=== PATIENT | female | born 1950 | race American Indian/Alaskan Native ===

== ENCOUNTER → 2020-03-15 15:44 | Outpatient (BNVA) | payer MEDICARE, SELFPAY | PROVIDERS: PCP Internal Medicine; Visit Provider Student in an Organized Health Care Education/Training Program | DX: Z76.89 Persons encountering health services in other specified circumstances (principal) | CPT/HCPCS: Q3014 ==

== ENCOUNTER → 2020-09-13 14:57 | Outpatient (BNVA) | payer MEDICARE, SELFPAY | PROVIDERS: PCP Internal Medicine; Visit Provider Student in an Organized Health Care Education/Training Program | DX: M47.816 Spondylosis without myelopathy or radiculopathy, lumbar region (principal) | CPT/HCPCS: 99212 ==

== ENCOUNTER 2021-04-24 16:00 | Outpatient (REF) | payer MEDICARE, SELFPAY ==
[2021-04-24 17:20] LABS: Alanine Aminotransferase 10 U/L (0-31); Albumin Level 3.9 g/dL (3.5-5.0); Alkaline Phosphatase 101 U/L (39-117); Anion Gap 10 (12-20); Aspartate Amino Transferase 15 U/L (5-31); Bilirubin Total 0.2 mg/dL (0.0-1.0); Blood Urea Nitrogen 17 mg/dL (9-16); Calcium 9.1 mg/dL (8.4-10.2); Carbon Dioxide 28 mmol/L (22-29); Chloride 108 mmol/L (96-108); Estimated Glomerular Filt Rate 38; Glucose Random 105 mg/dL (60-115); Potassium 4.5 mmol/L (3.3-5.1); Sodium 141 mmol/L (135-145); Total Protein 6.9 g/dL (6.5-8.0)
== END 2021-04-24 16:01 | disposition home or self-care (01) ==
LOC: HO.LAB 16:00
PROVIDERS: Visit Provider Nurse Practitioner Family
DX: M47.816 Spondylosis without myelopathy or radiculopathy, lumbar region (principal)
CPT/HCPCS: 36415; 80053

== ENCOUNTER → 2021-10-17 12:22 | Outpatient (BNVA) | payer MEDICARE, SELFPAY | PROVIDERS: PCP Internal Medicine; Visit Provider Nurse Practitioner Family | DX: M47.816 Spondylosis without myelopathy or radiculopathy, lumbar region (principal); M79.641 Pain in right hand; M79.642 Pain in left hand; M25.551 Pain in right hip | CPT/HCPCS: Q3014 ==

== ENCOUNTER 2022-01-15 14:14 | Outpatient (REF) | payer MEDICARE, SELFPAY | END 2022-01-15 14:15 | disposition home or self-care (01) | LOC: HO.LAB 14:14 | PROVIDERS: Visit Provider Nurse Practitioner Family | DX: M79.641 Pain in right hand (principal); M79.642 Pain in left hand; M25.551 Pain in right hip; M54.2 Cervicalgia | CPT/HCPCS: 99212 ==

== ENCOUNTER 2022-07-24 11:09 | Outpatient (REF) | payer MEDICARE, SELFPAY ==
--- NOTE | ~2022-07-24 | XR_ITS ---
EXAMINATION: BILATERAL HANDS, CERVICAL SPINE, AND LUMBAR SPINE. CLINICAL INFORMATION: Pain. COMPARISON: Lumbar and cervical spine studies of 11/18/2015. TECHNIQUE: 3 views of each hand, 3 view lumbar spine study, and 3 view cervical spine study. FINDINGS: LEFT HAND: There is no evidence of acute fracture or dislocation of the left hand. There is significant degenerative change of the distal interphalangeal joints most significant involving the 2nd and 3rd distal interphalangeal joints and the 1st interphalangeal joint. There is some marginal spurring present with articular irregularity. The metacarpophalangeal joints appear unremarkable. There is mild narrowing of the proximal interphalangeal joints. There is mild degenerative change of the 1st carpometacarpal joint. No evidence of erosive arthritides. RIGHT HAND: Views of the right hand do not demonstrate any evidence of acute fracture or dislocation. There is significant degenerative change seen involving the 1st interphalangeal joint and 2nd and 3rd distal interphalangeal joints with loss of joint space, marginal spurring and sclerosis, and articular irregularity. There is some joint space narrowing seen involving the 4th and 5th distal interphalangeal joints. There is degenerative change with mild spurring seen involving the 5th proximal interphalangeal joint. There is mild degenerative change of the 1st carpometacarpal joint with some joint space narrowing and sclerosis. CERVICAL SPINE: No abnormal prevertebral soft tissue swelling is seen. No acute cervical spine fracture is noted. There is narrowing of the C5-C6 and C6-C7 disc spaces with some marginal spurring present. No subluxation is seen. No destructive bony lesions. LUMBAR SPINE: There is mild scoliosis of the thoracolumbar junction convex left and with minimal distal lumbar spine scoliosis convex right. No acute fracture, spondylolisthesis, or spondylolysis is appreciated. There is significant narrowing of the L4-L5 disc space with some marginal spurring and sclerosis. There is mild narrowing of the L5-S1 disc space and of the L1-L2 disc space. There is facet arthropathy seen at the L5-S1 level. XR/XR lumbar spine 2-3V IMPRESSION: 1. Findings of osteoarthritis involving the left hand, predominantly the 1st interphalangeal joint and 2nd and 3rd distal interphalangeal joints. 2. Findings of osteoarthritis of the right hand as described. 3. Cervical spondylosis as described. 4. Lumbar spondylosis as described with disc space narrowing most significant at the L4-L5 level and facet arthropathy most significant at the L5-S1 level.
[2022-07-24 12:46] LABS: Alanine Aminotransferase 9 U/L (0-31); Aspartate Amino Transferase 13 U/L (5-31); Blood Urea Nitrogen 14 mg/dL (9-16); Estimated Glomerular Filt Rate 44
[2022-07-24 12:47] LABS: Amphetamine Screen Urine Not Detected (Not Detect); Barbiturates, Urine Not Detected (Not Detect); Benzodiazepines Screen Urine Not Detected (Not Detect); Cannabinoid Screen Urine POSITIVE (Not Detect); Cocaine Screen Urine Not Detected (Not Detect); Fentanyl, urine Not Detected (Not Detect); Opiate Screen Urine Not Detected (Not Detect); Phencyclidine Screen Urine Not Detected (Not Detect)
== END 2022-07-24 11:10 | disposition home or self-care (01) ==
LOC: HO.XRAY 11:09
PROVIDERS: PCP Internal Medicine; Visit Provider Nurse Practitioner Family
DX: M47.816 Spondylosis without myelopathy or radiculopathy, lumbar region (principal); M79.641 Pain in right hand; M79.642 Pain in left hand; M54.50 Low back pain, unspecified; M54.2 Cervicalgia; Z51.81 Encounter for therapeutic drug level monitoring; Z79.899 Other long term (current) drug therapy
CPT/HCPCS: 72040; 72100; 73130; 80307; 80373; 82565; 84450; 84460; 84520

== ENCOUNTER → 2022-08-07 16:09 | Outpatient (BNVA) | payer MEDICARE, SELFPAY | PROVIDERS: PCP Internal Medicine; Visit Provider Nurse Practitioner Family | DX: M47.816 Spondylosis without myelopathy or radiculopathy, lumbar region (principal); M47.812 Spondylosis without myelopathy or radiculopathy, cervical region; M19.041 Primary osteoarthritis, right hand; M19.042 Primary osteoarthritis, left hand | CPT/HCPCS: 99212 ==

== ENCOUNTER 2023-01-29 10:24 | Outpatient (AMB) | payer MEDICARE, SELFPAY ==
--- NOTE | 2023-01-29 10:31 | A.OFFVIS_ITS ---
Intake Vital Signs 01/29/23 10:32 Height 5 ft Weight 133 lb 13.129 oz BMI 26.1 BP 104/60 Blood Pressure Location Lt brachial Position Sitting Pulse 67 Pulse Source Pulse Oximeter Temp 96.8 F Temp Source Skin Pulse Oximetry (%) 97 Oxygen Delivery Method Room Air Intake Visit Reasons: OA Intake Note: Patient presents today to follow up on OA. 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 Name: Debi, daughter Accompanied by: Daughter Allergies ibuprofen Allergy (Unknown, Verified 01/29/23 10:34) GI upset Medication List - Last Reconciled 01/29/23 by Carlitos Meadows MD calcium carbonate-vitamin D3 600 mg-12.5 mcg (500 unit) (Calcium 600 with Vitamin D3) caps PO cyanocobalamin (vitamin B-12) 1,000 mcg PO DAILY doxepin 25 mg PO BEDTIME fluticasone furoate-vilanterol 100-25 mcg/dose (Breo Ellipta) 1 ea inhalation DAILY fluticasone propionate 50 mcg/actuation (Flonase Allergy Relief) 2 sprays intranasal DAILY loratadine (Claritin) 10 mg PO DAILY omeprazole 20 mg PO DAILY pregabalin (Lyrica) 1 tab po in the am and 3 tabs po at night; tizanidine 4 mg PO BEDTIME PRN tramadol 50 mg PO TID PRN HPI HPI Comments History of Present Illness Details The patient returns today for evaluation of her widespread pains of osteoarthritis and fibromyalgia. Her daughter translates for us. The patient complains of pain mostly at the base of the thumbs, neck region, shoulders, lower back, right buttock and down the right leg. She remains on tramadol 50 t.i.d., doxepin 25 mg at night, occasional tizanidine at night, and she has as listed Lyrica at 75 mg capsules taking 2 b.i.d.. On closer questioning she does not really recall taking the Lyrica all that regularly. The daughter thinks it causes sedation so she cut back on it but it is not clear how often the take it. Review of [place] [facility] has shown her last refill on the Lyrica was in September. The prescription was from her primary care doctor. She does seem to regularly get the tramadol on schedule. She has had a right hip replacement but says she still gets hip pain but points to the buttock region as the site of her pain. This is where she gets her lower back pain as well [facility] Medical History Spondylosis without myelopathy or radiculopathy, lumbar region Surgical History History of hip replacement, total History of knee surgery H/O lumpectomy Social History Alcohol intake: never Patient Tobacco Use Status: Former Tobacco user Tobacco use type: Cigarette Cigarettes Per Day: 10 Years Smoked: 48 e-Cigarette/Vaping Use: Never Used Review of Systems Const Details: Negative for appetite change, weight change, fever, chills, malaise and fatigue Card Details: Negative chest pain, edema and syncope Resp Details: Negative for SOB, cough and wheezing GI Details: Negative indigestion/heartburn, nausea, abdominal pain, bowel changes, diarrhea, constipation and bloody stool. Neuro Details: Negative for epilepsy, palsy, stroke, changes in speech, tingling and weakness Endo Details: Negative for polyuria and polydypsia Ralph/Lymph Details: Negative for excessive bruising or bleeding. Physical Exam Vital Signs: Last Vital Signs Temp 96.8 F 01/29/23 10:32 Pulse 67 01/29/23 10:32 BP 104/60 01/29/23 10:32 Pulse Ox 97 01/29/23 10:32 Oxygen Delivery Method Room Air 01/29/23 10:32 BMI result Body Mass Index 26.1 APPEARANCE: Patient in no acute distress EXTREMITIES: No edema, no calf tenderness, normal peripheral pulses. NEURO: Oriented and alert x3. No focal weakness. Reflexes symmetric. Gait normal. JOINT EXAM: Cervical Spine: Full range of motion. Slight pain with left and right rotation. No tenderness to palpation of the cervical spine. Tenderness to palpation of the cervical spinal muscles. Thoracic Spine:? No tenderness to palpation. Lumbar Spine:? Lumbar pain with flexion at 60 degrees with some mild right paraspinal muscle tenderness. Hands: LEFT: Pain-free range of motion. No soft tissue swelling, erythema or increased warmth. Slightly tender Heberden's nodes in the 2nd through 4th digit, bony enlargement of the IP joint. Able to make a full fist and has good scheduling administrator strength. RIGHT: Pain-free range of motion. No soft tissue swelling, erythema or increased warmth. Mildly tender Heberden's nodes in the 2nd 3rd digit, bony enlargement of the IP joint. Able to make a full fist and has good scheduling administrator streng th. Wrists:? Normal pain-free range of motion without tenderness, swelling, increased warmth or erythema. Elbows: Normal pain-free range of motion without tenderness, swelling, increased warmth or erythema. Shoulders:? Full range of motion with mild discomfort at the extremes of abduction. There is slight anterior tenderness without adenopathy, weakness, swelling, increased warmth or erythema. Hip bursa: Mild trochanteric tenderness. Knees:.?? Normal pain-free range of motion with mild patellofemoral crepitus. Slight medial compartment tenderness without effusion, swelling, increased w armth or erythema.? Ankles:.? Normal pain-free range of motion without tenderness, swelling, increased warmth or erythema. Feet:.? Normal pain-free range of motion with slight bony enlargement and tenderness at the 1st MTP joints bilaterally. No soft tissue swelling, increased warmth or erythema. Tender points:.mild tenderness to digital palpation at the occiput, trapezius, second rib, lateral epicondyle, knees, greater trochanter and gluteal area bilaterally. ? Results Reviewed Results Reviewed: [address] [address] XRay Report Signed Patient: Teressa Gonzalez MR#: [id number] : 1950 Acct:[id number] Age/Sex: 72 / F ADM Date: 07/24/[address]: Rosaura Welch NP Ordering Physician: Rosaura Welch NP Date of Service: 07/24/22 Procedure(s): XR hand RT min 3V Accession Number(s): [id number] cc: Rosaura Welch NP~ EXAMINATION: BILATERAL HANDS, CERVICAL SPINE, AND LUMBAR SPINE. CLINICAL INFORMATION: Pain. COMPARISON: Lumbar and cervical spine studies of 11/18/2015. TECHNIQUE: 3 views of each hand, 3 view lumbar spine study, and 3 view cervical spine study. FINDINGS: LEFT HAND: There is no evidence of acute fracture or dislocation of the left hand. There is significant degenerative change of the distal interphalangeal joints most significant involving the 2nd and 3rd distal interphalangeal joints and the 1st interphalangeal joint. There is some marginal spurring present with articular irregularity. The metacarpophalangeal joints appear unremarkable. There is mild narrowing of the proximal interphalangeal joints. There is mild degenerative change of the 1st carpometacarpal joint. No evidence of erosive arthritides. RIGHT HAND: Views of the right hand do not demonstrate any evidence of acute fracture or dislocation. There is significant degenerative change seen involving the 1st interphalangeal joint and 2nd and 3rd distal interphalangeal joints with loss of joint space, marginal spurring and sclerosis, and articular irregularity. There is some joint space narrowing seen involving the 4th and 5th distal interphalangeal joints. There is degenerative change with mild spurring seen involving the 5th proximal interphalangeal joint. There is mild degenerative change of the 1st carpometacarpal joint with some joint space narrowing and sclerosis. CERVICAL SPINE: No abnormal prevertebral soft tissue swelling is seen. No acute cervical spine fracture is noted. There is narrowing of the C5-C6 and C6-C7 disc spaces with some marginal spurring present. No subluxation is seen. No destructive bony lesions. LUMBAR SPINE: There is mild scoliosis of the thoracolumbar junction convex left and with minimal distal lumbar spine scoliosis convex right. No acute fracture, spondylolisthesis, or spondylolysis is appreciated. There is significant narrowing of the L4-L5 disc space with some marginal spurring and sclerosis. There is mild narrowing of the L5-S1 disc space and of the L1-L2 disc space. There is facet arthropathy seen at the L5-S1 level. XR/XR hand RT min 3V IMPRESSION: 1. Findings of osteoarthritis involving the left hand, predominantly the 1st interphalangeal joint and 2nd and 3rd distal interphalangeal joints. 2. Findings of osteoarthritis of the right hand as described. 3. Cervical spondylosis as described. 4. Lumbar spondylosis as described with disc space narrowing most significant at the L4-L5 level and facet arthropathy most significant at the L5-S1 level. Dictated By: Marty Wilson MD Signed By: <Electronically signed by Marty Wilson MD in OV> 08/02/22 1804 Assessment & Plan Assessment & Plan (1) Osteoarthritis of hands, bilateral: Code(s): M19.041 - Primary osteoarthritis, right hand; M19.042 - Primary osteoarthritis, left hand (2) Cervical spondylosis: Code(s): M47.812 - Spondylosis without myelopathy or radiculopathy, cervical region (3) Fibromyalgia: Code(s): M79.7 - Fibromyalgia (4) Encounter for medication monitoring: Comment: tramadol pain contract updated 01/15/2022 Code(s): Z51.81 - Encounter for therapeutic drug level monitoring (5) Spondylosis without myelopathy or radiculopathy, lumbar region: Code(s): M47.816 - Spondylosis without myelopathy or radiculopathy, lumbar region Plan She still has widespread pains but no signs of an active inflammatory arthritis. I think the pains are mostly from osteoarthritis involving the hands, cervical spine and lumbar spine. There are many tender points as well suggesting some underlying fibromyalgia. The tramadol seems to be helpful and is not causing her daytime sedation. On the other hand she did not like to take the Lyrica so she should discuss that with her primary doctor about continuing it. Possibly she could tolerate it more as a nighttime medicine or at a lower dose during the day. If the back pain and sciatica continue she could be evaluated by pain management or physiatry for an epidural corticosteroid injection. She declines a referral to consider that today. A follow-up in 6 months seems reasonable. Coding Level of Care Code Est Pt Level 3 (03479) Diagnoses Osteoarthritis of hands, bilateral M19.041; M19.042 Cervical spondylosis M47.812 Fibromyalgia M79.7 Encounter for medication monitoring Z51.81 Spondylosis without myelopathy or radiculopathy, lumbar region M47.816
[2023-01-29 10:32] VITALS: BP 104/60; PULSE 67; TEMP 36; O2SAT 97; BMI 26.1
== END 2023-01-29 10:57 | disposition home or self-care (01) ==
PROVIDERS: PCP Internal Medicine; Visit Provider Internal Medicine Rheumatology
DX: M19.041 Primary osteoarthritis, right hand (principal); M19.042 Primary osteoarthritis, left hand; M47.812 Spondylosis without myelopathy or radiculopathy, cervical region; M79.7 Fibromyalgia; Z51.81 Encounter for therapeutic drug level monitoring; M47.816 Spondylosis without myelopathy or radiculopathy, lumbar region
CPT/HCPCS: 99213

== ENCOUNTER → 2023-01-29 10:24 | Outpatient (BNVA) | payer MEDICARE, SELFPAY | PROVIDERS: PCP Internal Medicine; Visit Provider Internal Medicine Rheumatology | DX: M19.041 Primary osteoarthritis, right hand (principal); M19.042 Primary osteoarthritis, left hand; M47.816 Spondylosis without myelopathy or radiculopathy, lumbar region; M47.812 Spondylosis without myelopathy or radiculopathy, cervical region; M79.7 Fibromyalgia; Z96.641 Presence of right artificial hip joint; Z51.81 Encounter for therapeutic drug level monitoring; Z79.899 Other long term (current) drug therapy | CPT/HCPCS: 99212 ==

== ENCOUNTER 2023-10-09 14:06 | Outpatient (AMB) | payer MEDICARE, SELFPAY ==
--- NOTE | 2023-10-09 14:11 | MHC.OFFVIS ---
Vital Signs 10/09/23 14:15 Height 5 ft Weight 133 lb 13.129 oz BMI 26.1 BP 115/70 Blood Pressure Location Lt brachial Position Sitting Pulse 67 Pulse Source Pulse Oximeter Pulse Oximetry (%) 96 Oxygen Delivery Method Room Air Intake Visit Reasons: oa/fm/cm Intake Note: Patient presents for OA/FM. Structured Cabling Technician Required: Yes Structured Cabling Technician Services: Structured Cabling Technician Present Structured Cabling Technician Name: Debi Gonzalez (daughter) Allergies ibuprofen Allergy (Unknown, Verified 10/09/23 14:14) GI upset Medication List - Last Reconciled 10/09/23 by Aroldo Oviedo MD calcium carbonate-vitamin D3 600 mg-12.5 mcg (500 unit) (Calcium 600 with Vitamin D3) caps PO cyanocobalamin (vitamin B-12) 1,000 mcg PO DAILY doxepin 25 mg PO BEDTIME fluticasone furoate-vilanterol 100-25 mcg/dose (Breo Ellipta) 1 ea inhalation DAILY fluticasone propionate 50 mcg/actuation (Flonase Allergy Relief) 2 sprays intranasal DAILY loratadine (Claritin) 10 mg PO DAILY omeprazole 20 mg PO DAILY pregabalin (Lyrica) 75 mg PO BEDTIME tizanidine 4 mg PO BEDTIME PRN tramadol 50 mg PO BID PRN HPI Comments Details: This is a 73-year-old female with fibromyalgia and osteoarthritis who presents for follow-up. She states that she is doing about the same overall. Multiple joint and body aches. Pain in her hands, especially of her thumbs and her DIP joints, she also has pain on the outside of her right hip. She takes Lyrica 75 mg nightly and tramadol 50 mg Twice daily [facility] Medical History Spondylosis without myelopathy or radiculopathy, lumbar region Surgical History History of hip replacement, total History of knee surgery H/O lumpectomy Social History Alcohol intake: never Patient Tobacco Use Status: Former Tobacco user Tobacco use type: Cigarette Cigarettes Per Day: 10 Years Smoked: 48 e-Cigarette/Vaping Use: Never Used Review of Systems Const Reports weakness Musc Reports back pain, Reports arthralgias and Reports stiffness Neuro Reports weakness Physical Exam Vital Signs: Last Vital Signs Pulse 67 10/09/23 14:15 BP 115/70 10/09/23 14:15 Pulse Ox 96 10/09/23 14:15 Oxygen Delivery Method Room Air 10/09/23 14:15 BMI result Body Mass Index 26.1 Const General: cooperative, healthy appearing and comfortable Nutritional Appearance: overweight Orientation/consciousness: patient oriented x3 Limitations: no limitations HEENT Head: Yes normocephalic and Yes atraumatic Mouth: moist mucous membranes Resp Effort & Inspection: normal respiratory effort and able to speak in complete sentences Skin General skin exam: no rashes or lesions noted Neuro General: patient oriented x3 Extrem Other: OA changes of both hands with no active synovitis Right trochanteric bursa area tenderness with negative Brad's test Results Reviewed Results Reviewed: [address] [address] XRay Report Signed Patient: Teressa Gonzalez MR#: [id number] : 1950 Acct:[id number] Age/Sex: 72 / F ADM Date: 07/24/[address]: Rosaura Welch NP Ordering Physician: Rosaura Welch NP Date of Service: 07/24/22 Procedure(s): XR hand RT min 3V Accession Number(s): [id number] cc: Rosaura Welch NP~ EXAMINATION: BILATERAL HANDS, CERVICAL SPINE, AND LUMBAR SPINE. CLINICAL INFORMATION: Pain. COMPARISON: Lumbar and cervical spine studies of 11/18/2015. TECHNIQUE: 3 views of each hand, 3 view lumbar spine study, and 3 view cervical spine study. FINDINGS: LEFT HAND: There is no evidence of acute fracture or dislocation of the left hand. There is significant degenerative change of the distal interphalangeal joints most significant involving the 2nd and 3rd distal interphalangeal joints and the 1st interphalangeal joint. There is some marginal spurring present with articular irregularity. The metacarpophalangeal joints appear unremarkable. There is mild narrowing of the proximal interphalangeal joints. There is mild degenerative change of the 1st carpometacarpal joint. No evidence of erosive arthritides. RIGHT HAND: Views of the right hand do not demonstrate any evidence of acute fracture or dislocation. There is significant degenerative change seen involving the 1st interphalangeal joint and 2nd and 3rd distal interphalangeal joints with loss of joint space, marginal spurring and sclerosis, and articular irregularity. There is some joint space narrowing seen involving the 4th and 5th distal interphalangeal joints. There is degenerative change with mild spurring seen involving the 5th proximal interphalangeal joint. There is mild degenerative change of the 1st carpometacarpal joint with some joint space narrowing and sclerosis. CERVICAL SPINE: No abnormal prevertebral soft tissue swelling is seen. No acute cervical spine fracture is noted. There is narrowing of the C5-C6 and C6-C7 disc spaces with some marginal spurring present. No subluxation is seen. No destructive bony lesions. LUMBAR SPINE: There is mild scoliosis of the thoracolumbar junction convex left and with minimal distal lumbar spine scoliosis convex right. No acute fracture, spondylolisthesis, or spondylolysis is appreciated. There is significant narrowing of the L4-L5 disc space with some marginal spurring and sclerosis. There is mild narrowing of the L5-S1 disc space and of the L1-L2 disc space. There is facet arthropathy seen at the L5-S1 level. XR/XR hand RT min 3V IMPRESSION: 1. Findings of osteoarthritis involving the left hand, predominantly the 1st interphalangeal joint and 2nd and 3rd distal interphalangeal joints. 2. Findings of osteoarthritis of the right hand as described. 3. Cervical spondylosis as described. 4. Lumbar spondylosis as described with disc space narrowing most significant at the L4-L5 level and facet arthropathy most significant at the L5-S1 level. Dictated By: Marty Wilson MD Signed By: <Electronically signed by Marty Wilson MD in OV> 08/02/22 0593 Assessment & Plan Assessment & Plan (1) Osteoarthritis of hands, bilateral: Code(s): M19.041 - Primary osteoarthritis, right hand; M19.042 - Primary osteoarthritis, left hand Category: Medical (2) Fibromyalgia: Code(s): M79.7 - Fibromyalgia Category: Medical (3) Encounter for medication monitoring: Comment: tramadol pain contract updated 01/15/2022 Code(s): Z51.81 - Encounter for therapeutic drug level monitoring Category: Medical (4) Spondylosis without myelopathy or radiculopathy, lumbar region: Code(s): M47.816 - Spondylosis without myelopathy or radiculopathy, lumbar region Category: Medical (5) Greater trochanteric bursitis of right hip: Code(s): M70.61 - Trochanteric bursitis, right hip Category: Medical Plan She still has widespread pains but no signs of an active inflammatory arthritis. I think the pains are mostly from osteoarthritis involving the hands, cervical spine and lumbar spine. There are many tender points as well suggesting some underlying fibromyalgia. The tramadol seems to be helpful and is not causing her daytime sedation. She takes it twice a day. Advised patient to try taking 1.5 tabs a day she also takes Lyrica 75 mg nightly prescribed by her PCP. I provided patient with a printout of home exercises for greater trochanteric pain syndrome Follow-up in 6 months I spent 22 minutes reviewing patient's chart, evaluating patient, counseling patient and documenting in the chart Medications: Changed From tramadol 50 mg PO TID PRN 90 tabs 4RF pain M47.816 - Spondylosis without myelopathy or radiculopathy, lumbar region To tramadol 50 mg PO BID PRN pain M47.816 - Spondylosis without myelopathy or radiculopathy, lumbar region Coding Level of Care Code Est Pt Level 3 (52309) Diagnoses Osteoarthritis of hands, bilateral M19.041; M19.042 Fibromyalgia M79.7 Encounter for medication monitoring Z51.81 Spondylosis without myelopathy or radiculopathy, lumbar region M47.816 Greater trochanteric bursitis of right hip M70.61
[2023-10-09 14:15] VITALS: BP 115/70; PULSE 67; O2SAT 96; BMI 26.1
== END 2023-10-09 14:41 | disposition home or self-care (01) ==
PROVIDERS: PCP Internal Medicine; Visit Provider Student in an Organized Health Care Education/Training Program
DX: M19.041 Primary osteoarthritis, right hand (principal); M19.042 Primary osteoarthritis, left hand; M79.7 Fibromyalgia; Z51.81 Encounter for therapeutic drug level monitoring; M47.816 Spondylosis without myelopathy or radiculopathy, lumbar region; M70.61 Trochanteric bursitis, right hip
CPT/HCPCS: 99213

== ENCOUNTER → 2023-10-09 14:06 | Outpatient (BNVA) | payer MEDICARE, SELFPAY | PROVIDERS: PCP Internal Medicine; Visit Provider Student in an Organized Health Care Education/Training Program | DX: M19.041 Primary osteoarthritis, right hand (principal); M19.042 Primary osteoarthritis, left hand; M47.816 Spondylosis without myelopathy or radiculopathy, lumbar region; M70.61 Trochanteric bursitis, right hip; M79.7 Fibromyalgia; Z51.81 Encounter for therapeutic drug level monitoring | CPT/HCPCS: 99212 ==

== ENCOUNTER 2024-04-06 12:40 | Outpatient (AMB) | payer MEDICARE, SELFPAY ==
[2024-04-06 12:43] VITALS: BP 118/68; PULSE 58; O2SAT 96; BMI 27.1
--- NOTE | 2024-04-06 12:43 | A.OFFVIS_ITS ---
Vital Signs 04/06/24 12:43 Height 5 ft Weight 138 lb 10.732 oz BMI 27.1 BP 118/68 Blood Pressure Location Lt brachial Position Sitting Pulse 58 Pulse Source Pulse Oximeter Pulse Oximetry (%) 96 Oxygen Delivery Method Room Air Intake Visit Reasons: FMS/OA Intake Note: Patient last seen by Doctor Aroldo Oviedo on 10/09/23. Presents today for FMS/OA follow up. Patient would like to talk about Tramadol today. Accompanied by: Child Allergies ibuprofen Allergy (Unknown, Verified 04/06/24 12:46) GI upset Medication List - Last Reconciled 04/06/24 by Aroldo Oviedo MD calcium carbonate-vitamin D3 600 mg-12.5 mcg (500 unit) (Calcium with Vit D3) caps PO cyanocobalamin (vitamin B-12) 1,000 mcg PO DAILY doxepin 25 mg PO BEDTIME fluticasone furoate-vilanterol 100-25 mcg/dose (Breo Ellipta) 1 ea inhalation DAILY fluticasone propionate 50 mcg/actuation (Flonase Allergy Relief) 2 sprays intranasal DAILY loratadine (Claritin) 10 mg PO DAILY omeprazole 20 mg PO DAILY tizanidine 4 mg PO BEDTIME PRN tramadol 50 mg PO BID PRN HPI Comments Details: This is a 73-year-old female with fibromyalgia and osteoarthritis who presents for follow-up with her daughter. She states that she is doing about the same overall. Multiple joint and body aches. Pain in her hands, especially of her thumbs and her DIP joints. She stopped taking Lyrica. Per daughter it caused constipation. She continues to take tramadol Twice daily. Per daughter patient was admitted with a COPD/asthma exacerbation towards the end of February, patient's is currently admitted to the hospital with a heart attack s/p stent and should be discharged soon. [facility] Medical History Spondylosis without myelopathy or radiculopathy, lumbar region Surgical History History of hip replacement, total History of knee surgery H/O lumpectomy Social History Alcohol intake: never Patient Tobacco Use Status: Former Tobacco user Tobacco use type: Cigarette Cigarettes Per Day: 10 Years Smoked: 48 e-Cigarette/Vaping Use: Never Used Review of Systems Musc Reports arthralgias and Reports stiffness Physical Exam Vital Signs: Last Vital Signs Pulse 58 04/06/24 12:43 BP 118/68 04/06/24 12:43 Pulse Ox 96 04/06/24 12:43 Oxygen Delivery Method Room Air 04/06/24 12:43 BMI result Body Mass Index 27.1 Const General: cooperative, healthy appearing and comfortable Nutritional Appearance: overweight Orientation/consciousness: patient oriented x3 Limitations: no limitations HEENT Head: Yes normocephalic and Yes atraumatic Mouth: moist mucous membranes Resp Effort & Inspection: normal respiratory effort and able to speak in complete sentences Skin General skin exam: no rashes or lesions noted Neuro General: patient oriented x3 Extrem Other: OA changes of both hands with no active synovitis Assessment & Plan Assessment & Plan (1) Osteoarthritis of hands, bilateral: Code(s): M19.041 - Primary osteoarthritis, right hand; M19.042 - Primary osteoarthritis, left hand Category: Medical Qualifiers: Osteoarthritis type: primary Qualified Code(s): M19.041 - Primary osteoarthritis, right hand; M19.042 - Primary osteoarthritis, left hand (2) Fibromyalgia: Code(s): M79.7 - Fibromyalgia Category: Medical (3) Encounter for medication monitoring: Code(s): Z51.81 - Encounter for therapeutic drug level monitoring Category: Medical (4) Spondylosis without myelopathy or radiculopathy, lumbar region: Code(s): M47.816 - Spondylosis without myelopathy or radiculopathy, lumbar region Category: Medical Plan She still has widespread pains but no signs of an active inflammatory arthritis. I think the pains are mostly from osteoarthritis involving the hands, cervical spine and lumbar spine. There are many tender points as well suggesting some underlying fibromyalgia. The tramadol seems to be helpful and is not causing her daytime sedation. She takes it twice a day. She stopped her Lyrica due to constipation Discussed management of fibromyalgia. Per daughter patient did not have good experience with psychotherapist in the past, she feels worse afterwards. I suggested getting a sleep study to rule out EDVIN. I provided patient with a booklet on fibromyalgia management, I suggested some light exercises Tramadol refilled Follow-up in 6 months I spent 15 minutes reviewing patient's chart, evaluating patient, counseling patient and documenting in the chart Medications: Refilled tramadol 50 mg PO BID PRN 60 tabs 5RF pain M47.816 - Spondylosis without myelopathy or radiculopathy, lumbar region Coding Level of Care Code Est Pt Level 3 (57382) Diagnoses Primary osteoarthritis of both hands M19.041; M19.042 Osteoarthritis type: primary Fibromyalgia M79.7 Encounter for medication monitoring Z51.81 Spondylosis without myelopathy or radiculopathy, lumbar region M47.816
== END 2024-04-06 13:13 | disposition home or self-care (01) ==
PROVIDERS: PCP Internal Medicine; Visit Provider Student in an Organized Health Care Education/Training Program
DX: M19.041 Primary osteoarthritis, right hand (principal); M19.042 Primary osteoarthritis, left hand; M79.7 Fibromyalgia; Z51.81 Encounter for therapeutic drug level monitoring; M47.816 Spondylosis without myelopathy or radiculopathy, lumbar region
CPT/HCPCS: 99213

== ENCOUNTER → 2024-04-06 12:40 | Outpatient (BNVA) | payer MEDICARE, SELFPAY | PROVIDERS: PCP Internal Medicine; Visit Provider Student in an Organized Health Care Education/Training Program | DX: M19.041 Primary osteoarthritis, right hand (principal); M19.042 Primary osteoarthritis, left hand; M79.7 Fibromyalgia; M47.816 Spondylosis without myelopathy or radiculopathy, lumbar region; Z51.81 Encounter for therapeutic drug level monitoring | CPT/HCPCS: 99212 ==

== ENCOUNTER 2024-06-11 11:34 | Outpatient (AMB) | payer MEDICARE, SELFPAY ==
--- NOTE | 2024-06-11 11:49 | HO.NEPHOV_ITS ---
Vital Signs 06/11/24 11:51 Height 5 ft Weight 134 lb 8 oz BMI 26.3 BP 122/60 Blood Pressure Location Lt brachial Position Sitting Pulse 53 Pulse Source Pulse Oximeter Pulse Oximetry (%) 94 Oxygen Delivery Method Room Air Intake Visit Reasons: ENP: CKD stg 2- Conf Guest Relations Agent Required: Yes Guest Relations Agent Language: Stove Cleaner Services: Guest Relations Agent Offered & Declined ([facility] crib tender services refused) Accompanied by: Daughter Allergies ibuprofen Allergy (Unknown, Verified 06/11/24 11:51) GI upset HPI Comments Details: I had the privilege of seeing Teressa in consultation for CKD. She was accompanied by her daughter. She has H/O respiratory failure from COPD, needing intubation once. Recently during her hospitalization, she was found to have NSTEMI with mildly depressed EF. She also has been having anemia & pre diabetes. She says she has not seen a manufacturing maintenance technician before. She denies taking NSAID's on a regular basis, denied new bone or back pain, epistaxis, hemoptysis, photosensitivity, orthostatic symptoms, edema, hematuria or sensori neural deafness. During her recent hospitalization, her serum creatinine had gone up to 2.2 which had improved to 1.85 prior to D/C [facility] Medical History (Updated 06/11/24 @ 14:26 by Jaxon Larsen MD) Reactive depression (situational) Macrocytosis Insomnia GERD (gastroesophageal reflux disease) Anemia Weight loss Severe obesity (BMI 35.0-39.9) with comorbidity COPD exacerbation Hyperlipidemia Paroxysmal atrial fibrillation Subsequent non-ST elevation (NSTEMI) myocardial infarction SOB (shortness of breath) Hypertension Secondary hyperparathyroidism of renal origin Prediabetes NSTEMI (non-ST elevated myocardial infarction) Cardiomyopathy, nonischemic Spondylosis without myelopathy or radiculopathy, lumbar region Surgical History H/O cardiac catheterization History of hip replacement, total History of knee surgery H/O lumpectomy Family History (Updated 06/11/24 @ 11:50 by Jennifer Gonzalez MA) Brother Cancer Social History (Updated 06/11/24 @ 11:49 by Jennifer Gonzalez MA) Alcohol intake: never Patient Tobacco Use Status: Former Tobacco user Tobacco use type: Cigarette Cigarettes Per Day: 10 Years Smoked: 48 e-Cigarette/Vaping Use: Never Used Review of Systems Const All systems reviewed & are unremarkable except as noted in HPI and below Physical Exam Vital Signs: Last Vital Signs Pulse 53 06/11/24 11:51 BP 122/60 06/11/24 11:51 Pulse Ox 94 06/11/24 11:51 Oxygen Delivery Method Room Air 06/11/24 11:51 BMI result Body Mass Index 26.3 Const General: comfortable and no acute distress Orientation/consciousness: patient oriented x3 HEENT Head: Yes normocephalic Mouth: Normal oral and palatal mucosa present Eyes EOM: EOMs intact bilaterally Neck Neck: Yes supple Resp Auscultation: clear to auscultation bilaterally Cardio Jugular venous distension: no JVD Rate: regular rate GI Palpation (GI): Soft to palpation Auscultation: normal bowel sounds General: Yes no CVA tenderness Back/Spine/Pelvis Back: no CVA tenderness Skin General skin exam: no rashes or lesions noted Neuro General: patient oriented x3 and moves all extremities Extrem General: Yes no pedal edema Results Reviewed Nephrology Results: BUN 14 mg/dL (9-16) 07/24/22 Creatinine 1.20 mg/dL (0.5-1.4) 07/24/22 Assessment & Plan Assessment & Plan (1) CKD stage 3b, GFR 30-44 ml/min: Code(s): N18.32 - Chronic kidney disease, stage 3b Category: Medical (2) Hypertension: Code(s): I10 - Essential (primary) hypertension Category: Medical Qualifiers: Hypertension type: primary hypertension Qualified Code(s): I10 - Essential (primary) hypertension (3) Vitamin D deficiency: Code(s): E55.9 - Vitamin D deficiency, unspecified Category: Medical (4) Anemia in chronic kidney disease (CKD): Code(s): N18.9 - Chronic kidney disease, unspecified; D63.1 - Anemia in chronic kidney disease Category: Medical Qualifiers: Chronic kidney disease stage: stage 3 (moderate) Chronic kidney disease stage 3 subtype: stage 3b (GFR 30-44) Qualified Code(s): N18.32 - Chronic kidney disease, stage 3b; D63.1 - Anemia in chronic kidney disease Plan Teressa has CKD 3 b at baseline for some time. She recently had RUBIO on CKD due to tubular injury. She is currently euvolemic and her BP is at goal. She is not on any ACEI/ARB/Entresto. 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 She is anemic and is contributed by her CKD. I shall arrange Procrit through my office at the next visit. Further CKD W/U including imaging studies ordered. No NSAID's , low sodium and adequate hydration. She may be a candidate for SGLT2 i with time. Answered all questions. Further management is pending evolving data Orders: Orders Complete Blood Count Auto Diff Today N18.32 - Chronic kidney disease, stage 3b Ferritin Today N18.32 - Chronic kidney disease, stage 3b Blood Urea Nitrogen Today N18.32 - Chronic kidney disease, stage 3b Electrolytes Today N18.32 - Chronic kidney disease, stage 3b Calcium Today N18.32 - Chronic kidney disease, stage 3b Protein Creatinine Ratio, Ur Today N18.32 - Chronic kidney disease, stage 3b ANCA Vasculitides Today N18.32 - Chronic kidney disease, stage 3b UA and rflx microscopic Today N18.32 - Chronic kidney disease, stage 3b IRON PROFILE Today N18.32 - Chronic kidney disease, stage 3b Creatinine Today N18.32 - Chronic kidney disease, stage 3b Parathyroid Hormone Intact Today N18.32 - Chronic kidney disease, stage 3b Vitamin D 25-OH Total Today N18.32 - Chronic kidney disease, stage 3b Phosphorus Today N18.32 - Chronic kidney disease, stage 3b Immunofixation Pnl, Serum Today N18.32 - Chronic kidney disease, stage 3b US renal BI 2 Weeks N18.32 - Chronic kidney disease, stage 3b Coding Level of Care Code Est Pt Level 4 (24558) Diagnoses CKD stage 3b, GFR 30-44 ml/min N18.32 Primary hypertension I10 Hypertension type: primary hypertension Vitamin D deficiency E55.9 Anemia in stage 3b chronic kidney disease N18.32; D63.1 Chronic kidney disease stage: stage 3 (moderate) Chronic kidney disease stage 3 subtype: stage 3b (GFR 30-44)
[2024-06-11 11:51] VITALS: BP 122/60; PULSE 53; O2SAT 94; BMI 26.3
--- OUTSIDE RECORDS SUMMARY | 2024-06-11 13:56 | XMS_ITS | Clinical Summary ---
Author Organization [address] [facility] Address [address] [place] [address] Phone Care Team Providers Care Inspector Purchased Parts Name Role Phone Mahin Hall MD Primary Care Provider [phone] Allergies Active Allergy Reactions Criticality Noted Date Comments Ibuprofen Nausea And Vomiting 07/05/2015 Medications doxepin (SINEquan) 25 mg capsule Take 1 capsule (25 mg total) by mouth at bedtime. 07/01/19 24 Active folic acid (FOLVITE) 1 mg tablet Take 1 tablet (1 mg total) by mouth 1 (one) time each day. Active traMADoL (ULTRAM) 50 mg tablet Take 1 tablet (50 mg total) by mouth every 6 (six) hours if needed for moderate pain. 01/03/20 19 Active tiZANidine (ZANAFLEX) 4 mg tablet TAKE 1 TABLET BY MOUTH EVERY DAY 90 tablet 1 03/05/20 24 Active albuterol 2.5 mg /3 mL (0.083 %) nebulizer solution Take 3 mL (2.5 mg total) by nebulization every 4 (four) hours if needed for wheezing or shortness of breath. Active aspirin 81 mg EC tablet Take 1 tablet (81 mg total) by mouth 1 (one) time each day. 01/09/20 24 Active atorvastatin (LIPITOR) 80 mg tablet Take 1 tablet (80 mg total) by mouth 1 (one) time each day. 01/06/20 24 Active budesonide-fo rmoteroL (SYMBICORT) 160-4.5 mcg/actuation inhaler Inhale 2 puffs by mouth 2 (two) times a day. 03/06/20 24 Active pregabalin (LYRICA) 75 mg capsule Take 3 capsules (225 mg total) by mouth at bedtime. Active budesonide (PULMICORT) 1 mg/2 mL nebulizer solution Take 2 mL (1 mg total) by nebulization 1 (one) time each day. Rinse mouth with water after use to reduce aftertaste and incidence of candidiasis. Do not swallow. 60 mL 03/25/19 25 026 Active fluticasone propionate (FLONASE) 50 mcg/actuation nasal spray SPRAY 2 SPRAYS INTO EACH NOSTRIL EVERY DAY 48 mL 1 04/10/19 25 Active furosemide (LASIX) 20 mg tablet Take 1 tablet (20 mg total) by mouth 1 (one) time each day. Active loratadine (CLARITIN) 10 mg tablet Take 1 tablet (10 mg total) by mouth 1 (one) time each day. 30 tablet 11 05/19/19 25 026 Active pantoprazole (PROTONIX) 40 mg EC tablet Take 1 tablet (40 mg total) by mouth 2 (two) times a day before meals. Do not crush, chew, or split. 60 each 05/19/19 25 026 Active metoprolol succinate (TOPROL-XL) 50 mg 24 hr tablet Take 1 tablet (50 mg total) by mouth 1 (one) time each day. Do not crush or chew. 30 each 05/19/19 25 025 Active calcium carbonate-vit vicente D3 500 mg-3.125 mcg (125 unit) tablet per tabelt Take 500 mg by mouth 1 (one) time each day. 025 Discontinued(E ntered in Error) metoprolol tartrate (LOPRESSOR) 25 mg tablet Take 1 tablet (25 mg total) by mouth 2 (two) times a day. 09/10/19 24 025 Discontinued(S top Taking at Discharge) omeprazole (PriLOSEC) [address] capsule Take 1 capsule (20 mg total) by mouth 1 (one) time each day. 07/01/19 24 025 Discontinued cyanocobalami n (VITAMIN B-12) 1,000 mcg tablet Take 1 tablet (1,000 mcg total) by mouth 1 (one) time each day. 05/12/19 19 025 Discontinued(E ntered in Error) ipratropium-a lbuteroL (DUONEB) 0.5-2.5 mg/3 mL nebulizer solution Take 3 mL by nebulization every 4 (four) hours while awake. 360 mL 03/24/20 025 Discontinued(E ntered in Error) benzonatate (TESSALON) 100 mg capsule Take 1 capsule (100 mg total) by mouth 3 (three) times a day if needed for cough. Do not crush or chew. 42 capsule 04/20/19 25 025 Discontinued(E ntered in Error) fexofenadine (MANSI) 180 mg tablet Take 1 tablet (180 mg total) by mouth 1 (one) time each day if needed (cough). 30 tablet 04/20/19 025 Discontinued(E ntered in Error) guaiFENesin (Mucinex) 600 mg 12 hr tablet Take 2 tablets (1,200 mg total) by mouth 2 (two) times a day if needed for cough or congestion. Do not crush, chew, or split. 120 each 04/20/19 25 025 Discontinued(E ntered in Error) gabapentin (NEURONTIN) 300 mg capsule Take 1 capsule (300 mg total) by mouth 2 (two) times a day. 025 Discontinued(E ntered in Error) omeprazole (PriLOSEC) [address] capsule TAKE 1 CAPSULE BY MOUTH EVERY DAY 90 capsule 1 05/18/19 25 025 Discontinued(S top Taking at Discharge) predniSONE (DELTASONE) 20 mg tablet Take 2 tablets (40 mg total) by mouth 1 (one) time each day for 5 days. 10 each 05/20/19 25 025 benzonatate (TESSALON) 100 mg capsule Take 1 capsule (100 mg total) by mouth 3 (three) times a day if needed for cough for up to 5 days. Do not crush or chew. 15 each 05/19/19 25 025 Active Problems Problem Noted Date Diagnosed Date Cardiomyopathy, nonischemic 2024 Assessment & Plan (2024 2:33 PM EST): Unclear cause underlying. Echo not classic for Takotsubo-or at least the most common variant. Consider adding an antihistamine-Claritin or Zyrtec. Continue current metoprolol but would transition to succinate preparation 50 mg daily upon discharge. Cannot get TRICE inhibitor or ARB due to advanced renal disease. Would repeat echo in three months to assess for recovery. NSTEMI (non-ST elevated myocardial infarction) 1 Prediabetes 03/21/2024 Secondary hyperparathyroidism of renal origin Hypertension 04/17/2023 SOB (shortness of breath) 02/28/2023 Subsequent non-ST elevation (NSTEMI) myocardial infarction 02/28/2023 Paroxysmal atrial fibrillation 02/28/2023 Assessment & Plan (2024 2:37 PM EST): Continue Eliquis for CVA prophylaxis. Would transition to succinate preparation of metoprolol for rate control. Patient is back in sinus rhythm with a short burst of SVT-likely atrial tachycardia. Her A-fib was likely triggered by her acute illness. Hyperlipidemia, unspecified 02/28/2023 Assessment & Plan (2024 2:34 PM EST): Continue statin. 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 She has been on low-dose metoprolol and the heart rate was low and she went to ER and also today. I will discontinue metoprolol for now. Myocarditis 04/16/2023 2024 CHF (congestive heart failure) 04/16/2023 2024 Encounters Date Type Department Care Team Description 05/28/2024 10:30 AM EST Office Visit Internal Medicine [address] [phone] Mahin Hall MD Hospital discharge follow-up (Primary Dx); Acute hypoxemic respiratory failure (CMS/HCC); COPD exacerbation ([facility]); NSTEMI (non-ST elevated myocardial infarction) ([facility]/HCC); Macrocytic anemia; CKD (chronic kidney disease) stage 2, GFR 60-89 ml/min 05/20/2024 Telephone Internal Medicine [address] [phone] Mahin Hall MD Hospital Follow-up 05/13/2024 9:55 PM EST - 05/19/2024 3:57 PM EST Hospital Encounter [facility] Intermediate Care Unit [address] [place] [phone] Aris Mallyo MD Kokosadze, Estate, MD Japaridze, Anna, MD NSTEMI (non-ST elevated myocardial infarction) ([facility]) (Primary Dx) Discharge Disposition: Home or Self Care 04/27/2024 10:30 AM EST Office Visit [facility] Hematology Oncology [address] [place] [phone] Kym Soto PA Anemia of chronic renal failure, unspecified CKD stage (Primary Dx); Stage 3b chronic kidney disease (CMS/HCC); Chronic obstructive pulmonary disease, unspecified COPD type (CMS/HCC); Low serum vitamin B12 04/20/2024 10:45 AM EST Office Visit Internal Medicine [address] [phone] Kristopher Pate MD Hospital discharge follow-up (Primary Dx); Cough, unspecified type; COPD exacerbation (CMS/HCC) 03/21/2024 6:55 PM EST - 03/24/2024 6:48 PM EST Hospital Encounter [facility] Care [facility] [address] [place] [phone] Blaine Rodriguez DO Cheng, Ting Ho Danny, DO Ishtiaq, Rizwan, MD Kela, Kashyap Devendrabhai, MD Kokosadze, Estate, MD Nasser, Nada S, MD COPD exacerbation (CMS/HCC) (Primary Dx); NSTEMI (non-ST elevated myocardial infarction) (CMS/HCC) Discharge Disposition: Home or Self Care from Last 3 Months Immunizations Name Administration Dates Next Due Moderna SARS-CoV-2 COVID-19, mRNA, LNP-S, preservative free 06/23/2020 Surgical History Surgery Date Site/Laterality Comments BREAST LUMPECTOMY PROCEDURE: HISTORICAL BREAST LUMPECTOMY KNEE SURGERY PROCEDURE: HISTORICAL KNEE SURGERY CARDIAC CATHETERIZATION DONE ON 01/09/2024 AT [facility] INDICATIONS:SOB Medical History Medical History Date Comments Arthritis 11/06/2016 DX:Arthritis COPD, mild (CMS/HCC) 11/06/2016 DX:COPD, mi ld ([facility]) Depression 07/05/2016 DX:Depression Fibromyalgia 11/06/2016 DX:Fibromyalgia GERD (gastroesophageal reflux disease) 7 DX:GERD (gastroesophageal reflux disease); COMMENT: gastritis History of colon polyps 07/06/2015 DX:Histo ry of colon polyps Osteoarthrosis 04/23/2017 DX:Osteoarthrosi s Vitamin D deficiency 11/06/2016 DX:Vitamin D deficiency Family History Medical History Relation Name Comments No Known Problems Brother No Known Problems Daughter No Known Problems Father No Known Problems Mother No Known Problems Other No Known Problems Sister No Known Problems Son Autoimmune disease Neg Hx Breast cancer Neg Hx Colon cancer Neg Hx Coronary artery disease Neg Hx Diabetes Neg Hx Heart attack Neg Hx Heart failure Neg Hx Hyperlipidemia Neg Hx Hypertension Neg Hx Mental illness Neg Hx Prostate cancer Neg Hx Sleep apnea Neg Hx Thyroid disease Neg Hx Relation Name Status Comments Brother Daughter Father Mother Other Sister Son Social History Tobacco Use Types Packs/Day Years Used Date Smoking Tobacco: Former Cigarettes Smokeless Tobacco: Never Tobacco Cessation:Counseling Given: Not Answered Comments:Pt states quit 14-15 years ago Alcohol Use Standard Drinks/Week Comments No 0 (1 standard drink = 0.6 oz pur e alcohol) Interpersonal Safety Answer Date Record ed Physical Abuse 05/15/2024 Verbal Abuse 05/15/2024 Comments Unknown Sex and Gender Information Value Date Recorded Sex Assigned at Not on file Legal Sex Female 10:47 PM EST Gender Identity Not on file Sexual Orientation Not on file Obstetrics History Last Filed Vital Signs Vital Sign Reading Time Taken Comments Blood Pressure 138/62 05/28/2024 10:26 AM EST Pulse 72 05/28/2024 10:26 AM EST Temperature 35.7 ??C (96.3 ??F) 05/28/2024 10:[address] Respiratory Rate 16 05/19/2024 3:08 PM EST Oxygen Saturation 90% 05/28/2024 10:26 AM EST Inhaled Oxygen Concentration - - Weight 61.5 kg (135 lb 9.6 oz) 05/28/2024 10:26 AM EST Height 144.8 cm (4' 9 ) 05/28/2024 10:26 AM EST Body Mass Index 29.34 05/28/2024 10:26 AM EST Plan of Treatment Upcoming Encounters Date Type Department Care Team (Late st Contact Info) Description 06/22/2024 1:40 PM EDT Office Visit [facility] [address] [facility] [address] [place] [phone] Krsity Blackmon NP [address] [place] [phone] 07/27/2024 1:00 PM EDT Office Visit [facility] Hematology Oncology [address] [place] [phone] Kym Soto PA [address] [place] [address] Health Maintenance Due Date Last Done Comments Diabetes: Annual Foot Exam 1959 Diabetes: Annual Retina Eye Exam 1959 Zoster Vaccines (1 of 2) 1999 COVID-19 Vaccine (3 - Moderna risk series) 07/21/2020 06/23/2020, 05/26/2020 Colorectal Cancer Screening: Colonoscopy 03/02/2022 Depression Screening 03/02/2022 Hepatitis C Screening 03/02/2022 Medicare Annual Wellness Visit 03/02/2022 Osteoporosis Screening (Bone Density Screening) 03/02/2022 Social Influencers of Health Screening 03/02/2022 Diabetes: Blood Sugar Control Test (HGBA1C) 03/07/2022 01/17/2021 Influenza Vaccine (#1) 2023 01/02/2019 RSV Immunization Patients 60+ Years Old (1 - 1-dose 75+ series) 2024 Diabetes: Annual Urine Albumin-Creatinine Ratio (uACR) 10/03/2024 10/04/2023, 10/03/2023 Falls Risk Assessment 2025 2024 Diabetes: Annual GFR (Glomerular Filtration Rate) 05/19/2025 05/19/2024, 2024, 05/17/2024, Additional history exists Hypertension/CHF/CAD Annual BMP Blood Test 05/19/2025 05/19/2024, 2024, 05/17/2024, Additional history exists DTaP,Tdap,and Td Vaccines (2 - Td or Tdap) 07/04/2025 07/05/2015 Cholesterol Screening (Lipid Panel) 05/15/2029 05/15/2024 Pneumococcal Vaccine: 50+ Years Completed 03/28/2018, 07/05/2015 Breast Cancer Screening Discontinued 09/09/2018, 09/04 HIB Vaccines Aged Out No longer eligi ble based on patient's age to complete this topic HPV Vaccines Aged Out No longer eligi ble based on patient's age to complete this topic Hepatitis A Vaccines Aged Out No long er eligible based on patient's age to complete this topic Hepatitis B Vaccines Aged Out No long er eligible based on patient's age to complete this topic IPV Vaccines Aged Out No longer eligi ble based on patient's age to complete this topic MMR Vaccines Aged Out No longer eligi ble based on patient's age to complete this topic Meningococcal ACWY Vaccine Aged Out N o longer eligible based on patient's age to complete this topic Meningococcal B Vacine Aged Out No lo nger eligible based on patient's age to complete this topic RSV Immunization Patients Under 20 months Aged Out No longer eligible based on patient's age to complete this topic Varicella Vaccines Aged Out No longer eligible based on patient's age to complete this topic Procedures Procedure Name Priority Date/Time Associated Diagnosis Comments HOME O2 EVAL (DESATURATION SCREEN) Routine 05/19/2024 2:24 PM EST CBC WITH AUTO DIFFERENTIAL Routine 05/19/2024 5:40 AM EST CBC AND DIFFERENTIAL Routine 05/19/2024 5:40 AM EST BASIC METABOLIC PANEL Routine 05/19/2024 5:40 AM EST HEMOGLOBIN AND HEMATOCRIT Timed 2024 2:37 PM EST OXYGEN THERAPY, ADULT Routine 2024 8:02 AM EST BASIC METABOLIC PANEL Routine 2024 6:10 AM EST CBC WITH AUTO DIFFERENTIAL Routine 2024 6:09 AM EST CBC AND DIFFERENTIAL Routine 2024 6:09 AM EST OXYGEN THERAPY, ADULT Routine 05/17/2024 8:01 PM EST OXYGEN THERAPY, ADULT Routine 05/17/2024 11:42 AM EST OXYGEN THERAPY, ADULT Routine 05/17/2024 11:42 AM EST CBC WITH AUTO DIFFERENTIAL Routine 05/17/2024 5:36 AM EST CBC AND DIFFERENTIAL Routine 05/17/2024 5:36 AM EST BASIC METABOLIC PANEL Routine 05/17/2024 5:36 AM EST RESPIRATORY VIRUS PANEL MOLECULAR STUDY Routine 05/16/2024 4:32 PM EST ECG 12-LEAD Routine 05/16/2024 1:21 PM EST THYROID STIMULATING HORMONE WITH REFLEX TO FREE T4 AND FREE T3 Add-On 05/16/2024 5:33 AM EST CBC WITH AUTO DIFFERENTIAL Routine 05/16/2024 5:33 AM EST HEPARIN ANTI XA Routine 05/16/2024 5:33 AM EST CBC AND DIFFERENTIAL Routine 05/16/2024 5:33 AM EST BASIC METABOLIC PANEL Routine 05/16/2024 5:33 AM EST ECG 12-LEAD Routine 05/16/2024 5:16 AM EST HEPARIN ANTI XA STAT 05/15/2024 10:25 PM EST ECG 12-LEAD STAT 05/15/2024 5:49 PM EST HEPARIN ANTI XA STAT 05/15/2024 4:15 PM EST HEPARIN ANTI XA STAT 05/15/2024 10:23 AM EST LAVENDER - EDTA Routine 05/15/2024 10:17 AM EST SST - GOLD Routine 05/15/2024 10:17 AM EST EXTRA TUBES Routine 05/15/2024 10:17 AM EST TRANSTHORACIC ECHOCARDIOGRAM (TTE) LIMITED WITH CONTRAST Routine 05/15/2024 10:10 AM EST NSTEMI (non-ST elevated myocardial infarction) ([facility]/HCC) OXYGEN THERAPY, ADULT Routine 05/15/2024 8:02 AM EST D-DIMER Routine 05/15/2024 4:19 AM EST CBC WITH AUTO DIFFERENTIAL Routine 05/15/2024 4:19 AM EST LIPID PANEL WITH REFLEX TO DIRECT LDL Routine 05/15/2024 4:19 AM EST MAGNESIUM Routine 05/15/2024 4:19 AM EST BASIC METABOLIC PANEL Routine 05/15/2024 4:19 AM EST CBC AND DIFFERENTIAL Routine 05/15/2024 4:19 AM EST HEPARIN ANTI XA STAT 05/15/2024 4:19 AM EST ECG ANNOTATED 05/15/2024 ECG ANNOTATED 05/15/2024 ECG ANNOTATED 05/15/2024 TROPONIN I HIGH SENSITIVITY STAT 05/14/2024 10:23 PM EST HEPARIN ANTI XA STAT 05/14/2024 10:23 PM EST ECG 12-LEAD STAT 05/14/2024 9:34 PM EST OXYGEN THERAPY, ADULT Routine 05/14/2024 8:01 PM EST ECG 12-LEAD STAT 05/14/2024 5:38 PM EST HEPARIN ANTI XA STAT 05/14/2024 4:30 PM EST HEPARIN ANTI XA STAT 05/14/2024 1:32 PM EST LACTATE, WITH REFLEX STAT 05/14/2024 11:59 AM EST ACTIVATED PARTIAL THROMBOPLASTIN TIME STAT 05/14/2024 11:59 AM EST LACTATE, WITH REFLEX Routine 05/14/2024 8:26 AM EST TROPONIN I HIGH SENSITIVITY Routine 05/14/2024 8:26 AM EST OXYGEN THERAPY, ADULT Routine 05/14/2024 8:02 AM EST CBC WITH AUTO DIFFERENTIAL Routine 05/14/2024 6:12 AM EST BASIC METABOLIC PANEL Routine 05/14/2024 6:12 AM EST MAGNESIUM Routine 05/14/2024 6:12 AM EST CBC AND DIFFERENTIAL Routine 05/14/2024 6:12 AM EST TROPONIN I HIGH SENSITIVITY Routine 05/14/2024 6:12 AM EST ACTIVATED PARTIAL THROMBOPLASTIN TIME STAT 05/14/2024 5:30 AM EST PROTHROMBIN TIME WITH INR STAT 05/14/2024 5:30 AM EST ECG 12-LEAD STAT 05/14/2024 4:59 AM EST OXYGEN THERAPY, ADULT Routine 05/14/2024 3:43 AM EST OXYGEN THERAPY, ADULT Routine 05/14/2024 3:43 AM EST OXYGEN THERAPY, ADULT Routine 05/14/2024 3:43 AM EST LT BLUE - NA CITRATE Routine 05/14/2024 3:31 AM EST EXTRA TUBES Routine 05/14/2024 3:31 AM EST TROPONIN I HIGH SENSITIVITY Routine 05/14/2024 3:[address] CHEST WO CONTRAST STAT 05/14/2024 1:23 AM EST TROPONIN I HIGH SENSITIVITY STAT 05/14/2024 12:00 AM EST ECG 12-LEAD STAT 05/13/2024 11:02 PM EST XR CHEST 1 VIEW STAT 05/13/2024 10:53 PM EST MAGNESIUM Add-On 05/13/2024 10:39 PM EST COMPREHENSIVE METABOLIC PANEL STAT 05/13/2024 10:39 PM EST B-TYPE NATRIURETIC PEPTIDE STAT 05/13/2024 10:39 PM EST TROPONIN I HIGH SENSITIVITY STAT 05/13/2024 10:39 PM EST CBC WITH AUTO DIFFERENTIAL STAT 05/13/2024 10:39 PM EST CBC AND DIFFERENTIAL STAT 05/13/2024 10:39 PM EST RESPIRATORY VIRUS PANEL MOLECULAR STUDY STAT 05/13/2024 10:39 PM EST [facility] 30-74 MINUTES Routine 05/13/2024 9:48 PM EST MANUAL DIFFERENTIAL - SYSMEX WAM Routine 04/27/2024 11:37 AM EST Anemia of chronic disease CBC WITH AUTO DIFFERENTIAL Routine 04/27/2024 11:37 AM EST Anemia of chronic disease FERRITIN Routine 04/27/2024 11:37 AM EST Anemia of chronic disease IRON AND TIBC Routine 04/27/2024 11:37 AM EST Anemia of chronic disease VITAMIN B12 AND FOLATE Routine 11:37 AM EST Anemia of chronic disease RETICULOCYTE COUNT Routine 04/27/2024 11 :37 AM EST Anemia of chronic disease BASIC METABOLIC PANEL Routine 04/27/2024 11:37 AM EST Anemia of chronic disease CBC AND DIFFERENTIAL Routine 04/27/2024 11:37 AM EST Anemia of chronic disease CBC WITH AUTO DIFFERENTIAL Routine 03/24/2024 9:11 AM EST PHOSPHORUS Routine 03/24/2024 9:11 AM EST MAGNESIUM Routine 03/24/2024 9:11 AM EST COMPREHENSIVE METABOLIC PANEL Routine 03/24/2024 9:11 AM EST PROTHROMBIN TIME WITH INR Routine 03/24/2024 9:11 AM EST CBC AND DIFFERENTIAL Routine 03/24/2024 9:11 AM EST PEP THERAPY Routine 03/23/2024 8:03 PM EST PEP THERAPY Routine 03/23/2024 8:03 PM EST HEPARIN ANTI XA Timed 03/23/2024 4:21 PM EST HEPARIN ANTI XA Timed 03/23/2024 10:36 AM EST LAVENDER - EDTA Routine 03/23/2024 10:34 AM EST EXTRA TUBES Routine 03/23/2024 10:34 AM EST TRANSTHORACIC ECHOCARDIOGRAM (TTE) COMPLETE W/ CONTRAST Routine 03/23/2024 8:27 AM EST NSTEMI (non-ST elevated myocardial infarction) (CMS/HCC) OXYGEN THERAPY, ADULT STAT 03/23/2024 8:02 AM EST CBC WITH AUTO DIFFERENTIAL Routine 03/23/2024 3:21 AM EST CBC AND DIFFERENTIAL Routine 03/23/2024 3:21 AM EST BASIC METABOLIC PANEL Routine 03/23/2024 3:21 AM EST HEPARIN ANTI XA Timed 03/23/2024 3:21 AM EST HEPARIN ANTI XA Timed 03/22/2024 9:23 PM EST OXYGEN THERAPY, ADULT STAT 03/22/2024 8:01 PM EST HEPARIN ANTI XA STAT 03/22/2024 3:14 PM EST HEPARIN ANTI XA Timed 03/22/2024 12:21 PM EST OXYGEN THERAPY, ADULT STAT 03/22/2024 8:19 AM EST OXYGEN THERAPY, ADULT STAT 03/22/2024 8:19 AM EST POCT GLUCOSE BLOOD Routine 03/22/2024 7: 12 AM EST D-DIMER Routine 03/22/2024 6:39 AM EST HEPARIN ANTI XA STAT 03/22/2024 6:39 AM EST ACTIVATED PARTIAL THROMBOPLASTIN TIME STAT 03/22/2024 6:39 AM EST PROTHROMBIN TIME WITH INR STAT 03/22/2024 6:39 AM EST ECG 12-LEAD Routine 03/22/2024 6:10 AM EST ARTERIAL BLOOD GAS STAT 03/22/2024 5: 01 AM EST CREATINE KINASE AND CKMB Add-On 03/22/2024 4:45 AM EST CBC WITH AUTO DIFFERENTIAL Routine 03/22/2024 4:45 AM EST TROPONIN I HIGH SENSITIVITY Routine 03/22/2024 4:45 AM EST BASIC METABOLIC PANEL Routine 03/22/2024 4:45 AM EST CBC AND DIFFERENTIAL Routine 03/22/2024 4:45 AM EST CULTURE BLOOD STAT 03/21/2024 11:58 PM EST CULTURE BLOOD STAT 03/21/2024 11:48 PM EST RESPIRATORY VIRUS PANEL MOLECULAR STUDY Routine 03/21/2024 10:51 PM EST TROPONIN I HIGH SENSITIVITY STAT 03/21/2024 7:50 PM EST ECG 12-LEAD STAT 03/21/2024 7:17 PM EST XR CHEST 1 VIEW STAT 03/21/2024 7:06 PM EST PROCALCITONIN Add-On 03/21/2024 7:00 PM EST CBC WITH AUTO DIFFERENTIAL STAT 03/21/2024 7:00 PM EST TROPONIN I HIGH SENSITIVITY STAT 03/21/2024 7:00 PM EST B-TYPE NATRIURETIC PEPTIDE STAT 03/21/2024 7:00 PM EST BASIC METABOLIC PANEL STAT 03/21/2024 7:00 PM EST CBC AND DIFFERENTIAL STAT 03/21/2024 7:00 PM EST OXYGEN THERAPY, ADULT STAT 03/21/2024 6:57 PM EST OXYGEN THERAPY, ADULT STAT 03/21/2024 6:57 PM EST [facility] 30-74 MINUTES Routine 03/21/2024 6:46 PM EST ECG ANNOTATED 03/21/2024 HM URINE ALBUMIN CREATININE RATIO Routine 10/04/2023 PAULO SCREENING DIGITAL Routine 09/09/2018 4:37 PM EDT Encounter for screening mammogram for malignant neoplasm of breast from Last 3 Months or Most Recently Relevant to Health Maintenance Results * (ABNORMAL) CBC auto differential (05/19/2024 5:40 AM EST) Only the most recent of12 resultswithin the time period is included. WBC 9.4 4.8 - 10.8 K/mcL LAB HEMETOLOGY METHOD 05/19/2024 6:34 AM EST [facility] RBC 2.50(L) 3.80 - 4.80 M/mcL LAB HEMETOLOGY METHOD 05/19/2024 6:34 AM EST [facility] Hemoglobin 8.2(L) 11.5 - 16.0 g/dL LAB HEMETOLOGY METHOD 05/19/2024 6:34 AM [facility] Hematocrit 25.6(L) 35.0 - 47.0 % LAB HEMETOLOGY METHOD 05/19/2024 6:34 AM [facility] MCV 103.2(H) 79.0 - 98.0 FL LAB HEMETOLOGY METHOD 05/19/2024 6:34 AM [facility] MCH 33.1(H) 27.0 - 32.0 pcg LAB HEMETOLOGY METHOD 05/19/2024 6:34 AM [facility] MCHC 32.0 32.0 - 37.0 g/dL LAB HEMETOLOGY METHOD 05/19/2024 6:34 AM [facility] RDW 15.3(H) 11.0 - 15.0 % LAB HEMETOLOGY METHOD 05/19/2024 6:34 AM [facility] Platelets 203 130 - 400 K/mcL LAB HEMETOLOGY METHOD 05/19/2024 6:34 AM [facility] MPV 11.2(H) 7.0 - 11.0 FL LAB HEMETOLOGY METHOD 05/19/2024 6:34 AM [facility] NRBC 0.0 <1.0 % LAB HEMETOLOGY METHOD 05/19/2024 6:34 AM [facility] NRBC Absolute 0.00 <0.10 K/mcL LAB HEMETOLOGY METHOD 05/19/2024 6:34 AM [facility] Neutrophils Relative 76.4 % LAB HEMETOLOGY METHOD 05/19/2024 6:34 AM [facility] Lymphocytes Relative 13.9 % LAB HEMETOLOGY METHOD 05/19/2024 6:34 AM [facility] Monocytes Relative 8.9 % LAB HEMETOLOGY METHOD 05/19/2024 6:34 AM [facility] Eosinophils Relative 0.0 % LAB HEMETOLOGY METHOD 05/19/2024 6:34 AM [facility] Basophils Relative 0.1 % LAB HEMETOLOGY METHOD 05/19/2024 6:34 AM EST [facility] Immature Granulocytes Relative 0.7 % LAB HEMETOLOGY METHOD 05/19/2024 6:34 AM EST [facility] Neutrophils Absolute 7.16(H) 1.50 - 7.00 K/mcL LAB HEMETOLOGY METHOD 05/19/2024 6:34 AM EST [facility] Lymphocytes Absolute 1.30 1.00 - 5.00 K/mcL LAB HEMETOLOGY METHOD 05/19/2024 6:34 AM EST [facility] Monocytes Absolute 0.83 0.20 - 1.00 K/mcL LAB HEMETOLOGY METHOD 05/19/2024 6:34 AM EST [facility] Eosinophils Absolute 0.00 0.00 - 0.50 K/mcL LAB HEMETOLOGY METHOD 05/19/2024 6:34 AM [facility] Basophils Absolute 0.01 0.00 - 0.20 K/mcL LAB HEMETOLOGY METHOD 05/19/2024 6:34 AM EST [facility] Immature Granulocytes Absolute 0.07(H) 0.00 - 0.03 K/mcL LAB HEMETOLOGY METHOD 05/19/2024 6:34 AM EST [facility] Blood Venous blood specimen / Unknown Venipuncture / Unknown 05/19/2024 5:40 AM EST 05/19/2024 6:16 AM EST us Kym Angulo MD LAB BLOOD ORDERABLES Final Res ult [facility] [address] [place] [address], * (ABNORMAL) Basic metabolic panel (05/19/2024 5:40 AM EST) Only the most recent of10 resultswithin the time period is included. Sodium 140 133 - 145 mmol/L LAB CHEMISTRY METHOD 05/19/2024 7:22 AM [facility] Potassium 5.5 3.5 - 5.5 mmol/L LAB CHEMISTRY METHOD 05/19/2024 7:22 AM [facility] Chloride 112(H) 96 - 110 mmol/L LAB CHEMISTRY METHOD 05/19/2024 7:22 AM [facility] CO2 26 21 - 32 mmol/L LAB CHEMISTRY METHOD 05/19/2024 7:22 AM [facility] Anion Gap 2(L) 3 - 11 LAB CHEMISTRY METHOD 05/19/2024 7:22 AM [facility] Glucose 117(H) 70 - 100 mg/dL LAB CHEMISTRY METHOD 05/19/2024 7:22 AM [facility] BUN 52(H) 5 - 25 mg/dL LAB CHEMISTRY METHOD 05/19/2024 7:22 AM [facility] Creatinine 1.85(H) 0.50 - 1.10 mg/dL LAB CHEMISTRY METHOD 05/19/2024 7:22 AM [facility] eGFR 28(L) >=60 mL/min/1. 73m2 LAB CHEMISTRY METHOD 05/19/2024 7:22 AM [facility] Comment:Calculation based on the??Chronic Kidney Disease Epidemiology Collaboration (CKD-EPI) equation refit??without adjustment for race. BUN/Creatinine Ratio 28.1 LAB CHEMISTRY METHOD 05/19/2024 7:22 AM [facility] Calcium 9.1 8.5 - 10.5 mg/dL LAB CHEMISTRY METHOD 05/19/2024 7:22 AM [facility] Blood Venous blood specimen / Unknown Venipuncture / Unknown 05/19/2024 5:40 AM EST 05/19/2024 6:16 AM EST us Kym Angulo MD LAB BLOOD ORDERABLES Final Res ult [facility] [address] [place] [address], [place] [phone] * (ABNORMAL) Hemoglobin and hematocrit (2024 2:37 PM EST) [facility] Hemoglobin 8.3(L) 11.5 - 16.0 g/dL LAB HEMETOLOGY METHOD 2024 2:48 PM EST [facility] Hematocrit 26.0(L) 35.0 - 47.0 % LAB HEMETOLOGY METHOD 2024 2:48 PM EST [facility] Blood Venous blood specimen / Unknown Venipuncture / Unknown 2024 2:37 PM EST 2024 2:41 PM EST us Kym Angulo MD LAB BLOOD ORDERABLES Final Res ult [facility] [address] [place] [address], [place] [phone] * Respiratory virus panel molecular study (05/16/2024 4:32 PM EST) Only the most recent of3 resultswithin the time period is included. [facility] Adenovirus Detection by PCR Not Detected Not Detected LAB MICROBIOLOGY METHOD 05/16/2024 5:49 PM EST [facility] Influenza A PCR Not Detected Not Detected LAB MICROBIOLOGY METHOD 05/16/2024 5:49 PM EST [facility] Influenza B PCR Not Detected Not Detected LAB MICROBIOLOGY METHOD 05/16/2024 5:49 PM EST [facility] Coronavirus 229E Not Detected Not Detected LAB MICROBIOLOGY METHOD 05/16/2024 5:49 PM EST [facility] Coronavirus HKU1 Not Detected Not Detected LAB MICROBIOLOGY METHOD 05/16/2024 5:49 PM EST [facility] Coronavirus OC43 Not Detected Not Detected LAB MICROBIOLOGY METHOD 05/16/2024 5:49 PM EST [facility] Coronavirus NL63 Not Detected Not Detected LAB MICROBIOLOGY METHOD 05/16/2024 5:49 PM [facility] Parainfluenza Virus 1 Not Detected Not Detected LAB MICROBIOLOGY METHOD 05/16/2024 5:49 PM [facility] Parainfluenza Virus 2 Not Detected Not Detected LAB MICROBIOLOGY METHOD 05/16/2024 5:49 PM [facility] Parainfluenza Virus 3 Not Detected Not Detected LAB MICROBIOLOGY METHOD 05/16/2024 5:49 PM [facility] Parainfluenza Virus 4 Not Detected Not Detected LAB MICROBIOLOGY METHOD 05/16/2024 5:49 PM [facility] RSV PCR Not Detected Not Detected LAB MICROBIOLOGY METHOD 05/16/2024 5:49 PM [facility] Human Metapneumovirus A and B Not Detected Not Detected LAB MICROBIOLOGY METHOD 05/16/2024 5:49 PM [facility] Rhinovirus/Entero virus Not Detected Not Detected LAB MICROBIOLOGY METHOD 05/16/2024 5:49 PM [facility] Bordetella pertussis Not Detected Not Detected LAB MICROBIOLOGY METHOD 05/16/2024 5:49 PM [facility] Bordetella parapertussis Not Detected Not Detected LAB MICROBIOLOGY METHOD 05/16/2024 5:49 PM [facility] Mycoplasma pneumo by PCR Not Detected Not Detected LAB MICROBIOLOGY METHOD 05/16/2024 5:49 PM [facility] Chlamydia pneumoniae Not Detected Not Detected LAB MICROBIOLOGY METHOD 05/16/2024 5:49 PM [facility] SARS COV-2 Not Detected Not Detected LAB MICROBIOLOGY METHOD 05/16/2024 5:49 PM [facility] Swab Nasopharyngeal structure / Unknown Non-blood Collection / Unknown 05/16/2024 4:32 PM EST 05/16/2024 4:55 PM EST Narrative [facility] - 05/16/2024 5:49 PM EST Testing was performed using the [employer] AB Respiratory Pathogen PCR Assay. All results must be correlated with the clinical findings. Results should not be used as the sole basis for diagnosis. False Negative results may occur from the presence of sequence variants in the region targeted by the assay or the presence of inhibitors. Results may be affected by concurrent antiviral/antimicrobial therapy or levels of organisms that are below the limit of detection. Edward Maurice MD LAB MICROBIOLOGY - GENERAL O RDERABLES Final Result Performing Organization Address City/[facility] Hospital/ZIP Co de Phone Number [facility] [address] [place] [address], [place] [phone] * ECG 12 lead (05/16/2024 1:21 PM EST) Only the most recent of9 resultswithin the time period is included. Ventricular Rate ECG 85 BPM [facility] Atrial Rate 85 BPM [facility] P-R Interval 180 ms GEM[facility] QRS Duration 82 ms GEMUSE Q-T Interval 448 ms GEMUSE QTc 533 ms GEMUSE P Wave [place] 71 degrees GEMUSE R [place] 37 degrees GEMUSE T [place] -178 degrees GEMUSE ECG Interpretation Critical Test Result: Long QTc Normal sinus rhythm ST and Marked T wave abnormality, consider anterolateral ischemia Prolonged QT Abnormal ECG When compared with ECG of 16-MAY-2024 05:16, (unconfirmed) Sinus rhythm has replaced Atrial fibrillation Confirmed by MARQUITA PRADO ([id number]) on 05/16/2024 3:38:31 PM G[facility] 05/16/2024 1:21 PM EST 05/16/2024 3:38 PM EST Edward Maurice MD ECG ORDERABLES Final Result Performing Organization Address City/[facility]/ZIP Co de Phone Number [facility] * Thyroid stimulating hormone with reflex to free t4 and free t3 (05/16/2024 5:33 AM EST) TSH 0.59 0.40 - 4.00 mcIU/mL LAB CHEMISTRY METHOD 05/16/2024 7:46 AM EST [facility] Blood Venous blood specimen / Unknown Venipuncture / Unknown 05/16/2024 5:33 AM EST 05/16/2024 7:01 AM EST Orlando CRAWFORD LAB BLOOD ORDERABLES Final Res ult Performing Organization Address [facility] Co de Phone Number [facility] [address] [place] [address], * Anti-Xa - Every 6 Hours (05/16/2024 5:33 AM EST) Only the most recent of15 resultswithin the time period is included. Heparin Anti-Xa 0.35 0.30 - 0.70 I Unit/mL LAB COAGULATION METHOD 05/16/2024 7:25 AM EST [facility] Blood Venous blood specimen / Unknown Venipuncture / Unknown 05/16/2024 5:33 AM EST 05/16/2024 7:00 AM EST Narrative [facility] - 05/16/2024 7:25 AM EST Therapeutic range listed is for Unfractionated Heparin. LMW Heparin therapeutic range: 0.50-1.20 IU/mL Edward Maurice MD LAB BLOOD ORDERABLES Final R esult Performing Organization Address [facility]/ZIP Co de Phone Number [facility] [address] [place] [address], [place] [phone] * SST tube (05/15/2024 10:17 AM EST) Extra Tube Hold for add-ons. 05/15/2024 12:02 PM EST [facility] Comment:Auto resulted. Blood Venous blood specimen / Unknown Venipuncture / Unknown 05/15/2024 10:17 AM EST 05/15/2024 10:31 AM EST Edward Maurice MD LAB BLOOD ORDERABLES Final R esult Performing Organization Address City/[facility] Hospital/ZIP Co de Phone Number [facility] [address] [place] [address], [place] [phone] * Lavender tube (05/15/2024 10:17 AM EST) Only the most recent of2 resultswithin the time period is included. Pathologist [facility] Extra Tube Hold for add-ons. 05/15/2024 12:02 PM EST [facility] Comment:Auto resulted. Blood Venous blood specimen / Unknown Venipuncture / Unknown 05/15/2024 10:17 AM EST 05/15/2024 10:31 AM EST Edward Maurice MD LAB BLOOD ORDERABLES Final R esult Performing Organization Address [facility] Co de Phone Number [facility] [address] [place] [address], [place] [phone] * (ABNORMAL) TRANSTHORACIC ECHOCARDIOGRAM (TTE) LIMITED WITH CONTRAST (05/15/2024 10:10 AM EST) [facility] BSA 1.62 m2 CV PACS LVIDD 4.3 3.8 - 5.2 cm CV PACS LVIDD Index 2.69 cm/m2 CV PACS LVIDS 3.8(A) 2.2 - 3.5 cm CV PACS LVIDS Index 2.38 cm/m2 CV PACS LVPWD 0.6 0.6 - 0.9 cm CV PACS IVSD 0.8 0.6 - 0.9 cm CV PACS LV Mass 2D 89 66 - 150 g CV PACS LV Mass Index 2D 55 44 - 88 g/m2 CV PACS Relative Wall Thickness ratio 0.28 0.22 - 0.42 CV PACS FS 12 % CV PACS Anatomical Region Laterality Modality Ultrasound Narrative 05/15/2024 10:32 AM EST ?Left ventricle cavity size is normal. Wall thickness is normal. Systolic function is mildly decreased with an ejection fraction of 40-45%. Mild global LV hypokinesis is present witth relative sparing of the basal cummings. Consider stress myopathy. Diastolic function not assessed. ?Compared to the echo from 02/2024, the LVEF has decreased. Left Ventricle Left ventricle cavity size is normal. Wall thickness is normal. Systolic function is mildly decreased with an ejection fraction of 40-45%. Mild global LV hypokinesis is present witth relative sparing of the basal cummings. Consider stress myopathy. Diastolic function not assessed. Study Details Overall the study quality was adequate. Definity contrast was given to enhance imaging. Study was difficult due to: procedure performed with the patient in a supine position. us Estrenetta Maurice MD CV ECHO PROCEDURES Final Res ult * Lipid panel with reflex to direct LDL (05/15/2024 4:19 AM EST) Cholesterol 118 0 - 200 mg/dL LAB CHEMISTRY METHOD 05/15/2024 5:48 AM [facility] Triglycerides 68 0 - 150 mg/dL LAB CHEMISTRY METHOD 05/15/2024 5:48 AM [facility] HDL 57 >=40 mg/dL LAB CHEMISTRY METHOD 05/15/2024 5:48 AM [facility] LDL Calculated 47 0 - 100 mg/dL LAB CHEMISTRY METHOD 05/15/2024 5:48 AM [facility] VLDL Cholesterol Cody 13.6 mg/dL LAB CHEMISTRY METHOD 05/15/2024 5:48 AM [facility] Non HDL Chol. (LDL+VLDL) 61 <145 mg/dL LAB CHEMISTRY METHOD 05/15/2024 5:48 AM [facility] Chol/HDL Ratio 2.1 0.0 - 4.4 LAB CHEMISTRY METHOD 05/15/2024 5:48 AM [facility] Blood Venous blood specimen / Unknown Venipuncture / Unknown 05/15/2024 4:19 AM EST 05/15/2024 5:12 AM EST Edward Maurice MD LAB BLOOD ORDERABLES Final R esult Performing Organization Address [facility] Co de Phone Number [facility] [address] [place] [address], [place] [phone] * (ABNORMAL) D-Dimer (05/15/2024 4:19 AM EST) Only the most recent of2 resultswithin the time period is included. D-Dimer, Quant (D-DU) 270(H) <=230 ng/mL DDU LAB COAGULATION METHOD 05/15/2024 5:31 AM EST [facility] Blood Venous blood specimen / Unknown Venipuncture / Unknown 05/15/2024 4:19 AM EST 05/15/2024 5:12 AM EST Narrative [facility] - 05/15/2024 5:31 AM EST D-Dimer <230 ng/mL (D-Dimer units) is the threshold for exclusion of DVT/PE. D-Dimer may be elevated in: Critically ill, severely infected, trauma patients, DIC, acute CVA, acute MO, unstable angina, AF, old age, , and smoking. D-Dimer may be decreased with: Initiation of heparin therapy and oral anticoagulants. us Orlando CRAWFORD LAB BLOOD ORDERABLES Final Res ult Performing Organization Address City/[facility] Hospital/ZIP Co de Phone Number [facility] [address] [place] [address], [place] [phone] * Magnesium (05/15/2024 4:19 AM EST) Only the most recent of4 resultswithin the time period is included. Pathologist [facility] Magnesium 2.5 1.9 - 2.6 mg/dL LAB CHEMISTRY METHOD 05/15/2024 5:48 AM EST [facility] Blood Venous blood specimen / Unknown Venipuncture / Unknown 05/15/2024 4:19 AM EST 05/15/2024 5:12 AM EST Aris Malloy MD LAB BLOOD ORDERABLES Final Res ult Performing Organization Address [facility]/ZIP Co de Phone Number [facility] [address] [place] [address], [place] [phone] * ECG-Annotated (05/15/2024) Only the most recent of4 resultswithin the time period is included. Provider Onbase ECG ORDERABLES Final Result * (ABNORMAL) Troponin I high sensitivity (05/14/2024 10:23 PM EST) Only the most recent of9 resultswithin the time period is included. [facility] High Sensitivity Troponin I 3,394(HH) <=54 ng/L LAB CHEMISTRY METHOD 05/14/2024 11:19 PM EST [facility] Blood Venous blood specimen / Unknown Venipuncture / Unknown 05/14/2024 10:23 PM EST 05/14/2024 10:23 PM EST Narrative [facility] - 05/14/2024 11:19 PM EST High levels of biotin in samples may falsely decrease hsTroponin values. ??Use caution when interpreting hsTroponin results in patients taking biotin who exhibit renal impairment (eGFR <60) or in patients taking more than 20 mg/day of biotin. Rose Liriano NP LAB BLOOD ORDERABLES Fin al Result Performing Organization Address [facility]/ZIP Co de Phone Number [facility] [address] [place] [address], [place] [phone] * Lactate, with reflex (05/14/2024 11:59 AM EST) Only the most recent of2 resultswithin the time period is included. [facility] LACTIC ACID 1.6 0.4 - 2.0 mmol/L LAB CHEMISTRY METHOD 05/14/2024 12:53 PM EST [facility] Blood Venous blood specimen / Unknown Venipuncture / Unknown 05/14/2024 11:59 AM EST 05/14/2024 12:16 PM EST Edward Maurice MD LAB BLOOD ORDERABLES Final R esult Performing Organization Address City/[facility] Hospital/ZIP Co de Phone Number [facility] [address] [place] [address], [place] [phone] * (ABNORMAL) Activated Partial Thromboplastin Time - Every 6 Hours (05/14/2024 11:59 AM EST) Only the most recent of3 resultswithin the time period is included. aPTT 199.8(HH) 24.1 - 39.3 sec LAB COAGULATION METHOD 05/14/2024 12:58 PM EST [facility] Blood Venous blood specimen / Unknown Venipuncture / Unknown 05/14/2024 11:59 AM EST 05/14/2024 12:16 PM EST Aris Malloy MD LAB BLOOD ORDERABLES Final Res ult Performing Organization Address [facility]/ZIP Co de Phone Number [facility] [address] [place] [address], [place] [phone] * Prothrombin Time with INR - STAT (05/14/2024 5:30 AM EST) Only the most recent of3 resultswithin the time period is included. Protime 11.3 10.6 - 13.9 sec LAB COAGULATION METHOD 05/14/2024 7:39 AM EST [facility] INR 0.9 LAB COAGULATION METHOD 05/14/2024 7:39 AM EST [facility] Blood Venous blood specimen / Unknown Venipuncture / Unknown 05/14/2024 5:30 AM EST 05/14/2024 6:21 AM EST Aris Malloy MD LAB BLOOD ORDERABLES Final Res ult Performing Organization Address City/[facility] Hospital/ZIP Co de Phone Number [facility] [address] [place] [address], [place] [phone] * Light blue tube (05/14/2024 3:31 AM EST) Extra Tube Hold for add-ons. 05/14/2024 5:01 AM EST [facility] Comment:Auto resulted. Blood Venous blood specimen / Unknown Venipuncture / Unknown 05/14/2024 3:31 AM EST 05/14/2024 3:45 AM EST Aris Malloy MD LAB BLOOD ORDERABLES Final Res ult Performing Organization Address [facility] de Phone Number [facility] [address] [place] [address], [place] [phone] * CT Chest wo Contrast (05/14/2024 1:23 AM EST) Anatomical Region Laterality Modality Body Computed Tomogra phy 05/14/2024 2:09 AM EST Impressions 05/14/2024 2:09 AM EST 1. Trace bilateral pleural effusions are nonspecific. 2. Emphysema. 3. 3 mm right upper lobe pulmonary nodule. Consider 1 year follow-up chest CT if there are risk factors for lung cancer. This document has been electronically signed by: Will Nash MD on 05/14/2024 02:09:17 Narrative 05/14/2024 2:09 AM EST INDICATION: Dyspnea, chronic, unclear etiology CT chest without contrast Comparison: None Findings: Breathing artifact especially at the lung bases. Heart size is approaching the upper limits in size. No pericardial effusion. Enlarged pulmonary artery. This can be seen with pulmonary artery hypertension. The visualized thyroid and mediastinum are unremarkable. There is likely mild atelectasis at the lung bases. No definite consolidation. No pleural effusion. Biapical emphysema. 3 mm subpleural nodule right upper lobe image 27:3. Trace bilateral pleural effusions. Mild bronchial wall thickening. Small calcification at the gallbladder fundus. No inflammatory changes. No acute fractures. Procedure Note Will Nash MD - 05/14/2024 INDICATION: Dyspnea, chronic, unclear etiology CT chest without contrast Comparison: None Findings: Breathing artifact especially at the lung bases. Heart size is approaching the upper limits in size. No pericardial effusion. Enlarged pulmonary artery. This can be seen with pulmonary artery hypertension. The visualized thyroid and mediastinum are unremarkable. There is likely mild atelectasis at the lung bases. No definite consolidation. No pleural effusion. Biapical emphysema. 3 mm subpleural nodule right upper lobe image 27:3. Trace bilateral pleural effusions. Mild bronchial wall thickening. Small calcification at the gallbladder fundus. No inflammatory changes. No acute fractures. IMPRESSION: 1. Trace bilateral pleural effusions are nonspecific. 2. Emphysema. 3. 3 mm right upper lobe pulmonary nodule. Consider 1 year follow-upchest CT if there are risk factors for lung cancer. This document has been electronically signed by: Will Valverde MD on 05/14/2024 02:09:17 us Valerie CRAWFORD IMG CT PROCEDURES Final Resul t * XR Chest 1 View (05/13/2024 10:53 PM EST) Only the most recent of2 resultswithin the time period is included. Anatomical Region Laterality Modality Body Radiographic Althea ging 05/14/2024 9:07 AM EST Impressions 05/14/2024 9:10 AM EST Bilateral lower lung peribronchial thickening consistent with bronchitis versus atypical or viral pneumonia. Code 16172 -------- FINAL REPORT -------- Dictated By: Anibal Christie Dictated Date: 05/14/2024 09:07 ET Assigned Physician: Anibal Christie Reviewed and Electronically Signed By: Anibal Christie Signed Date: 05/14/2024 09:10 ET Workstation ID: [id number] Transcribed By: Self Edit Transcribed Date: 05/14/2024 09:07 ET Narrative 05/14/2024 9:10 AM EST HISTORY: The patient is a 73-year-old female with dyspnea. FINDINGS: Sitting AP portable radiograph of the chest demonstrates normal appearance of the bony structures. The cardiac and mediastinal contours are within normal limits. Peribronchial thickening is present in the lower lungs bilaterally consistent with bronchitis versus atypical or viral pneumonia. There is no consolidation, mass, pulmonary vascular congestion, or pleural effusion. Procedure Note Anibal Christie MD - 05/14/2024 HISTORY: The patient is a 73-year-old female with dyspnea. FINDINGS: Sitting AP portable radiograph of the chest demonstrates normalappearance of the bony structures. The cardiac and mediastinal contoursare within normal limits. Peribronchial thickening is present in the lowerlungs bilaterally consistent with bronchitis versus atypical or viralpneumonia. There is no consolidation, mass, pulmonary vascular congestion,or pleural effusion. IMPRESSION: Bilateral lower lung peribronchial thickening consistent with bronchitisversus atypical or viral pneumonia. Code 71119 -------- FINAL REPORT -------- Dictated By: Anibal Christie Dictated Date: 05/14/2024 09:07 ET Assigned Physician: Anibal Christie Reviewed and Electronically Signed By: Anibal Christie Signed Date: 05/14/2024 09:10 ET Workstation ID: [id number] Transcribed By: Self Edit Transcribed Date: 05/14/2024 09:07 ET us Valerie CRAWFORD IMG XR PROCEDURES Final Resul t * B-type natriuretic peptide (05/13/2024 10:39 PM EST) Only the most recent of2 resultswithin the time period is included. BNP 90 <=100 pcg/mL LAB CHEMISTRY METHOD 05/13/2024 11:53 PM EST [facility] ([email or web address] Blood Venous blood specimen / Unknown Venipuncture / Unknown 05/13/2024 10:39 PM EST 05/13/2024 11:21 PM EST us Valerie CRAWFORD LAB BLOOD ORDERABLES Final Re sult [facility] [address] [place] [address], * (ABNORMAL) Comprehensive metabolic panel (05/13/2024 10:39 PM EST) Only the most recent of2 resultswithin the time period is included. Sodium 140 133 - 145 mmol/L LAB CHEMISTRY METHOD 05/14/2024 12:02 AM [facility] Potassium 4.0 3.5 - 5.5 mmol/L LAB CHEMISTRY METHOD 05/14/2024 12:02 AM [facility] Chloride 111(H) 96 - 110 mmol/L LAB CHEMISTRY METHOD 05/14/2024 12:02 AM [facility] CO2 21 21 - 32 mmol/L LAB CHEMISTRY METHOD 05/14/2024 12:02 AM [facility] Anion Gap 8 3 - 11 LAB CHEMISTRY METHOD 05/14/2024 12:02 AM [facility] Glucose 201(H) 70 - 100 mg/dL LAB CHEMISTRY METHOD 05/14/2024 12:02 AM [facility] BUN 24 5 - 25 mg/dL LAB CHEMISTRY METHOD 05/14/2024 12:02 AM [facility] Creatinine 1.43(H) 0.50 - 1.10 mg/dL LAB CHEMISTRY METHOD 05/14/2024 12:02 AM [facility] eGFR 39(L) >=60 mL/min/1. 73m2 LAB CHEMISTRY METHOD 05/14/2024 12:02 AM [facility] Comment:Calculation based on the??Chronic Kidney Disease Epidemiology Collaboration (CKD-EPI) equation refit??without adjustment for race. BUN/Creatinine Ratio 16.8 LAB CHEMISTRY METHOD 05/14/2024 12:02 AM [facility] Calcium 9.2 8.5 - 10.5 mg/dL LAB CHEMISTRY METHOD 05/14/2024 12:02 AM [facility] AST (SGOT) 21 10 - 42 unit/L LAB CHEMISTRY METHOD 05/14/2024 12:02 AM [facility] ALT (SGPT) 16 10 - 60 unit/L LAB CHEMISTRY METHOD 05/14/2024 12:02 AM [facility] Alkaline Phosphatase 141(H) 42 - 121 unit/L LAB CHEMISTRY METHOD 05/14/2024 12:02 AM [facility] Total Protein 6.9 6.0 - 8.0 g/dL LAB CHEMISTRY METHOD 05/14/2024 12:02 AM [facility] Albumin 3.7 3.2 - 5.0 g/dL LAB CHEMISTRY METHOD 05/14/2024 12:02 AM [facility] Total Bilirubin 0.4 0.0 - 1.4 mg/dL LAB CHEMISTRY METHOD 05/14/2024 12:02 AM [facility] Blood Venous blood specimen / Unknown Venipuncture / Unknown 05/13/2024 10:39 PM EST 05/13/2024 11:21 PM EST us Valerie CRAWFORD LAB BLOOD ORDERABLES Final Re sult Performing Organization Address [facility]/State/ZIP Co de Phone Number [facility] [address] [place] [address], * [facility] 30-74 MINUTES (05/13/2024 9:48 PM EST) Narrative Jose Ennis DO - 05/13/2024 9:48 PM EST YVETTE Daly ? 05/14/2024 ??3:24 AM Critical Care Performed by: YVETTE Daly Authorized by: Allison Reveles DO ?? Critical care provider statement: ??Critical care time (minutes): ??45 ??Critical care was necessary to treat or prevent imminent or life-threatening deterioration of the following conditions: ??Acute mi and respiratory failure ??Critical care was time spent personally by me on the following activities: ??Discussions with consultants, examination of patient, obtaining history from patient or surrogate, evaluation of patient's response to treatment, ordering and performing treatments and interventions, ordering and review of laboratory studies, ordering and review of radiographic studies, pulse oximetry, re-evaluation of patient's condition and review of old charts ??I assumed direction of critical care for this patient from another provider in my specialty: no ?Care discussed with: admitting provider ?? Allison Hart Abdirizak DO IN CLINIC/BEDSIDE ORDERAB LES Final Result * (ABNORMAL) Vitamin B12 and folate (04/27/2024 11:37 AM EST) [facility] Vitamin B-12 1,822(H) 250 - 900 pcg/mL LAB CHEMISTRY METHOD 04/27/2024 2:18 PM EST [facility] Folate 8.3 2.8 - 17.0 ng/ml LAB CHEMISTRY METHOD 04/27/2024 2:18 PM EST [facility] Blood Venous blood specimen / Unknown Venipuncture / Unknown 04/27/2024 11:37 AM EST 04/27/2024 1:32 PM EST Kym CRAWFORD LAB BLOOD ORDERABLES Final Resul t [facility] [address] [place] [address], [place] [phone] * (ABNORMAL) Manual differential (04/27/2024 11:37 AM EST) [facility] Neutrophils % 41.0 % LAB HEMETOLOGY METHOD 04/27/2024 2:36 PM EST [facility] Lymphocytes % 23.0 % LAB HEMETOLOGY METHOD 04/27/2024 2:36 PM [facility] Monocytes % 6.0 % LAB HEMETOLOGY METHOD 04/27/2024 2:36 PM EST [facility] Eosinophils % 30.0 % LAB HEMETOLOGY METHOD 04/27/2024 2:36 PM EST [facility] Basophils % 0.0 % LAB HEMETOLOGY METHOD 04/27/2024 2:36 PM EST [facility] Neutrophils Absolute Manual 8.77(H) 1.50 - 7.00 K/mcL LAB HEMETOLOGY METHOD 04/27/2024 2:36 PM EST [facility] Lymphocytes Absolute 4.92 1.00 - 5.00 K/mcL LAB HEMETOLOGY METHOD 04/27/2024 2:36 PM EST [facility] Monocytes Absolute Manual 1.28(H) 0.20 - 1.00 K/mcL LAB HEMETOLOGY METHOD 04/27/2024 2:36 PM EST [facility] Eosinophils Absolute Manual 6.42(H) 0.00 - 0.50 K/mcL LAB HEMETOLOGY METHOD 04/27/2024 2:36 PM EST [facility] Basophils Absolute Manual 0.00 0.00 - 0.20 K/mcL LAB HEMETOLOGY METHOD 04/27/2024 2:36 PM EST [facility] Rbc Morphology Consistent with indices Consistent with indices, Normal for LAB HEMETOLOGY METHOD 04/27/2024 2:36 PM EST [facility] Platelet Morphology - WAM See Note(A) Normal LAB HEMETOLOGY METHOD 04/27/2024 2:36 PM EST [facility] Comment:PLT: Normal Blood Venous blood specimen / Unknown Venipuncture / Unknown 04/27/2024 11:37 AM EST 04/27/2024 1:32 PM EST us Kym CRAWFORD LAB BLOOD ORDERABLES Final Resul t [facility] [address] [place] [address], * (ABNORMAL) Iron and TIBC (04/27/2024 11:37 AM EST) Pathologist [facility] Iron 81 40 - 150 mcg/dL LAB CHEMISTRY METHOD 04/27/2024 1:56 PM EST [facility] TIBC 248(L) 250 - 450 mcg/dL LAB CHEMISTRY METHOD 04/27/2024 1:56 PM [facility] Iron Saturation 33 15 - 50 % LAB CHEMISTRY METHOD 04/27/2024 1:56 PM [facility] Blood Venous blood specimen / Unknown Venipuncture / Unknown 04/27/2024 11:37 AM EST 04/27/2024 1:32 PM EST us Kym CRAWFORD LAB BLOOD ORDERABLES Final Resul t Performing Organization Address [facility] Co de Phone Number [facility] [address] [place] [address], [place] [phone] * (ABNORMAL) Reticulocyte count (04/27/2024 11:37 AM EST) [facility] Retic Ct Abs 0.080 0.030 - 0.090 M/mcL LAB HEMETOLOGY METHOD 04/27/2024 2:04 PM [facility] Retic Ct Pct 2.4(H) 0.7 - 1.7 % LAB HEMETOLOGY METHOD 04/27/2024 2:04 PM [facility] Immature Retic Fract 14.5 2.3 - 15.9 % LAB HEMETOLOGY METHOD 04/27/2024 2:04 PM [facility] Reticulocyte Hemoglobin 35.8 >29.0 pcg LAB HEMETOLOGY METHOD 04/27/2024 2:04 PM [facility] Blood Venous blood specimen / Unknown Venipuncture / Unknown 04/27/2024 11:37 AM EST 04/27/2024 1:32 PM EST Kym CRAWFORD LAB BLOOD ORDERABLES Final Resul t [facility] [address] [place] [address], [place] [phone] * (ABNORMAL) Ferritin (04/27/2024 11:37 AM EST) [facility] Ferritin 274(H) 8 - 252 ng/mL LAB CHEMISTRY METHOD 04/27/2024 2:18 PM EST [facility] Blood Venous blood specimen / Unknown Venipuncture / Unknown 04/27/2024 11:37 AM EST 04/27/2024 1:32 PM EST us Kym CRAWFORD LAB BLOOD ORDERABLES Final Resul t Performing Organization Address [facility] Co de Phone Number [facility] [address] [place] [address], [place] [phone] * Phosphorus (03/24/2024 9:11 AM EST) [facility] Phosphorus 2.8 2.5 - 4.5 mg/dL LAB CHEMISTRY METHOD 03/24/2024 10:13 AM EST [facility] Blood Venous blood specimen / Unknown Venipuncture / Unknown 03/24/2024 9:11 AM EST 03/24/2024 9:34 AM EST us Rogelio Pepper MD LAB BLOOD ORDERABLES Final Resu lt Performing Organization Address [facility]/ZIP Co de Phone Number [facility] [address] [place] [address], [place] [phone] * (ABNORMAL) TRANSTHORACIC ECHOCARDIOGRAM (TTE) COMPLETE W/ CONTRAST (03/23/2024 8:27 AM EST) [facility] Left Atrium Minor [place] 4.4 cm CV PACS Left Atrium Major [place] 5.8 cm CV PACS LA Area Sys (A2C) 15 cm2 CV PACS LA Area Sys (A4C) 20 cm2 CV PACS RA Area 10.6 cm2 CV PACS RA 2D Volume 24 mL CV PACS AV Mean Gradient 5 mmHg CV PACS Ao VTI 30.4 cm CV PACS AV Peak Agus 1.5 m/s CV PACS AV Peak Gradient 9 mmHg CV PACS AV Area Continuity Equation 2.7 cm2 CV PACS AV Area Peak Velocity 2.7 cm2 CV PACS Aortic Sinus Valsalva 3.5 cm CV PACS Ascending Aorta 3.9 cm CV PACS IVC Proximal 2.0 cm CV PACS IVSD 1.1(A) 0.6 - 0.9 cm CV PACS LVIDD 4.3 3.8 - 5.2 cm CV PACS LVIDS 3.2 2.2 - 3.5 cm CV PACS LVOT Diameter 2.0 cm CV PACS LVOT Mean Agus 0.9 m/s CV PACS LVOT Mean Grad 4 mmHg CV PACS LVOT Peak VTI 26.3 cm CV PACS LVOT Peak Agus 1.3 m/s CV PACS LVOT Peak Gradient 7 mmHg CV PACS LVPWD 1.0(A) 0.6 - 0.9 cm CV PACS MV E' Tissue Velocity Lateral 9 cm/s CV PACS MV E' Tissue Velocity Septal 8 cm/s CV PACS LVOT Area 3.1 cm2 CV PACS LVOT Stroke Volume 83 mL CV PACS MV Deceleration Fergus 6.3 m/s2 CV PACS E Wave Deceleration Time 170 119 - 242 ms CV PACS MV PHT 50 ms CV PACS MV Peak A Agus 1.11 m/s CV PACS MV Peak E Agus 1.07 m/s CV PACS MV Area PHT 4.4 cm2 CV PACS PV Peak Velocity 1.2 m/s CV PACS PV Peak Gradient 6 mmHg CV PACS RV Diastolic Basal Dimension 3.6 2.5 - 4.1 cm CV PACS RV S' 17 cm/s CV PACS TAPSE 26 mm CV PACS TR Peak Velocity 3.11 m/s CV PACS TR Peak Gradient 39 mmHg CV PACS E/E' Ratio Septal 13 CV PACS E/E' Ratio Averaged 13 CV PACS LVOT Stroke Index 51 mL/m2 CV PACS Relative Wall Thickness ratio 0.47 CV PACS LVOT:AV VTI Index 0.87 CV PACS FS 26 % CV PACS LV Mass 2D 153 g CV PACS Ascending Aorta Index 2.39 cm/m2 CV PACS LVOT flow 283 mL/s CV PACS RA 2D Volume Index 15 mL/m2 CV PACS JOE Index (VTI) 1.67 cm2/m2 CV PACS JOE Index (Pk Agus) 1.66 cm2/m2 CV PACS LVIDD Index 2.64 cm/m2 CV PACS LVIDS Index 1.96 cm/m2 CV PACS AV Velocity Ratio 0.87 CV PACS E/A Ratio 1.0 CV PACS E/E' Ratio Lateral 12 CV PACS LV Mass Index 2D 94 g/m2 CV PACS BSA 1.68 m2 CV PACS Right Ventricular Peak Systolic Pressure 42 mmHg CV PACS Est. RA Pressure 3 mmHg CV PACS Anatomical Region Laterality Modality Ultrasound Narrative 03/23/2024 10:34 AM EST ?Left ventricle cavity size is normal. Left ventricular systolic function is in the normal range with an ejection fraction of 55-60%. ?No regional LV wall motion abnormalities noted. ?Right ventricle cavity is normal. Right ventricular systolic function is normal. ?Tricuspid valve demonstrates moderate regurgitation. ?Pulmonic valve with mild to moderate regurgitation. ?The ascending aorta is dilated (3.9 cm). Left Ventricle Left ventricle cavity size is normal. There is mild hypertrophy. Systolic function is normal with an ejection fraction of 55-60%. There are no regional LV wall motion abnormalities. Abnormal LV diastolic function. Left atrial pressure is inconclusive. Right Ventricle Right ventricle cavity appears normal. Systolic function is normal. Left Atrium Left atrium cavity size is normal. There is atrial septal bowing. Right Atrium Right atrium cavity is normal. IVC/SVC RA pressures is estimated to be 3 mmHg (IVC diameter <21 mm and decreases >50% during inspiration). Mitral Valve The leaflets are mildly thickened. There is trace regurgitation. There is no evidence of mitral valve stenosis. Tricuspid Valve The leaflets exhibit normal excursion. There is moderate regurgitation. The RVSP is estimated at 42 mmHg. Aortic Valve The aortic valve is trileaflet. The leaflets are mildly thickened. There is trace regurgitation. There is no evidence of aortic valve stenosis. Pulmonic Valve The leaflets exhibit normal excursion. There is mild to moderate pulmonic valve regurgitation. Ascending Aorta The ascending aorta is dilated (3.9 cm). Pericardium Pericardium appears normal. There is no pericardial effusion. Study Details Overall the study quality was adequate. Definity contrast was given to enhance imaging. Jyoti CRAWFORD CV ECHO PROCEDURES Final Resu lt * (ABNORMAL) POCT Glucose, blood (03/22/2024 7:12 AM EST) Glucose POCT 233(H) 70 - 100 mg/dL 03/22/2024 7:13 AM [facility] Blood Capillary blood specimen / Unknown 03/22/2024 7:12 AM EST 03/22/2024 7:14 AM EST Edward Maurice MD LAB POINT OF CARE TE ST DOCKED DEVICE UNSOLICITED RESULTS Final Result [facility] [address] [place] [address], * (ABNORMAL) Arterial blood gas (03/22/2024 5:01 AM EST) pH, Arterial 7.30(L) 7.35 - 7.45 pH 03/22/2024 5:14 AM [facility] pCO2, Arterial 44 35 - 45 mmHg 03/22/2024 5:14 AM [facility] pO2, Arterial 75(L) 80 - 100 mmHg 03/22/2024 5:14 AM [facility] HCO3, Arterial 21.2(L) 22.0 - 26.0 mmol/L 03/22/2024 5:14 AM [facility] O2 Sat, Arterial 96.4 95.0 - 98.0 % 03/22/2024 5:14 AM [facility] Base Excess, Arterial -4.7(L) -2.0 - 2.0 mmol/L 03/22/2024 5:14 AM EST [facility] Aaron Test Pass Pass, Unresponsi ve, Line 03/22/2024 5:14 AM EST [facility] FIO2 0.30 03/22/2024 5:14 AM EST [facility] Blood Arterial blood specimen / Unknown Arterial Puncture / Unknown 03/22/2024 5:01 AM EST 03/22/2024 5:09 AM EST Jyoti CRAWFORD LAB BLOOD ORDERABLES Final Re sult Performing Organization Address City/[facility]/ZIP Co de Phone Number [facility] [address] [place] [address], [place] [phone] * (ABNORMAL) Creatine kinase and CKMB (03/22/2024 4:45 AM EST) Total CK 85 22 - 269 unit/L LAB CHEMISTRY METHOD 03/22/2024 6:50 AM EST [facility] CK-MB 5.4(H) 1.0 - 3.6 ng/mL LAB CHEMISTRY METHOD 03/22/2024 6:50 AM EST [facility] CK-MB Index 0.1 0.0 - 5.0 LAB CHEMISTRY METHOD 03/22/2024 6:50 AM [facility] Blood Venous blood specimen / Unknown Venipuncture / Unknown 03/22/2024 4:45 AM EST 03/22/2024 5:15 AM EST Jyoti CRAWFORD LAB BLOOD ORDERABLES Final Re sult Performing Organization Address City/[facility]/ZIP Co de Phone Number [facility] [address] [place] [address], [place] [phone] * Culture blood (03/21/2024 11:58 PM EST) Only the most recent of2 resultswithin the time period is included. Culture, Blood No growth at 5 days LAB MICROBIOLOGY METHOD 03/27/2024 8:01 AM EST [facility] Blood Venous blood specimen / Unknown Venipuncture / Unknown 03/21/2024 11:58 PM EST 03/22/2024 12:15 AM EST us Jyoti CRAWFORD LAB MICROBIOLOGY - GENERAL OR DERABLES Final Result [facility] [address] [place] [address], [place] [phone] * Procalcitonin (03/21/2024 7:00 PM EST) Procalcitonin <0.02 <=0.16 ng/mL LAB CHEMISTRY METHOD 03/23/2024 7:11 AM EST [facility] Blood Venous blood specimen / Unknown Venipuncture / Unknown 03/21/2024 7:00 PM EST 03/21/2024 7:48 PM EST Narrative [facility] - 03/23/2024 7:11 AM EST Procalcitonin > 2.00 ng/ml: Procalcitonin Levels above 2.00 ng/ml, on the first day of ICU admission represent a high risk for progression to severe sepsis and/or septic shock. Procalcitonin < 0.50 ng/ml: Procalcitonin levels below 0.50 ng/ml on the first day of ICU admission represent a low risk for progression to severe sepsis and/or septic shock. Concentrations <0.5 ng/mL do not exclude an infection, on account of local ized infections (without systemic signs) which can be associated with such low concentrations, or a systemic infection in its initial stages (<6 hours). Furthermore, increased procalcitonin can occur without infection. PCT concentrations between 0.5 and 2.0 ng/mL should be interpreted taking into account the patient's history. It is recommended to retest PCT within 6-24 hours if any concentrations <2.0 ng/mL are obtained. us Jyoti CRAWFORD LAB BLOOD ORDERABLES Final Re sult [email or web address] [address] [place] [address], [place] [phone] * [facility] 30-74 MINUTES (03/21/2024 6:46 PM EST) Blaine Schultz DO - 03/21/2024 6:46 PM EST Blaine Rodriguez, DO ? 03/22/2024 ??8:22 AM Critical Care Performed by: Blaine Rodriguez, DO Authorized by: Blaine Rodriguez, DO ?? Critical care provider statement: ??Critical care time (minutes): ??45 ??Critical care time was exclusive of: ??Separately billable procedures and treating other patients and teaching time ??Critical care was necessary to treat or prevent imminent or life-threatening deterioration of the following conditions: ??Respiratory failure ??Critical care was time spent personally by me on the following activities: ??Blood draw for specimens, development of treatment plan with patient or surrogate, discussions with consultants, evaluation of patient's response to treatment, examination of patient, interpretation of cardiac output measurements, obtaining history from patient or surrogate, ordering and performing treatments and interventions, ordering and review of laboratory studies, ordering and review of radiographic studies, pulse oximetry, re-evaluation of patient's condition and review of old charts ??I assumed direction of critical care for this patient from another provider in my specialty: no ?Care discussed with: admitting provider ?? us Blaine Rodriguez DO IN CLINIC/BEDSIDE ORDERABLES F inal Result * HM Urine Albumin Creatinine Ratio (10/04/2023) Urine Albumin Creatinine Ratio abstracted us Historical Provider HEALTH MAINTENANCE Final Result * PAULO SCREENING DIGITAL (09/09/2018 4:37 PM EDT) Anatomical Region Laterality Modality Mammography 09/09/2018 1:07 PM EDT Narrative 09/09/2018 4:37 PM EDT [facility] Diagnostic Imaging Department [address] [place] [address] Patient: ??TERESSA ALLAN ?/Age/Sex: 1950 68 - F Unit#: ??[id number] ? Location/Status: ??SPDIMAM/REG CLI ? Mnemonic/Ordering Site: ??DIGSC/SPMAM Ordering Physician: ??BRYANNA MONTANO MD [facility] Screening Digital - 09/09/18 - 1333 EXAM: [facility] Screening Digital EXAM DATE AND TIME: 09/09/2018 1:34 PM HISTORY: ??Screening. Excisional biopsy of the right breast in 2000, pathology benign. COMPARISON: ??09/04/17, 09/01/16, 07/13/15, 06/10/14 TECHNIQUE: CC and MLO views of both breasts were obtained using full field digital mammography. Bilateral digital breast tomosynthesis was performed in the MLO projection. Computer aided detection with the Altobeam 7.2-H was employed. TISSUE DENSITY: c. The breasts are heterogeneously dense, which may obscure small masses. FINDINGS: No suspicious masses, grouped microcalcifications, or areas of architectural distortion are seen. Several benign rim calcifications are again seen. Vascular calcification is present. The skin is unremarkable. IMPRESSION: Stable mammographic appearance of the breasts. ??No evidence of malignancy is seen. A negative mammogram in the presence of a clinically suspicious palpable abnormality does not preclude the possibility of malignancy or alter the indications for biopsy. BI-RADS: ??Category 2: Benign RECOMMENDATION(S): 1: Routine screening mammogram BILATERAL in 1 year. [address]4969, [id number] 5892F, 7068F Dictating Physician: ??OXANA PRESLEY MD Electronically Signed by: ??OXANA PRESLEY MD Dic Date/Time: ??09/09/18 1636 Sign date/Time: ??09/09/18 1637 Procedure Note Oxana Presley - 03/13/2022 [facility] Diagnostic Imaging Department [address] [place] [id number] Patient: TERESSA ALLAN /Age/Sex: 1950 - 68 - F Unit#: [id number] Location/Status: [facility] CLI Mnemonic/Ordering Site: [facility] Ordering Physician: BRYANNA MONTANO MD [facility] Screening Digital - 09/09/18 - 1333 EXAM: [facility] Screening Digital EXAM DATE AND TIME: 09/09/2018 1:34 PM HISTORY: Screening. Excisional biopsy of the right breast in 2000,pathology benign. COMPARISON: 09/04/17, 09/01/16, 07/13/15, 06/10/14 TECHNIQUE: CC and MLO views of both breasts were obtained using fullfield digital mammography. Bilateral digital breast tomosynthesis was performedin the MLO projection. Computer aided detection with the Altobeam 7.2-Hwas employed. TISSUE DENSITY: c. The breasts are heterogeneously dense, which mayobscure small masses. FINDINGS: No suspicious masses, grouped microcalcifications, or areas ofarchitectural distortion are seen. Several benign rim calcifications are again seen. Vascular calcification is present. The skin is unremarkable. IMPRESSION: Stable mammographic appearance of the breasts. No evidence of malignancyis seen. A negative mammogram in the presence of a clinically suspicious palpable abnormality does not preclude the possibility of malignancy or alter the indications for biopsy. BI-RADS: Category 2: Benign RECOMMENDATION(S): 1: Routine screening mammogram BILATERAL in 1 year. 36163, 78748 3342F, 7025F Dictating Physician: OXANA PRESLEY MD Electronically Signed by: OXANA PRESLEY MD Dic Date/Time: 09/09/18 1636 Sign date/Time: 09/09/18 1637 Mahin Hall MD IMG BI PROCEDURES Final Result from Last 3 Months or Most Recently Relevant to Health Maintenance Insurance [facility] MEDIC[facility] Member Subscriber Plan / Payer (Ef fective 2018-Present) Name:Teressa Allan Relation to Subscriber:Self Name:Teressa Allan Payer ID:[id number] Group ID:[id number] Type:Not on file Address: [place] [address] [address] [phone] Advance Directives Documents on File Type Date Recorded 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 Do not modify or discontinue any currently active code status orders. Healthcare Agents on File Name Relationship Healthcare Agent Relationshi p Communication Debi Allan Daughter Health Care Agent Eliel Allan Spouse First Alternate Health Care Agent Care Teams Inspector Purchased Parts Relationship Specialty Start Date End Date Mahin Hall MD [address] [address] PCP - General Internal Medicine 11/15/13
--- OUTSIDE RECORDS SUMMARY | 2024-06-11 13:56 | XMS_ITS ---
Author Organization [facility] Care Team Providers Care Saw Feeder Name Role Phone Beatriz Navarrete Unavailable Unavailable Trey Cai Unavailable Unavailable Rose Raphael Unavailable Unavailable Allergies and adverse reactions No Known Allergies Care Team Name Role Address Phone Organization Dates Trey Cai PCP [address] [facility] [address], [place], [address], [facility] (Office): [facility] 02/28/2023 - 03/20/2023 Beatriz Navarrete Attending Physician [address], [address], [place] (Office): [facility] 02/28/2023 - 03/20/2023 Rose Raphael Attending Physician [address], [address], [facility] (Office): [facility] 02/28/2023 - 03/20/2023 Immunizations Immunization Status Vaccine Details Vaccine Code CodeSystem Jani e Notes TB 2 Step Mantoux Skin Test completed tuberculin skin test; unspecified formulation lotNumber: [id number] expiry: 12/23/2025 Mfg: [employer]i [employer] Given 0.1 ml Left Forearm intradermally Step 1 of Multi-step 98 CVX created date: 03/10/2023 consent date: 03/10/2023 administere d date: 03/10/2023 Mental Status Section Date Assessment Total Score Description 03/06/2023 BIMS 08 moderate cognit griffin impairment CAM 0 No delirium ind icated Problems Problem # Description Date of onset Resolved Date Code CodeSystem Concern Status 1 ACUTE KIDNEY FAILURE, UNSPECIFIED [address] active 2 ACUTE MYOCARDITIS, UNSPECIFIED [address] active 3 ACUTE RESPIRATORY FAILURE WITH HYPOXIA [address] active 4 ADULT FAILURE TO THRIVE [address] active 5 CARDIOGENIC SHOCK [address] active 6 CHRONIC OBSTRUCTIVE PULMONARY DISEASE WITH (ACUTE) EXACERBATION [address] active 7 CHRONIC OBSTRUCTIVE PULMONARY DISEASE, UNSPECIFIED [address] active 8 DIFFICULTY IN WALKING, NOT ELSEWHERE CLASSIFIED [address] active 9 DYSPHAGIA, OROPHARYNGEAL PHASE [address] active 10 FIBROMYALGIA [address] active 11 GASTRO-ESOPHAGEAL REFLUX DISEASE WITHOUT ESOPHAGITIS [address] active 12 HYPERLIPIDEMIA, UNSPECIFIED [address] active 13 INFLUENZA DUE TO IDENTIFIED NOVEL INFLUENZA A VIRUS WITH OTHER RESPIRATORY MANIFESTATIONS [address] active 14 MUSCLE WEAKNESS (GENERALIZED) [address] active 15 NON-ST ELEVATION (NSTEMI) MYOCARDIAL INFARCTION [address] active 16 PAROXYSMAL ATRIAL FIBRILLATION [address] active 17 SHORTNESS OF BREATH [address] active 18 SUBSEQUENT NON-ST ELEVATION (NSTEMI) MYOCARDIAL INFARCTION [address] active 19 UNSTEADINESS ON FEET [address] active Reason for Referral No Reasons for Referral Entered Social History Social History Observation Description Start Date End Date Code Code System Current Smoking Status Tobacco smoking consumption unknown 395378557 SNOMED CT Sex Assigned At Female 1950 55859-0 [facility] Vital Signs Code Code System Vitals Name Values and Units Timing Information 8310-5 [facility] Body Temperature Value=97.8 Units=?? F 03/20/2023 9279-1 [facility] Respiratory Rate Value=16.0 Units=/m in 03/20/2023 8462-4 [facility] Blood Pressure-Diastolic Value=69 Un its=mmHg 03/20/2023 8480-6 [facility] Blood Pressure-Systolic Ibnup=569 Un its=mmHg 03/20/2023 8867-4 [facility] Heart rate Value=95.0 Units=/min 94494-7 [facility] O2 % BldC Oximetry Value=94.0 Units= % 03/20/2023 31478-5 [facility] Pain Level Value=10.0 03/20/2023 10711-1 [facility] Weight Mohhk=381.2 Units=Lbs 8302-2 [facility] Height Value=61.0 Units=Inches 03/04/2023
--- OUTSIDE RECORDS SUMMARY | 2024-06-11 13:56 | XMS_ITS | Clinical Summary ---
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 1 Active acetaminophen (Tylenol) 500 MG tablet Take 1 tablet by mouth. 1 Active albuterol (2.5 MG/3ML) 0.083% nebulizer solution Active albuterol (ProAir HFA) 108 (90 Base) MCG/ACT inhaler See Instructions, 2 puffs Inhalation 4 times a day as needed, # 1 each, 4 Refills, Maintenance 8 Active aspirin 325 MG tablet Take 1 tablet by mouth 2 times daily. 1 Active betamethasone, augmented, (Diprolene) 0.05 % ointment APPLY TO AFFECTED AREA TWICE A DAY FOR 2 WEEKS 2 Active Calcium Carb-Cholecalci ferol (SM Calcium-Vitamin D) 500-5 MG-MCG tablet Active capsaicin (Capzasin-HP) 0.1 % cream APPLY 1 G TOPICALLY 3 TIMES DAILY NEEDED (PAIN). 2 Active Calcium Carbonate-Vitam in D 500-3.125 MG-MCG tablet Take 500 mg by mouth. Active cefuroxime (Ceftin) 500 MG tablet Take 500 mg by mouth every 12 (twelve) hours. 2 Active cholecalciferol (Vitamin D-3) 1.25 MG (14847 UT) capsule Take 1 capsule by mouth. Active cyanocobalamin (Vitamin B-12) 1000 MCG tablet Take 1,000 mcg by mouth. 9 Active Flowflex COVID-19 Ag Home Test kit USE DIRECTED 2 Active cyanocobalamin (Vitamin B-12) 1000 MCG tablet Take 1,000 mcg by mouth in the morning. 2 Active ferrous sulfate 325 (65 Fe) MG EC tablet Take 1 tablet by mouth 2 times daily. Active Breo Ellipta 100-25 MCG/ACT aerosol powder INHALE 1 PUFF BY INHALATION ROUTE EVERY DAY AT THE SAME TIME EACH DAY 2 Active fluticasone (Flonase) 50 MCG/ACT nasal spray Administer 2 sprays into each nostril in the morning. 2 Active folic acid (Folvite) 1 MG tablet Take 1 tablet by mouth. Active methylPREDNISol one (Medrol Dospak) 4 MG tablets TAKE 6 TABLETS ON DAY 1 DIRECTED ON PACKAGE AND DECREASE BY 1 TAB EACH DAY FOR A TOTAL OF 6 DAYS 2 Active omeprazole (PriLOSEC) [address] capsule Take 1 capsule by mouth. Active pantoprazole (ProtoNix) 40 MG EC tablet Take 40 mg by mouth. 1 Active pregabalin (Lyrica) 150 MG capsule Take 1 capsule by mouth 2 times daily. Active sennosides (Senokot) 8.6 MG tablet Take 8.6 mg by mouth. 1 Active sertraline (Zoloft) 100 MG tablet Take 100 mg by mouth. Active tiZANidine (Zanaflex) 4 MG tablet 3 Active Incruse Ellipta 62.5 MCG/ACT aerosol powder Inhale 1 puff in the morning. 2 Active zolpidem (Ambien) 10 MG tablet Take 1 tablet by mouth at bed time. Active Social History Tobacco Use Types Packs/Day Years Used Date Smoking Tobacco: Never Assessed Comments Unknown Sex and Gender Information Value Date Recorded Sex Assigned at Female 01/22/2022 10:25 AM EDT Legal Sex Female 10:25 AM EDT Gender Identity Female 01/22/2022 10:25 AM EDT Sexual Orientation Straight 01/22/2022 10 :25 AM EDT Plan of Treatment Health Maintenance Due Date Last Done Comments CT Colonography 1949 Colonoscopy 1949 Colorectal Cancer Screening 1949 Dental Oral Exam 1949 Dental Prophylaxis 1949 Dental X-Ray: Bitewings 1949 Dental X-Ray: Full Mouth 1949 Depression Screening 1949 FIT DNA/Cologuard 1949 FIT 1949 FOBT 1949 SDOH Screening 1949 Sigmoidoscopy 1949 Alcohol/Substance Use Screening 1961 Tobacco Screening 1961 Hepatitis C Screening 1967 DTaP/Tdap/Td Vaccines (1 - Tdap) 1968 Pneumococcal Vaccine: 50+ Years (1 of 2 - PCV) 1968 Zoster Vaccines (1 of 2) 1999 COVID-19 Vaccine (3 - 2023-2 5 season) 2023 06/23/2020, 05/26/2020 Influenza Vaccine (#1) 2023 RSV Patients and Patients Aged 60 years or older (1 - 1-dose 75+ series) 2024 HIB Vaccines Aged Out No longer eligi [...] patient's age to complete this topic Meningococcal Vaccine Aged Out No amy katt eligible based on patient's age to complete this topic RSV under 20 months Aged Out No longe r eligible based on patient's age to complete this topic Rotavirus Vaccines Aged Out No longer eligible based on patient's age to complete this topic Insurance DENTAL - [facility]
--- OUTSIDE RECORDS SUMMARY | 2024-06-11 13:56 | XMS_ITS | Encounter Summary ---
Author Organization [employer] Address [address] [place] [address] Care Team Providers Care Hair Blender Name Role Phone Mahin Hall MD Primary Care Provider [phone] Reason for Visit * Reason Onset Date Comments Hospital Follow-up 05/20/2024 Encounter Details Date Type Department Care Team ([facility] st Contact Info) Description 05/20/2024 Telephone Internal Medicine - [place] [address] [phone] Mahin Hall MD 175 [facility] [address] [place] [address] Hospital Follow-up Social History Tobacco Use Types Packs/Day Years Used Date Smoking Tobacco: Former Cigarettes Smokeless Tobacco: Never Comments:Pt states quit 14-1 5 years ago Alcohol Use Standard Drinks/Week Comments No 0 (1 standard drink = 0.6 oz pur e alcohol) Interpersonal Safety Answer Date Record ed Physical Abuse 05/15/2024 Verbal Abuse 05/15/2024 Comments Unknown Sex and Gender Information Value Date Recorded Sex Assigned at Not on file Legal Sex Female 10:47 PM EST Gender Identity Not on file Sexual Orientation Not on file documented as of this encounter Functional Status * Are you deaf or do you have serious difficulty hearing? Answer Date of Assessment Author No 03/21/2024 8:24 PM EST Bressette , Tamiko, RN * Are you blind or do you have serious difficulty seeing, even when wearing glasses? Answer Date of Assessment Author No 03/21/2024 8:24 PM EST Tamiko Gates RN * Do you have serious difficulty walking or climbing stairs? Answer Date of Assessment Author No 03/21/2024 8:24 PM Tamiko Castro RN * Do you have serious difficulty dressing or bathing? Answer Date of Assessment Author No 03/21/2024 8:24 PM Tamiko Castro RN * Because of a physical, mental, or emotional condition, do you have serious difficulty doing errandsalone such as visiting the doctor? Answer Date of Assessment Author No 03/21/2024 8:24 PM Tamiko Castro RN documented as of this encounter Mental Status * Because of a physical, mental, or emotional condition, do you have serious difficulty concentrating, remembering, or making decisions? (5 years old or older) Answer Entry Date Author No 03/21/2024 8:24 PM Tamiko Castro RN documented in this encounter Progress Notes * Mary Duke RN - 05/20/2024 2:07 PM EST Call to pt daughter debi on VR # [phone], spoke to Debi [facility] dc 05/19 for NSTEMI TCM scheduled * Sandy Marks - 05/20/2024 2:00 PM EST Patients daughter called and requested a hospital follow up because patient was in [facility] on 05/13/24 and discharged yesterday due to COPD and breathing problems. Please advise Cb# [phone] documented in this encounter Plan of Treatment Upcoming Encounters Date Type Department Care Team (Late st Contact Info) Description 06/22/2024 1:40 PM EDT Office Visit [facility] - [address] [place] [address] Kristy Blackmon NP [address] [place] [id number] 07/27/2024 1:00 PM EDT Office Visit [facility] Hematology Oncology [address] [place] [phone] Kym Soto PA [address] [place] [address] documented as of this encounter Visit Diagnoses Not on filedocumented in this encounter Care Teams Hair Blender Relationship Specialty Start Date End Date Mahin Hall MD [address] [address] PCP - General Internal Medicine 11/15/13 documented as of this encounter
--- OUTSIDE RECORDS SUMMARY | 2024-06-11 13:56 | XMS_ITS | Clinical Summary ---
Author Organization [employer] [facility] Address [address] [place] [address] Care Team Providers Care Pointer Helper Name Role Phone Mahin Hall MD Primary Care Provider Unavailab le Allergies Active Allergy Reactions Criticality Noted Date Comments Ibuprofen 11/14/2016 Medications Medication Sig Dispensed Refills Start Date End Date Status omeprazole (PRILOSEC) 20 MG capsule Take 1 capsule (20 mg total) by mouth daily. 0 Active traZODone (DESYREL) 50 MG tablet Take 1 tablet (50 mg total) by mouth every night at bedtime. 0 Active sertraline (ZOLOFT) 100 MG tablet Take 1 tablet (100 mg total) by mouth daily. 0 Active ferrous sulfate 325 (65 FE) MG tablet Take 1 tablet (325 mg total) by mouth every morning with breakfast. 0 Active pregabalin (LYRICA) capsule 100 mg Take 1 capsule (100 mg total) by mouth 2 (two) times a day. 0 Active traMADol (ULTRAM) 50 MG tablet Take 50 mg by mouth every 6 (six) hours as needed for pain. 0 Active Tiotropium [place] Monohydrate (SPIRIVA HANDIHALER IN) Inhale into the lungs. 0 Active Calcium Carbonate-Vitamin D (CALCIUM 500 + D) 500-125 MG-UNIT TABS Take 500 mg by mouth daily. 0 Active doxepin (SINEquan) 25 MG capsule Take 1 capsule (25 mg total) by mouth every night at bedtime. 0 Active metoprolol succinate (TOPROL-XL) 24 hr tablet 25 mg Take by mouth daily. 0 Active tiZANidine (ZANAFLEX) 4 MG tablet Take 1 tablet (4 mg total) by mouth every 6 (six) hours as needed. 0 Active vitamin B-12 (CYANOCOBALAMIN) tablet 1000 mcg Take 1 tablet (1,000 mcg total) by mouth daily. 90 tablet 1 10/29/2023 Active folic acid (FOLVITE) tablet 1 mg Take 1 tablet (1 mg total) by mouth daily. 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 Social History Tobacco Use Types Packs/Day Years Used Date Smoking Tobacco: Former Smokeless Tobacco: Never Alcohol Use Standard Drinks/Week Comments No 0 (1 standard drink = 0.6 oz pur e alcohol) Sex and Gender Information Value Date Recorded Sex Assigned at Not on file Gender Identity Not on file Sexual Orientation Not on file Job Start Date Occupation Industry Not on file Not on file Not on file Last Filed Vital Signs Vital Sign Reading Time Taken Comments Blood Pressure 126/56 10/29/2023 10:54 AM EDT Pulse 71 10/29/2023 10:54 AM EDT Temperature 36.3 ??C (97.4 ??F) 10/29/2023 10:54 AM E DT Respiratory Rate - - Oxygen Saturation 97% 10/29/2023 10:54 AM EDT Inhaled Oxygen Concentration - - Weight 60.8 kg (134 lb) 10/29/2023 10:54 AM EDT Height 147.3 cm (4' 10 ) 10/15/2023 10:41 AM EDT Body Mass Index 28.01 10/15/2023 10:41 AM EDT Plan of Treatment Health Maintenance Due Date Last Done Comments Hepatitis C Screening 1949 Depression Screening 1961 Preventative Health Evaluation 1967 Colon Cancer Screening (Colonoscopy) 1994 Shingrix-Zoster Vaccine (1 o f 2) 1999 Fall Risk Assessment 2014 Osteoporosis Screening (DEXA Scan) 2014 COVID-19 Vaccine (2 - 2023-2 5 season) 2023 06/23/2020 Influenza Vaccine (#1) 2023 01/02/2019 RSV Adult > 60+ Yrs or (1 - 1-dose 75+ series) 2024 DTap / Tdap / Td (2 - Td or Tdap) 07/04/2025 07/05/2015 Pneumococcal Vaccine Completed 03/28/2018, 07/05/2015 Hepatitis B Vaccines Aged Out No long er eligible based on patient's age to complete this topic RSV Ped < 20 months Aged Out No longe r eligible based on patient's age to complete this topic Care Teams Pointer Helper Relationship Specialty Start Date End Date Mahin Hall MD PCP - General Internal Medicine 12/21/19
--- OUTSIDE RECORDS SUMMARY | 2024-06-11 13:57 | XMS_ITS | Data Portability ---
Author Organization [employer] [facility], [place] in - [facility] Address [address] [place] [phone] Care Team Providers Care Insole Department Worker Name Role Phone HIM [facility] OTHER Assessment No assessment recorded. Plan of Treatment Reminders Order Date Submit Date Provider Last Modified By Organization Details Last Modified Time Details Appointments None recorded. Lab None recorded. Referral None recorded. Procedures None recorded. Surgeries None recorded. Imaging electrocard iogram [address], [phone], 13:41:25 Medication Orders None recorded. Patient TargetsNo targets recorded. Patient InstructionsNo instructions recorded. Reason for Referral None Reported. Results Created Date Observation Date Name Description Value Unit Range Abnormal Flag Note LastModifiedBy Organization Detail LastModifiedTime 10/22/19 24 elect rocar diogr am No observ ation record ed. [address], [phone], 10/22/2023 13:41:23 Result Notes None recorded. Procedures Surgical History None recorded. Imaging Results Imaging Date Name Status LastModified by Organization Details LastModified Time 10/22/2023 electrocardiogram completed [address], [phone], 10/22/2023 13:41:23 Procedure Notes None recorded. Medical Equipment None Reported. Medications Name Sig Start Date Stop Date Status Note LastModified by Organization Details LastModified Time primidone 50 mg tablet TAKE 1 TABLET BY MOUTH EVERY DAY FOR 90 DAYS active Not Available Not Available No t Available albuterol sulfate 2.5 mg/3 mL (0.083 %) solution for nebulization INHALE 1 VIAL VIA NEBULIZER 4 TIMES EVERY DAY active Not Available Not Available No t Available tizanidine 4 mg tablet TAKE 1 TABLET BY MOUTH DAILY NEEDED FOR MUSCLE SPASMS FOR UP TO 30 DAYS. active Not Available Not Available No t Available doxepin 25 mg capsule TAKE 1 CAPSULE BY MOUTH EVERYDAY AT BEDTIME active Not Available Not Available No t Available tramadol 50 mg tablet TAKE 1 TABLET BY MOUTH THREE TIMES A DAY NEEDED FOR PAIN active Not Available Not Available No t Available benzonatate 100 mg capsule TAKE 1 CAPSULE BY MOUTH 3 TIMES DAILY NEEDED FOR COUGH FOR UP TO 10 DAYS. active Not Available Not Available No t Available gabapentin 300 mg capsule TAKE 1 CAPSULE BY MOUTH TWICE A DAY ..CAN CAUSE SEDATION active Not Available Not Available No t Available omeprazole 20 mg capsule,marbin yed release TAKE 1 CAPSULE BY MOUTH EVERY DAY active Not Available Not Available No t Available furosemide 20 mg tablet TAKE 1 TABLET BY MOUTH DAILY FOR 20 DAYS. active Not Available Not Available No t Available fluticasone propionate 50 mcg/actuatio n nasal spray,suspen jayden SPRAY 2 SPRAYS INTO EACH NOSTRIL EVERY DAY active Not Available Not Available No t Available Ventolin HFA 90 mcg/actuatio n aerosol inhaler INHALE 2 PUFFS INTO THE LUNGS 4 TIMES DAILY NEEDED FOR COUGH OR WHEEZING FOR UP TO 30 DAYS. active Not Available Not Available No t Available metoprolol tartrate 25 mg tablet TAKE 1 TABLET BY MOUTH TWICE A DAY active Not Available Not Available No t Available pregabalin 75 mg capsule TAKE 1 CAPSULE BY MOUTH EVERY MORNING AND TAKE 3 CAPSULES AT BEDTIME active Not Available Not Available No t Available calcium 600 mg (as carbonate)-v itamin D3 10 mcg (400 unit) tablet TAKE 1 TABLET BY MOUTH EVERY DAY active Not Available Not Available No t Available cholecalcife rol (vitamin D3) 50 mcg (2,000 unit) capsule TAKE 1 CAPSULE BY MOUTH EVERY DAY active Not Available Not Available No t Available Gavilax 17 gram/dose oral powder DISSOLVE 17GM INTO LIQUID AND DRINK BY MOUTH EVERY DAY active Not Available Not Available No t Available Breo Ellipta 100 mcg-25 mcg/dose powder for inhalation INHALE 1 PUFF BY INHALATION ROUTE EVERY DAY AT THE SAME TIME EACH DAY active Not Available Not Available No t Available Vitals Date Recorded Heart rate Oxygen saturation Oxygen saturation in Arterial blood by Pulse oximetry Respiratory rate Body temperature Systolic blood pressure Diastolic blood pressure Provider Name and Address Organization Details Last Updated DateTime 4 45 /min 99 % 99 % 16 /min 98.4 [degF] 137 mm[Hg] 71 mm[Hg] Not Available [facility] - production 4 13:06:03 Social History None recorded. Functional Status None recorded. Mental Status None recorded. Family History Nothing Reported. Medical History No medical history recorded. Gynecological HistoryNo gynecological history recorded. Obstetrics History GPAL:G 0 P 0 0 0 0 Past Encounters Encounter ID Performer Location Encounter Start Date Encounter Closed Date Diagnosis/Indication Diagnosis SNOMED-CT Code Diagnosis ICD10 Code Diagnosis Note [id number] Marta George MD Main - [facility] [address] [place] [phone] 10/22/2023 13:05:49 10/22/2023 15:10:42 Intermittent palpitations 373314416 R00.2 Evaluation in the field was performed by my agricultural commodities grader colleague, as noted above, I provided real-time direction and supervisio n for this visit. 73yo F PMHx arthritis and heart attack (per daughter) p/w intermitte nt palpitatio ns a/w dyspnea. Denies chest pain. No clear palliating or provoking factors but not brought on by exertion, has not taken pulse during episodes, spontaneou sly resolve. Denies hx AFib and no records available for review. She is prescribed metoprolol tartrate 25 mg and has not been taking until 1-2 hr prior to agricultural commodities grader visit. On agricultural commodities grader eval VS notable for resting HR 45, increases to 75 with ambulation . BP wnl. EKG (asymptoma tic) sinus bradycardi a nonspecifi c T wave changes, no ST elevation. Overall suspect paroxysmal AFib vs anxiety, less likely angina. Reviewed stroke risk if AFib. Asked her to call PCP to arrange for urgent Holter, [facility] assistance recommende d. If palpitatio ns recur, recommend pt take pulse during episode and activate EMS for expedited confirmati on of diagnosis and tx. Pt and daughter in agreement. PCP: please arrange for urgent holter monitor, consider empiric anticoagul ation We discussed the diagnostic uncertaint y of home visits and the risk associated with this. In this case, the patient and I felt this to be an acceptable and reasonable amount of risk given the benefit of avoiding an ED visit. We discussed the need to seek care urgently/e mergently in the setting of any new or worsening serious symptoms, shortness of breath, cough, chest pain, fever. Health Concerns Section Related Observation LastModified by Organization Detai ls LastModified Time None Recorded Concern Status LastModified by Organization Details LastModified Time None Recorded Advance Directives Directive None Recorded Payers Encounter Date Sequence Insurance Name Policy Number Policy Muñoz Covered Member ID Muñoz Member ID Guarantor Name 10/22/2023 1 [facility] - DOS ON OR AFTER 2022 - DUAL ELIGIBLE - ALF OPTIONS AND ONE CARE (MEDICARE REPLACEMENT/ADV ANTAGE - HMO) Teressa Carlos [id number] Teressa Carlos Notes Date Note Type Note Provider Name and Address Organization Details Recorded Time 10/22/2023 text/html CRC Nurse Triage Notes (Anne Kincaid): Reason For Request: Pt's daughter Debi reporting palpitations with slight SOB>symptoms going on 7 days Chief Complaints: Tachycardia/Palpitati ons PMH: Heart Disease, Other Allergies: No Known Comments: PMH: ArthritisWriter verified the member's name//address and phone number. Reporting left sided intermittent palpitations with shortness of breath x7 days. Palpitations since waking up this morning. No respiratory difficulty now. Denies chest pain or dizziness. No medication changes. Denies N/V or fever. Education provided on the response time and the member was advised to monitor reported s/s and seek emergency treatment if needed. Fur Stretcher Organization Information for Dariana Hodge Business Legal Name: [email or web address]? Address: [address] [place] [address], Solar Project Manager: Raheel Bell MD CLIA No.: [id number] Fur Stretcher POC Test Results from [facility] Hodge EKG (13:28:59) EKG test performed. Reason for missing picture: Left with patient ..................... ..................... ..................... ..................... ..................... ..................... ............... Fur Stretcher Note From [facility]ariana Hodge: Dispatched to the call address for the female with chest palpitations. Pt states over the last week she has had chest palpitations where she becomes diaphoretic and short of breath. Pt states she is not having one currently but over the last week they have become more and more frequent. Pt states last January she was placed on Metoprolol but does not remember why. Pt admits to not taking it for the last several months but did take it approx 1 hour ago after speaking with [facility] for this appt. Pt states she does feel better since taking the 25mg of Metoprolol. Pt was found sitting on living room couch, CAOx4, airway open and patent, breathing non labored, able to speak in full sentences, -JVD, -HEENT, skin PWD with good turgor, abd soft non tender/distended, pupils PERRL, +CMSx4, lung sounds CTA, mucous membranes pink and moist, sinus kiko, 12 lead non diagnostic for STEMI. [facility] consulted. Pt was advised to contact her PCP for a holter monitor and that if the palpitations returned she should present to the ED. Red flags discussed. ALL times are approx. ..................... ..................... ..................... ..................... ..................... ..................... ............... Disposition: Fulfilled Marta George MD [address] [facility],[address], [place], [phone], SAMMY - Dress CodeGIORGIO YUSUF 10/22/2023 13:42:04 OBGyn Episode No OBEpisode recorded.
--- OUTSIDE RECORDS SUMMARY | 2024-06-11 13:57 | XMS_ITS | Clinical Summary ---
Author Organization [facility] Address [address] [address] Phone Care Team Providers Care Cork Insulator Helper Name Role Phone Mahin Hall MD Primary Care Provider [phone] Allergies Active Allergy Reactions Criticality Noted Date Comments Ibuprofen 11/14/2016 Medications acetaminophen (TYLENOL) 500 MG tablet Take 1 tablet by mouth 1 (one) time each day Active albuterol (2.5 MG/3ML) 0.083% nebulizer solution Active Calcium 500-125 MG-UNIT tablet Take 500 mg by mouth Active doxepin (SINEquan) 25 MG capsule Take 1 capsule by mouth 1 (one) time each day Active omeprazole (PriLOSEC) [address] capsule Take 1 capsule by mouth 1 (one) time each day Active pregabalin (LYRICA) 150 MG capsule Take 1 capsule by mouth 2 (two) times a day Active traMADol (ULTRAM) 50 MG tablet Take 50 mg by mouth every 6 (six) hours if needed Active aspirin EC 325 MG EC tablet TAKE 1 TABLET BY MOUTH TWO TIMES A DAY 10/14/2020 Active Calcium Carb-Cholecalci ferol (Calcium Carbonate-Vitam in D3) 600-400 MG-UNIT tablet 11/09/2020 Acti ve Breo Ellipta 100-25 MCG/INH aerosol powder 01/09/2021 Acti ve Incruse Ellipta 62.5 MCG/INH aerosol powder 01/15/2021 Acti ve Blood Pressure Monitoring (Blood Pressure Monitor 3) deviceIndicatio ns:Stage 3a chronic kidney disease (HCC),Hypertens ion USE EVERY DAY 1 each 10/03/2023 Active cholecalciferol (VITAMIN D-3) 50 MCG (1999) capsuleIndicati ons:Stage 3a chronic kidney disease (HCC),Vitamin D deficiency, not otherwise specified TAKE 1 CAPSULE BY MOUTH EVERY DAY 90 capsule 1 04/02/2024 Active Active Problems Problem Noted Date Diagnosed Date Vitamin D deficiency, not otherwise specified Secondary hyperparathyroidism of renal origin Hypertension 10/04/2023 Chronic obstructive pulmonary disease 04/04/2023 Fibromyalgia 04/04/2023 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 [address] [facility] [address] [place] [address] Lou Villegas ARNP Stage 3a chronic kidney disease (HCC) (Primary Dx); Hypertension; Other iron deficiency anemia; Secondary hyperparathyroidism of renal origin (HCC); Vitamin D deficiency, not otherwise specified 04/02/2024 Refill [facility] [address] [place] [phone] Lou Villegas ARNP Stage 3a chronic kidney disease (HCC); Vitamin D deficiency, not otherwise specified from Last 3 Months Immunizations Name Administration Dates Next Due Moderna SARS-COV-2 05/26/2020 Family History Medical History Relation Comments Cancer Sibling 1 brother Gout Sibling 2 brother Relation Status Comments Father Mother Sibling 1 Sibling 2 Social History Tobacco Use Types Packs/Day Years Used Date Smoking Tobacco: Former Cigarettes Q uit: 10/07/2005 Smokeless Tobacco: Never Tobacco Cessation:Counseling Given: No Comments:Smoking History Info:Every day Alcohol Use Standard Drinks/Week Comments No 0 (1 standard drink = 0.6 oz pur e alcohol) Comments Unknown Sex and Gender Information Value Date Recorded Sex Assigned at Not on file Legal Sex Female 5:20 PM EST Gender Identity Not on file Sexual Orientation Not on file Last Filed Vital Signs Vital Sign Reading Time Taken Comments Blood Pressure 126/62 04/06/2024 2:42 PM EST Pulse 62 04/06/2024 2:24 PM EST Temperature - - Respiratory Rate 20 07/10/2023 1:43 PM EDT Oxygen Saturation 94% 10/03/2023 10:18 AM EDT Inhaled Oxygen Concentration - - Weight 61.7 kg (136 lb) 04/06/2024 2:24 PM EST Height 147.3 cm (4' 10 ) 01/30/2022 3:35 PM EST Body Mass Index 28.42 01/30/2022 3:35 PM EST Plan of Treatment Upcoming Encounters Date Type Department Care Team (Late st Contact Info) Description 10/05/2024 1:00 PM EDT Office Visit [facility] [address] [phone] Lou Villegas ARNP [address] [phone] Health Maintenance Due Date Last Done Comments Breast Cancer Screening 1950 Colorectal Cancer Screening: Annual FOBT 1998 Colorectal Cancer Screening: Colonoscopy 1998 Colorectal Cancer Screening: Sigmoidoscopy 1998 Influenza Vaccine (#1) 2023 01/02/2019 Diabetes: Hemoglobin A1C 04/06/2024 021, 12/31/2019, 10/07/2018 Diabetes: Ophthalmology Exam 04/06/2024 Diabetes: Pedal Pulse Checked 04/06/2024 Diabetes: Sensory Foot Exam 04/06/2024 Diabetes: Visual Foot Exam 04/06/2024 Pneumococcal Vaccine: 65+ Years Completed 03/28/2018, 07/05/2015 Hepatitis B Vaccine Aged Out No longe r eligible based on patient's age to complete this topic Procedures Procedure Name Priority Date/Time Associated Diagnosis Comments HEMOGLOBIN A1C Routine 01/17/2021 3:19 PM EDT from Last 3 Months or Most Recently Relevant to Health Maintenance Results * Hemoglobin A1c (01/17/2021 3:19 PM EDT) Hemoglobin A1C 5.5 (4.0-5.6) % [facility] Comment: MONITORING: In known diabetic patients, hemoglobin A1c targets should be discussed with health care provider. DIAGNOSTIC USE: ??The [place] Diabetes Association (ADA) and the World Health Organization (WHO) recommend the use of HbA1c to diagnose diabetes using a threshold of 6.5%. Patients who have an HbA1c between 5.7% and 6.4% are considered at increased risk for developing diabetes in the future. CAUTION: Falsely low HbA1c results may be observed in patients with hemolytic anemia, homozygous forms of abnormal hemoglobin (e.g. SS, CC, SC), , recent blood loss or hemoglobin F greater than 7%. Fructosamine may be used as an alternate test in these cases. REFERENCE: ADA: Standards of Medical Care in Diabetes 2020, The Journal of Clinical and Applied Research and Education Volume 43, Supplement 1 Testing performed or reported by [facility], a Service of [facility], [address] [place] [id number] Ale Feldman MD, Health Equipment Servicer [facility]# [id number] 01/17/2021 3:19 PM EDT 01/17/2021 3:20 PM EDT us Gamaliel Chin MD LAB BLOOD ORDERABLES Final Re sult [facility] from Last 3 Months or Most Recently Relevant to Health Maintenance Insurance [facility] ([id number]) YVETTE ESTRADA [id number] [facility] ([id number]) Care Teams Cork Insulator Helper Relationship Specialty Start Date End Date Mahin Hall MD [address] [place] [id number] PCP - General 04/04/20
--- OUTSIDE RECORDS SUMMARY | 2024-06-11 13:57 | XMS_ITS | Encounter Summary ---
Author Organization [employer] Address [address] [place] [address] Care Team Providers Care Supervisory Clerk Name Role Phone Mahin Hall MD Primary Care Provider [phone] Reason for Referral * Consultation (Routine) - Pending Review Specialty Diagnoses / Procedures Referred By Contmathew t Referred To Contact Nephrology Diagnoses Hospital discharge follow-up Acute hypoxemic respiratory failure COPD exacerbation (CMS/HCC) NSTEMI (non-ST elevated myocardial infarction) (CMS/HCC) Macrocytic anemia CKD (chronic kidney disease) stage 2, GFR 60-89 ml/min Mahin Hall MD [address] [facility] 200 [place] [address] Phone: tel: fax: Jaxon Larsen MD [address] [place] [address] [address] [place] [address] Phone: tel: fax: Referral ID Status Reason Start Date Expiration Date Visits Requested Visits Authorized [id number] Pending Review Specialty Services Required 05/28/2024 05/28/2025 1 1 * Consultation (Routine) - Authorized Specialty Diagnoses / Procedures Referred By Contac t Referred To Contact Hematology and Oncology Diagnoses Hospital discharge follow-up Acute hypoxemic respiratory failure COPD exacerbation (CMS/HCC) NSTEMI (non-ST elevated myocardial infarction) (CMS/HCC) Macrocytic anemia CKD (chronic kidney disease) stage 2, GFR 60-89 ml/min Mahin Hall MD 175 [facility] [address] [place] [address] Phone: tel: fax: [facility] [address] [place] [address] Phone: tel: fax: Referral ID Status Reason Start Date Expiration Date Visits Requested Visits Authorized [id number] Authorized Specialty Services Required 05/28/2024 05/28/2025 1 1 Encounter Details Date Type Department Care Team (Late st Contact Info) Description 05/28/2024 10:30 AM EST Office Visit Internal Medicine - [address] [phone] Mahin Hall MD [address] [address] Hospital discharge follow-up (Primary Dx); Acute hypoxemic respiratory failure (CMS/HCC); COPD exacerbation (CMS/HCC); NSTEMI (non-ST elevated myocardial infarction) (CMS/HCC); Macrocytic anemia; CKD (chronic kidney disease) stage 2, GFR 60-89 ml/min Social History Tobacco Use Types Packs/Day Years [...] on file documented as of this encounter Last Filed Vital Signs Vital Sign Reading Time Taken Comments Blood Pressure 138/62 05/28/2024 10:26 AM EST Pulse 72 05/28/2024 10:26 AM EST Temperature 35.7 ??C (96.3 ??F) 05/28/2024 10:[address] Respiratory Rate - - Oxygen Saturation 90% 05/28/2024 10:26 AM EST Inhaled Oxygen Concentration - - Weight 61.5 kg (135 lb 9.6 oz) 05/28/2024 10:26 AM EST Height 144.8 cm (4' 9 ) 05/28/2024 10:26 AM EST Body Mass Index 29.34 05/28/2024 10:26 AM EST documented in this encounter Functional Status * Are you deaf or do you have serious difficulty hearing? Answer Date of Assessment Author No 03/21/2024 8:24 PM EST Tamiko Gates RN * Are you blind or do [...] 8:24 PM EST Tamiko Gates RN * Because of a physical, mental, or emotional condition, do you have serious difficulty doing errandsalone such as visiting the doctor? Answer Date of Assessment Author No 03/21/2024 8:24 PM EST Tamiko Gates RN documented as of this encounter Mental Status * Because of a physical, mental, or emotional condition, do you have serious difficulty concentrating, remembering, or making decisions? (5 years old or older) Answer Entry Date Author No 03/21/2024 8:24 PM EST Tamiko Gates RN documented in this encounter Progress Notes * Mahin Hall MD - 05/28/2024 10:30 AM EST COMPLAINT discharge follow-up IDENTIFIER: Teressa Gonzalez is a 74 y.o. old female. HPI: Discharged on May 19 at [facility] due to acute hypoxic respiratory failure, has COPD alsohas been on NSTEMI .cardiac cath in March 17 was okay. EF is mildly depressed. Also has elevatedcreatinine and anemia. ROS: GENERAL: No malaise, significant weight loss or fever RESPIRATORY: No cough, wheezing or shortness of breath CARDIOVASCULAR: No chest pain, leg swelling or palpitations GI: No abdominal discomfort, blood in stools or black stools PAST MEDICAL HISTORY: Patient Active Problem List Diagnosis Date Noted Cardiomyopathy, [place]ischemic [place] 2024 NSTEMI (non-ST elevated myocardial infarction) [place] 03/24/2024 Prediabetes 03/21/2024 Secondary hyperparathyroidism of renal origin ([facility] 10/04/2023 Hypertension 04/17/2023 SOB (shortness of breath) 02/28/2023 Subsequent non-ST elevation (NSTEMI) myocardial infarction [place] 02/28/2023 Paroxysmal atrial fibrillation ([facility] 02/28/2023 Hyperlipidemia, unspecified 02/28/2023 COPD exacerbation ([facility]) 02/28/2023 Severe obesity (BMI 35.0-39.9) with comorbidity ([facility] 01/02/2019 CKD (chronic kidney disease) stage 2, GFR 60-89 ml/min 01/02/2019 Weight loss 11/20/2017 Anemia 11/15/2016 Gastroesophageal reflux disease 11/15/2016 Insomnia 11/15/2016 Macrocytosis 11/15/2016 Reactive depression (situational) 07/05/2016 Past Surgical History: Procedure Laterality Date BREAST LUMPECTOMY PROCEDURE: HISTORICAL BREAST LUMPECTOMY CARDIAC CATHETERIZATION DONE ON 01/09/2024 AT [facility] INDICATIONS:SOB KNEE SURGERY PROCEDURE: HISTORICAL KNEE SURGERY SOCIAL HISTORY: Social History Tobacco Use Smoking status: Former Types: Cigarettes Smokeless tobacco: Never Tobacco comments: Pt states quit 14-15 years ago Substance Use Topics Alcohol use: No FAMILY HISTORY: Family History Problem Relation Name Age of Onset No Known Problems Father No Known Problems Mother No Known Problems Daughter No Known Problems Son No Known Problems Brother No Known Problems Sister No Known Problems Other Hyperlipidemia Neg Hx Diabetes Neg Hx Autoimmune disease Neg Hx Breast cancer Neg Hx Colon cancer Neg Hx Prostate cancer Neg Hx Coronary artery disease Neg Hx Mental illness Neg Hx Heart attack Neg Hx Heart failure Neg Hx Sleep apnea Neg Hx Hypertension Neg Hx Thyroid disease Neg Hx MEDICATIONS DISCONTINUED/REORDERED: There are no discontinued medications. ACTIVE MEDICATIONS: Outpatient Medications Marked as Taking for the 05/28/24 encounter (Office Visit) with Mahin Hall MD Medication Sig Dispense Refill albuterol 2.5 mg /3 mL (0.083 %) nebulizer solution Take 3 mL (2.5 mg total) by nebulization every 4 (four) hours if needed for wheezing or shortness of breath. aspirin 81 mg EC tablet Take 1 tablet (81 mg total) by mouth 1 (one) time each day. atorvastatin (LIPITOR) 80 mg tablet Take 1 tablet (80 mg total) by mouth 1 (one) time each day. budesonide (PULMICORT) 1 mg/2 mL nebulizer solution Take 2 mL (1 mg total) by nebulization 1 (one) time each day. Rinse mouth with water after use to reduce aftertaste and incidence of candidiasis. Do not swallow. 60 mL 0 budesonide-formoteroL (SYMBICORT) 160-4.5 mcg/actuation inhaler Inhale 2 puffs by mouth 2 (two) times a day. doxepin (SINEquan) 25 mg capsule Take 1 capsule (25 mg total) by mouth at bedtime. fluticasone propionate (FLONASE) 50 mcg/actuation nasal spray SPRAY 2 SPRAYS INTO EACH NOSTRIL EVERY DAY 48 mL 1 folic acid (FOLVITE) 1 mg tablet Take 1 tablet (1 mg total) by mouth 1 (one) time each day. furosemide (LASIX) 20 mg tablet Take 1 tablet (20 mg total) by mouth 1 (one) time each day. loratadine (CLARITIN) 10 mg tablet Take 1 tablet (10 mg total) by mouth 1 (one) time each day. 30 tablet 11 metoprolol succinate (TOPROL-XL) 50 mg 24 hr tablet Take 1 tablet (50 mg total) by mouth 1 (one) time each day. Do not crush or chew. 30 each 0 pantoprazole (PROTONIX) 40 mg EC tablet Take 1 tablet (40 mg total) by mouth 2 (two) times a day before meals. Do not crush, chew, or split. 60 each 0 pregabalin (LYRICA) 75 mg capsule Take 3 capsules (225 mg total) by mouth at bedtime. tiZANidine (ZANAFLEX) 4 mg tablet TAKE 1 TABLET BY MOUTH EVERY DAY 90 tablet 1 traMADoL (ULTRAM) 50 mg tablet Take 1 tablet (50 mg total) by mouth every 6 (six) hours if needed for moderate pain. ALLERGIES: Allergies Allergen Reactions Ibuprofen Nausea And Vomiting PHYSICAL EXAM: Vitals: 05/28/24 1026 BP: 138/62 Pulse: 72 Temp: 35.7 ??C (96.3 ??F) SpO2: 90% APPEARANCE: Alert and in no acute distress EARS: External ears normal. HEART: RRR with normal S1 and S2, no murmurs LUNG: clear to auscultation LABS: Lab Results Component Value Date WBC 9.4 05/19/2024 HGB 8.2 (L) 05/19/2024 HCT 25.6 (L) 05/19/2024 MCV 103.2 (H) 05/19/2024 Lab Results Component Value Date NA 140 05/19/2024 K 5.5 05/19/2024 CO2 26 05/19/2024 CL 112 (H) 05/19/2024 BUN 52 (H) 05/19/2024 ALKPHOS 141 (H) 05/13/2024 Lab Results Component Value Date TSH 0.59 05/16/2024 Lab Results Component Value Date CHOL 118 05/15/2024 HDL 57 05/15/2024 TRIG 68 05/15/2024 No components found for: URINELEUK , URINENITR , URINEPRO , URINEPH , URINEBLD , URINESG , URINEKET , URINEBILI , URINEGLUC IMAGING: IMPRESSION: 1. Hospital discharge follow-up 2. Acute hypoxemic respiratory failure ([facility]) 3. COPD exacerbation ([facility]) 4. NSTEMI (non-ST elevated myocardial infarction) ([facility]) 5. Macrocytic anemia 6. CKD (chronic kidney disease) stage 2, GFR 60-89 ml/min PLAN: Was discharged from [facility] on May 19, 2024 with a diagnosis of COPD exacerbation, acute hypoxic respiratory failure ,NSTEMI ,anemia. No obvious GI bleed. Shortness of breath is improved. Elevated creatinine .continue current treatment, breathing is improved. Does follow-up with specialists, also needs to see renal and hematology .Hospital records reviewed. documented in this encounter Plan of Treatment Upcoming Encounters Date Type Department Care Team (Late st Contact Info) Description 06/22/2024 1:40 PM EDT Office Visit [facility] [address] [facility] [address] [place] [phone] Kristy Blackmon NP [address] [place] [address] 07/27/2024 1:00 PM EDT Office Visit [facility]ology [facility]cology [address] [place] [phone] Kym Soto PA [address] [place] [address] Scheduled Referrals Name Type Priority Associated Diagnoses Orde r Schedule Ambulatory referral to Hematology / Oncology Outpatient Referral Routine Hospital discharge follow-up Acute hypoxemic respiratory failure (CMS/HCC) COPD exacerbation (CMS/HCC) NSTEMI (non-ST elevated myocardial infarction) (CMS/HCC) Macrocytic anemia CKD (chronic kidney disease) stage 2, GFR 60-89 ml/min 1 Occurrences starting 05/28/2024 until 05/28/2025 Ambulatory referral to Nephrology Outpatient Referral Routine Hospital discharge follow-up Acute hypoxemic respiratory failure (CMS/HCC) COPD exacerbation (CMS/HCC) NSTEMI (non-ST elevated myocardial infarction) (CMS/HCC) Macrocytic anemia CKD (chronic kidney disease) stage 2, GFR 60-89 ml/min 1 Occurrences starting 05/28/2024 until 05/28/2025 documented as of this encounter Visit Diagnoses Diagnosis Hospital discharge follow-up- Primary Other follow-up examination Acute hypoxemic respiratory failure COPD exacerbation (CMS/HCC) Obstructive chronic bronchitis with exacerbation NSTEMI (non-ST elevated myocardial infarction) (CMS/HCC) Acute myocardial infarction, subendocardial infarction, episode of care unspecified Macrocytic anemia CKD (chronic kidney disease) stage 2, GFR 60-89 ml/min Chronic kidney disease, Stage II (mild) documented in this encounter Care Teams Supervisory Clerk Relationship Specialty Start Date End Date Mahin Hall MD 175 [facility] [address] [place] [address] PCP - General Internal Medicine 11/15/13 documented as of this encounter
--- OUTSIDE RECORDS SUMMARY | 2024-06-11 13:57 | XMS_ITS | Encounter Summary ---
Author Organization [facility] Address [address] [place] [address] Care Team Providers Care Dice Manager Name Role Phone Mahin Hall MD Primary Care Provider [phone] Reason for Visit * Reason Comments Shortness of Breath Pt coming from home w/ cold like symptoms since this am w/ c/o increased SOB. Found by EMS to be Satting in high 80s duoneb started and O2 SAT increased to 98%. Hx of asthma, copd * Auth/Cert (Routine) Specialty Diagnoses / Procedures Referred By Nava t Referred To Contact Diagnoses NSTEMI (non-ST elevated myocardial infarction) ([facility]) Procedures [facility] IP/OBS CARE INITIAL MODERATE LEVEL PER DAY . Aris Malloy MD [address] [place] [address] Phone: tel: fax: [facility] Emergency [address] [place] [address] Phone: tel: Referral ID Status Reason Start Date Expiration Date Visits Re quested Visits Authorized [id number] 1 1 Encounter Details Date Type Department Care Team (Latest Contact Info) Description 05/13/2024 9:55 PM EST - 05/19/2024 3:57 PM EST Hospital Encounter [facility] [address] [place] [address] Aris Malloy MD [address] [place] [address] Edward Maurice MD [address] [place], [place] [id number] Kym Angulo MD [address] [place] [address] NSTEMI (non-ST elevated myocardial infarction) (CMS/HCC) (Primary Dx) Discharge Disposition: Home or Self Care Social History Tobacco Use Types Packs/Day Years [...] Sign Reading Time Taken Comments Blood Pressure 124/61 05/19/2024 3:08 PM EST Pulse 84 05/19/2024 3:08 PM EST Temperature 36.2 ??C (97.2 ??F) 05/19/2024 3:08 PM ES T Respiratory Rate 16 05/19/2024 3:08 PM EST Oxygen Saturation 94% 05/19/2024 3:08 PM EST Inhaled Oxygen Concentration - - Weight 59.6 kg (131 lb 8 oz) 05/15/2024 10:08 AM EST Height 157.5 cm (5' 2.01 ) 05/15/2024 10:[address] Body Mass Index 24.05 05/15/2024 10:08 AM EST documented in this encounter Functional Status * Are you deaf or do you have serious difficulty hearing? Answer Date of Assessment Author No 03/21/2024 8:24 PM EST Tamiko [place], [facility] * Are you blind or do you [...] Tamiko Castro RN documented in this encounter Discharge Summaries * Kym Angulo MD - 05/19/2024 11:28 AM EST Images from the original note were not included. FRISCO DISCHARGE SUMMARY Patient Information Teressa Meléndez : 1950 [74 y.o.] Admitting Provider Aris Malloy MD Discharge Provider Kym Angulo MD, Kym Angulo MD Primary Care Physician Mahin Hall MD Admission Date 05/13/2024 Discharge Date 05/19/2024 Primary/Secondary Diagnosis Acute hypoxic respiratory failure COPD exacerbation Non-ST elevation MS/stress-induced cardiomyopathy Paroxysmal Afib Anemia Consults: Cardiology Hospital Course Summary HPI : Patient is a 73 y.o. female with past medical history of COPD/asthma, depression, fibromyalgia, GERD, osteoarthritis, dyslipidemia coming into the hospital with chief complaint of shortness of breath. I did my encounter with the help of a assistance coordinator. Patient described her symptoms asworsening shortness of breath although not as severe as last time. She denied chest pain completely. She denied lightheadedness and dizziness. Her only symptom was respiratory distress for which she came to the hospital for evaluation. She denied any fever, chills, nausea, vomiting, diarrhea. Reported adequate oral intake. In the hospital, the patient was tachypneic and tachycardic on arrival. She was in severe respiratory distress and was placed on high flow oxygen. Patient was found to have upgoing troponins althoughshe denied having any chest pain. Will treat panel was negative. CT chest showed trace pleural effusion and emphysema. 3 mm right upper lobe pulmonary nodule was seen as well. EKG showed sinus tachycardia. Kidney numbers were at baseline. She has underlying CKD stage III with a baseline creatinine between 1.5-1.7. Hospital course: 73 yo lady with PMH of COPD, asthma, depression, fibromyalgia, GERD, dyslipidemia among others who presented with shortness of breath. Patient was tachycardic and tachypneic on presentation. CT chestdemonstrated trace bilateral pleural effusions, emphysema and 3 mm right upper lobe nodule for which follow- up in 1 year was suggested. She was hypoxic with oxygen saturation 90% on 3.5 L of flow oxygen and was started on high flow O2. Initial high sensitive troponin 141 and subsequent measurementsdemonstrated increased to 1, 454, 2, 172, 2, 616. EKG around 4:59 AM demonstrated T wave inversionsin inferior lateral leads. Patient was started on heparin drip. She denied any chest pain in ED or before coming to the hospital. Patient was started on Solu-Medrol, DuoNebs for COPD exacerbation.Viral respiratory panel was negative. # Acute hypoxic respiratory failure. Likely secondary to COPD exacerbation. Off O2 and is doing well. # COPD exacerbation - due to viral illness suspected but respiratory viral panel came back negative. Improved with IV steroids and nebulizers. Currently on prednisone, short course is planned. No wheezing. # Non-ST elevation MS/stress-induced cardiomyopathy -echo with 40 to 45% global hypokinesis with relative sparing of the basal wall, stress cardiomyopathy questioned, cardiology also questioning allergy mediated vasospasm and asked histamines addition was recommended. Normal coronary arteries in March 17. Status post heparin drip for 48 hours. On aspirin 81 statin 80 and metoprolol 25 twice daily. She will need repeat echocardiogram in 3 months time to follow-up on ejection fraction. # Paroxysmal Afib with secondary hypercoagulable state. Developed on Saturday. Converted to SR spontaneously. Cardiology team recommended anticoagulation and apixaban 2.5 twice daily started but this was held once hemoglobin dropped to 7.4 and will not be restarted at the time of discharge. See discussion below. She will need to follow-up with the cardiology, and have further discussions about anticoagulation. This was conveyed to Dr. Bain. # Anemia - hemoglobin trending down(from 1011 to 7.4, stabilized at 8.2), component of acute blood loss?GI) cannot be ruled out although no obvious major bleeding noted -stool for occult blood ordered but not collected. She denied h/o melena or bloody bowel movement.. Apoixaban held due to concern about occult bleeding and will not be restarted. She will need to follow up with PCP and cardiology and if Hg stable, no further events, could discuss restarting at that time. She understands this recommendation. Meanwhile she will be on twice daily PPI due to risk of steroid-induced peptic ulcer disease. CKD stage IIIb - component of RUBIO was felt due to hypotension episodes, treated with albumin/fluids. Cre stable at 1.8. Chronic pain/fibromyalgia. Resume home regimen. 3mm RUL nodule - 1 year follow up with repeat imaging was recommended. This was reviewed with the patient. >30 min spent on DC Follow-Up Instructions and Recommendations PCP in 1 week Discharge Medications Your medication list START taking these medications Instructions Last Dose Given Next Dose Due benzonatate 100 mg capsule Commonly known as: TESSALON Take 1 capsule (100 mg total) by mouth 3 (three) times a day if needed for cough for up to 5 days. Do not crush or chew. loratadine 10 mg tablet Commonly known as: CLARITIN Take 1 tablet (10 mg total) by mouth 1 (one) time each day. metoprolol succinate 50 mg 24 hr tablet Commonly known as: TOPROL-XL Take 1 tablet (50 mg total) by mouth 1 (one) time each day. Do not crush or chew. pantoprazole 40 mg EC tablet Commonly known as: PROTONIX Take 1 tablet (40 mg total) by mouth 2 (two) times a day before meals. Do not crush, chew, or split. predniSONE 20 mg tablet Commonly known as: DELTASONE Start taking on: May 20, 2024 Take 2 tablets (40 mg total) by mouth 1 (one) time each day for 5 days. CONTINUE taking these medications Instructions Last Dose Given Next Dose Due albuterol 2.5 mg /3 mL (0.083 %) nebulizer solution Take 3 mL (2.5 mg total) by nebulization every 4 (four) hours if needed for wheezing or shortness of breath. aspirin 81 mg EC tablet Take 1 tablet (81 mg total) by mouth 1 (one) time each day. atorvastatin 80 mg tablet Commonly known as: LIPITOR Take 1 tablet (80 mg total) by mouth 1 (one) time each day. budesonide 1 mg/2 mL nebulizer solution Commonly known as: PULMICORT Take 2 mL (1 mg total) by nebulization 1 (one) time each day. Rinse mouth with water after use to reduce aftertaste and incidence of candidiasis. Do not swallow. budesonide-formoteroL 160-4.5 mcg/actuation inhaler Commonly known as: SYMBICORT Inhale 2 puffs by mouth 2 (two) times a day. doxepin 25 mg capsule Commonly known as: SINEquan Take 1 capsule (25 mg total) by mouth at bedtime. fluticasone propionate 50 mcg/actuation nasal spray Commonly known as: FLONASE SPRAY 2 SPRAYS INTO EACH NOSTRIL EVERY DAY folic acid 1 mg tablet Commonly known as: FOLVITE Take 1 tablet (1 mg total) by mouth 1 (one) time each day. furosemide 20 mg tablet Commonly known as: LASIX Take 1 tablet (20 mg total) by mouth 1 (one) time each day. pregabalin 75 mg capsule Commonly known as: LYRICA Take 3 capsules (225 mg total) by mouth at bedtime. tiZANidine 4 mg tablet Commonly known as: ZANAFLEX TAKE 1 TABLET BY MOUTH EVERY DAY traMADoL 50 mg tablet Commonly known as: ULTRAM Take 1 tablet (50 mg total) by mouth every 6 (six) hours if needed for moderate pain. STOP taking these medications metoprolol tartrate 25 mg tablet Commonly known as: LOPRESSOR Where to Get Your Medications These medications were sent to [facility]/pharmacy #[id number] - [place], [place] - [address] [address] Hours: 24-hours benzonatate 100 mg capsule loratadine 10 mg tablet metoprolol succinate 50 mg 24 hr tablet pantoprazole 40 mg EC tablet predniSONE 20 mg tablet Physical Exam at time of Discharge General: Fatigued [facility]: Regular Chest: Without wheezing Abdomen is soft and nontender Extremities without peripheral edema She is awake and alert Vitals Vitals: 05/19/24 1053 BP: 133/76 Pulse: 86 Resp: 16 Temp: 36.7 ??C (98.1 ??F) SpO2: 93% HEMATOLOGY Lab Results Component Value Date WBC 9.4 05/19/2024 HGB 8.2 (L) 05/19/2024 HCT 25.6 (L) 05/19/2024 MCV 103.2 (H) 05/19/2024 PLT 203 05/19/2024 INR 0.9 05/14/2024 CHEMISTRY Lab Results Component Value Date GLUCOSE 117 (H) 05/19/2024 NA 140 05/19/2024 K 5.5 05/19/2024 CO2 26 05/19/2024 CL 112 (H) 05/19/2024 BUN 52 (H) 05/19/2024 CREATININE 1.85 (H) 05/19/2024 EGFR 28 (L) 05/19/2024 CALCIUM 9.1 05/19/2024 MG 2.5 05/15/2024 PHOS 2.8 03/24/2024 ANIONGAP 2 (L) 05/19/2024 CT Chest wo Contrast [[id number]]Collected: 05/14/24208Order Status: CompletedUpdated: 05/14/24208Narrative: INDICATION: Dyspnea, chronic, unclear etiology CT chest [...] fundus. No inflammatory changes. No acute fractures. Impression: 1. Trace bilateral pleural effusions are nonspecific. 2. Emphysema. 3. 3 mm right upper lobe pulmonary nodule. Consider 1 year follow-up chest CT if there are risk factors for lung cancer. This document has been electronically signed by: Will Nash MD on 05/14/2024 02:09:17XR Chest 1 View [[id number]]Collected: 05/14/2407Order Status: CompletedUpdated: 05/14/2415Narrative: HISTORY: The patient is a 73-year-old female with dyspnea. FINDINGS: Sitting AP portable radiograph of the chest demonstrates normal appearance of the bony structures. The cardiac and mediastinal contours are within normal limits. Peribronchial thickening ispresent in the lower lungs bilaterally consistent with bronchitis versus atypical or viral pneumonia. There is no consolidation, mass, pulmonary vascular congestion, or pleural effusion. Impression: Bilateral lower lung peribronchial thickening consistent with bronchitis versus atypical or viral pneumonia. Code 04096 -------- FINAL REPORT -------- Dictated By: Anibal Christie Dictated Date: 05/14/2024 09:07 ET Assigned Physician: Anibal Christie Reviewed and Electronically Signed By: Anibal Christie Signed Date: 05/14/2024 09:10 ET Workstation ID: [id number] Transcribed By: Self Edit Transcribed Date: 05/14/2024 09:07 ET * Kym Angulo MD - 05/19/2024 11:26 AM EST Please resume usual diet * Kym Angulo MD - 05/19/2024 11:26 AM EST As tolerated documented in this encounter Discharge Instructions * Discharge Instructions* Kym Angulo MD - 05/19/2024 11:27 AM EST Please take all your medications as recommended. Follow-up with PCP 1 to 2 weeks, call to make an appointment. You will need to have repeat CT chestto follow-up on your lung nodule -this will need to be arranged by your PCP. Follow-up with cardiology, repeat echo is recommended in 3 months. documented in this encounter Medications at Time of Discharge albuterol 2.5 mg /3 mL (0.083 %) nebulizer solution Take 3 mL (2.5 mg total) by nebulization every 4 (four) hours if needed for wheezing or shortness of breath. aspirin 81 mg EC tablet Take 1 tablet (81 mg total) by mouth 1 (one) time each day. 01/09/2024 atorvastatin (LIPITOR) 80 mg tablet Take 1 tablet (80 mg total) by mouth 1 (one) time each day. 01/06/2024 budesonide (PULMICORT) 1 mg/2 mL nebulizer solution Take 2 mL (1 mg total) by nebulization 1 (one) time each day. Rinse mouth with water after use to reduce aftertaste and incidence of candidiasis. Do not swallow. 60 mL 03/25/2024 6 budesonide-formo teroL (SYMBICORT) 160-4.5 mcg/actuation inhaler Inhale 2 puffs by mouth 2 (two) times a day. 03/06/2024 doxepin (SINEquan) 25 mg capsule Take 1 capsule (25 mg total) by mouth at bedtime. 07/01/2023 fluticasone propionate (FLONASE) 50 mcg/actuation nasal spray SPRAY 2 SPRAYS INTO EACH NOSTRIL EVERY DAY 48 mL 1 04/10/2024 folic acid (FOLVITE) 1 mg tablet Take 1 tablet (1 mg total) by mouth 1 (one) time each day. furosemide (LASIX) 20 mg tablet Take 1 tablet (20 mg total) by mouth 1 (one) time each day. loratadine (CLARITIN) 10 mg tablet Take 1 tablet (10 mg total) by mouth 1 (one) time each day. 30 tablet 11 05/19/2024 6 metoprolol succinate (TOPROL-XL) 50 mg 24 hr tablet Take 1 tablet (50 mg total) by mouth 1 (one) time each day. Do not crush or chew. 30 each 05/19/2024 5 pantoprazole (PROTONIX) 40 mg EC tablet Take 1 tablet (40 mg total) by mouth 2 (two) times a day before meals. Do not crush, chew, or split. 60 each 05/19/2024 6 pregabalin (LYRICA) 75 mg capsule Take 3 capsules (225 mg total) by mouth at bedtime. tiZANidine (ZANAFLEX) 4 mg tablet TAKE 1 TABLET BY MOUTH EVERY DAY 90 tablet 1 03/05/2024 traMADoL (ULTRAM) 50 mg tablet Take 1 tablet (50 mg total) by mouth every 6 (six) hours if needed for moderate pain. 01/02/2019 benzonatate (TESSALON) 100 mg capsule Take 1 capsule (100 mg total) by mouth 3 (three) times a day if needed for cough for up to 5 days. Do not crush or chew. 15 each 05/19/2024 5 predniSONE (DELTASONE) 20 mg tablet Take 2 tablets (40 mg total) by mouth 1 (one) time each day for 5 days. 10 each 05/20/2024 5 documented as of this encounter Ordered Prescriptions Prescription Sig Dispense Quantity Refills Last Filled Start Date End Date metoprolol succinate (TOPROL-XL) 50 mg 24 hr tablet Take 1 tablet (50 mg total) by mouth 1 (one) time each day. Do not crush or chew. 30 each 05/19/2024 5 pantoprazole (PROTONIX) 40 mg EC tablet Take 1 tablet (40 mg total) by mouth 2 (two) times a day before meals. Do not crush, chew, or split. 60 each 05/19/2024 6 loratadine (CLARITIN) 10 mg tablet Take 1 tablet (10 mg total) by mouth 1 (one) time each day. 30 tablet 11 05/19/2024 6 benzonatate (TESSALON) 100 mg capsule Take 1 capsule (100 mg total) by mouth 3 (three) times a day if needed for cough for up to 5 days. Do not crush or chew. 15 each 05/19/2024 5 predniSONE (DELTASONE) 20 mg tablet Take 2 tablets (40 mg total) by mouth 1 (one) time each day for 5 days. 10 each 05/20/2024 documented in this encounter Discharge Disposition Disposition Code Departure Means Destination Comment s Home or Self Residential documented in this encounter Progress Notes * Mel Butts - 05/19/2024 2:55 PM EST 05/19/24 1455 Qualify for Home O2 On at rest Room air SpO2 at rest 98 % On with exertion Room air SpO2 w/ exertion 91 % Amount of exertion time walked 6 Minutes Patient mobile at home? Yes Home O2 eval completed. Pt does not require O2 at home. SATs >91% on RA at rest and with ambulation. * Birdie Remy RN - 05/19/2024 1:30 PM EST 05/19/24 1329 Initial Transition Plan Initial Transition Plan Home ([employer] services at home) Transportation Transportation at discharge Family What day is the transport expected? 05/19/24 Final Discharge Disposition Home or Self Care Pt cleared for TRENT home and family to pick her up. * Kym Angulo MD - 2024 5:15 PM EST Images from the original note were not included. SHAYLA PROGRESS NOTE Date: 2024 Author: Kym Angulo MD Patient ID: Teressa Meléndez is a 74 y.o. female : 1950 MR#: [id number] SUBJECTIVE CC: Here with COPD exacerbation. Seen first time. She feels improved overall, denies dyspnea no chest pain, still with cough at times with dark sputum. Explained hemoglobin trending down, she denies any black stool, blood in the stool, or bloody emesis. No BM today. Last BM reported by nursing is from yesterday, no gross bleeding, not sure about thecolor. Explained the need for further monitoring of H&H and the fact that we will be holding apixaban. ROS: No fever or chills OBJECTIVE Vitals: 05/18/24 1530 BP: 114/81 Pulse: 75 Resp: Temp: 36.4 ??C (97.6 ??F) SpO2: 96% Physical exam: General: Fatigued CVS: Regular Chest: Without wheezing Abdomen is soft and nontender Extremities without peripheral edema She is awake and alert Current Medications: [Held by provider] apixaban, 2.5 mg, oral, BID aspirin, 81 mg, oral, Daily atorvastatin, 80 mg, oral, Daily benzonatate, 100 mg, oral, TID budesonide, 1 mg, nebulization, BID doxepin, 25 mg, oral, Nightly folic acid, 1 mg, oral, Daily formoterol, 20 mcg, nebulization, BID gabapentin, 300 mg, oral, BID guaiFENesin-codeine, 10 mL, oral, q6h ipratropium-albuteroL, 3 mL, nebulization, 4x daily isosorbide mononitrate, 30 mg, oral, Daily metoprolol tartrate, 25 mg, oral, BID [START ON 05/19/2024] pantoprazole, 40 mg, oral, BID AC [START ON 05/19/2024] predniSONE, 40 mg, oral, Daily pregabalin, 150 mg, oral, Daily PRN medications: acetaminophen, ipratropium-albuteroL, nitroglycerin HEMATOLOGY Lab Results Component Value Date WBC 12.3 (H) 2024 HGB 8.3 (L) 2024 HCT 26.0 (L) 2024 MCV 104.0 (H) 2024 PLT 188 2024 INR 0.9 05/14/2024 CHEMISTRY Lab Results Component Value Date GLUCOSE 108 (H) 2024 NA 142 2024 K 5.3 2024 CO2 25 2024 CL 112 (H) 2024 BUN 51 (H) 2024 CREATININE 2.00 (H) 2024 EGFR 26 (L) 2024 CALCIUM 9.4 2024 MG 2.5 05/15/2024 PHOS 2.8 03/24/2024 ANIONGAP 5 2024 Imaging: Transthoracic echocardiogram (TTE) limited with PRN contrast, bubble, strain, and 3D order panel Left ventricle cavity size is normal. Wall thickness is normal. Systolic function is mildly decreased with an ejection fraction of 40-45%. Mild global LV hypokinesis is present witth relative sparing of the basal cummings. Consider stress myopathy. Diastolic function not assessed. Compared to the echo from 02/2024, the LVEF has decreased. ASSESSMENT & PLAN 73 yo lady with PMH of COPD, asthma, depression, fibromyalgia, GERD, dyslipidemia among others who presented with shortness of breath. Patient was tachycardic and tachypneic on presentation. CT chestdemonstrated trace bilateral pleural effusions, emphysema and 3 mm right upper lobe nodule for which follow- up in 1 year was suggested. She was hypoxic with oxygen saturation 90% on 3.5 L of flow oxygen and was started on high flow O2. Initial high sensitive troponin 141 and subsequent measurementsdemonstrated increased to 1, 454, 2, 172, 2, 616. EKG around 4:59 AM demonstrated T wave inversionsin inferior lateral leads. Patient was started on heparin drip. She denied any chest pain in ED or before coming to the hospital. Patient was started on Solu-Medrol, DuoNebs for COPD exacerbation.Viral respiratory panel was negative. # Acute hypoxic respiratory failure. Likely secondary to COPD exacerbation. Off O2 and is doing well # COPD exacerbation -due to viral illness suspected but respiratory viral panel came back negative.Improved with IV steroids and nebulizers. Currently on prednisone and we will be de-escalating the dose. No wheezing. # Non-ST elevation MS/stress-induced cardiomyopathy -echo with 40 to 45% global hypokinesis with relative sparing of the basal wall, stress cardiomyopathy questioned, cardiology also questioning allergy mediated vasospasm and asked histamines addition was recommended. Normal coronary arteries in March 17. Status post heparin drip for 48 hours. On aspirin 81 statin 80 and metoprolol 25 twice daily. # Paroxysmal Afib with secondary hypercoagulable state. Developed on Saturday. Converted to SR spontaneously. Cardiology team recommending AC -apixaban was started but holding today due to worsening anemia. This was reviewed with cardiology. # Anemia -hemoglobin trending down, component of acute blood loss?GI) cannot be ruled out although no obvious major bleeding noted -stool for occult blood ordered, changing PPI to twice a day and holding apixaban. Monitor stools. Reviewed with nursing. Repeat H&H and if less than 7 will transfuse. This was explained to the patient. CKD stage IIIb RUBIO. With hypotensive episodes. Treated with IV albumin/ivfs. Cr peaked at 2.2. Plateaud and sl improved. No more hypotension. Chronic pain/fibromyalgia. On Lyrica and gabapentin but patient could not tell me exact dosages or frequency. Gabapentin 300mg BID and lyrica 150mg daily for now (adjusted for renal function) DVT prophylaxis: Heparin/eliquis. CODE STATUS: Full code Disposition. If H&H stable and no GI events could consider discharge next 24 hours.. * Brigid Bain MD - 2024 2:37 PM ESTAssociated Problem(s): Paroxysmal atrial fibrillation (CMS/HCC) Continue Eliquis for CVA prophylaxis. Would transition to succinate preparation of metoprolol for rate control. Patient is back in sinus rhythm with a short burst of SVT-likely atrial tachycardia. Her A-fib was likely triggered by her acute illness. * Brigid Bain MD - 2024 2:34 PM ESTAssociated Problem(s): Hyperlipidemia, unspecified Continue statin. * Brigid Bain MD - 2024 2:33 PM ESTAssociated Problem(s): Cardiomyopathy, nonischemic (CMS/HCC) Unclear cause underlying. Echo not classic for Takotsubo-or at least the most common variant. Consider adding an antihistamine-Claritin or Zyrtec. Continue current metoprolol but would transition to succinate preparation 50 mg daily upon discharge. Cannot get TRICE inhibitor or ARB due to advanced renal disease. Would repeat echo in three months to assess for recovery. * Brigid Bain MD - 2024 2:26 PM EST Images from the original note were not included. [facility]- Cardiology Follow-up Note PATIENT NAME: Teressa Meléndez ([id number]) DOS: 05/18/24 ASSESSMENT & PLAN 74 y.o. female who presents for a COPD exacerbation with associated cardiomyopathy-possibly stress myopathy though the phenotype is not consistent. My suspicion is this may be an allergy mediated vasospasm creating diffuse ischemia and reduced EF. The patient has had now multiple episodes such as this and had a recent ischemic workup showing no obstructive coronary disease. I wonder if there is an allergy mediated component-the so-called Kounis syndrome. This is mainly managed with antihistamines/avoidance of triggers to the extent that it is possible. Discussed with Dr. Angulo. Will sign off. Please feel free to reconsult with questions or issues. Cardiomyopathy, nonischemic (CMS/HCC) Unclear cause underlying. Echo not classic for Takotsubo-or at least the most common variant. Consider adding an antihistamine-Claritin or Zyrtec. Continue current metoprolol but would transition to succinate preparation 50 mg daily upon discharge. Cannot get TRICE inhibitor or ARB due to advanced renal disease. Would repeat echo in three months to assess for recovery. Hyperlipidemia, unspecified Continue statin. Paroxysmal atrial fibrillation (CMS/HCC) Continue Eliquis for CVA prophylaxis. Would transition to succinate preparation of metoprolol for rate control. Patient is back in sinus rhythm with a short burst of SVT-likely atrial tachycardia. Her A-fib was likely triggered by her acute illness. SUBJECTIVE This history and physical exam was conducted with the assistance of a video assistance coordinator as the patient is predominantly Nepalese-speaking. Patient is feeling much better. She denies any shortness of breath or chest pain. PAST MEDICAL HISTORY She has a past medical history of Arthritis (11/06/2016), COPD, mild (CMS/HCC) (11/06/2016), Depression (07/05/2016), Fibromyalgia (11/06/2016), GERD (gastroesophageal reflux disease) (02/07/2017), History of colon polyps (07/06/2015), Osteoarthrosis (04/23/2017), and Vitamin D deficiency (11/06/2016). PAST SURGICAL HISTORY She has a past surgical history that includes Breast lumpectomy; Knee surgery; and Cardiac catheterization. SOCIAL HISTORY Tob: reports that she has quit smoking. Her smoking use included cigarettes. She has never used smokeless tobacco. ETOH: reports no history of alcohol use. Drug: reports no history of drug use. FAMILY HISTORY She family history includes No Known Problems in her brother, daughter, father, mother, sister, son, and another family member. MEDICATIONS: SCHEDULED MEDICATIONS: [Held by provider] apixaban, 2.5 mg, oral, BID aspirin, 81 mg, oral, Daily atorvastatin, 80 mg, oral, Daily benzonatate, 100 mg, oral, TID budesonide, 1 mg, nebulization, BID doxepin, 25 mg, oral, Nightly folic acid, 1 mg, oral, Daily formoterol, 20 mcg, nebulization, BID gabapentin, 300 mg, oral, BID guaiFENesin-codeine, 10 mL, oral, q6h ipratropium-albuteroL, 3 mL, nebulization, 4x daily isosorbide mononitrate, 30 mg, oral, Daily metoprolol tartrate, 25 mg, oral, BID pantoprazole, 40 mg, oral, q AM AC [START ON 05/19/2024] predniSONE, 40 mg, oral, Daily pregabalin, 150 mg, oral, Daily PRN MEDICATIONS: PRN medications: acetaminophen, ipratropium-albuteroL, nitroglycerin DRIPS: ALLERGIES: She is allergic to ibuprofen. OBJECTIVE Body mass index is 24.05 kg/m??. PHYSICAL EXAMINATION: APPEARANCE: Alert and in no acute distress EYES: PERRL, conjunctiva and sclera normal HENT: AT/NC, MMM NECK: JVP less then 8cm H2O, No bruits., Neck supple HEART: RRR with normal S1 and S2, no murmurs, no gallops, no JVD appreciated LUNG: clear to auscultation EXTREMITIES: Extremities warm and well perfused without edema, 2+ peripheral pulses in all extremities NEURO: Awake, alert and oriented x 3, no gross focal abnormalities PSYCH: Appropriate, calm SKIN: Skin color, texture, turgor normal. No rashes or lesions. LABS: Lab Results Component Value Date GLUCOSE 108 (H) 2024 CALCIUM 9.4 2024 NA 142 2024 K 5.3 2024 CO2 25 2024 CL 112 (H) 2024 BUN 51 (H) 2024 CREATININE 2.00 (H) 2024 Lab Results Component Value Date WBC 12.3 (H) 2024 HGB 7.4 (L) 2024 HCT 23.6 (L) 2024 MCV 104.0 (H) 2024 PLT 188 2024 Lab Results Component Value Date INR 0.9 05/14/2024 INR 0.9 03/24/2024 INR 0.9 03/22/2024 Lab Results Component Value Date CKTOTAL 85 03/22/2024 CKMB 5.4 (H) 03/22/2024 CKMBINDEX 0.1 03/22/2024 HSTROPI 3,394 (HH) 05/14/2024 CARDIOVASCULAR TESTING 05/13/24 TRANSTHORACIC ECHOCARDIOGRAM (TTE) LIMITED (CONTRAST/BUBBLE/3D PRN) 05/15/2024 05/15/2024 Interpretation Summary Left ventricle cavity size is normal. Wall thickness is normal. Systolic function is mildly decreased with an ejection fraction of 40-45%. Mild global LV hypokinesis is present witth relative sparingof the basal cummings. Consider stress myopathy. Diastolic function not assessed. Compared to the echo from 02/2024, the LVEF has decreased. Signed by: Preston Collins on 05/15/2024 10:32 AM No results found for this or any previous visit. No results found for this or any previous visit. Thank you for allowing us to participate in this consultation. Please feel free to contact us with questions or concerns. We will continue to follow as an outpatient and are signing off. . 25 minutes was spent reviewing the medical record, imaging, labs, and seeing the patient which included explaining relevant diagnosis, providing patient education, discussing treatment options, in addition to documenting in the record. 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 Turning over in bed (including adjustment of bedclothes, sheets, and blankets) [] [] [] [x] Sitting down on and standing up from a chair with arms (wheelchair, bedside commode etc [] [] [] [x] Moving from lying on back to sitting on the side of the bed [] [] [] [x] How much help from another person does the patient currently need? Moving to and from a bed to a chair ( including a wheelchair) [] [] [] [x] To walk in hospital room [] [] [x] [] Climbing 3-5 steps with a railing [] [] [x] [] Score: score indicates the pt is appropriate for discharge home with therapy recommendation above Precautions Medical Precautions: Fall Risk Safety Interventions: Call olson within reach, ID band on, Bed alarm, Side rails up x1 RUE Weight Bearing Status: Full LUE Weight Bearing Status: Full RLE Weight Bearing Status: Full LLE Weight Bearing Status: Full Fall prevention education provided including use of call light in hospital, use of appropriate assistive device, safe mobility techniques, and safety measures at home. PT Received On: 05/18/24 PT Start Time: 0900 PT Stop Time: 0930 PT Time Calculation (min): 30 min Precautions Medical Precautions: Fall Risk Safety Interventions: Call olson within reach, ID band on, Bed alarm, Side rails up x1 RUE Weight Bearing Status: Full LUE Weight Bearing Status: Full RLE Weight Bearing Status: Full LLE Weight Bearing Status: Full Cognition Overall Cognitive Status: Within Functional Limits Arousal/Alertness: Appropriate responses to stimuli Orientation Level: Oriented X4 Following Commands: Follows all commands and directions without difficulty Safety Judgment: Good awareness of safety precautions Hearing: Intact Vision: Intact Speech: Intact Integumentary: intact History of Present Illness: Patient is a 74 y.o. female admitted to [facility] on 05/13/2024. Patient Active Problem List Diagnosis Anemia Gastroesophageal reflux disease Insomnia Macrocytosis Reactive depression (situational) Weight loss SOB (shortness of breath) Subsequent non-ST elevation (NSTEMI) myocardial infarction ([facility]/HCC) Stress-induced cardiomyopathy Severe obesity (BMI 35.0-39.9) with comorbidity ([facility]) Secondary hyperparathyroidism of renal origin ([facility]/HCC) Prediabetes Paroxysmal atrial fibrillation ([facility]/HCC) Myocarditis ([facility]/HCC) Hyperlipidemia, unspecified Hypertension COPD exacerbation ([facility]) CKD (chronic kidney disease) stage 2, GFR 60-89 ml/min CHF (congestive heart failure) ([facility]) NSTEMI (non-ST elevated myocardial infarction) ([facility]) Past Medical History: Diagnosis Date Arthritis 11/06/2016 DX:Arthritis COPD, mild ([facility]/HCC) 11/06/2016 DX:COPD, mild ([facility]) Depression 07/05/2016 DX:Depression Fibromyalgia 11/06/2016 DX:Fibromyalgia GERD (gastroesophageal reflux disease) 02/07/2017 DX:GERD (gastroesophageal reflux disease); COMMENT: gastritis History of colon polyps 07/06/2015 DX:History of colon polyps Osteoarthrosis 04/23/2017 DX:Osteoarthrosis Vitamin D deficiency 11/06/2016 DX:Vitamin D deficiency Past Surgical History: Procedure Laterality Date BREAST LUMPECTOMY PROCEDURE: HISTORICAL BREAST LUMPECTOMY CARDIAC CATHETERIZATION DONE ON 01/09/2024 AT [facility] INDICATIONS:SOB KNEE SURGERY PROCEDURE: HISTORICAL KNEE SURGERY Social History Home Living Environment: Home Living Type of Home: House Lives With: Spouse Home Adaptive Equipment: Walker - rolling Home Layout: One level Home Access: Stairs to enter with rails Entrance Stairs-Rails: Rail on the left going up Entrance Stairs-Number of Steps: 3 Prior Function Level of Banks: Independent with mobility and functional transfers Ambulation Status: Household ambulator Receives Help From: Family, candy attendant (daughter is ELECTRICAL LOGGER 35hrs/week (cleaning cooking housekeeping neeeds)) Indoor Mobility Assistance: Independent Stairs Assistance : Independent Prior Device Use: No prior device use Which is your dominant hand?: Right General Assessment 05/18/24 0900 PT Last Visit PT Received On 05/18/24 PT Time Calculation PT Start Time 09 PT Stop Time 929 PT Time Calculation (min) 30 min Precautions Medical Precautions Fall Risk Safety Interventions Call olsno within reach;ID band on;Bed alarm;Side rails up x1 RUE Weight Bearing Status Full LUE Weight Bearing Status Full RLE Weight Bearing Status Full LLE Weight Bearing Status Full Vital Signs Patient Identification Yes SpO2 90 % (98% on 3L resting, 97% on no supp o2 resting, dropped to 88% with ambulating on no supp o2, 95% with ambulating on 1L, 97% with ambulating on no supp o2, 90% resting no o2 (but fluctuates between 88%-97%). RN made aware) Oxygen Therapy Pulse Oximetry Type Continuous Pulse Oximetry Location Right;Finger Oximetry Probe Site Changed No Patient Activity Walking Oxygen Therapy None (Room air) Pain Assessment Pain Assessment No/denies pain Cognition Overall Cognitive Status WFL Arousal/Alertness Appropriate responses to stimuli Orientation Level Oriented X4 Following Commands Follows all commands and directions without difficulty Safety Judgment Good awareness of safety precautions Home Living Type of Home House Lives With Spouse Home Adaptive Equipment Walker - rolling Home Layout One level Home Access Stairs to enter with rails Entrance Stairs-Rails Rail on the left going up Entrance Stairs-Number of Steps 3 Prior Function Level of Banks Independent with mobility and functional transfers Ambulation Status Household ambulator Receives Help From Family;candy attendant (daughter is ELECTRICAL LOGGER 35hrs/week (cleaning cooking housekeeping neeeds)) Indoor Mobility Assistance Independent Stairs Assistance Independent Prior Device Use No prior device use Activity Tolerance Endurance Tolerates 10 - 20 min exercise with multiple rests Static Sitting Balance Static Sitting-Level of Assistance Supervision Static Sitting-Balance Support Feet supported;No upper extremity supported Static Standing Balance Static Standing-Level of Assistance Supervision Static Standing-Balance Support No upper extremity supported Bed Mobility Rolling Left and Right Assistance Independent Lying to Sitting Assistance Distant supervision Transfers Sit to Stand Assistance Supervision Ambulation Walking Assistance Close supervision Walking Deficit Limited endurance;Supervision/safety awareness Device No device Distance Ambulated (ft) 150 Comments assistance for lines/leads management, o2 monitoring, see spo2 above Stairs 4 steps: Assistance Standby assistance 4 steps: Deficit Supervision/safety awareness Number of Stairs 3 RUE Assessment RUE Assessment Within Functional Limits LUE Assessment LUE Assessment Within Functional Limits RLE Assessment RLE Assessment Within Functional Limits LLE Assessment LLE Assessment Within Functional Limits PT Assessment PT Assessment Results Decreased endurance Prognosis Good Evaluation/Treatment Tolerance Patient tolerated treatment well Medical Staff Made Aware Yes Plan PT Plan No skilled PT No Skilled PT Safe to return home PT Discharge Recommendations Home independent PT - Evaluation Status Complete PT - OK to Discharge Yes PT Evaluation Time Entry PT Evaluation (Moderate) Time Entry 30 Treatment performed during evaluation: None performed ADDITIONAL COMMENTS: Chart reviewed. RN clears pt for session. Pt agrees to participate and presented in bed upon PT arrival. All lines in place. Gait belt utilized throughout treatment to maximize safety. Medical precautions observed appropriately. Initiated education on the importance of PT, bed mobility safety, Transfer Safety, Ambulation Safety , Therapy Plan of Care, Home Safety, Energy Conservations strategies, and importance of OOB activity . Pt verbalized understanding. EXIT STATUS: Session ended with patient in chair , tray table and call light within reach, and RN made aware. Physical Therapy Assessment/Plan Teressa Meléndez is a 74 y.o. female admitted to [facility] on 05/13/2024 for NSTEMI (non-ST elevated myocardial infarction) ([facility]) [I21.4] . Pt performed bed mobility Independent, HOB elevated, Transfers with Supervision, None and ambulates Supervision with None 150 ft . PT recommends Home independent when medically stable for safe discharge and to optimize functional mobility and independence. Goals Encounter Problems Encounter Problems (Active) There are no active problems. Encounter Problems (Resolved) There are no resolved problems. Education Documentation Mobility Training, taught by Alexsandra Laurent at 2024 10:23 AM. Learner: Patient Readiness: Acceptance Method: Explanation, Demonstration Response: Verbalizes Understanding, Demonstrated Understanding Education Comments No comments found. Alexsandra Laurent Cosigned by Marcia Abarca PT at 2024 10:48 AM EST Associated attestation - Marcia Abarca PT - 2024 10:48 AM EST PT was integrally and physically involved in the decision making, delivery of interventions and ongoing assessment during the patient's care session . * Birdie Remy RN - 2024 9:40 AM EST ADRIANA: Barriers: Weaning O2, NSTEMI, PT eval pending Dispo: home with Daughter and current services * Edward Maurice MD - 05/17/2024 12:25 PM EST Images from the original note were not included. [facility] PROGRESS NOTE Date: 05/17/2024 Author: Edward Maurice MD Patient ID: Teressa Meléndez is a 73 y.o. 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 Frequent and bothersome. No sputum production. Does not endorse chest pain or shortness of breath anymore while at rest. Remains off high flow oxygen ROS: No sputum Denies palpitation No fevers Vitals: Vitals: 05/17/24 0801 BP: 116/68 Pulse: 89 Resp: 21 Temp: 36.4 ??C (97.5 ??F) SpO2: 95% Physical Exam: General: Awake and alert. Not in acute distress. Frequent cough noted psych: Mood stable. EYEs: no icterus. CVS: S1 S2 Ext: no leg edema PUL: no wheezes. Scattered mild rhonchi at bases GI: BS present. No tenderness Skin: no cyanosis LAB RESULTS HEMATOLOGY Lab Results Component Value Date WBC 13.0 (H) 05/17/2024 HGB 8.6 (L) 05/17/2024 HCT 26.5 (L) 05/17/2024 MCV 102.7 (H) 05/17/2024 PLT 201 05/17/2024 CHEMISTRY Lab Results Component Value Date GLUCOSE 151 (H) 05/17/2024 NA 140 05/17/2024 K 4.4 05/17/2024 CO2 23 05/17/2024 CL 110 05/17/2024 BUN 63 (H) 05/17/2024 CREATININE 2.13 (H) 05/17/2024 EGFR 24 (L) 05/17/2024 CALCIUM 9.1 05/17/2024 MG 2.5 05/15/2024 PHOS 2.8 03/24/2024 ANIONGAP 7 05/17/2024 Imaging: Transthoracic echocardiogram (TTE) limited with PRN contrast, bubble, strain, and 3D order panel Left ventricle cavity size is normal. Wall thickness is normal. Systolic function is mildly decreased with an ejection fraction of 40-45%. Mild global LV hypokinesis is present witth relative sparing of the basal cummings. Consider stress myopathy. Diastolic function not assessed. Compared to the echo from 02/2024, the LVEF has decreased. Current Medications: apixaban, 2.5 mg, oral, BID aspirin, 81 mg, oral, Daily atorvastatin, 80 mg, oral, Daily benzonatate, 100 mg, oral, TID budesonide, 1 mg, nebulization, BID doxepin, 25 mg, oral, Nightly folic acid, 1 mg, oral, Daily formoterol, 20 mcg, nebulization, BID gabapentin, 300 mg, oral, BID guaiFENesin-codeine, 10 mL, oral, q6h ipratropium-albuteroL, 3 mL, nebulization, 4x daily isosorbide mononitrate, 30 mg, oral, Daily metoprolol tartrate, 25 mg, oral, BID pantoprazole, 40 mg, oral, q AM AC [START ON 2024] predniSONE, 50 mg, oral, Daily pregabalin, 150 mg, oral, Daily PRN medications: acetaminophen, ipratropium-albuteroL, nitroglycerin Fluids: ASSESSMENT & PLAN 73-year-old female with PMH of COPD, asthma, depression, fibromyalgia, GERD, dyslipidemia among others who presented with shortness of breath. Patient was tachycardic and tachypneic on presentation. CT chest demonstrated trace bilateral pleural effusions, emphysema and 3 mm right upper lobe nodule for which follow-up in 1 year was suggested. She was hypoxic with oxygen saturation 90% on 3.5 L of flow oxygen and was started on high flow O2. Initial high sensitive troponin 141 and subsequent measurements demonstrated increased to 1, 454, 2, 172, 2, 616. EKG around 4:59 AM demonstrated T wave inversions in inferior lateral leads. Patient was started on heparin drip. She denied any chest pain in ED or before coming to the hospital. Patient was started on Solu- Medrol, DuoNebs for COPD exacerbation.Viral respiratory panel was negative. -Acute hypoxic respiratory failure Likely secondary to COPD exacerbation. Off high flow oxygen Currently at 2L NC O2. Wean off NC O2 as tolerated. -COPD exacerbation. Intermittent wheezes. Improved. Treated with Solu-Medrol and DuoNebs Cough persistent and bothersome. Repeat viral respiratory panel came negative. Leukocytosis improving. Probably from steroids. DC Mucinex. Start robittusin with codein. -NSTEMI. -Stress induced cardiomyopathy. Elevated troponin and abnormal EKG with T wave inversions. Echo with EF 40-45%, global hypokinesis with relative sparing of basal wall. ? Stress-induced cardiomyopathy. Previously had normal coronary arteries in February 2024. Completed 48 hours of heparin drip Aspirin 81 and statin 80 mg, metoprolol 25 mg twice daily - Paroxysmal Afib with secondary hypercoagulable state. Developed on Saturday. Converted to SR spontaneously. Cardiology team recommending AC. Started on Eliquis 2.5mg BID. Will need prescription. -CKD stage IIIb -RUBIO. With hypotensive episodes. Treated with IV albumin/ivfs. Cr peaked at 2.2. Plateaud and sl improved. No more hypotension. -Chronic pain/fibromyalgia. On Lyrica and gabapentin but patient could not tell me exact dosages orfrequency. Gabapentin 300mg BID and lyrica 150mg daily for now (adjusted for renal function) DVT prophylaxis: Heparin/eliquis. CODE STATUS: Full code Disposition. Assess for DC in 1-2 days. PT evaluation ordered. * Humera Pan MD - 05/17/2024 12:02 PM EST Images from the original note were not included. [facility]- Cardiology Follow-up Note PATIENT NAME: Teressa Meléndez ([id number]) ASSESSMENT & PLAN Principal Problem: NSTEMI (non-ST elevated myocardial infarction) (CMS/HCC) Likely stress cardiomyopathy. Cath a few months ago showed no CAD in the similar setting No cath planned New onset afib Went to Afib and HR slightly high. Converted back to sinus spontaneously yesterday Will continue metoprolol and eliquis at 2.5mg bid SUBJECTIVE Converted back to sinus yesterday afternoon Not feeling well and still congested and cough REVIEW OF SYSTEMS (ROS): Negative except as mentioned in the HPI. PAST MEDICAL HISTORY She has a past medical history of Arthritis (11/06/2016), COPD, mild (CMS/HCC) (11/06/2016), Depression (07/05/2016), Fibromyalgia (11/06/2016), GERD (gastroesophageal reflux disease) (02/07/2017), History of colon polyps (07/06/2015), Osteoarthrosis (04/23/2017), and Vitamin D deficiency (11/06/2016). MEDICATIONS: SCHEDULED MEDICATIONS: apixaban, 2.5 mg, oral, BID aspirin, 81 mg, oral, Daily atorvastatin, 80 mg, oral, Daily benzonatate, 100 mg, oral, TID budesonide, 1 mg, nebulization, BID doxepin, 25 mg, oral, Nightly folic acid, 1 mg, oral, Daily formoterol, 20 mcg, nebulization, BID gabapentin, 300 mg, oral, BID guaiFENesin, 600 mg, oral, q12h RL ipratropium-albuteroL, 3 mL, nebulization, 4x daily isosorbide mononitrate, 30 mg, oral, Daily methylPREDNISolone sod suc, 40 mg, intravenous, q6h RL metoprolol tartrate, 25 mg, oral, BID pantoprazole, 40 mg, oral, q AM AC pregabalin, 150 mg, oral, Daily PRN MEDICATIONS: PRN medications: acetaminophen, ipratropium-albuteroL, nitroglycerin DRIPS: ALLERGIES: She is allergic to ibuprofen. OBJECTIVE Vitals: 05/17/24 0801 BP: 116/68 Pulse: 89 Resp: 21 Temp: 36.4 ??C (97.5 ??F) SpO2: 95% Body mass index is 24.05 kg/m??. PHYSICAL EXAMINATION: APPEARANCE: Alert and in no acute distress EYES: PERRL, conjunctiva and sclera normal EARS: External ears normal. NOSE/SINUS: Nares normal. Septum midline. Mucosa normal. No drainage or sinus tenderness. MOUTH/THROAT: no erythema or exudates NECK: JVP less then 8cm H2O, No bruits., Neck supple, no adenopathy, thyroid symmetric and of normal size HEART: Irregularly irregular with normal S1 and S2, no murmurs, no gallops, no JVD appreciated CHEST: non-tender LUNG: Rhonchi's throughout ABDOMEN: Bowel sounds normoactive, no bruits, soft, non-tender, without organomegaly or palpable masses EXTREMITIES: Extremities warm and well perfused without clubbing, cyanosis, or edema NEURO: Awake, alert and oriented x 3, no gross focal abnormalities PSYCH: Appropriate, calm SKIN: Skin color, texture, turgor normal. No rashes or lesions. LABS: Results from last 7 days Lab Units 05/17/24 0536 05/16/24 0533 05/15/24 0419 SODIUM mmol/L 140 140 142 POTASSIUM mmol/L 4.4 4.7 5.3 CHLORIDE mmol/L 110 111* 109 CO2 mmol/L 23 21 22 BUN mg/dL 63* 64* 46* CREATININE mg/dL 2.13* 2.20* 1.85* EGFR mL/min/1.73m2 24* 23* 28* Results from last 7 days Lab Units 05/14/24 2223 05/14/24 0826 05/14/24 0612 05/14/24 0331 05/14/24 0000 HIGH SENSITIVITY TROPONIN I ng/L 3,394* 2,616* 2,172* 1,454* 463* Results from last 7 days Lab Units 05/17/24 0536 05/16/24 0533 05/15/24 0419 WBC AUTO K/mcL 13.0* 15.5* 21.9* HEMOGLOBIN g/dL 8.6* 9.3* 10.1* PLATELETS K/mcL 201 216 246 Results from last 7 days Lab Units 05/14/24 0530 05/13/24 2239 BNP pcg/mL -- 90 PROTIME sec 11.3 -- INR 0.9 -- CARDIOVASCULAR TESTING @[email or web address]@ Thank you for allowing us to participate in this consultation. Please feel free to contact us with questions or concerns. We will follow PRN 30 minutes was spent reviewing the medical record, imaging, labs, and seeing the patient which included explaining relevant diagnosis, providing patient education, discussing treatment options, in addition to documenting in the record. [facility] [address] [place] [address], [address] [place] [address] * Edward Maurice MD - 05/16/2024 3:54 PM EST Images from the original note were not included. [facility] PROGRESS NOTE Date: 05/16/2024 Author: Edward Maurice MD Patient ID: Teressa Meléndez is a 73 y.o. female : 1950 MR#: [id number] SUBJECTIVE CC: SOB Off HF Oxygen On NC O2. Frequent cough. No chest pain except when she coughs. Dyspnea improved. No sputum. Went to afib last night. Converted to SR this afternoon. ROS: No sputum No palpitations No fever Vitals: Vitals: 05/16/24 1553 BP: Pulse: Resp: Temp: SpO2: 95% Physical Exam: General: Awake and alert. NAD while at rest. psych: Mood stable. EYEs: no icterus. CVS: S1 S2 MSK: reproducible chest wall pain in peristernal area. Ext: no leg edema PUL: no wheezes this morning. Frequent cough with ronchi. GI: BS present. No tenderness Skin: no cyanosis LAB RESULTS HEMATOLOGY Lab Results Component Value Date WBC 15.5 (H) 05/16/2024 HGB 9.3 (L) 05/16/2024 HCT 29.3 (L) 05/16/2024 MCV 106.2 (H) 05/16/2024 PLT 216 05/16/2024 CHEMISTRY Lab Results Component Value Date GLUCOSE 138 (H) 05/16/2024 NA 140 05/16/2024 K 4.7 05/16/2024 CO2 21 05/16/2024 CL 111 (H) 05/16/2024 BUN 64 (H) 05/16/2024 CREATININE 2.20 (H) 05/16/2024 EGFR 23 (L) 05/16/2024 CALCIUM 9.1 05/16/2024 MG 2.5 05/15/2024 PHOS 2.8 03/24/2024 ANIONGAP 8 05/16/2024 LFTs No components found for: LFT Miscellaneous Lab Results Component Value Date TSH 0.59 05/16/2024 IRON 81 04/27/2024 TIBC 248 (L) 04/27/2024 FERRITIN 274 (H) 04/27/2024 FOLATE 8.3 04/27/2024 Imaging: Transthoracic echocardiogram (TTE) limited with PRN contrast, bubble, strain, and 3D order panel Left ventricle cavity size is normal. Wall thickness is normal. Systolic function is mildly decreased with an ejection fraction of 40-45%. Mild global LV hypokinesis is present witth relative sparing of the basal cummings. Consider stress myopathy. Diastolic function not assessed. Compared to the echo from 02/2024, the LVEF has decreased. Current Medications: aspirin, 81 mg, oral, Daily atorvastatin, 80 mg, oral, Daily benzonatate, 100 mg, oral, TID budesonide, 1 mg, nebulization, BID doxepin, 25 mg, oral, Nightly folic acid, 1 mg, oral, Daily formoterol, 20 mcg, nebulization, BID gabapentin, 300 mg, oral, BID guaiFENesin, 600 mg, oral, q12h RL ipratropium-albuteroL, 3 mL, nebulization, 4x daily isosorbide mononitrate, 30 mg, oral, Daily methylPREDNISolone sod suc, 40 mg, intravenous, q6h RL metoprolol tartrate, 25 mg, oral, BID pantoprazole, 40 mg, oral, q AM AC pregabalin, 150 mg, oral, Daily heparin, 9 Units/kg/hr, Last Rate: 9 Units/kg/hr (05/15/241124) PRN medications: acetaminophen, heparin OR heparin, ipratropium-albuteroL, nitroglycerin Fluids: heparin, 9 Units/kg/hr, Last Rate: 9 Units/kg/hr (05/15/241124) ASSESSMENT & PLAN 73-year-old female with PMH of COPD, asthma, depression, fibromyalgia, GERD, dyslipidemia among others who presented with shortness of breath. Patient was tachycardic and tachypneic on presentation. CT chest demonstrated trace bilateral pleural effusions, emphysema and 3 mm right upper lobe nodule for which follow-up in 1 year was suggested. She was hypoxic with oxygen saturation 90% on 3.5 L of flow oxygen and was started on high flow O2. Initial high sensitive troponin 141 and subsequent measurements demonstrated increased to 1, 454, 2, 172, 2, 616. EKG around 4:59 AM demonstrated T wave inversions in inferior lateral leads. Patient was started on heparin drip. She denied any chest pain in ED or before coming to the hospital. Patient was started on Solu- Medrol, DuoNebs for COPD exacerbation.Viral respiratory panel was negative. -Acute hypoxic respiratory failure Likely secondary to COPD exacerbation. Off high flow oxygen Wean off NC O2 as tolerated. -COPD exacerbation. Intermittent wheezes. Improved. On Solu-Medrol and DuoNebs Cough persistent and bothersome. Continue cough medications. Recheck viral respiratory panel. Leukocytosis improving. Probably from steroids. -NSTEMI. -Stress induced cardiomyopathy. Elevated troponin and abnormal EKG with T wave inversions. Echo with EF 40-45%, global hypokinesis with relative sparing of basal wall. ? Stress-induced cardiomyopathy. Previously had normal coronary arteries in February 2024. Completed 48 hours of heparin drip Aspirin 81 and statin 80 mg, metoprolol 25 mg twice daily -CKD stage IIIb -RUBIO. With hypotensive episodes. Treated with IV albumin/ivfs. Cr up to 2.2. Continue to monitor -Chronic pain/fibromyalgia. On Lyrica and gabapentin but patient could not tell me exact dosages orfrequency. Gabapentin 300mg BID and lyrica 150mg daily for now (adjusted for renal function) DVT prophylaxis: Heparin/eliquis. CODE STATUS: Full code Disposition. Not ready for discharge. * Humera Pan MD - 05/16/2024 10:42 AM EST Images from the original note were not included. [facility]- Cardiology Follow-up Note PATIENT NAME: Teressa Meléndez ([id number]) ASSESSMENT & PLAN Principal Problem: NSTEMI (non-ST elevated myocardial infarction) (CMS/HCC) Likely stress cardiomyopathy. Cath a few months ago showed no CAD in the similar setting No cath planned New onset afib Went to Afib and HR slightly high. Will continue heparin drip and eventually change to oral AC Will increase metoprolol to 25mg q8 Will add amiodarone 200mg bid SUBJECTIVE Went into Afib overnight. Not feeling well and still congested REVIEW OF SYSTEMS (ROS): Negative except as mentioned in the HPI. PAST MEDICAL HISTORY She has a past medical history of Arthritis (11/06/2016), COPD, mild (CMS/HCC) (11/06/2016), Depression (07/05/2016), Fibromyalgia (11/06/2016), GERD (gastroesophageal reflux disease) (02/07/2017), History of colon polyps (07/06/2015), Osteoarthrosis (04/23/2017), and Vitamin D deficiency (11/06/2016). MEDICATIONS: SCHEDULED MEDICATIONS: aspirin, 81 mg, oral, Daily atorvastatin, 80 mg, oral, Daily benzonatate, 100 mg, oral, TID budesonide, 1 mg, nebulization, BID doxepin, 25 mg, oral, Nightly folic acid, 1 mg, oral, Daily formoterol, 20 mcg, nebulization, BID gabapentin, 300 mg, oral, BID guaiFENesin, 600 mg, oral, q12h RL ipratropium-albuteroL, 3 mL, nebulization, 4x daily isosorbide mononitrate, 30 mg, oral, Daily methylPREDNISolone sod suc, 40 mg, intravenous, q6h RL metoprolol tartrate, 25 mg, oral, BID pantoprazole, 40 mg, oral, q AM AC pregabalin, 150 mg, oral, Daily PRN MEDICATIONS: PRN medications: acetaminophen, heparin OR heparin, ipratropium-albuteroL, nitroglycerin DRIPS: heparin, 9 Units/kg/hr, Last Rate: 9 Units/kg/hr (05/15/24 1125) ALLERGIES: She is allergic to ibuprofen. OBJECTIVE Vitals: 05/16/24 0829 BP: 108/87 Pulse: 109 Resp: 16 Temp: 36.3 ??C (97.3 ??F) SpO2: 98% Body mass index is 24.05 kg/m??. PHYSICAL EXAMINATION: APPEARANCE: Alert and in no acute distress EYES: PERRL, conjunctiva and sclera normal EARS: External ears normal. NOSE/SINUS: Nares normal. Septum midline. Mucosa normal. No drainage or sinus tenderness. MOUTH/THROAT: no erythema or exudates NECK: JVP less then 8cm H2O, No bruits., Neck supple, no adenopathy, thyroid symmetric and of normal size HEART: Irregularly irregular with normal S1 and S2, no murmurs, no gallops, no JVD appreciated CHEST: non-tender LUNG: Rhonchi's throughout ABDOMEN: Bowel sounds normoactive, no bruits, soft, non-tender, without organomegaly or palpable masses EXTREMITIES: Extremities warm and well perfused without clubbing, cyanosis, or edema NEURO: Awake, alert and oriented x 3, no gross focal abnormalities PSYCH: Appropriate, calm SKIN: Skin color, texture, turgor normal. No rashes or lesions. LABS: Results from last 7 days Lab Units 05/16/24 0533 05/15/24 0419 05/14/24 0612 SODIUM mmol/L 140 142 139 POTASSIUM mmol/L 4.7 5.3 3.9 CHLORIDE mmol/L 111* 109 108 CO2 mmol/L 21 22 24 BUN mg/dL 64* 46* 30* CREATININE mg/dL 2.20* 1.85* 1.79* EGFR mL/min/1.73m2 23* 28* 29* Results from last 7 days Lab Units 05/14/24 2223 05/14/24 0826 05/14/24 0612 05/14/24 0331 05/14/24 0000 HIGH SENSITIVITY TROPONIN I ng/L 3,394* 2,616* 2,172* 1,454* 463* Results from last 7 days Lab Units 05/16/24 0533 05/15/24 0419 05/14/24 0612 WBC AUTO K/mcL 15.5* 21.9* 12.0* HEMOGLOBIN g/dL 9.3* 10.1* 10.9* PLATELETS K/mcL 216 246 281 Results from last 7 days Lab Units 05/14/24 0530 05/13/24 2239 BNP pcg/mL -- 90 PROTIME sec 11.3 -- INR 0.9 -- CARDIOVASCULAR TESTING @[email or web address]@ Thank you for allowing us to participate in this consultation. Please feel free to contact us with questions or concerns. We will continue to follow while inpatient.. 30 minutes was spent reviewing the medical record, imaging, labs, and seeing the patient which included explaining relevant diagnosis, providing patient education, discussing treatment options, in addition to documenting in the record. [facility] [address] [place] [address] * YVETTE Castlelon - 05/16/2024 7:06 AM EST RN sent EKG which shows rate controlled A-fib. Heart rate 90 - 100 on telemetry. The patient admitted for NSTEMI currently on heparin drip followed by cardiology. She is also on metoprolol titrate 25mg twice daily. OBEY?DS?-VA Score is at least 2. Will defer chronic AC to rounding/cardiology. Checking thyroid studies. * Edward Maurice MD - 05/15/2024 1:02 PM EST Images from the original note were not included. [facility] PROGRESS NOTE Date: 05/15/2024 Author: Edward Mauirce MD Patient ID: Teressa Meléndez is a 73 y.o. female : 1950 MR#: [id number] SUBJECTIVE CC: SOB 90 events noted. Patient continued to have episodes of chest pain and shortness of breath. IV morphine apparently did not provide much relief but chest pain got better after nitroglycerin. Had episode of hypotension couple of times in 70s. Although asymptomatic with no dizziness. When seen in the morning patient reports that breathing is better but still has some chest pain. Pain is worse with palpation. Not severe presently as she received Tylenol. She remains on high flow oxygen with FiO2 30%. Interviewed via Nepalese-speaking chain testing machine operator ID number [id number] Kurt ROS: No nausea or vomiting No fevers + Cough Vitals: Vitals: 05/15/24 1230 BP: (!) 80/49 Pulse: Resp: Temp: SpO2: Physical Exam: General: Awake and alert. Not in acute distress and was glad to see my she said. +frequent cough psych: Mood stable. No overt anxiety. EYEs: no icterus. ENT: mmm CVS: S1 S2 MSK: reproducible chest wall pain in peristernal area. Ext: There is no leg edema PUL: Some wheezes noted during exam this morning. GI: BS present. No tenderness Skin: no cyanosis LAB RESULTS HEMATOLOGY Lab Results Component Value Date WBC 21.9 (H) 05/15/2024 HGB 10.1 (L) 05/15/2024 HCT 30.8 (L) 05/15/2024 MCV 103.0 (H) 05/15/2024 PLT 246 05/15/2024 CHEMISTRY Lab Results Component Value Date GLUCOSE 111 (H) 05/15/2024 NA 142 05/15/2024 K 5.3 05/15/2024 CO2 22 05/15/2024 CL 109 05/15/2024 BUN 46 (H) 05/15/2024 CREATININE 1.85 (H) 05/15/2024 EGFR 28 (L) 05/15/2024 CALCIUM 9.3 05/15/2024 MG 2.5 05/15/2024 PHOS 2.8 03/24/2024 ANIONGAP 11 05/15/2024 LFTs No components found for: LFT Miscellaneous Lab Results Component Value Date IRON 81 04/27/2024 TIBC 248 (L) 04/27/2024 FERRITIN 274 (H) 04/27/2024 FOLATE 8.3 04/27/2024 RADIOLOGY Transthoracic echocardiogram (TTE) limited with PRN contrast, bubble, strain, and 3D order panel Final Result CT Chest wo Contrast Final Result 1. Trace bilateral pleural effusions are nonspecific. 2. Emphysema. 3. 3 mm right upper lobe pulmonary nodule. Consider 1 year follow-up chest CT if there are risk factors for lung cancer. This document has been electronically signed by: Will Nash MD on 05/14/2024 02:09:17 XR Chest 1 View Final Result Bilateral lower lung peribronchial thickening consistent with bronchitis versus atypical or viral pneumonia. Code 42322 -------- FINAL REPORT -------- Dictated By: Anibal Christie Dictated Date: 05/14/2024 09:07 ET Assigned Physician: Anibal Christie Reviewed and Electronically Signed By: Anibal Christie Signed Date: 05/14/2024 09:10 ET Workstation ID: [id number] Transcribed By: Self Edit Transcribed Date: 05/14/2024 09:07 ET Imaging: Transthoracic echocardiogram (TTE) limited with PRN contrast, bubble, strain, and 3D order panel Left ventricle cavity size is normal. Wall thickness is normal. Systolic function is mildly decreased with an ejection fraction of 40-45%. Mild global LV hypokinesis is present witth relative sparing of the basal cummings. Consider stress myopathy. Diastolic function not assessed. Compared to the echo from 02/2024, the LVEF has decreased. Current Medications: aspirin, 81 mg, oral, Daily atorvastatin, 80 mg, oral, Daily benzonatate, 100 mg, oral, TID budesonide, 1 mg, nebulization, BID doxepin, 25 mg, oral, Nightly folic acid, 1 mg, oral, Daily formoterol, 20 mcg, nebulization, BID gabapentin, 300 mg, oral, BID guaiFENesin, 600 mg, oral, q12h RL ipratropium-albuteroL, 3 mL, nebulization, 4x daily methylPREDNISolone sod suc, 40 mg, intravenous, q6h RL metoprolol tartrate, 25 mg, oral, BID pantoprazole, 40 mg, oral, q AM AC pregabalin, 150 mg, oral, Daily heparin, 9 Units/kg/hr, Last Rate: 9 Units/kg/hr (05/15/241124) PRN medications: acetaminophen, heparin OR heparin, ipratropium-albuteroL, nitroglycerin Fluids: heparin, 9 Units/kg/hr, Last Rate: 9 Units/kg/hr (05/15/241124) ASSESSMENT & PLAN 73-year-old female with PMH of COPD, asthma, depression, fibromyalgia, GERD, dyslipidemia among others who presented with shortness of breath. Patient was tachycardic and tachypneic on presentation. CT chest demonstrated trace bilateral pleural effusions, emphysema and 3 mm right upper lobe nodule for which follow-up in 1 year was suggested. She was hypoxic with oxygen saturation 90% on 3.5 L of flow oxygen and was started on high flow O2. Initial high sensitive troponin 141 and subsequent measurements demonstrated increased to 1, 454, 2, 172, 2, 616. EKG around 4:59 AM demonstrated T wave inversions in inferior lateral leads. Patient was started on heparin drip. She denied any chest pain in ED or before coming to the hospital. Patient was started on Solu- Medrol, DuoNebs for COPD exacerbation.Viral respiratory panel was negative. -Acute hypoxic respiratory failure Likely secondary to COPD exacerbation. On high flow oxygen with FiO2 down to 30% from 50 Wean off high flow as tolerated. -COPD exacerbation. Lung imaging with no acute pulmonary process. Intermittent wheezes. Continue Solu-Medrol and DuoNebs Add cough medications -NSTEMI. Elevated troponin and abnormal EKG with T wave inversions. Echo with EF 40-45%, global hypokinesis with relative sparing of basal wall. ? Stress-induced cardiomyopathy. Previously had normal coronary arteries in February 2024. currently on heparin drip to continue for 48 hours. Aspirin 81 and statin 80 mg, metoprolol 25 mg twice daily Couple episodes of hypotension noted in 70s. She received albumin last night and also 250 normal saline this morning. Continue to monitor. If BP improves we will add Imdur 30 mg as suggested by cardiology team. -CKD stage IIIb Creatinine 1.8 Continue to monitor -Chronic pain/fibromyalgia. On Lyrica and gabapentin but patient could not tell me exact dosages orfrequency. Gabapentin 300mg BID and lyrica 150mg daily for now (adjusted for renal function) DVT prophylaxis: Heparin CODE STATUS: Full code Disposition. Not ready for discharge. Heparin drip. Further symptoms. * Carole Skinner RN - 05/15/2024 12:16 PM EST 05/15/24 1216 Initial Transition Plan Initial Transition Plan Home Discharge Planning Living Arrangements Spouse/significant other Type of Residence Private residence Assistive Devices Dentures upper;Dentures lower;Cane;Walker Support Systems Spouse/significant other Medication Coverage Has Med Coverage Under Insurance Plan Yes Medication Affordability No concerns related to payment for meds Anticipated Discharge Needs Discipline following for SNF placement [employer] Informed Choice Informed Choice Given? Yes ICC met with patient and daughter at bedside. Patient lives at home with her , Her daughter is her ELECTRICAL LOGGER through [employer] 35 hours per week, but patient states her daughter is always there. Daughter does all transport to and from appointments and assists with shopping. DC plan is home with current services. * Destin Chance MD - 05/15/2024 10:53 AM EST Images from the original note were not included. [facility]- Cardiology Follow-up Note PATIENT NAME: Teressa Meléndez ([id number]) ASSESSMENT & PLAN Principal Problem: NSTEMI (non-ST elevated myocardial infarction) (CMS/HCC) Recurrent episodes of chest pressure associated with markedly elevated troponin and variable echocardiographic evidence of diffuse hypokinesis with normalization in the past. Differential diagnosis includes recurrent stress cardiomyopathy versus MINOCA (myocardial infarction with normal coronary art eries). Normal coronary angiography in December 2023 after two prior episodes, subsequently episodes noted in February and in April 2024 Present symptoms are clearly due to chest wall pain following coughing in the setting of COPD exacerbation [facility] RECOMMENDATIONS: Continue low-dose aspirin Complete 48 hours of heparin Continue low-dose metoprolol and add isosorbide 30 mg a day if blood pressures tolerate SUBJECTIVE Breathing is improved. Ongoing chest wall pain with tenderness on examination, aggravated by cough. REVIEW OF SYSTEMS (ROS): Negative except as mentioned in the HPI. PAST MEDICAL HISTORY She has a past medical history of Arthritis (11/06/2016), COPD, mild (CMS/HCC) (11/06/2016), Depression (07/05/2016), Fibromyalgia (11/06/2016), GERD (gastroesophageal reflux disease) (02/07/2017), History of colon polyps (07/06/2015), Osteoarthrosis (04/23/2017), and Vitamin D deficiency (11/06/2016). PAST SURGICAL HISTORY She has a past surgical history that includes Breast lumpectomy; Knee surgery; and Cardiac catheterization. SOCIAL HISTORY Tob: reports that she has quit smoking. Her smoking use included cigarettes. She has never used smokeless tobacco. ETOH: reports no history of alcohol use. Drug: reports no history of drug use. FAMILY HISTORY She family history includes No Known Problems in her brother, daughter, father, mother, sister, son, and another family member. MEDICATIONS: SCHEDULED MEDICATIONS: aspirin, 81 mg, oral, Daily atorvastatin, 80 mg, oral, Daily budesonide, 1 mg, nebulization, BID doxepin, 25 mg, oral, Nightly folic acid, 1 mg, oral, Daily formoterol, 20 mcg, nebulization, BID gabapentin, 300 mg, oral, BID ipratropium-albuteroL, 3 mL, nebulization, 4x daily methylPREDNISolone sod suc, 40 mg, intravenous, q6h RL metoprolol tartrate, 25 mg, oral, BID pantoprazole, 40 mg, oral, q AM AC pregabalin, 150 mg, oral, Daily PRN MEDICATIONS: PRN medications: acetaminophen, heparin OR heparin, ipratropium-albuteroL, nitroglycerin DRIPS: heparin, 9 Units/kg/hr, Last Rate: 7.047 Units/kg/hr (05/15/24 3454) ALLERGIES: She is allergic to ibuprofen. OBJECTIVE Vitals: 05/15/24 1008 BP: 104/64 Pulse: Resp: Temp: SpO2: Body mass index is 24.05 kg/m??. PHYSICAL EXAMINATION: APPEARANCE: Alert and in no acute distress EYES: PERRL, conjunctiva and sclera normal EARS: External ears normal. NOSE/SINUS: Nares normal. Septum midline. Mucosa normal. No drainage or sinus tenderness. MOUTH/THROAT: no erythema or exudates NECK: JVP less then 8cm H2O, No bruits., Neck supple, no adenopathy, thyroid symmetric and of normal size HEART: RRR with normal S1 and S2, no murmurs, no gallops, no JVD appreciated CHEST: anterior bilateral parasternal tenderness LUNG: Diffusely diminished breath sounds ABDOMEN: Bowel sounds normoactive, no bruits, soft, non-tender, without organomegaly or palpable masses EXTREMITIES: Extremities warm and well perfused without clubbing, cyanosis, or edema NEURO: Awake, alert and oriented x 3, no gross focal abnormalities PSYCH: Appropriate, calm SKIN: Skin color, texture, turgor normal. No rashes or lesions. LABS: Increasing troponin to 3394! CARDIOVASCULAR TESTING Left ventricle cavity size is normal. Wall thickness is normal. Systolic function is mildly decreased with an ejection fraction of 40-45%. Mild global LV hypokinesis is present witth relative sparingof the basal cummings. Consider stress myopathy. Diastolic function not assessed. Compared to the echo from 02/2024, the LVEF has decreased. Thank you for allowing us to participate in this consultation. Please feel free to contact us with questions or concerns. We will continue to follow while inpatient.. 48 minutes was spent reviewing the medical record, imaging, labs, and seeing the patient which included explaining relevant diagnosis, providing patient education, discussing treatment options, in addition to documenting in the record. [facility] [address] [facility] [address] [place] [address] * Radha Bermudez RN - 05/15/2024 5:02 AM EST ED RN HANDOFF (All Nunez Below Must Be Completed) Reason/Diagnosis for Admission: elevated trops Type of Admission: [] Medsurg, [x] Telemetry Already in a Hospital Bed: [] Yes / [x] No Room Considerations/Precautions (ex: fever, diarrhea, or any infectious concerns): [] Yes / [x] No Dental Biller: [x] Yes / [] No If YES, Cardiac Rhythm: [x] NSR, [] SB, [] ST, [] A-FIB, [] A-Flutter, [] Pacemaker, [] 1st Degree HB, [] 2nd Degree HB, [] 3rd Degree HB Reason for Dental Biller: VS: Visit Vitals BP 119/66 Pulse 74 Temp 37.2 ??C (99 ??F) (Oral) Resp 18 Ht 1.575 m (62 ) Wt 59.6 kg (131 lb 8 oz) SpO2 97% BMI 24.05 kg/m?? Smoking Status Former BSA 1.6 m?? Current Mental Status: A/O x [x]4, []3, []2, []1 Current Ambulation Status: IV Access: [x] Yes / [] No Field IV present: [] Yes / [] No Hx of Violence: [] Yes / [] No / [] Unknown Fall Risk:[] Yes / [] No Yellow Bracelet Applied [] Yes / [] No Yellow Socks Applied [] Yes / [] No Patient Belongings inventoried and BL completed: [x] Yes / [] No Patient belongings stored in the security closet: [] Yes (If Yes please supply Security bag #): [x] No Patient Medications stored in Pharmacy: [] Yes (If Yes please supply Medication Security bag #): [x] No ED Summary of Care: report she has been coughing for few days and short of breath today. Using inhalers without relief. Patient has pain in her chest with coughing and inspirations. EMS reportedly found patient to be satting in the high 80s on room air. Started on a DuoNeb which increased her to 98%. She was also treated with Solu-Medrol and magnesium sulfate IV. She is on 3.5 L at this time satting 88% and in respiratory distress. Patient on high flow at this time. Has PRN duoneb. Heparin drip running at 4.2 mL/hr ACS protocol, anti xa every 6 hours. 2 doses of nitro given for chest pain with relief during my shift. Submitted by and Phone Extension: [phone] * Rose Liriano NP - 05/14/2024 9:33 PM EST Cross coverage call from RN to report that patient continues to complain of chest pain. Earlier this evening around 5:50 PM patient also had an episode of chest pain. - EKG at that time showed sinus rhythm with flipped T waves which provider noted no significant ST elevation or depression concerning for ischemia. - Patient's pain was felt to be reproducible, morphine was given however patient reports that morphine did not resolve her pain and she is continuing to have pain and pressure feeling like I cannot breathe ORDERS: obtain trop, ecg & sublingual nitro to be given - Repeat ECG similar to prior, further T wave inversions noted in V4 and V5 deeper T wave inversions present in leads V4-V6. - Patient received 2 sublingual nitroglycerin with complete relief of her chest pain - I was going to order Nitropaste for patient however her blood pressure systolically dropped to the 90s - Repeat troponin continues to elevate, currently 3394 - Patient is still on a heparin already on a heparin drip per ACS protocol and cardiology is following along * Emily Jimenez NP - 05/14/2024 5:50 PM EST I was called to the patient's room by the ER communications technician with complaints that the patient had chest pain. EKG showed sinus rhythm with flipped T waves significant ST elevation or depression concerningfor ischemia.. On my evaluation the patient's pain was reproducible with deep inspiration and with palpation. Continues on high flow. I have ordered a dose of morphine. I did reach out to Dr Maurice and he is in agreement with the morphine. * Edward Maurice MD - 05/14/2024 1:11 PM EST Images from the original note were not included. [facility] PROGRESS NOTE Date: 05/14/2024 Author: Edward Maurice MD Patient ID: Teressa Meléndez is a 73 y.o. female : 1950 MR#: [id number] SUBJECTIVE CC: SOB Seen in ED hold. Interviewed via Nepalese-speaking chain testing machine operator ID number [id number], Rashmi Patient is on high flow oxygen. She tells me that she is feeling much better with improvement in shortness of breath. She denies having any chest pain presently or before coming to the hospital. Abnormal EKG and elevated troponins noted. She is on heparin drip. ROS: Denies fever No abdominal pain No chest pain No nausea OBJECTIVE Vitals: Vitals: 05/14/24 1240 BP: Pulse: Resp: Temp: SpO2: 98% Physical Exam: General: Awake and alert. NAD while at rest and talking and using high flow oxygen Psych: Mood stable EYEs: no icterus. ENT: mmm CVS: S1 S2 no mrg Ext: There is no leg edema PUL: I do not hear any wheezing or major crackles. She is not tachypneic while using high flow and resting in bed GI: BS present. No tenderness Skin: no cyanosis LAB RESULTS HEMATOLOGY Lab Results Component Value Date WBC 12.0 (H) 05/14/2024 HGB 10.9 (L) 05/14/2024 HCT 33.8 (L) 05/14/2024 MCV 101.2 (H) 05/14/2024 PLT 281 05/14/2024 CHEMISTRY Lab Results Component Value Date GLUCOSE 221 (H) 05/14/2024 NA 139 05/14/2024 K 3.9 05/14/2024 CO2 24 05/14/2024 CL 108 05/14/2024 BUN 30 (H) 05/14/2024 CREATININE 1.79 (H) 05/14/2024 EGFR 29 (L) 05/14/2024 CALCIUM 9.3 05/14/2024 MG 2.5 05/14/2024 PHOS 2.8 03/24/2024 ANIONGAP 7 05/14/2024 LFTs No components found for: LFT Miscellaneous Lab Results Component Value Date IRON 81 04/27/2024 TIBC 248 (L) 04/27/2024 FERRITIN 274 (H) 04/27/2024 FOLATE 8.3 04/27/[address] Chest wo Contrast Final Result 1. Trace bilateral pleural effusions are nonspecific. 2. Emphysema. 3. 3 mm right upper lobe pulmonary nodule. Consider 1 year follow-up chest CT if there are risk factors for lung cancer. This document has been electronically signed by: Will Nash MD on 05/14/2024 02:09:17 XR Chest 1 View Final Result Bilateral lower lung peribronchial thickening consistent with bronchitis versus atypical or viral pneumonia. Code 62607 -------- FINAL REPORT -------- Dictated By: Anibal Christie Dictated Date: 05/14/2024 09:07 ET Assigned Physician: Anibal Christie Reviewed and Electronically Signed By: Anibal Christie Signed Date: 05/14/2024 09:10 ET Workstation ID: [id number] Transcribed By: Self Edit Transcribed Date: 05/14/2024 09:07 ET Imaging: XR Chest 1 View Narrative: HISTORY: The patient is a 73-year-old female with dyspnea. FINDINGS: Sitting AP portable radiograph of the chest demonstrates normal appearance of the bony structures. The cardiac and mediastinal contours are within normal limits. Peribronchial thickening ispresent in the lower lungs bilaterally consistent with bronchitis versus atypical or viral pneumonia. There is no consolidation, mass, pulmonary vascular congestion, or pleural effusion. Impression: Bilateral lower lung peribronchial thickening consistent with bronchitis versus atypical or viral pneumonia. Code 43019 -------- FINAL REPORT -------- Dictated By: Anibal Christie Dictated Date: 05/14/2024 09:07 ET Assigned Physician: Anibal Christie Reviewed and Electronically Signed By: Anibal Christie Signed Date: 05/14/2024 09:10 ET Workstation ID: [id number] Transcribed By: Self Edit Transcribed Date: 05/14/2024 09:[address] Chest wo Contrast Narrative: INDICATION: Dyspnea, chronic, unclear etiology CT chest [...] fundus. No inflammatory changes. No acute fractures. Impression: 1. Trace bilateral pleural effusions are nonspecific. 2. Emphysema. 3. 3 mm right upper lobe pulmonary nodule. Consider 1 year follow-up chest CT if there are risk factors for lung cancer. This document has been electronically signed by: Will Nash MD on 05/14/2024 02:09:17 Current Medications: [START ON 05/15/2024] aspirin, 81 mg, oral, Daily atorvastatin, 80 mg, oral, Daily budesonide, 1 mg, nebulization, BID doxepin, 25 mg, oral, Nightly folic acid, 1 mg, oral, Daily formoterol, 20 mcg, nebulization, BID ipratropium-albuteroL, 3 mL, nebulization, 4x daily methylPREDNISolone sod suc, 40 mg, intravenous, q6h RL metoprolol tartrate, 25 mg, oral, BID pantoprazole, 40 mg, oral, q AM AC pregabalin, 225 mg, oral, Nightly heparin, 12 Units/kg/hr, Last Rate: 15 Units/kg/hr (05/14/24 0855) PRN medications: heparin OR heparin, ipratropium-albuteroL Fluids: heparin, 12 Units/kg/hr, Last Rate: 15 Units/kg/hr (05/14/24 1408) ASSESSMENT & PLAN 73-year-old female with PMH of COPD, asthma, depression, fibromyalgia, GERD, dyslipidemia among others who presented with shortness of breath. Patient was tachycardic and tachypneic on presentation. CT chest demonstrated trace bilateral pleural effusions, emphysema and 3 mm right upper lobe nodule for which follow-up in 1 year was suggested. She was hypoxic with oxygen saturation 90% on 3.5 L of flow oxygen and was started on high flow O2. Initial high sensitive troponin 141 and subsequent measurements demonstrated increased to 1, 454, 2, 172, 2, 616. EKG around 4:59 AM demonstrated T wave inversions in inferior lateral leads. Patient was started on heparin drip. She denied any chest pain in ED or before coming to the hospital. Patient was started on Solu- Medrol, DuoNebs for COPD exacerbation.Viral respiratory panel was negative. -Acute hypoxic respiratory failure Likely secondary to COPD exacerbation. On high flow oxygen with FiO2 50% and flow rate 30. Wean off high flow as tolerated. -COPD exacerbation. Lung imaging with no acute pulmonary process. She was treated with DuoNebs and Solu-Medrol. During my evaluation in the evening she no longer haswheezes. Continue COPD treatment with steroids and bronchodilators. -Elevated troponin and abnormal EKG with T wave inversions. Suspicious for NSTEMI. Type II MS/demand ischemia on the differential. She denies any chest pain. Cardiology team consulted. Echo pending to evaluate EF and wall motions. Currently on heparin drip. Switch monitoring to Xa as per protocol. Pharmacist will assist. Aspirin 81 and statin 80 mg, metoprolol 25 mg twice daily -CKD stage IIIb Creatinine 1.7 this morning. Continue to monitor -Chronic pain/fibromyalgia. On Lyrica and gabapentin but patient could not tell me exact dosages orfrequency. Gabapentin 300mg BID and lyrica 150mg daily for now (adjusted for renal function) DVT prophylaxis: Heparin CODE STATUS: Full code * Ramu Sánchez RN - 05/14/2024 6:40 AM EST It was noted that pts heparin is being monitored via the appt instead of the anti xa, upon looking at pts home medications no blood thinners were seen. This RN reached out to the provider Aris Malloy MD in regards to this. Haiku messages between this RN and Aris Malloy the pt in rm 5 teressa meléndez I noticed that we are monitoring the heparin based on the aptt instead of the anti xa, I looked through her home medications and did not see any blood thinners listed. is there a reason why we are monitoring the aptt instead? Aris Malloy MD I dont mind actually Aris Malloy MD both are fine with me * YVETTE Daly - 05/13/2024 9:48 PM ESTAssociated Order(s): Critical Care Emergency Medicine Note Patient Name: Teressa Meléndez Initial Evaluation: 05/13/2024 : 1950 Patient's PCP: Mahin Hall MD Emergency Physician: YVETTE Daly History of Present Illness Chief Complaint: Chief Complaint Patient presents with Shortness of Breath Pt coming from home w/ cold like symptoms since this am w/ c/o increased SOB. Found by EMS to be Satting in high 80s duoneb started and O2 SAT increased to 98%. Hx of asthma, copd HPI: This is a 73-year-old Nepalese-speaking female with a history of COPD, GERD, hypertension, hyperlipidemia, NSTEMI, presents to the ED via EMS complaining of shortness of breath. Family is interpreting for patient and providing most of her history as patient with difficulty speaking and in respiratory distress. They report she has been coughing for few days and short of breath today. Using inhalers without relief. Patient has pain in her chest with coughing and inspiration. She denies any fever, nausea, vomiting, abdominal pain, edema. EMS reportedly found patient to be satting in the [id number] on room air. Started on a DuoNeb which increased her to 98%. She was also treated with Solu-Medrol and magnesium sulfate IV. She is on 3.5 L at this time satting 88% and in respiratory distress. ROS: I have performed a ROS with the pertinent positives and negatives documented in the history ofpresent illness. Previous History Past Medical History: Diagnosis Date Arthritis 11/06/2016 DX:Arthritis COPD, mild (CMS/HCC) 11/06/2016 DX:COPD, mild (HCC) Depression 07/05/2016 DX:Depression Fibromyalgia 11/06/2016 DX:Fibromyalgia GERD (gastroesophageal reflux disease) 02/07/2017 DX:GERD (gastroesophageal reflux disease); COMMENT: gastritis History of colon polyps 07/06/2015 DX:History of colon polyps Osteoarthrosis 04/23/2017 DX:Osteoarthrosis Vitamin D deficiency 11/06/2016 DX:Vitamin D deficiency Past Surgical History: Procedure Laterality Date BREAST LUMPECTOMY PROCEDURE: HISTORICAL BREAST LUMPECTOMY CARDIAC CATHETERIZATION DONE ON 01/09/2024 AT [facility] INDICATIONS:SOB KNEE SURGERY PROCEDURE: HISTORICAL KNEE SURGERY Social History Tobacco Use Smoking status: Former Types: Cigarettes Smokeless tobacco: Never Tobacco comments: Pt states quit 14-15 years ago Substance Use Topics Alcohol use: No Drug use: No Family History Problem Relation Name Age of [...] Hypertension Neg Hx Thyroid disease Neg Hx is allergic to ibuprofen. No current facility-administered medications on file prior to encounter. Current Outpatient Medications on File Prior to Encounter Medication Sig Dispense Refill albuterol 2.5 mg [...] by mouth 1 (one) time each day. benzonatate (TESSALON) 100 mg capsule Take 1 capsule (100 mg total) by mouth 3 (three) times a day if needed for cough. Do not crush or chew. 42 capsule 0 budesonide (PULMICORT) 1 mg/2 mL nebulizer solution Take 2 mL (1 mg total) by nebulization 1 (one) time each day. Rinse mouth with water after use to reduce aftertaste and incidence of candidiasis. Do not swallow. 60 mL 0 budesonide-formoteroL (SYMBICORT) 160-4.5 mcg/actuation inhaler Inhale 2 puffs by mouth 2 (two) times a day. calcium carbonate-vitamin D3 500 mg-3.125 mcg (125 unit) tablet per tabelt Take 500 mg by mouth 1 (one) time each day. cyanocobalamin (VITAMIN B-12) 1,000 mcg tablet Take 1 tablet (1,000 mcg total) by mouth 1 (one) time each day. doxepin (SINEquan) 25 mg capsule Take 1 capsule (25 mg total) by mouth at bedtime. fexofenadine (MANSI) 180 mg tablet Take 1 tablet (180 mg total) by mouth 1 (one) time each day ifneeded (cough). 30 tablet 0 fluticasone propionate (FLONASE) 50 mcg/actuation nasal spray SPRAY 2 SPRAYS INTO EACH NOSTRIL EVERY DAY 48 mL 1 folic acid (FOLVITE) 1 mg tablet Take 1 tablet (1 mg total) by mouth 1 (one) time each day. guaiFENesin (Mucinex) 600 mg 12 hr tablet Take 2 tablets (1,200 mg total) by mouth 2 (two) times a day if needed for cough or congestion. Do not crush, chew, or split. 120 each 0 ipratropium-albuteroL (DUONEB) 0.5-2.5 mg/3 mL nebulizer solution Take 3 mL by nebulization every 4(four) hours while awake. 360 mL 0 metoprolol tartrate (LOPRESSOR) 25 mg tablet Take 1 tablet (25 mg total) by mouth 2 (two) times a day. omeprazole (PriLOSEC) [address] capsule Take 1 capsule (20 mg total) by mouth 1 (one) time each day. pregabalin (LYRICA) 75 mg capsule Take 3 capsules (225 mg total) by mouth at bedtime. tiZANidine (ZANAFLEX) 4 mg tablet TAKE 1 TABLET BY MOUTH EVERY DAY 90 tablet 1 traMADoL (ULTRAM) 50 mg tablet Take 1 tablet (50 mg total) by mouth every 6 (six) hours if needed for moderate pain. Physical Exam ED Triage Vitals [05/13/242208] Temp Heart Rate Resp BP 36.4 ??C (97.5 ??F) (!) 145 15 (!) 196/103 SpO2 Temp Source Heart Rate Source Patient Position 90 % Oral Monitor Sitting BP Location FiO2 (%) Right arm -- General: Ill-appearing, well nourished, in positive acute respiratory distress HEENT: EOMI, external ears and nose appear unremarkable, airway is patent Neck: Supple, no JVD, no stridor Chest: Tachypneic and unable to speak in full sentences, positive accessory muscle use and tripoding on stretcher. Rhonchi auscultated throughout. No definite wheezing or rales. circulatory: Tachycardic rate, regular rhythm, extremities well perfused Abdomen: Non-distended, Non-Tender Extremities: Normal ROM, No edema Skin: Warm and dry Neuro: Alert and oriented, no focal deficits Results Labs Reviewed TROPONIN I HIGH SENSITIVITY - Abnormal Result Value High Sensitivity Troponin I 141 (*) Narrative: High levels of biotin in samples may falsely decrease hsTroponin values. Use caution when interpreting hsTroponin results in patients taking biotin who exhibit renal impairment (eGFR <60) or in patients taking more than 20 mg/day of biotin. TROPONIN I HIGH SENSITIVITY - Abnormal High Sensitivity Troponin I 463 (*) Narrative: High levels of biotin in samples may falsely decrease hsTroponin values. Use caution when interpreting hsTroponin results in patients taking biotin who exhibit renal impairment (eGFR <60) or in patients taking more than 20 mg/day of biotin. COMPREHENSIVE METABOLIC PANEL - Abnormal Sodium 140 Potassium 4.0 Chloride 111 (*) CO2 21 Anion Gap 8 Glucose 201 (*) BUN 24 Creatinine 1.43 (*) eGFR 39 (*) BUN/Creatinine Ratio 16.8 Calcium 9.2 AST (SGOT) 21 ALT (SGPT) 16 Alkaline Phosphatase 141 (*) Total Protein 6.9 Albumin 3.7 Total Bilirubin 0.4 MAGNESIUM - Abnormal Magnesium 3.0 (*) RESPIRATORY VIRUS PANEL MOLECULAR STUDY - Normal Adenovirus Detection by PCR Not Detected Influenza A PCR Not Detected Influenza B PCR Not Detected Coronavirus 229E Not Detected Coronavirus HKU1 Not Detected Coronavirus OC43 Not Detected Coronavirus NL63 Not Detected Parainfluenza Virus 1 Not Detected Parainfluenza Virus 2 Not Detected Parainfluenza Virus 3 Not Detected Parainfluenza Virus 4 Not Detected RSV PCR Not Detected Human Metapneumovirus A and B Not Detected Rhinovirus/Enterovirus Not Detected Bordetella pertussis Not Detected Bordetella parapertussis Not Detected Mycoplasma pneumo by PCR Not Detected Chlamydia pneumoniae Not Detected SARS COV-2 Not Detected Narrative: Testing was performed using the flaveit Respiratory Pathogen PCR Assay. All results must [...] that are below the limit of detection. B-TYPE NATRIURETIC PEPTIDE - Normal BNP 90 CBC AND DIFFERENTIAL Narrative: The following orders were created for panel order CBC and differential. Procedure Abnormality Status --------- ------ CBC auto differential[[id number]] Final result Please view results for these tests on the individual orders. CBC WITH AUTO DIFFERENTIAL WBC 21.6 RBC 3.48 Hemoglobin 11.8 Hematocrit 36.5 MCV 104.9 MCH 33.9 MCHC 32.3 RDW 14.5 Platelets 310 MPV 10.6 NRBC 0.0 NRBC Absolute 0.00 TROPONIN I HIGH SENSITIVITY Abnormal Labs Reviewed TROPONIN I HIGH SENSITIVITY - Abnormal; Notable for the following components: Result Value High Sensitivity Troponin I 141 (*) All other components within normal limits Narrative: High levels of biotin in samples may falsely decrease hsTroponin values. Use caution when interpreting hsTroponin results in patients taking biotin who exhibit renal impairment (eGFR <60) or in patients taking more than 20 mg/day of biotin. TROPONIN I HIGH SENSITIVITY - Abnormal; Notable for the following components: High Sensitivity Troponin I 463 (*) All other components within normal limits Narrative: High levels of biotin in samples may falsely decrease hsTroponin values. Use caution when interpreting hsTroponin results in patients taking biotin who exhibit renal impairment (eGFR <60) or in patients taking more than 20 mg/day of biotin. COMPREHENSIVE METABOLIC PANEL - Abnormal; Notable for the following components: Chloride 111 (*) Glucose 201 (*) Creatinine 1.43 (*) eGFR 39 (*) Alkaline Phosphatase 141 (*) All other components within normal limits MAGNESIUM - Abnormal; Notable for the following components: Magnesium 3.0 (*) All other components within normal limits CT Chest wo Contrast Final Result 1. Trace bilateral pleural effusions are nonspecific. 2. Emphysema. 3. 3 mm right upper lobe pulmonary nodule. Consider 1 year follow-up chest CT if there are risk factors for lung cancer. This document has been electronically signed by: Will Nash MD on 05/14/2024 02:09:17 XR Chest 1 View (Results Pending) I have discussed the incidental/abnormal imaging and/or lab abnormalities with the patient and haveinstructed them the need for further evaluation and workup with their primary care doctor. I have provided the patient with a paper copy of the abnormality. The laboratory results, imaging results and other diagnostic exam results were reviewed in the EMR. EKG Interpretation Critical Care Time None ? Medical Decision Making Pneumonia, COPD exacerbation, CHF, acute bronchitis, pleural effusion, ACS Respiratory paged upon patient arrival to initiate BiPAP, inline DuoNeb Patient given fentanyl 25 mcg IV for increased work of breathing Portable chest x-ray EKG Check labs Respiratory viral panel Medications albuterol 2.5 mg /3 mL (0.083 %) nebulizer solution 2.5 mg (has no administration in time range) LORazepam (ATIVAN) injection 0.5 mg (has no administration in time range) albuterol 2.5 mg /3 mL (0.083 %) nebulizer solution 5 mg (5 mg nebulization Given 05/13/242217) ipratropium (ATROVENT) 0.02 % nebulizer solution 0.5 mg (0.5 mg nebulization Given 05/13/242217) fentaNYL (PF) (SUBLIMAZE) injection 25 mcg (25 mcg intravenous Given 05/13/242218) aspirin chewable tablet 324 mg (324 mg oral Given 05/14/24 0252) ED Course as of 05/14/24 0324 Tiffany May 14, 2024 020 Workup reviewed. Patient very comfortable on BiPAP now. She denies any pain. Of note, her first troponin is 141 and delta troponin is 463. She has no EKG changes on initial or repeat EKG. She had previous stress-induced cardiomyopathy/NSTEMI with elevated troponins At previous visit/admission.I discussed with Dr. Kiran from cardiology. Recommends continue serial troponins and does not recommend heparinization at this time. CT chest pending. [LM] ED Course User Index [LM] YVETTE Daly Procedures Critical Care Performed by: YVETTE Daly Authorized by: Allison Reveles DO Critical care provider statement: Critical care time (minutes): 45 Critical care was necessary to treat or prevent imminent or life-threatening deterioration of the following conditions: Acute mi and respiratory failure Critical care was time spent personally by me on the following activities: Discussions with consultants, examination of patient, obtaining history from patient or surrogate, evaluation of patient's response to treatment, ordering and performing treatments and interventions, ordering and review of laboratory studies, ordering and review of radiographic studies, pulse oximetry, re- evaluation of patient's condition and review of old charts I assumed direction of critical care for this patient from another provider in my specialty: no Care discussed with: admitting provider Diagnosis No diagnosis found. Disposition Admit to Inpatient ED Prescriptions None Physician Attestation YVETTE Daly 05/13/24 2253 YVETTE Daly 05/14/24 0203 YVETTE Daly 05/14/24 0324 Cosigned by Jose Ennis DO at 05/14/2024 3:19 PM EST documented in this encounter H&P Notes * Aris Malloy MD - 05/14/2024 7:22 AM EST Admitting MD: Aris Malloy MD PCP: Mahin Hall MD Code Status: Prior HPI : Patient is a 73 y.o. female with past medical history of COPD/asthma, depression, fibromyalgia, GERD, osteoarthritis, dyslipidemia coming into the hospital with chief complaint of shortness of breath. I did my encounter with the help of a assistance coordinator. Patient described her symptoms asworsening shortness of breath although not as severe as last time. She denied chest pain completely. She denied lightheadedness and dizziness. Her only symptom was respiratory distress for which she came to the hospital for evaluation. She denied any fever, chills, nausea, vomiting, diarrhea. Reported adequate oral intake. In the hospital, the patient was tachypneic and tachycardic on arrival. She was in severe respiratory distress and was placed on high flow oxygen. Patient was found to have upgoing troponins althoughshe denied having any chest pain. Will treat panel was negative. CT chest showed trace pleural effusion and emphysema. 3 mm right upper lobe pulmonary nodule was seen as well. EKG showed sinus tachycardia. Kidney numbers were at baseline. She has underlying CKD stage III with a baseline creatinine between 1.5-1.7. Past Medical History: Past Surgical History: Past Medical History: Diagnosis Date Arthritis 11/06/2016 DX:Arthritis COPD, mild (CMS/HCC) 11/06/2016 DX:COPD, mild (HCC) Depression 07/05/2016 DX:Depression Fibromyalgia 11/06/2016 DX:Fibromyalgia GERD (gastroesophageal reflux disease) 02/07/2017 DX:GERD (gastroesophageal reflux disease); COMMENT: gastritis History of colon polyps 07/06/2015 DX:History of colon polyps Osteoarthrosis 04/23/2017 DX:Osteoarthrosis Vitamin D deficiency 11/06/2016 DX:Vitamin D deficiency Past Surgical History: Procedure Laterality Date BREAST LUMPECTOMY PROCEDURE: HISTORICAL BREAST LUMPECTOMY CARDIAC CATHETERIZATION DONE ON 01/09/2024 AT [facility] [place] [facility] INDICATIONS:SOB KNEE SURGERY PROCEDURE: HISTORICAL KNEE SURGERY Family History Social History: Family History Problem Relation Name Age of [...] Hypertension Neg Hx Thyroid disease Neg Hx Social History Socioeconomic History Marital status: Spouse name: Not on file Number of children: Not on file Years of education: Not on file Highest education level: Not on file Occupational History Not on file Tobacco Use Smoking status: Former Types: Cigarettes Smokeless tobacco: Never Tobacco comments: Pt states quit 14-15 years ago Substance and Sexual Activity Alcohol use: No Drug use: No Sexual activity: Not on file Other Topics Concern Not on file Social History Narrative Not on file Allergies: Allergies Allergen Reactions Ibuprofen Nausea And Vomiting Medications: Current Outpatient Medications Medication Instructions albuterol 2.5 mg, Every 4 hours PRN aspirin 81 mg, Daily atorvastatin (LIPITOR) 80 mg tablet 1 tablet, Daily budesonide (PULMICORT) 1 mg, nebulization, Daily, Rinse mouth with water after use to reduce aftertaste and incidence of candidiasis. Do not swallow. budesonide-formoteroL (SYMBICORT) 160-4.5 mcg/actuation inhaler 2 puffs, 2 times daily doxepin (SINEquan) 25 mg capsule 1 capsule, Nightly fluticasone propionate (FLONASE) 50 mcg/actuation nasal spray 2 sprays, Each Nostril, Daily folic acid (FOLVITE) 1 mg, Daily furosemide (LASIX) 20 mg, Daily metoprolol tartrate (LOPRESSOR) 25 mg tablet 1 tablet, 2 times daily omeprazole (PRILOSEC) 20 mg, Daily pregabalin (LYRICA) 225 mg, Nightly tiZANidine (ZANAFLEX) 4 mg, oral, Daily traMADoL (ULTRAM) 50 mg, Every 6 hours PRN Review of Systems: Review of Systems A complete 14 point review of symptoms was done and is negative except as mentioned in the note above. Vitals: Vitals: 05/14/24 0554 BP: 101/57 Pulse: 106 Resp: 18 Temp: 36.4 ??C (97.5 ??F) SpO2: 96% Physical Exam: Constitutional: General: Not in acute distress. HENT: Head: Normocephalic and atraumatic. Right Ear: External ear normal. Left Ear: External ear normal. Nose: Nose normal. Eyes: Extraocular Movements: Extraocular movements intact. Cardiovascular: Rate and Rhythm: Normal rate and regular rhythm. Pulses: Normal pulses. Heart sounds: Normal heart sounds. No murmur heard. No friction rub. No gallop. Pulmonary: Effort: Viral respiratory distress noted. Breath sounds: Decreased breath sounds with wheezing heard on auscultation. Rales heard on bases aswell. Abdominal: General: Abdomen is flat. There is no distension. Palpations: Abdomen is soft. There is no mass. Tenderness: There is no abdominal tenderness. Musculoskeletal: General: No swelling or deformity. Normal range of motion. Cervical back: Normal range of motion. Right lower leg: No edema. Left lower leg: No edema. Skin: General: Skin is warm and dry. Neurological: General: No focal deficit present. Mental Status: Alert and oriented to person, place, and time. Mental status is at baseline. Psychiatric: Mood and Affect: Mood normal. Behavior: Behavior normal. Labs: Labs Reviewed TROPONIN I HIGH SENSITIVITY - Abnormal Result Value High Sensitivity Troponin I 141 (*) Narrative: High levels of biotin in samples may falsely decrease hsTroponin values. Use caution when interpreting hsTroponin results in patients taking biotin who exhibit renal impairment (eGFR <60) or in patients taking more than 20 mg/day of biotin. TROPONIN I HIGH SENSITIVITY - Abnormal High Sensitivity Troponin I 463 (*) Narrative: High levels of biotin in samples may falsely decrease hsTroponin values. Use caution when interpreting hsTroponin results in patients taking biotin who exhibit renal impairment (eGFR <60) or in patients taking more than 20 mg/day of biotin. COMPREHENSIVE METABOLIC PANEL - Abnormal Sodium 140 Potassium 4.0 Chloride 111 (*) CO2 21 Anion Gap 8 Glucose 201 (*) BUN 24 Creatinine 1.43 (*) eGFR 39 (*) BUN/Creatinine Ratio 16.8 Calcium 9.2 AST (SGOT) 21 ALT (SGPT) 16 Alkaline Phosphatase 141 (*) Total Protein 6.9 Albumin 3.7 Total Bilirubin 0.4 MAGNESIUM - Abnormal Magnesium 3.0 (*) TROPONIN I HIGH SENSITIVITY - Abnormal High Sensitivity Troponin I 1,454 (*) Narrative: High levels of biotin in samples may falsely decrease hsTroponin values. Use caution when interpreting hsTroponin results in patients taking biotin who exhibit renal impairment (eGFR <60) or in patients taking more than 20 mg/day of biotin. TROPONIN I HIGH SENSITIVITY - Abnormal High Sensitivity Troponin I 2,172 (*) Narrative: High levels of biotin in samples may falsely decrease hsTroponin values. Use caution when interpreting hsTroponin results in patients taking biotin who exhibit renal impairment (eGFR <60) or in patients taking more than 20 mg/day of biotin. BASIC METABOLIC PANEL - Abnormal Sodium 139 Potassium 3.9 Chloride 108 CO2 24 Anion Gap 7 Glucose 221 (*) BUN 30 (*) Creatinine 1.79 (*) eGFR 29 (*) BUN/Creatinine Ratio 16.8 Calcium 9.3 CBC WITH AUTO DIFFERENTIAL - Abnormal WBC 12.0 (*) RBC 3.30 (*) Hemoglobin 10.9 (*) Hematocrit 33.8 (*) MCV 101.2 (*) MCH 32.6 (*) MCHC 32.2 RDW 14.4 Platelets 281 MPV 10.6 NRBC 0.0 NRBC Absolute 0.00 Neutrophils Relative 92.3 Lymphocytes Relative 5.3 Monocytes Relative 1.5 Eosinophils Relative 0.2 Basophils Relative 0.2 Immature Granulocytes Relative 0.5 Neutrophils Absolute 11.08 (*) Lymphocytes Absolute 0.63 (*) Monocytes Absolute 0.18 (*) Eosinophils Absolute 0.02 Basophils Absolute 0.02 Immature Granulocytes Absolute 0.06 (*) RESPIRATORY VIRUS PANEL MOLECULAR STUDY - Normal Adenovirus Detection by PCR Not Detected Influenza A PCR Not Detected Influenza B PCR Not Detected Coronavirus 229E Not Detected Coronavirus HKU1 Not Detected Coronavirus OC43 Not Detected Coronavirus NL63 Not Detected Parainfluenza Virus 1 Not Detected Parainfluenza Virus 2 Not Detected Parainfluenza Virus 3 Not Detected Parainfluenza Virus 4 Not Detected RSV PCR Not Detected Human Metapneumovirus A and B Not Detected Rhinovirus/Enterovirus Not Detected Bordetella pertussis Not Detected Bordetella parapertussis Not Detected Mycoplasma pneumo by PCR Not Detected Chlamydia pneumoniae Not Detected SARS COV-2 Not Detected Narrative: Testing was performed using the [employer]ave[employer] Respiratory Pathogen PCR Assay. All results must [...] that are below the limit of detection. B-TYPE NATRIURETIC PEPTIDE - Normal BNP 90 MAGNESIUM - Normal Magnesium 2.5 CBC AND DIFFERENTIAL Narrative: The following orders were created for panel order CBC and differential. Procedure Abnormality Status --------- ------ CBC auto differential[[id number]] Final result Please view results for these tests on the individual orders. CBC WITH AUTO DIFFERENTIAL WBC 21.6 RBC 3.48 Hemoglobin 11.8 Hematocrit 36.5 MCV 104.9 MCH 33.9 MCHC 32.3 RDW 14.5 Platelets 310 MPV 10.6 NRBC 0.0 NRBC Absolute 0.00 CBC AND DIFFERENTIAL Narrative: The following orders were created for panel order CBC and differential. Procedure Abnormality Status --------- ------ CBC auto differential[[id number]] Abnormal Final result Please view results for these tests on the individual orders. PROTHROMBIN TIME WITH INR ACTIVATED PARTIAL THROMBOPLASTIN TIME TROPONIN I HIGH SENSITIVITY LACTATE, WITH REFLEX Imaging: CT Chest wo Contrast Final Result 1. Trace bilateral pleural effusions are nonspecific. 2. Emphysema. 3. 3 mm right upper lobe pulmonary nodule. Consider 1 year follow-up chest CT if there are risk factors for lung cancer. This document has been electronically signed by: Will Nash MD on 05/14/2024 02:09:17 XR Chest 1 View (Results Pending) Problem List: Patient Active Problem List Diagnosis Date Noted Date Diagnosed NSTEMI (non-ST elevated myocardial infarction) ([facility]) 03/24/2024 Prediabetes 03/21/2024 Secondary hyperparathyroidism of renal origin ([facility]) 10/04/2023 Hypertension 04/17/2023 Stress-induced cardiomyopathy 04/16/2023 Myocarditis ([facility]) 04/16/2023 CHF (congestive heart failure) ([facility]) 04/16/2023 SOB (shortness of breath) 02/28/2023 Subsequent non-ST elevation (NSTEMI) myocardial infarction ([facility]) 02/28/2023 Paroxysmal atrial fibrillation ([facility]) 02/28/2023 Hyperlipidemia, unspecified 02/28/2023 COPD exacerbation ([facility]) 02/28/2023 Severe obesity (BMI 35.0-39.9) with comorbidity ([facility]) 01/02/2019 CKD (chronic kidney disease) stage 2, GFR 60-89 ml/min 01/02/2019 Weight loss 11/20/2017 Anemia 11/15/2016 Gastroesophageal reflux disease 11/15/2016 Insomnia 11/15/2016 Macrocytosis 11/15/2016 Reactive depression (situational) 07/05/2016 Assessment / Plan: 73-year-old female coming into the hospital with worsening shortness of breath. Acute COPD exacerbation. Acute hypoxic respiratory failure secondary to COPD exacerbation on a highflow. SIRS without focus. SIRS due to tachycardia and tachypnea secondary to COPD exacerbation. Elevated troponins likely in the setting of demand ischemia from type II MS from acute hypoxic respiratory failure and COPD exacerbation. Patient denies chest pain. CKD stage III with a baseline creatinine of 1.4-1.5. Depression. Fibromyalgia. GERD. Dyslipidemia. Osteoarthritis. 3 mm right upper lobe pulmonary nodule. Will start the patient on DuoNeb, budesonide and formoterol. Solu-Medrol 40 mg IV every 6 hours. Wean down oxygen needs as tolerated. Encourage ambulation. Incentive spirometry. Cardiac telemetry. Tessalon Perles for cough. Continue to trend troponin to peak. Continue with heparin drip for now. Cardiology consult in the morning. Continue with home doses of aspirin, Lipitor, Lopressor, Lyrica, Protonix, doxepin, folic acid. Will keep the patient n.p.o. for now. Check labs in the morning. Also check lactic acid 1 time. Med Rec/Ambulation/BPCI: Medication reconciliation Completed: Yes Source of Medication Reconciliation: Patient Ulcer Prophylaxis: Protonix. DVT Prophylaxis: Heparin gtt. Bowel Regimen: None. Garcia Catheter: None. Diet/Feeding: NPO. Analgesia: None. Telemetry: Ordered. Fluids: Ordered. Medical Decision Making: Complex. Additional records from previous providers were reviewed in detail. Case was discussed with sales promotion representative as well. I spent greater than 80 minutes caring for this patient today with greater than 50% of the time spent in direct [id number] care/counseling/coordination with rn staff, consultants, and reviewing patient chart. Aris Malloy MD [facility]ist, 7am-7pm Available thru tiger text After 7pm, please tiger text cross coverage 05/14/2024 7:29 AM EST documented in this encounter Consult Notes * Destin Chance MD - 05/14/2024 2:01 PM ESTAssociated Order(s): IP CONSULT TO CARDIOLOGY Images from the original note were not included. [facility]- Cardiology Consultation Note PATIENT NAME: Teressa Meléndez ([id number]) DATE OF CONSULT: May 14, 2024 REFERRING PROVIDER: Dr. Maurice PRIMARY HAT PRESSER: Dr. Pan ASSESSMENT & PLAN Principal Problem: NSTEMI (non-ST elevated myocardial infarction) (CMS/HCC) History of recurrent cardiac events with marked elevation of troponin levels, stress-induced cardiomyopathy versus [place] in patient with normal coronary angiography in December 2023. History of COPD, fibromyalgia, hyperlipidemia and recurrent dyspnea Chronic kidney disease [facility] RECOMMENDATIONS: Treat COPD with supportive care SUBJECTIVE REASON FOR CONSULTATION: Marked elevation of troponin HISTORY OF PRESENT ILLNESS: Patient interviewed with a televised assistance coordinator named Eunice. Teressa Meléndez is a 73 y.o. female. The patient presented in 2022 with progressive breathlessness associated with profound hypoxia and delirium requiring intubation. She was positive for influenza A. Troponin levels were markedly elevated. Echocardiography revealed an ejection fraction of 30%. She wastreated conservatively with diuresis and repeat echocardiography a few days later revealed normalization of her ejection fraction. She was subsequently extubated. She developed paroxysmal atrial fibrillation treated with beta-blockers and diltiazem and spontaneously converted to normal sinus rhythm. The patient subsequently had a mildly abnormal stress echocardiogram. Which led to cardiac catheterization performed in December 2023. This study demonstrated normal coronary angiography with only minimal luminal irregularities and normal flow in all myocardial segments. There was no evidence of coronary artery dissection. She was subsequently hospitalized with respiratory distress and had significant troponin elevation in late February. Echocardiography was essentially normal at that time. She now returns for an episode of marked breathlessness without chest discomfort or clear cut ischemic EKG changes. There are clinical characteristics suggesting COPD exacerbation. However troponin levelshave increased from a baseline of 141 to a maximum of 2616. There is no clinical evidence of congestive heart failure. The patient has not had recent evidence of infection, bleeding or trauma. REVIEW OF SYSTEMS (ROS): Negative except as mentioned in the HPI. PAST MEDICAL HISTORY She has a past medical history of Arthritis (11/06/2016), COPD, mild (CMS/HCC) (11/06/2016), Depression (07/05/2016), Fibromyalgia (11/06/2016), GERD (gastroesophageal reflux disease) (02/07/2017), History of colon polyps (07/06/2015), Osteoarthrosis (04/23/2017), and Vitamin D deficiency (11/06/2016). PAST SURGICAL HISTORY She has a past surgical history that includes Breast lumpectomy; Knee surgery; and Cardiac catheterization. SOCIAL HISTORY Tob: reports that she has quit smoking. Her smoking use included cigarettes. She has never used smokeless tobacco. ETOH: reports no history of alcohol use. Drug: reports no history of drug use. FAMILY HISTORY She family history includes No Known Problems in her brother, daughter, father, mother, sister, son, and another family member. MEDICATIONS: Current Facility-Administered Medications: [START ON 05/15/2024] aspirin EC tablet 81 mg, 81 mg, oral, Daily, Aris Malloy MD atorvastatin (LIPITOR) tablet 80 mg, 80 mg, oral, Daily, Aris Malloy MD, 80 mg at 05/14/24 0847 budesonide (PULMICORT) 1 mg/2 mL nebulizer solution 1 mg, 1 mg, nebulization, BID, Aris Malloy MD, 1 mg at 05/14/24 0644 doxepin (SINEquan) capsule 25 mg, 25 mg, oral, Nightly, Aris Malloy MD folic acid (FOLVITE) tablet 1 mg, 1 mg, oral, Daily, Aris Malloy MD, 1 mg at 05/14/24 0847 formoterol (PERFOROMIST) 20 mcg/2 mL nebulizer solution 20 mcg, 20 mcg, nebulization, BID, Aris Malloy MD, 20 mcg at 05/14/24 0644 gabapentin (NEURONTIN) capsule 300 mg, 300 mg, oral, BID, Edward Maurice MD heparin (UFH) bolus from infusion 3,576 Units, 60 Units/kg, intravenous, q6h PRN OR heparin (UFH) bolus from infusion 1,788 Units, 30 Units/kg, intravenous, q6h PRN, Edward Maurice MD heparin infusion 100 units/mL in D5W, 12 Units/kg/hr, intravenous, Continuous, Aris Malloy MD, Stopped at 05/14/24 1257 ipratropium-albuteroL (DUONEB) 0.5-2.5 mg/3 mL nebulizer solution 3 mL, 3 mL, nebulization, q6h PRN, Aris Malloy MD, 3 mL at 05/14/24 0805 ipratropium-albuteroL (DUONEB) 0.5-2.5 mg/3 mL nebulizer solution 3 mL, 3 mL, nebulization, 4x daily, Aris Malloy MD, 3 mL at 05/14/24 1237 methylPREDNISolone sodium succ (SOLU-Medrol) injection 40 mg, 40 mg, intravenous, q6h RL, Aris Malloy MD, 40 mg at 05/14/24 1205 metoprolol tartrate (LOPRESSOR) tablet 25 mg, 25 mg, oral, BID, Aris Malloy MD, 25 mg at 05/14/24 0847 pantoprazole (PROTONIX) EC tablet 40 mg, 40 mg, oral, q AM AC, Aris Malloy MD, 40 mg at 05/14/24 0847 pregabalin (LYRICA) capsule 150 mg, 150 mg, oral, Daily, Edward Maurice MD Current Outpatient Medications: albuterol 2.5 mg /3 mL (0.083 %) nebulizer solution, Take 3 mL (2.5 mg total) by nebulization every4 (four) hours if needed for wheezing or shortness of breath., Disp: , Rfl: aspirin 81 mg EC tablet, Take 1 tablet (81 mg total) by mouth 1 (one) time each day., Disp: , Rfl: atorvastatin (LIPITOR) 80 mg tablet, Take 1 tablet (80 mg total) by mouth 1 (one) time each day., Disp: , Rfl: budesonide (PULMICORT) 1 mg/2 mL nebulizer solution, Take 2 mL (1 mg total) by nebulization 1 (one)time each day. Rinse mouth with water after use to reduce aftertaste and incidence of candidiasis. Do not swallow., Disp: 60 mL, Rfl: 0 budesonide-formoteroL (SYMBICORT) 160-4.5 mcg/actuation inhaler, Inhale 2 puffs by mouth 2 (two) times a day., Disp: , Rfl: doxepin (SINEquan) 25 mg capsule, Take 1 capsule (25 mg total) by mouth at bedtime., Disp: , Rfl: fluticasone propionate (FLONASE) 50 mcg/actuation nasal spray, SPRAY 2 SPRAYS INTO EACH NOSTRIL EVERY DAY, Disp: 48 mL, Rfl: 1 folic acid (FOLVITE) 1 mg tablet, Take 1 tablet (1 mg total) by mouth 1 (one) time each day., Disp:, Rfl: furosemide (LASIX) 20 mg tablet, Take 1 tablet (20 mg total) by mouth 1 (one) time each day., Disp:, Rfl: metoprolol tartrate (LOPRESSOR) 25 mg tablet, Take 1 tablet (25 mg total) by mouth 2 (two) times a day., Disp: , Rfl: omeprazole (PriLOSEC) [address] capsule, Take 1 capsule (20 mg total) by mouth 1 (one) time each day., Disp: , Rfl: pregabalin (LYRICA) 75 mg capsule, Take 3 capsules (225 mg total) by mouth at bedtime., Disp: , Rfl: tiZANidine (ZANAFLEX) 4 mg tablet, TAKE 1 TABLET BY MOUTH EVERY DAY, Disp: 90 tablet, Rfl: 1 traMADoL (ULTRAM) 50 mg tablet, Take 1 tablet (50 mg total) by mouth every 6 (six) hours if needed for moderate pain., Disp: , Rfl: ALLERGIES: She is allergic to ibuprofen. OBJECTIVE Vitals: 05/14/24 1240 BP: Pulse: Resp: Temp: SpO2: 98% Body mass index is 24.05 kg/m??. PHYSICAL EXAMINATION: APPEARANCE: Alert and in no acute distress, on high flow O2 EYES: PERRL, conjunctiva and sclera normal NECK: JVP less then 8cm H2O, No bruits., Neck supple, no adenopathy, thyroid symmetric and of normal size HEART: RRR with normal S1 and S2, no murmurs, no gallops, no JVD appreciated CHEST: non-tender LUNG: Scattered expiratory rhonchi with generally diminished breath sounds throughout ABDOMEN: Bowel sounds normoactive, no bruits, soft, non-tender, without organomegaly or palpable masses EXTREMITIES: Extremities warm and well perfused without clubbing, cyanosis, or edema NEURO: Awake, alert and oriented x 3, no gross focal abnormalities PSYCH: Appropriate, calm SKIN: Skin color, texture, turgor normal. No rashes or lesions. LABS: Creatinine 1.43 Troponin trough 141, peak 2616 CARDIOVASCULAR TESTING @ACCVTESTING@ Thank you for allowing us to participate in this consultation. Please feel free to contact us with questions or concerns. We will continue to follow while inpatient.. 53 minutes was spent reviewing the medical record, imaging, labs, and seeing the patient which included explaining relevant diagnosis, providing patient education, discussing treatment options, in addition to documenting in the record. [facility] CARDIOLOG[facility] [address] [facility] [address] [place] [phone] documented in this encounter Plan of Treatment Upcoming Encounters Date Type Department Care Team (Late st Contact Info) Description 06/22/2024 1:40 PM EDT Office Visit [facility] [address] [phone] Kristy Blackmon NP [address] [place] [id number] 07/27/2024 1:00 PM EDT Office Visit [facility] Hematology Oncology [address] [place] [address] Kym Soto PA [address] [place] [address] documented as of this encounter Procedures Procedure Name Priority Date/Time Associated Diagnosis [...] ANTI XA STAT 05/15/2024 10:23 AM EST SST - GOLD Routine 05/15/2024 10:17 AM EST EXTRA TUBES Routine 05/15/2024 10:17 AM EST LAVENDER - EDTA Routine 05/15/2024 10:17 AM EST TRANSTHORACIC ECHOCARDIOGRAM (TTE) LIMITED WITH CONTRAST Routine 05/15/2024 10:10 AM EST NSTEMI (non-ST elevated myocardial infarction) (CMS/HCC) OXYGEN THERAPY, ADULT Routine 05/15/2024 8:02 AM EST LIPID PANEL WITH REFLEX TO DIRECT LDL Routine 05/15/2024 4:19 AM EST CBC WITH AUTO DIFFERENTIAL Routine 05/15/2024 4:19 AM EST HEPARIN ANTI XA STAT 05/15/2024 4:19 AM EST D-DIMER Routine 05/15/2024 4:19 AM EST CBC AND DIFFERENTIAL Routine 05/15/2024 4:19 AM EST MAGNESIUM Routine 05/15/2024 4:19 AM EST BASIC METABOLIC PANEL Routine 05/15/2024 4:19 AM EST ECG ANNOTATED 05/15/2024 [...] THERAPY, ADULT Routine 05/14/2024 8:02 AM EST TROPONIN I HIGH SENSITIVITY Routine 05/14/2024 6:12 AM EST CBC WITH AUTO DIFFERENTIAL Routine 05/14/2024 6:12 AM EST CBC AND DIFFERENTIAL Routine 05/14/2024 6:12 AM EST MAGNESIUM Routine 05/14/2024 6:12 AM EST BASIC METABOLIC PANEL Routine 05/14/2024 6:12 AM EST ACTIVATED PARTIAL THROMBOPLASTIN TIME STAT 05/14/2024 5:30 AM EST PROTHROMBIN TIME WITH INR STAT 05/14/2024 5:30 AM EST ECG 12-LEAD STAT 05/14/2024 4:59 AM EST OXYGEN THERAPY, ADULT Routine 05/14/2024 3:43 AM EST OXYGEN THERAPY, ADULT Routine 05/14/2024 3:43 AM EST OXYGEN THERAPY, ADULT Routine 05/14/2024 3:43 AM EST TROPONIN I HIGH SENSITIVITY Routine 05/14/2024 3:31 AM EST EXTRA TUBES Routine 05/14/2024 3:31 AM EST LT BLUE - NA CITRATE Routine 05/14/2024 3:[address] CHEST WO CONTRAST STAT 05/14/2024 1:23 AM EST TROPONIN I HIGH SENSITIVITY STAT 05/14/2024 12:00 AM EST ECG 12-LEAD STAT 05/13/2024 11:02 PM EST XR CHEST 1 VIEW STAT 05/13/2024 10:53 PM EST RESPIRATORY VIRUS PANEL MOLECULAR STUDY STAT 05/13/2024 10:39 PM EST TROPONIN I HIGH SENSITIVITY STAT 05/13/2024 10:39 PM EST CBC WITH AUTO DIFFERENTIAL STAT 05/13/2024 10:39 PM EST CBC AND DIFFERENTIAL STAT 05/13/2024 10:39 PM EST B-TYPE NATRIURETIC PEPTIDE STAT 05/13/2024 10:39 PM EST MAGNESIUM Add-On 05/13/2024 10:39 PM EST COMPREHENSIVE METABOLIC PANEL STAT 05/13/2024 10:39 PM EST SC CRITICAL CARE 30-74 MINUTES Routine 05/13/2024 9:48 PM EST documented in this encounter Results * (ABNORMAL) CBC auto differential (05/19/2024 5:40 AM EST) WBC 9.4 4.8 - 10.8 K/[facility] LAB HEMETOLOGY METHOD 05/19/2024 6:34 AM [facility] RBC 2.50(L) 3.80 - 4.80 M/mcL LAB HEMETOLOGY METHOD 05/19/2024 6:34 AM [facility] Hemoglobin 8.2(L) 11.5 - 16.0 g/dL LAB HEMETOLOGY METHOD 05/19/2024 6:34 AM [facility] Hematocrit 25.6(L) 35.0 - 47.0 % LAB HEMETOLOGY METHOD 05/19/2024 6:34 AM [facility] MCV 103.2(H) 79.0 - 98.0 FL LAB HEMETOLOGY METHOD 05/19/2024 6:34 AM [facility] MCH 33.1(H) 27.0 - 32.0 pcg LAB HEMETOLOGY METHOD 05/19/2024 6:34 AM [facility] MCHC 32.0 32.0 - 37.0 g/dL LAB HEMETOLOGY METHOD 05/19/2024 6:34 AM [facility] RDW 15.3(H) 11.0 - 15.0 % LAB HEMETOLOGY METHOD 05/19/2024 6:34 AM [facility] Platelets 203 130 - 400 K/mcL LAB HEMETOLOGY METHOD 05/19/2024 6:34 AM [facility] MPV 11.2(H) 7.0 - 11.0 FL LAB HEMETOLOGY METHOD 05/19/2024 6:34 AM [facility] NRBC 0.0 <1.0 % LAB HEMETOLOGY METHOD 05/19/2024 6:34 AM [facility] NRBC Absolute 0.00 <0.10 K/mcL LAB HEMETOLOGY METHOD 05/19/2024 6:34 AM [facility] Neutrophils Relative 76.4 % LAB HEMETOLOGY METHOD 05/19/2024 6:34 AM [facility] Lymphocytes Relative 13.9 % LAB HEMETOLOGY METHOD 05/19/2024 6:34 AM [facility] Monocytes Relative 8.9 % LAB HEMETOLOGY METHOD 05/19/2024 6:34 AM [facility] Eosinophils Relative 0.0 % LAB HEMETOLOGY METHOD 05/19/2024 6:34 AM [facility] Basophils Relative 0.1 % LAB HEMETOLOGY METHOD 05/19/2024 6:34 AM [facility] Immature Granulocytes Relative 0.7 % LAB HEMETOLOGY METHOD 05/19/2024 6:34 AM [facility] Neutrophils Absolute 7.16(H) 1.50 - 7.00 K/mcL LAB HEMETOLOGY METHOD 05/19/2024 6:34 AM [facility] Lymphocytes Absolute 1.30 1.00 - 5.00 K/mcL LAB HEMETOLOGY METHOD 05/19/2024 6:34 AM [facility] Monocytes Absolute 0.83 0.20 - 1.00 K/mcL LAB HEMETOLOGY METHOD 05/19/2024 6:34 AM [facility] Eosinophils Absolute 0.00 0.00 - 0.50 K/mcL LAB HEMETOLOGY METHOD 05/19/2024 6:34 AM [facility] Basophils Absolute 0.01 0.00 - 0.20 K/mcL LAB HEMETOLOGY METHOD 05/19/2024 6:34 AM [facility] Immature Granulocytes Absolute 0.07(H) 0.00 - 0.03 K/mcL LAB HEMETOLOGY METHOD 05/19/2024 6:34 AM [facility] Blood Venous blood specimen / Unknown Venipuncture / Unknown 05/19/2024 5:40 AM EST 05/19/2024 6:16 AM EST Kym Angulo MD LAB BLOOD ORDERABLES Final Res ult [facility] [address] [place] [address], * (ABNORMAL) Basic metabolic panel (05/19/2024 5:40 AM EST) Sodium 140 133 - 145 mmol/L LAB CHEMISTRY METHOD 05/19/2024 7:22 AM EST [facility] Potassium 5.5 3.5 - 5.5 mmol/L LAB CHEMISTRY METHOD 05/19/2024 7:22 AM [facility] Chloride 112(H) 96 - 110 mmol/L LAB CHEMISTRY METHOD 05/19/2024 7:22 AM [facility] CO2 26 21 - 32 mmol/L LAB CHEMISTRY METHOD 05/19/2024 7:22 AM [facility] Anion Gap 2(L) 3 - 11 LAB CHEMISTRY METHOD 05/19/2024 7:22 AM [facility] Glucose 117(H) 70 - 100 mg/dL LAB CHEMISTRY METHOD 05/19/2024 7:22 AM [facility] BUN 52(H) 5 - 25 mg/dL LAB CHEMISTRY METHOD 05/19/2024 7:22 AM [facility] Creatinine 1.85(H) 0.50 - 1.10 mg/dL LAB CHEMISTRY METHOD 05/19/2024 7:22 AM [facility] eGFR 28(L) >=60 mL/min/1. 73m2 LAB CHEMISTRY METHOD 05/19/2024 7:22 AM [facility] Comment:Calculation based on the??Chronic Kidney Disease Epidemiology Collaboration (CKD-EPI) equation refit??without adjustment for race. BUN/Creatinine Ratio 28.1 LAB CHEMISTRY METHOD 05/19/2024 7:22 AM [facility] Calcium 9.1 8.5 - 10.5 mg/dL LAB CHEMISTRY METHOD 05/19/2024 7:22 AM EST [facility] Blood Venous blood specimen / Unknown Venipuncture / Unknown 05/19/2024 5:40 AM EST 05/19/2024 6:16 AM EST us Kym Angulo MD LAB BLOOD ORDERABLES Final Res ult Performing Organization Address [facility] de Phone Number [facility] [address] [place] [address], * (ABNORMAL) Hemoglobin and hematocrit (2024 2:37 PM EST) Hemoglobin 8.3(L) 11.5 - 16.0 g/dL LAB HEMETOLOGY METHOD 2024 2:48 PM EST [facility] Hematocrit 26.0(L) 35.0 - 47.0 % LAB HEMETOLOGY METHOD 2024 2:48 PM EST [facility] Blood Venous blood specimen / Unknown Venipuncture / Unknown 2024 2:37 PM EST 2024 2:41 PM EST us Kym Angulo MD LAB BLOOD ORDERABLES Final Res ult Performing Organization Address [facility] de Phone Number [facility] [address] [place] [address], * (ABNORMAL) Basic metabolic panel (2024 6:10 AM EST) Sodium 142 133 - 145 mmol/L LAB CHEMISTRY METHOD 2024 7:57 AM EST [facility] Potassium 5.3 3.5 - 5.5 mmol/L LAB CHEMISTRY METHOD 2024 7:57 AM [facility] Chloride 112(H) 96 - 110 mmol/L LAB CHEMISTRY METHOD 2024 7:57 AM [facility] CO2 25 21 - 32 mmol/L LAB CHEMISTRY METHOD 2024 7:57 AM [facility] Anion Gap 5 3 - 11 LAB CHEMISTRY METHOD 2024 7:57 AM [facility] Glucose 108(H) 70 - 100 mg/dL LAB CHEMISTRY METHOD 2024 7:57 AM [facility] BUN 51(H) 5 - 25 mg/dL LAB CHEMISTRY METHOD 2024 7:57 AM [facility] LAB Creatinine 2.00(H) 0.50 - 1.10 mg/dL LAB CHEMISTRY METHOD 2024 7:57 AM [facility] eGFR 26(L) >=60 mL/min/1. 73m2 LAB CHEMISTRY METHOD 2024 7:57 AM [facility] Comment:Calculation based on the??Chronic Kidney Disease Epidemiology Collaboration (CKD-EPI) equation refit??without adjustment for race. BUN/Creatinine Ratio 25.5 LAB CHEMISTRY METHOD 2024 7:57 AM [facility] Calcium 9.4 8.5 - 10.5 mg/dL LAB CHEMISTRY METHOD 2024 7:57 AM [facility] Blood Venous blood specimen / Unknown Venipuncture / Unknown 2024 6:10 AM EST 2024 7:18 AM EST us Estate Josafat ARMAS LAB BLOOD ORDERABLES Final R esult [facility] [address] [place] [address], * (ABNORMAL) CBC auto differential (2024 6:09 AM EST) WBC 12.3(H) 4.8 - 10.8 K/mcL LAB HEMETOLOGY METHOD 2024 7:34 AM [facility] RBC 2.30(L) 3.80 - 4.80 M/mcL LAB HEMETOLOGY METHOD 2024 7:34 AM [facility] Hemoglobin 7.4(L) 11.5 - 16.0 g/dL LAB HEMETOLOGY METHOD 2024 7:34 AM [facility] Hematocrit 23.6(L) 35.0 - 47.0 % LAB HEMETOLOGY METHOD 2024 7:34 AM [facility] MCV 104.0(H) 79.0 - 98.0 FL LAB HEMETOLOGY METHOD 2024 7:34 AM [facility] MCH 32.6(H) 27.0 - 32.0 pcg LAB HEMETOLOGY METHOD 2024 7:34 AM [facility] MCHC 31.4(L) 32.0 - 37.0 g/dL LAB HEMETOLOGY METHOD 2024 7:34 AM [facility] RDW 15.5(H) 11.0 - 15.0 % LAB HEMETOLOGY METHOD 2024 7:34 AM [facility] Platelets 188 130 - 400 K/mcL LAB HEMETOLOGY METHOD 2024 7:34 AM [facility] LAB MPV 11.3(H) 7.0 - 11.0 FL LAB HEMETOLOGY METHOD 2024 7:34 AM [facility] NRBC 0.0 <1.0 % LAB HEMETOLOGY METHOD 2024 7:34 AM [facility] NRBC Absolute 0.00 <0.10 K/mcL LAB HEMETOLOGY METHOD 2024 7:34 AM [facility] Neutrophils Relative 80.6 % LAB HEMETOLOGY METHOD 2024 7:34 AM [facility] Lymphocytes Relative 10.5 % LAB HEMETOLOGY METHOD 2024 7:34 AM [facility] Monocytes Relative 7.9 % LAB HEMETOLOGY METHOD 2024 7:34 AM [facility] Eosinophils Relative 0.0 % LAB HEMETOLOGY METHOD 2024 7:34 AM [facility] Basophils Relative 0.1 % LAB HEMETOLOGY METHOD 2024 7:34 AM [facility] Immature Granulocytes Relative 0.9 % LAB HEMETOLOGY METHOD 2024 7:34 AM [facility] Neutrophils Absolute 9.87(H) 1.50 - 7.00 K/mcL LAB HEMETOLOGY METHOD 2024 7:34 AM [facility] Lymphocytes Absolute 1.29 1.00 - 5.00 K/mcL LAB HEMETOLOGY METHOD 2024 7:34 AM [facility] Monocytes Absolute 0.97 0.20 - 1.00 K/mcL LAB HEMETOLOGY METHOD 2024 7:34 AM [facility] Eosinophils Absolute 0.00 0.00 - 0.50 K/mcL LAB HEMETOLOGY METHOD 2024 7:34 AM [facility] Basophils Absolute 0.01 0.00 - 0.20 K/mcL LAB HEMETOLOGY METHOD 2024 7:34 AM [facility] Immature Granulocytes Absolute 0.11(H) 0.00 - 0.03 K/mcL LAB HEMETOLOGY METHOD 2024 7:34 AM [facility] Blood Venous blood specimen / Unknown Venipuncture / Unknown 2024 6:09 AM EST 2024 7:18 AM EST us Edward Maurice MD LAB BLOOD ORDERABLES Final R esult [facility] [address] [place] [address], * (ABNORMAL) CBC auto differential (05/17/2024 5:36 AM EST) WBC 13.0(H) 4.8 - 10.8 K/mcL LAB HEMETOLOGY METHOD 05/17/2024 6:51 AM EST [facility] RBC 2.60(L) 3.80 - 4.80 M/mcL LAB HEMETOLOGY METHOD 05/17/2024 6:51 AM [facility] Hemoglobin 8.6(L) 11.5 - 16.0 g/dL LAB HEMETOLOGY METHOD 05/17/2024 6:51 AM [facility] Hematocrit 26.5(L) 35.0 - 47.0 % LAB HEMETOLOGY METHOD 05/17/2024 6:51 AM [facility] MCV 102.7(H) 79.0 - 98.0 FL LAB HEMETOLOGY METHOD 05/17/2024 6:51 AM [facility] MCH 33.3(H) 27.0 - 32.0 pcg LAB HEMETOLOGY METHOD 05/17/2024 6:51 AM [facility] MCHC 32.5 32.0 - 37.0 g/dL LAB HEMETOLOGY METHOD 05/17/2024 6:51 AM [facility] RDW 15.0 11.0 - 15.0 % LAB HEMETOLOGY METHOD 05/17/2024 6:51 AM [facility] Platelets 201 130 - 400 K/mcL LAB HEMETOLOGY METHOD 05/17/2024 6:51 AM [facility] MPV 11.3(H) 7.0 - 11.0 FL LAB HEMETOLOGY METHOD 05/17/2024 6:51 AM [facility] NRBC 0.0 <1.0 % LAB HEMETOLOGY METHOD 05/17/2024 6:51 AM [facility] NRBC Absolute 0.00 <0.10 K/mcL LAB HEMETOLOGY METHOD 05/17/2024 6:51 AM [facility] Neutrophils Relative 91.1 % LAB HEMETOLOGY METHOD 05/17/2024 6:51 AM [facility] Lymphocytes Relative 4.8 % LAB HEMETOLOGY METHOD 05/17/2024 6:51 AM [facility] Monocytes Relative 3.3 % LAB HEMETOLOGY METHOD 05/17/2024 6:51 AM [facility] Eosinophils Relative 0.0 % LAB HEMETOLOGY METHOD 05/17/2024 6:51 AM [facility] Basophils Relative 0.0 % LAB HEMETOLOGY METHOD 05/17/2024 6:51 AM [facility] Immature Granulocytes Relative 0.8 % LAB HEMETOLOGY METHOD 05/17/2024 6:51 AM [facility] Neutrophils Absolute 11.87(H) 1.50 - 7.00 K/mcL LAB HEMETOLOGY METHOD 05/17/2024 6:51 AM [facility] Lymphocytes Absolute 0.62(L) 1.00 - 5.00 K/mcL LAB HEMETOLOGY METHOD 05/17/2024 6:51 AM [facility] Monocytes Absolute 0.43 0.20 - 1.00 K/mcL LAB HEMETOLOGY METHOD 05/17/2024 6:51 AM [facility] Eosinophils Absolute 0.00 0.00 - 0.50 K/mcL LAB HEMETOLOGY METHOD 05/17/2024 6:51 AM [facility] Basophils Absolute 0.00 0.00 - 0.20 K/[facility] LAB HEMETOLOGY METHOD 05/17/2024 6:51 AM EST [facility] Immature Granulocytes Absolute 0.10(H) 0.00 - 0.03 K/[facility] LAB HEMETOLOGY METHOD 05/17/2024 6:51 AM EST [facility] Blood Venous blood specimen / Unknown Venipuncture / Unknown 05/17/2024 5:36 AM EST 05/17/2024 6:13 AM EST Estate Josafat ARMAS LAB BLOOD ORDERABLES Final R esult [facility] [address] [place] [address], [place] [phone] * (ABNORMAL) Basic metabolic panel (05/17/2024 5:36 AM EST) Sodium 140 133 - 145 mmol/L LAB CHEMISTRY METHOD 05/17/2024 7:16 AM [facility] Potassium 4.4 3.5 - 5.5 mmol/L LAB CHEMISTRY METHOD 05/17/2024 7:16 AM [facility] Chloride 110 96 - 110 mmol/L LAB CHEMISTRY METHOD 05/17/2024 7:16 AM [facility] CO2 23 21 - 32 mmol/L LAB CHEMISTRY METHOD 05/17/2024 7:16 AM [facility] Anion Gap 7 3 - 11 LAB CHEMISTRY METHOD 05/17/2024 7:16 AM [facility] Glucose 151(H) 70 - 100 mg/dL LAB CHEMISTRY METHOD 05/17/2024 7:16 AM [facility] BUN 63(H) 5 - 25 mg/dL LAB CHEMISTRY METHOD 05/17/2024 7:16 AM [facility] Creatinine 2.13(H) 0.50 - 1.10 mg/dL LAB CHEMISTRY METHOD 05/17/2024 7:16 AM [facility] eGFR 24(L) >=60 mL/min/1. 73m2 LAB CHEMISTRY METHOD 05/17/2024 7:16 AM [facility] Comment:Calculation based on the??Chronic Kidney Disease Epidemiology Collaboration (CKD-EPI) equation refit??without adjustment for race. BUN/Creatinine Ratio 29.6 LAB CHEMISTRY METHOD 05/17/2024 7:16 AM [facility] Calcium 9.1 8.5 - 10.5 mg/dL LAB CHEMISTRY METHOD 05/17/2024 7:16 AM [facility] Blood Venous blood specimen / Unknown Venipuncture / Unknown 05/17/2024 5:36 AM EST 05/17/2024 6:12 AM EST Estate Josafat ARMAS LAB BLOOD ORDERABLES Final R esult [facility] [address] [place] [address], * Respiratory virus panel molecular study (05/16/2024 4:32 PM EST) Adenovirus Detection by PCR Not Detected Not Detected LAB MICROBIOLOGY METHOD 05/16/2024 5:49 PM [facility] Influenza A PCR Not Detected Not Detected LAB MICROBIOLOGY METHOD 05/16/2024 5:49 PM [facility] Influenza B PCR Not Detected Not Detected LAB MICROBIOLOGY METHOD 05/16/2024 5:49 PM [facility] Coronavirus 229E Not Detected Not Detected LAB MICROBIOLOGY METHOD 05/16/2024 5:49 PM [facility] Coronavirus HKU1 Not Detected Not Detected LAB MICROBIOLOGY METHOD 05/16/2024 5:49 PM [facility] Coronavirus OC43 Not Detected Not Detected LAB MICROBIOLOGY METHOD 05/16/2024 5:49 PM [facility] Coronavirus NL63 Not Detected Not Detected LAB MICROBIOLOGY METHOD 05/16/2024 5:49 PM EST [facility] Parainfluenza Virus 1 Not Detected Not Detected LAB MICROBIOLOGY METHOD 05/16/2024 5:49 PM [facility] Parainfluenza Virus 2 Not Detected Not Detected LAB MICROBIOLOGY METHOD 05/16/2024 5:49 PM [facility] Parainfluenza Virus 3 Not Detected Not Detected LAB MICROBIOLOGY METHOD 05/16/2024 5:49 PM [facility] Parainfluenza Virus 4 Not Detected Not Detected LAB MICROBIOLOGY METHOD 05/16/2024 5:49 PM [facility] RSV PCR Not Detected Not Detected LAB MICROBIOLOGY METHOD 05/16/2024 5:49 PM [facility] Human Metapneumovirus A and B Not Detected Not Detected LAB MICROBIOLOGY METHOD 05/16/2024 5:49 PM [facility] Rhinovirus/Entero virus Not Detected Not Detected LAB MICROBIOLOGY METHOD 05/16/2024 5:49 PM [facility] Bordetella pertussis Not Detected Not Detected LAB MICROBIOLOGY METHOD 05/16/2024 5:49 PM [facility] Bordetella parapertussis Not Detected Not Detected LAB MICROBIOLOGY METHOD 05/16/2024 5:49 PM [facility] Mycoplasma pneumo by PCR Not Detected Not Detected LAB MICROBIOLOGY METHOD 05/16/2024 5:49 PM [facility] Chlamydia pneumoniae Not Detected Not Detected LAB MICROBIOLOGY METHOD 05/16/2024 5:49 PM [facility] SARS COV-2 Not Detected Not Detected LAB MICROBIOLOGY METHOD 05/16/2024 5:49 PM [facility] Swab Nasopharyngeal structure / Unknown Non-blood Collection / Unknown 05/16/2024 4:32 PM EST 05/16/2024 4:55 PM EST Narrative [facility] ([facility]) [facility] - 05/16/2024 5:49 PM EST Testing was performed using the flaveit Respiratory Pathogen PCR Assay. All results must [...] that are below the limit of detection. us Edward Maurice MD LAB MICROBIOLOGY - GENERAL O RDERABLES Final Result Performing Organization Address City/[facility]/ZIP Co de Phone Number [facility] [address] [place] [address], [place] [phone] * ECG 12 lead (05/16/2024 1:21 PM EST) Ventricular Rate ECG 85 BPM GEMUSE Atrial Rate 85 BPM GEMUSE P-R Interval 180 ms GEMUSE QRS Duration 82 ms GEMUSE Q-T Interval 448 ms GEMUSE QTc 533 ms GEMUSE P Wave Minong 71 degrees GEMUSE R Minong 37 degrees GEMUSE T Minong -178 degrees GEMUSE ECG Interpretation Critical Test Result: Long QTc Normal sinus rhythm ST and Marked T wave abnormality, consider anterolateral ischemia Prolonged QT Abnormal ECG When compared with ECG of 16-MAY-2024 05:16, (unconfirmed) Sinus rhythm has replaced Atrial fibrillation Confirmed by MARQUITA PRADO ([id number]) on 05/16/2024 3:38:31 PM GEMUSE 05/16/2024 1:21 PM EST 05/16/2024 3:38 PM EST us Edward Maurice MD ECG ORDERABLES Final Result Performing Organization Address City/[facility]/ZIP Co de Phone Number GEMUSE * Thyroid stimulating hormone with reflex to free t4 and free t3 (05/16/2024 5:33 AM EST) TSH 0.59 0.40 - 4.00 mcIU/mL LAB CHEMISTRY METHOD 05/16/2024 7:46 AM [facility] Blood Venous blood specimen / Unknown Venipuncture / Unknown 05/16/2024 5:33 AM EST 05/16/2024 7:01 AM EST us Orlando CRAWFORD LAB BLOOD ORDERABLES Final Res ult [facility] [address] [place] [address], * (ABNORMAL) CBC auto differential (05/16/2024 5:33 AM EST) WBC 15.5(H) 4.8 - 10.8 K/mcL LAB HEMETOLOGY METHOD 05/16/2024 7:28 AM [facility] RBC 2.80(L) 3.80 - 4.80 M/mcL LAB HEMETOLOGY METHOD 05/16/2024 7:28 AM [facility] Hemoglobin 9.3(L) 11.5 - 16.0 g/dL LAB HEMETOLOGY METHOD 05/16/2024 7:28 AM [facility] Hematocrit 29.3(L) 35.0 - 47.0 % LAB HEMETOLOGY METHOD 05/16/2024 7:28 AM [facility] MCV 106.2(H) 79.0 - 98.0 FL LAB HEMETOLOGY METHOD 05/16/2024 7:28 AM [facility] MCH 33.7(H) 27.0 - 32.0 pcg LAB HEMETOLOGY METHOD 05/16/2024 7:28 AM [facility] MCHC 31.7(L) 32.0 - 37.0 g/dL LAB HEMETOLOGY METHOD 05/16/2024 7:28 AM [facility] RDW 15.0 11.0 - 15.0 % LAB HEMETOLOGY METHOD 05/16/2024 7:28 AM [facility] Platelets 216 130 - 400 K/mcL LAB HEMETOLOGY METHOD 05/16/2024 7:28 AM [facility] MPV 12.0(H) 7.0 - 11.0 FL LAB HEMETOLOGY METHOD 05/16/2024 7:28 AM [facility] NRBC 0.0 <1.0 % LAB HEMETOLOGY METHOD 05/16/2024 7:28 AM [facility] NRBC Absolute 0.00 <0.10 K/mcL LAB HEMETOLOGY METHOD 05/16/2024 7:28 AM [facility] Neutrophils Relative 90.9 % LAB HEMETOLOGY METHOD 05/16/2024 7:28 AM [facility] Lymphocytes Relative 4.5 % LAB HEMETOLOGY METHOD 05/16/2024 7:28 AM [facility] Monocytes Relative 3.9 % LAB HEMETOLOGY METHOD 05/16/2024 7:28 AM [facility] Eosinophils Relative 0.0 % LAB HEMETOLOGY METHOD 05/16/2024 7:28 AM [facility] Basophils Relative 0.1 % LAB HEMETOLOGY METHOD 05/16/2024 7:28 AM [facility] Immature Granulocytes Relative 0.6 % LAB HEMETOLOGY METHOD 05/16/2024 7:28 AM [facility] Neutrophils Absolute 14.09(H) 1.50 - 7.00 K/mcL LAB HEMETOLOGY METHOD 05/16/2024 7:28 AM [facility] Lymphocytes Absolute 0.70(L) 1.00 - 5.00 K/mcL LAB HEMETOLOGY METHOD 05/16/2024 7:28 AM [facility] Monocytes Absolute 0.60 0.20 - 1.00 K/mcL LAB HEMETOLOGY METHOD 05/16/2024 7:28 AM EST [facility] Eosinophils Absolute 0.00 0.00 - 0.50 K/mcL LAB HEMETOLOGY METHOD 05/16/2024 7:28 AM EST [facility] Basophils Absolute 0.01 0.00 - 0.20 K/mcL LAB HEMETOLOGY METHOD 05/16/2024 7:28 AM EST [facility] Immature Granulocytes Absolute 0.09(H) 0.00 - 0.03 K/mcL LAB HEMETOLOGY METHOD 05/16/2024 7:28 AM EST [facility] Blood Venous blood specimen / Unknown Venipuncture / Unknown 05/16/2024 5:33 AM EST 05/16/2024 7:00 AM EST Edward Maurice MD LAB BLOOD ORDERABLES Final R esult Performing Organization Address City/[facility]/ZIP Co de Phone Number [facility] [address] [place] [address], [place] [phone] * Anti-Xa - Every 6 Hours (05/16/2024 5:33 AM EST) Heparin Anti-Xa 0.35 0.30 - 0.70 I Unit/mL LAB COAGULATION METHOD 05/16/2024 7:25 AM EST [facility] Blood Venous blood specimen / Unknown Venipuncture / Unknown 05/16/2024 5:33 AM EST 05/16/2024 7:00 AM EST Narrative [facility] - 05/16/2024 7:25 AM EST Therapeutic range listed is for Unfractionated Heparin. LMW Heparin therapeutic range: 0.50-1.20 IU/mL Edward Maurice MD LAB BLOOD ORDERABLES Final R esult [facility] [address] [place] [address], [place] [phone] * (ABNORMAL) Basic metabolic panel (05/16/2024 5:33 AM EST) Sodium 140 133 - 145 mmol/L LAB CHEMISTRY METHOD 05/16/2024 7:43 AM [facility] Potassium 4.7 3.5 - 5.5 mmol/L LAB CHEMISTRY METHOD 05/16/2024 7:43 AM [facility] Chloride 111(H) 96 - 110 mmol/L LAB CHEMISTRY METHOD 05/16/2024 7:43 AM [facility] CO2 21 21 - 32 mmol/L LAB CHEMISTRY METHOD 05/16/2024 7:43 AM [facility] Anion Gap 8 3 - 11 LAB CHEMISTRY METHOD 05/16/2024 7:43 AM [facility] Glucose 138(H) 70 - 100 mg/dL LAB CHEMISTRY METHOD 05/16/2024 7:43 AM [facility] BUN 64(H) 5 - 25 mg/dL LAB CHEMISTRY METHOD 05/16/2024 7:43 AM [facility] Creatinine 2.20(H) 0.50 - 1.10 mg/dL LAB CHEMISTRY METHOD 05/16/2024 7:43 AM [facility] eGFR 23(L) >=60 mL/min/1. 73m2 LAB CHEMISTRY METHOD 05/16/2024 7:43 AM [facility] Comment:Calculation based on the??Chronic Kidney Disease Epidemiology Collaboration (CKD-EPI) equation refit??without adjustment for race. BUN/Creatinine Ratio 29.1 LAB CHEMISTRY METHOD 05/16/2024 7:43 AM [facility] Calcium 9.1 8.5 - 10.5 mg/dL LAB CHEMISTRY METHOD 05/16/2024 7:43 AM [facility] Blood Venous blood specimen / Unknown Venipuncture / Unknown 05/16/2024 5:33 AM EST 05/16/2024 7:01 AM EST Edward Maurice MD LAB BLOOD ORDERABLES Final R esult [facility] [address] [place] [address], [place] [phone] * ECG 12 lead (05/16/2024 5:16 AM EST) Ventricular Rate ECG 93 BPM GEMUSE Atrial Rate 58 BPM GEM[facility] QRS Duration 84 ms GEMUSE Q-T Interval 414 ms GEMUSE QTc 514 ms GEMUSE R Minong 54 degrees GEMUSE T Minong -168 degrees GEMUSE ECG Interpretation Atrial fibrillation ST and Marked T wave abnormality, consider anterolateral ischemia Prolonged QT Abnormal ECG When compared with ECG of 15-MAY-2024 17:49, (unconfirmed) Atrial fibrillation has replaced Sinus rhythm Confirmed by MARQUITA PRADO ([id number]) on 05/16/2024 3:33:24 PM G[facility] 05/16/2024 5:16 AM EST 05/16/2024 3:33 PM EST Edward Maurice MD ECG ORDERABLES Final Result Performing Organization Address City/[facility]/ZIP Co de Phone Number GEMUSE * Anti-Xa - Every 6 Hours (05/15/2024 10:25 PM EST) Heparin Anti-Xa 0.32 0.30 - 0.70 I Unit/mL LAB COAGULATION METHOD 05/15/2024 11:18 PM EST [facility] Blood Venous blood specimen / Unknown Venipuncture / Unknown 05/15/2024 10:25 PM EST 05/15/2024 11:05 PM EST Narrative [facility] - 05/15/2024 11:18 PM EST Therapeutic range listed is for Unfractionated Heparin. LMW Heparin therapeutic range: 0.50-1.20 IU/mL Edward Maurice MD LAB BLOOD ORDERABLES Final R esult Performing Organization Address City/[facility]/ZIP Co de Phone Number [facility] [address] [place] [address], * ECG 12 lead (05/15/2024 5:49 PM EST) Ventricular Rate ECG 100 BPM GEMUSE Atrial Rate 100 BPM GEMUSE P-R Interval 172 ms GEMUSE QRS Duration 84 ms GEMUSE Q-T Interval 414 ms GEMUSE QTc 534 ms GEMUSE P Wave Minong 61 degrees GEMUSE R Minong 35 degrees GEMUSE T Minong -179 degrees GEMUSE ECG Interpretation Critical Test Result: Long QTc Normal sinus rhythm Marked T wave abnormality, consider anterolateral ischemia Prolonged QT Abnormal ECG When compared with ECG of 14-MAY-2024 21:34, (unconfirmed) T wave inversion more evident in Anterior leads QT has lengthened Confirmed by MARQUITA PRADO ([id number]) on 05/16/2024 3:21:40 PM GEMUSE 05/15/2024 5:49 PM EST 05/16/2024 3:21 PM EST Edward Maurice MD ECG ORDERABLES Final Result Performing Organization Address [facility] Co de Phone Number LARA * Anti-Xa - Every 6 Hours (05/15/2024 4:15 PM EST) Heparin Anti-Xa 0.52 0.30 - 0.70 I Unit/mL LAB COAGULATION METHOD 05/15/2024 4:32 PM EST [facility] Blood Venous blood specimen / Unknown Venipuncture / Unknown 05/15/2024 4:15 PM EST 05/15/2024 4:23 PM EST Narrative [facility] - 05/15/2024 4:32 PM EST Therapeutic range listed is for Unfractionated Heparin. LMW Heparin therapeutic range: 0.50-1.20 IU/mL Edward Maurice MD LAB BLOOD ORDERABLES Final R esult Performing Organization Address City/[facility]/ZIP Co de Phone Number [facility] [address] [place] [address], [place] [phone] * (ABNORMAL) Anti-Xa - Every 6 Hours (05/15/2024 10:23 AM EST) Heparin Anti-Xa 0.26(L) 0.30 - 0.70 I Unit/mL LAB COAGULATION METHOD 05/15/2024 10:45 AM EST [facility] Blood Venous blood specimen / Unknown Venipuncture / Unknown 05/15/2024 10:23 AM EST 05/15/2024 10:30 AM EST Narrative [facility] - 05/15/2024 10:45 AM EST Therapeutic range listed is for Unfractionated Heparin. LMW Heparin therapeutic range: 0.50-1.20 IU/mL us Edward Maurice MD LAB BLOOD ORDERABLES Final R esult Performing Organization Address City/[facility]/ZIP Co de Phone Number [facility] [address] [place] [address], [place] [phone] * Lavender tube (05/15/2024 10:17 AM EST) Extra Tube Hold for add-ons. 05/15/2024 12:02 PM EST [facility] Comment:Auto resulted. Blood Venous blood specimen / Unknown Venipuncture / Unknown 05/15/2024 10:17 AM EST 05/15/2024 10:31 AM EST us Edward Maurice MD LAB BLOOD ORDERABLES Final R esult [facility] [address] [place] [address], [place] [phone] * SST tube (05/15/2024 10:17 AM EST) Pathologist [facility] Extra Tube Hold for add-ons. 05/15/2024 12:02 PM EST [facility] Comment:Auto resulted. Blood Venous blood specimen / Unknown Venipuncture / Unknown 05/15/2024 10:17 AM EST 05/15/2024 10:31 AM EST us Estate Josafat ARMAS LAB BLOOD ORDERABLES Final R esult [facility] ([facility]) [facility] [address] [place] [address], [place] [phone] * (ABNORMAL) TRANSTHORACIC ECHOCARDIOGRAM (TTE) LIMITED WITH CONTRAST (05/15/2024 10:10 AM EST) [facility] BSA 1.62 m2 CV PACS LVIDD [...] with the patient in a supine position. Edward Maurice MD CV ECHO PROCEDURES Final Res ult * (ABNORMAL) D-Dimer (05/15/2024 4:19 AM EST) D-Dimer, Quant (D-DU) 270(H) <=230 ng/mL DDU LAB COAGULATION METHOD 05/15/2024 5:31 AM EST [facility] Blood Venous blood specimen / Unknown Venipuncture / Unknown 05/15/2024 4:19 AM EST 05/15/2024 5:12 AM EST Narrative [facility] - 05/15/2024 5:31 AM EST D-Dimer <230 ng/mL (D-Dimer units) is the threshold for exclusion of DVT/PE. D-Dimer may be elevated in: Critically ill, severely infected, trauma patients, DIC, acute CVA, acute MS, unstable angina, AF, old age, , and smoking. D-Dimer may be decreased with: Initiation of heparin therapy and oral anticoagulants. Orlando CRAWFORD LAB BLOOD ORDERABLES Final Res ult [facility] [address] [place] [address], * (ABNORMAL) CBC auto differential (05/15/2024 4:19 AM EST) WBC 21.9(H) 4.8 - 10.8 K/mcL LAB HEMETOLOGY METHOD 05/15/2024 5:22 AM EST [facility] RBC 3.00(L) 3.80 - 4.80 M/mcL LAB HEMETOLOGY METHOD 05/15/2024 5:22 AM EST [facility] Hemoglobin 10.1(L) 11.5 - 16.0 g/dL LAB HEMETOLOGY METHOD 05/15/2024 5:22 AM [facility] Hematocrit 30.8(L) 35.0 - 47.0 % LAB HEMETOLOGY METHOD 05/15/2024 5:22 AM [facility] MCV 103.0(H) 79.0 - 98.0 FL LAB HEMETOLOGY METHOD 05/15/2024 5:22 AM [facility] MCH 33.8(H) 27.0 - 32.0 pcg LAB HEMETOLOGY METHOD 05/15/2024 5:22 AM [facility] MCHC 32.8 32.0 - 37.0 g/dL LAB HEMETOLOGY METHOD 05/15/2024 5:22 AM [facility] RDW 14.7 11.0 - 15.0 % LAB HEMETOLOGY METHOD 05/15/2024 5:22 AM [facility] Platelets 246 130 - 400 K/mcL LAB HEMETOLOGY METHOD 05/15/2024 5:22 AM [facility] MPV 11.5(H) 7.0 - 11.0 FL LAB HEMETOLOGY METHOD 05/15/2024 5:22 AM [facility] NRBC 0.0 <1.0 % LAB HEMETOLOGY METHOD 05/15/2024 5:22 AM [facility] NRBC Absolute 0.00 <0.10 K/mcL LAB HEMETOLOGY METHOD 05/15/2024 5:22 AM [facility] Neutrophils Relative 87.8 % LAB HEMETOLOGY METHOD 05/15/2024 5:22 AM [facility] Lymphocytes Relative 4.7 % LAB HEMETOLOGY METHOD 05/15/2024 5:22 AM [facility] Monocytes Relative 6.7 % LAB HEMETOLOGY METHOD 05/15/2024 5:22 AM [facility] Eosinophils Relative 0.0 % LAB HEMETOLOGY METHOD 05/15/2024 5:22 AM [facility] Basophils Relative 0.1 % LAB HEMETOLOGY METHOD 05/15/2024 5:22 AM [facility] Immature Granulocytes Relative 0.7 % LAB HEMETOLOGY METHOD 05/15/2024 5:22 AM [facility] Neutrophils Absolute 19.23(H) 1.50 - 7.00 K/mcL LAB HEMETOLOGY METHOD 05/15/2024 5:22 AM [facility] Lymphocytes Absolute 1.02 1.00 - 5.00 K/mcL LAB HEMETOLOGY METHOD 05/15/2024 5:22 AM [facility] Monocytes Absolute 1.46(H) 0.20 - 1.00 K/mcL LAB HEMETOLOGY METHOD 05/15/2024 5:22 AM EST [facility] Eosinophils Absolute 0.00 0.00 - 0.50 K/mcL LAB HEMETOLOGY METHOD 05/15/2024 5:22 AM [facility] Basophils Absolute 0.02 0.00 - 0.20 K/mcL LAB HEMETOLOGY METHOD 05/15/2024 5:22 AM [facility] Immature Granulocytes Absolute 0.16(H) 0.00 - 0.03 K/mcL LAB HEMETOLOGY METHOD 05/15/2024 5:22 AM [facility] Blood Venous blood specimen / Unknown Venipuncture / Unknown 05/15/2024 4:19 AM EST 05/15/2024 5:14 AM EST us Aris Malloy MD LAB BLOOD ORDERABLES Final Res ult [facility] [address] [place] [address], * Anti-Xa - Every 6 Hours (05/15/2024 4:19 AM EST) Heparin Anti-Xa 0.34 0.30 - 0.70 I Unit/mL LAB COAGULATION METHOD 05/15/2024 5:31 AM EST [facility] Blood Venous blood specimen / Unknown Venipuncture / Unknown 05/15/2024 4:19 AM EST 05/15/2024 5:12 AM EST Narrative [facility] - 05/15/2024 5:31 AM EST Therapeutic range listed is for Unfractionated Heparin. LMW Heparin therapeutic range: 0.50-1.20 IU/mL Edward Maurice MD LAB BLOOD ORDERABLES Final R esult [facility] [address] [place] [address], * Lipid panel with reflex to direct LDL (05/15/2024 4:19 AM EST) Pathologist [facility] Cholesterol 118 0 - 200 mg/dL LAB CHEMISTRY METHOD 05/15/2024 5:48 AM [facility] Triglycerides 68 0 - 150 mg/dL LAB CHEMISTRY METHOD 05/15/2024 5:48 AM [facility] HDL 57 >=40 mg/dL LAB CHEMISTRY METHOD 05/15/2024 5:48 AM [facility] LDL Calculated 47 0 - 100 mg/dL LAB CHEMISTRY METHOD 05/15/2024 5:48 AM [facility] VLDL Cholesterol Cody 13.6 mg/dL LAB CHEMISTRY METHOD 05/15/2024 5:48 AM [facility] Non HDL Chol. (LDL+VLDL) 61 <145 mg/dL LAB CHEMISTRY METHOD 05/15/2024 5:48 AM [facility] Chol/HDL Ratio 2.1 0.0 - 4.4 LAB CHEMISTRY METHOD 05/15/2024 5:48 AM EST [facility] Blood Venous blood specimen / Unknown Venipuncture / Unknown 05/15/2024 4:19 AM EST 05/15/2024 5:12 AM EST us Edward Maurice MD LAB BLOOD ORDERABLES Final R esult [facility] [address] [place] [address], [place] [phone] * Magnesium (05/15/2024 4:19 AM EST) Pathologist [facility] Magnesium 2.5 1.9 - 2.6 mg/dL LAB CHEMISTRY METHOD 05/15/2024 5:48 AM [facility] Blood Venous blood specimen / Unknown Venipuncture / Unknown 05/15/2024 4:19 AM EST 05/15/2024 5:12 AM EST Aris Malloy MD LAB BLOOD ORDERABLES Final Res ult Performing Organization Address City/[facility]/ZIP Co de Phone Number [facility] [address] [place] [address], [place] [phone] * (ABNORMAL) Basic metabolic panel (05/15/2024 4:19 AM EST) Pathologist [facility] Sodium 142 133 - 145 mmol/L LAB CHEMISTRY METHOD 05/15/2024 5:58 AM [facility] Potassium 5.3 3.5 - 5.5 mmol/L LAB CHEMISTRY METHOD 05/15/2024 5:58 AM [facility] Chloride 109 96 - 110 mmol/L LAB CHEMISTRY METHOD 05/15/2024 5:58 AM [facility] CO2 22 21 - 32 mmol/L LAB CHEMISTRY METHOD 05/15/2024 5:58 AM [facility] Anion Gap 11 3 - 11 LAB CHEMISTRY METHOD 05/15/2024 5:58 AM [facility] Glucose 111(H) 70 - 100 mg/dL LAB CHEMISTRY METHOD 05/15/2024 5:58 AM [facility] BUN 46(H) 5 - 25 mg/dL LAB CHEMISTRY METHOD 05/15/2024 5:58 AM [facility] Creatinine 1.85(H) 0.50 - 1.10 mg/dL LAB CHEMISTRY METHOD 05/15/2024 5:58 AM [facility] eGFR 28(L) >=60 mL/min/1. 73m2 LAB CHEMISTRY METHOD 05/15/2024 5:58 AM [facility] Comment:Calculation based on the??Chronic Kidney Disease Epidemiology Collaboration (CKD-EPI) equation refit??without adjustment for race. BUN/Creatinine Ratio 24.9 LAB CHEMISTRY METHOD 05/15/2024 5:58 AM [facility] Calcium 9.3 8.5 - 10.5 mg/dL LAB CHEMISTRY METHOD 05/15/2024 5:58 AM [facility] Blood Venous blood specimen / Unknown Venipuncture / Unknown 05/15/2024 4:19 AM EST 05/15/2024 5:12 AM EST Aris Malloy MD LAB BLOOD ORDERABLES Final Res ult [facility] [address] [place] [address], * ECG-Annotated (05/15/2024) us Provider Onbase ECG ORDERABLES Final Result * ECG-Annotated (05/15/2024) us Provider Onbase ECG ORDERABLES Final Result * ECG-Annotated (05/15/2024) Provider Onbase ECG ORDERABLES Final Result * (ABNORMAL) Troponin I high sensitivity (05/14/2024 10:23 PM EST) [facility] High Sensitivity Troponin I 3,394(HH) <=54 ng/L LAB CHEMISTRY METHOD 05/14/2024 11:19 PM EST [facility] Blood Venous blood specimen / Unknown Venipuncture / Unknown 05/14/2024 10:23 PM EST 05/14/2024 10:23 PM EST Narrative [facility] - 05/14/2024 11:19 PM EST High levels of biotin in samples may falsely decrease hsTroponin values. ??Use caution when interpreting hsTroponin results in patients taking biotin who exhibit renal impairment (eGFR <60) or in patients taking more than 20 mg/day of biotin. Rose Liriano NP LAB BLOOD ORDERABLES Fin al Result Performing Organization Address City/[facility]/ZIP Co de Phone Number [facility] [address] [place] [address], * Anti-Xa - Every 6 Hours (05/14/2024 10:23 PM EST) [facility] Heparin Anti-Xa 0.45 0.30 - 0.70 I Unit/mL LAB COAGULATION METHOD 05/14/2024 10:42 PM EST [facility] Blood Venous blood specimen / Unknown Venipuncture / Unknown 05/14/2024 10:23 PM EST 05/14/2024 10:23 PM EST Narrative [facility] - 05/14/2024 10:42 PM EST Therapeutic range listed is for Unfractionated Heparin. LMW Heparin therapeutic range: 0.50-1.20 IU/mL Edward Maurice MD LAB BLOOD ORDERABLES Final R esult [facility] [address] [place] [address], [place] [phone] * ECG 12 lead (05/14/2024 9:34 PM EST) Ventricular Rate ECG 102 BPM GEMUSE Atrial Rate 102 BPM GEMUSE P-R Interval 170 ms GEMUSE QRS Duration 70 ms GEMUSE Q-T Interval 364 ms GEMUSE QTc 474 ms GEMUSE P Wave Minong 69 degrees GEMUSE R Minong 45 degrees GEMUSE T Minong -171 degrees GEMUSE ECG Interpretation Sinus tachycardia T wave abnormality, consider inferolateral ischemia Abnormal ECG When compared with ECG of 14-MAY-2024 17:38, (unconfirmed) No significant change was found Confirmed by MARQUITA PRADO ([id number]) on 05/16/2024 2:54:09 PM GEMUSE 05/14/2024 9:34 PM EST 05/16/2024 2:54 PM EST Gamaliel CRAWFORD ECG ORDERABLES Final Result GEMUSE * ECG 12 lead (05/14/2024 5:38 PM EST) Ventricular Rate ECG 90 BPM GEMUSE Atrial Rate 90 BPM GEMUSE P-R Interval 188 ms GEMUSE QRS Duration 68 ms GEMUSE Q-T Interval 398 ms GEMUSE QTc 486 ms GEMUSE P Wave Minong 71 degrees GEMUSE R Minong 38 degrees GEMUSE T Minong -166 degrees GEMUSE ECG Interpretation Normal sinus rhythm ST and T wave abnormality, consider inferolateral ischemia Abnormal ECG When compared with ECG of 14-MAY-2024 04:59, (unconfirmed) Inverted T waves have replaced nonspecific T wave abnormality in Anterior leads Confirmed by MARQUITA PRADO ([id number]) on 05/16/2024 2:51:26 PM GEMUSE 05/14/2024 5:38 PM EST 05/16/2024 2:51 PM EST Rose L Sanky Goessel COOK TORTILLA ECG ORDERABLES Final Re sult Performing Organization Address [facility]/ZIP Co de Phone Number GEMUSE * (ABNORMAL) Anti-Xa - STAT (05/14/2024 4:30 PM EST) Heparin Anti-Xa 0.95(H) 0.30 - 0.70 I Unit/mL LAB COAGULATION METHOD 05/14/2024 4:46 PM EST [facility] Blood Venous blood specimen / Unknown Venipuncture / Unknown 05/14/2024 4:30 PM EST 05/14/2024 4:33 PM EST Narrative [facility] - 05/14/2024 4:46 PM EST Therapeutic range listed is for Unfractionated Heparin. LMW Heparin therapeutic range: 0.50-1.20 IU/mL us Edward Maurice MD LAB BLOOD ORDERABLES Final R esult Performing Organization Address [facility] Co de Phone Number [facility] [address] [place] [address], [place] [phone] * (ABNORMAL) Anti-Xa - STAT (05/14/2024 1:32 PM EST) Heparin Anti-Xa 1.48(H) 0.30 - 0.70 I Unit/mL LAB COAGULATION METHOD 05/14/2024 2:16 PM EST [facility] Blood Venous blood specimen / Unknown Venipuncture / Unknown 05/14/2024 1:32 PM EST 05/14/2024 2:06 PM EST Narrative [facility] - 05/14/2024 2:16 PM EST Therapeutic range listed is for Unfractionated Heparin. LMW Heparin therapeutic range: 0.50-1.20 IU/mL us Estrenetta Maurice MD LAB BLOOD ORDERABLES Final R esult Performing Organization Address [facility]/ZIP Co de Phone Number [facility] [address] [place] [address], [place] [phone] * Lactate, with reflex (05/14/2024 11:59 AM EST) LACTIC ACID 1.6 0.4 - 2.0 mmol/L LAB CHEMISTRY METHOD 05/14/2024 12:53 PM EST [facility] Blood Venous blood specimen / Unknown Venipuncture / Unknown 05/14/2024 11:59 AM EST 05/14/2024 12:16 PM EST Edward Maurice MD LAB BLOOD ORDERABLES Final R esult Performing Organization Address [facility]/ZIP Co de Phone Number [facility] [address] [place] [address], * (ABNORMAL) Activated Partial Thromboplastin Time - Every 6 Hours (05/14/2024 11:59 AM EST) [facility] aPTT 199.8(HH) 24.1 - 39.3 sec LAB COAGULATION METHOD 05/14/2024 12:58 PM EST [facility] Blood Venous blood specimen / Unknown Venipuncture / Unknown 05/14/2024 11:59 AM EST 05/14/2024 12:16 PM EST Aris Malloy MD LAB BLOOD ORDERABLES Final Res ult Performing Organization Address City/[facility]/ZIP Co de Phone Number [facility] [address] [place] [address], [place] [phone] * (ABNORMAL) Lactate, with reflex (05/14/2024 8:26 AM EST) LACTIC ACID 2.8(H) 0.4 - 2.0 mmol/L LAB CHEMISTRY METHOD 05/14/2024 9:08 AM EST [facility] Blood Venous blood specimen / Unknown Venipuncture / Unknown 05/14/2024 8:26 AM EST 05/14/2024 8:36 AM EST Aris Malloy MD LAB BLOOD ORDERABLES Final Res ult Performing Organization Address City/[facility]/ZIP Co de Phone Number [facility] [address] [place] [address], [place] [phone] * (ABNORMAL) Troponin I high sensitivity (05/14/2024 8:26 AM EST) [facility] High Sensitivity Troponin I 2,616(HH) <=54 ng/L LAB CHEMISTRY METHOD 05/14/2024 9:10 AM EST [facility] Blood Venous blood specimen / Unknown Venipuncture / Unknown 05/14/2024 8:26 AM EST 05/14/2024 8:36 AM EST Narrative [facility] - 05/14/2024 9:10 AM EST High levels of biotin in samples may falsely decrease hsTroponin values. ??Use caution when interpreting hsTroponin results in patients taking biotin who exhibit renal impairment (eGFR <60) or in patients taking more than 20 mg/day of biotin. Aris Malloy MD LAB BLOOD ORDERABLES Final Res ult Performing Organization Address [facility] Co de Phone Number [facility] [address] [place] [address], [place] [phone] * (ABNORMAL) CBC auto differential (05/14/2024 6:12 AM EST) [facility] WBC 12.0(H) 4.8 - 10.8 K/mcL LAB HEMETOLOGY METHOD 05/14/2024 6:50 AM EST [facility] RBC 3.30(L) 3.80 - 4.80 M/mcL LAB HEMETOLOGY METHOD 05/14/2024 6:50 AM EST [facility] Hemoglobin 10.9(L) 11.5 - 16.0 g/dL LAB HEMETOLOGY METHOD 05/14/2024 6:50 AM [facility] Hematocrit 33.8(L) 35.0 - 47.0 % LAB HEMETOLOGY METHOD 05/14/2024 6:50 AM [facility] MCV 101.2(H) 79.0 - 98.0 FL LAB HEMETOLOGY METHOD 05/14/2024 6:50 AM [facility] MCH 32.6(H) 27.0 - 32.0 pcg LAB HEMETOLOGY METHOD 05/14/2024 6:50 AM [facility] MCHC 32.2 32.0 - 37.0 g/dL LAB HEMETOLOGY METHOD 05/14/2024 6:50 AM [facility] RDW 14.4 11.0 - 15.0 % LAB HEMETOLOGY METHOD 05/14/2024 6:50 AM [facility] Platelets 281 130 - 400 K/mcL LAB HEMETOLOGY METHOD 05/14/2024 6:50 AM [facility] MPV 10.6 7.0 - 11.0 FL LAB HEMETOLOGY METHOD 05/14/2024 6:50 AM [facility] NRBC 0.0 <1.0 % LAB HEMETOLOGY METHOD 05/14/2024 6:50 AM [facility] NRBC Absolute 0.00 <0.10 K/mcL LAB HEMETOLOGY METHOD 05/14/2024 6:50 AM [facility] Neutrophils Relative 92.3 % LAB HEMETOLOGY METHOD 05/14/2024 6:50 AM [facility] Lymphocytes Relative 5.3 % LAB HEMETOLOGY METHOD 05/14/2024 6:50 AM [facility] Monocytes Relative 1.5 % LAB HEMETOLOGY METHOD 05/14/2024 6:50 AM [facility] Eosinophils Relative 0.2 % LAB HEMETOLOGY METHOD 05/14/2024 6:50 AM EST [facility] Basophils Relative 0.2 % LAB HEMETOLOGY METHOD 05/14/2024 6:50 AM EST [facility] Immature Granulocytes Relative 0.5 % LAB HEMETOLOGY METHOD 05/14/2024 6:50 AM EST [facility] Neutrophils Absolute 11.08(H) 1.50 - 7.00 K/mcL LAB HEMETOLOGY METHOD 05/14/2024 6:50 AM EST [facility] Lymphocytes Absolute 0.63(L) 1.00 - 5.00 K/mcL LAB HEMETOLOGY METHOD 05/14/2024 6:50 AM EST [facility] Monocytes Absolute 0.18(L) 0.20 - 1.00 K/mcL LAB HEMETOLOGY METHOD 05/14/2024 6:50 AM EST [facility] Eosinophils Absolute 0.02 0.00 - 0.50 K/mcL LAB HEMETOLOGY METHOD 05/14/2024 6:50 AM EST [facility] Basophils Absolute 0.02 0.00 - 0.20 K/mcL LAB HEMETOLOGY METHOD 05/14/2024 6:50 AM EST [facility] Immature Granulocytes Absolute 0.06(H) 0.00 - 0.03 K/mcL LAB HEMETOLOGY METHOD 05/14/2024 6:50 AM EST [facility] Blood Venous blood specimen / Unknown Venipuncture / Unknown 05/14/2024 6:12 AM EST 05/14/2024 6:21 AM EST us Aris Malloy MD LAB BLOOD ORDERABLES Final Res ult [facility] [address] [place] [address], * (ABNORMAL) Basic metabolic panel (05/14/2024 6:12 AM EST) Sodium 139 133 - 145 mmol/L LAB CHEMISTRY METHOD 05/14/2024 6:52 AM [facility] Potassium 3.9 3.5 - 5.5 mmol/L LAB CHEMISTRY METHOD 05/14/2024 6:52 AM [facility] Chloride 108 96 - 110 mmol/L LAB CHEMISTRY METHOD 05/14/2024 6:52 AM [facility] CO2 24 21 - 32 mmol/L LAB CHEMISTRY METHOD 05/14/2024 6:52 AM [facility] Anion Gap 7 3 - 11 LAB CHEMISTRY METHOD 05/14/2024 6:52 AM [facility] Glucose 221(H) 70 - 100 mg/dL LAB CHEMISTRY METHOD 05/14/2024 6:52 AM [facility] BUN 30(H) 5 - 25 mg/dL LAB CHEMISTRY METHOD 05/14/2024 6:52 AM [facility] Creatinine 1.79(H) 0.50 - 1.10 mg/dL LAB CHEMISTRY METHOD 05/14/2024 6:52 AM [facility] eGFR 29(L) >=60 mL/min/1. 73m2 LAB CHEMISTRY METHOD 05/14/2024 6:52 AM [facility] Comment:Calculation based on the??Chronic Kidney Disease Epidemiology Collaboration (CKD-EPI) equation refit??without adjustment for race. BUN/Creatinine Ratio 16.8 LAB CHEMISTRY METHOD 05/14/2024 6:52 AM [facility] Calcium 9.3 8.5 - 10.5 mg/dL LAB CHEMISTRY METHOD 05/14/2024 6:52 AM [facility] Blood Venous blood specimen / Unknown Venipuncture / Unknown 05/14/2024 6:12 AM EST 05/14/2024 6:21 AM EST us Aris Malloy MD LAB BLOOD ORDERABLES Final Res ult Performing Organization Address [facility]/ZIP Co de Phone Number [facility] [address] [place] [address], [place] [phone] * Magnesium (05/14/2024 6:12 AM EST) Pathologist [facility] Magnesium 2.5 1.9 - 2.6 mg/dL LAB CHEMISTRY METHOD 05/14/2024 6:52 AM EST [facility] Blood Venous blood specimen / Unknown Venipuncture / Unknown 05/14/2024 6:12 AM EST 05/14/2024 6:21 AM EST Aris Malloy MD LAB BLOOD ORDERABLES Final Res ult Performing Organization Address [facility] de Phone Number [facility] [address] [place] [address], [place] [phone] * (ABNORMAL) Troponin I high sensitivity (05/14/2024 6:12 AM EST) [facility] High Sensitivity Troponin I 2,172(HH) <=54 ng/L LAB CHEMISTRY METHOD 05/14/2024 7:00 AM EST [facility] Blood Venous blood specimen / Unknown Venipuncture / Unknown 05/14/2024 6:12 AM EST 05/14/2024 6:21 AM EST Narrative [facility] - 05/14/2024 7:00 AM EST High levels of biotin in samples may falsely decrease hsTroponin values. ??Use caution when interpreting hsTroponin results in patients taking biotin who exhibit renal impairment (eGFR <60) or in patients taking more than 20 mg/day of biotin. Aris Malloy MD LAB BLOOD ORDERABLES Final Res ult Performing Organization Address [facility]/ZIP Co de Phone Number [facility] [address] [place] [address], [place] [phone] * Activated Partial Thromboplastin Time - STAT (05/14/2024 5:30 AM EST) Pathologist [facility] aPTT 30.7 24.1 - 39.3 sec LAB COAGULATION METHOD 05/14/2024 7:39 AM EST [facility] Blood Venous blood specimen / Unknown Venipuncture / Unknown 05/14/2024 5:30 AM EST 05/14/2024 6:21 AM EST us Aris Malloy MD LAB BLOOD ORDERABLES Final Res ult Performing Organization Address City/[facility]/ZIP Co de Phone Number [facility] [address] [place] [address], [place] [phone] * Prothrombin Time with INR - STAT (05/14/2024 5:30 AM EST) [facility] Protime 11.3 10.6 - 13.9 sec LAB COAGULATION METHOD 05/14/2024 7:39 AM EST [facility] INR 0.9 LAB COAGULATION METHOD 05/14/2024 7:39 AM EST [facility] Blood Venous blood specimen / Unknown Venipuncture / Unknown 05/14/2024 5:30 AM EST 05/14/2024 6:21 AM EST us Aris Malloy MD LAB BLOOD ORDERABLES Final Res ult [facility] [address] [place] [address], [place] [phone] * ECG 12 lead (05/14/2024 4:59 AM EST) [facility] Ventricular Rate ECG 108 BPM GEMUSE Atrial Rate 108 BPM GEMUSE P-R Interval 174 ms GEMUSE QRS Duration 76 ms GEMUSE Q-T Interval 342 ms GEMUSE QTc 458 ms GEMUSE P Wave Minong 63 degrees GEMUSE R Minong 41 degrees GEMUSE T Minong -160 degrees GEMUSE ECG Interpretation Sinus tachycardia Possible Anterior infarct (cited on or before 13-MAY-2024) ST and T wave abnormality, consider inferolateral ischemia Abnormal ECG When compared with ECG of 13-MAY-2024 23:02, T wave inversion now evident in Inferior leads T wave inversion now evident in Lateral leads Confirmed by MD Dennis, [place] ([id number]) on 05/14/2024 5:54:50 PM GEMUSE 05/14/2024 4:59 AM EST 05/14/2024 5:54 PM EST us Aris Malloy MD ECG ORDERABLES Final Result GEMUSE * Light blue tube (05/14/2024 3:31 AM EST) Pathologist [facility] Extra Tube Hold for add-ons. 05/14/2024 5:01 AM EST [facility] Comment:Auto resulted. Blood Venous blood specimen / Unknown Venipuncture / Unknown 05/14/2024 3:31 AM EST 05/14/2024 3:45 AM EST us Aris Malloy MD LAB BLOOD ORDERABLES Final Res ult Performing Organization Address City/[facility]/ZIP Co de Phone Number [facility] [address] [place] [address], * (ABNORMAL) Troponin I high sensitivity (05/14/2024 3:31 AM EST) High Sensitivity Troponin I 1,454(HH) <=54 ng/L LAB CHEMISTRY METHOD 05/14/2024 4:24 AM EST [facility] Blood Venous blood specimen / Unknown Venipuncture / Unknown 05/14/2024 3:31 AM EST 05/14/2024 3:44 AM EST Narrative [facility] - 05/14/2024 4:24 AM EST High levels of biotin in samples may falsely decrease hsTroponin values. ??Use caution when interpreting hsTroponin results in patients taking biotin who exhibit renal impairment (eGFR <60) or in patients taking more than 20 mg/day of biotin. us Aris Malloy MD LAB BLOOD ORDERABLES Final Res ult [facility] ([facility] [address] [place] [address], * CT Chest wo Contrast (05/14/2024 1:23 [...] by: Will Valverde MD on 05/14/2024 02:09:[address] PROCEDURES Final Resul t * (ABNORMAL) Troponin I high sensitivity (NOW and then in 1 hour) (05/14/2024 12:00 AM EST) [facility] High Sensitivity Troponin I 463(HH) <=54 ng/L LAB CHEMISTRY METHOD 05/14/2024 12:48 AM EST [facility] Blood Venous blood specimen / Unknown Venipuncture / Unknown 05/14/2024 12:00 AM EST 05/14/2024 12:05 AM EST Narrative [facility] - 05/14/2024 12:48 AM EST High levels of biotin in samples may falsely decrease hsTroponin values. ??Use caution when interpreting hsTroponin results in patients taking biotin who exhibit renal impairment (eGFR <60) or in patients taking more than 20 mg/day of biotin. Valerie CRAWFORD LAB BLOOD ORDERABLES Final Re sult [facility] [address] [place] [address], * ECG 12 lead (05/13/2024 11:02 PM EST) [facility] Ventricular Rate ECG 113 BPM GEMUSE Atrial Rate 113 BPM GEMUSE P-R Interval 178 ms GEMUSE QRS Duration 78 ms GEMUSE Q-T Interval 330 ms GEMUSE QTc 452 ms GEMUSE P Wave Minong 74 degrees GEMUSE R Minong 24 degrees GEMUSE T Minong 111 degrees GEMUSE ECG Interpretation Sinus tachycardia Poor R wave progression Abnormal ECG When compared with ECG of 22-MAR-2024 06:10, Vent. rate has increased BY ??44 BPM T wave amplitude has decreased in Lateral leads Confirmed by MD Collins Christopher ([id number]) on 05/14/2024 5:45:44 PM GEMUSE 05/13/2024 11:0 2 PM EST 05/14/2024 5:45 PM EST us Valerie CRAWFORD ECG ORDERABLES Final Result GEMUSE * XR Chest 1 View (05/13/2024 10:53 PM EST) Anatomical Region Laterality Modality Body Radiographic Althea ging 05/14/2024 9:07 AM EST Impressions 05/14/2024 9:10 AM EST Bilateral lower lung peribronchial thickening consistent with bronchitis versus atypical or viral pneumonia. Code 09198 -------- FINAL REPORT -------- Dictated By: Anibal Christie Dictated Date: 05/14/2024 09:07 ET Assigned Physician: Anibal Christie Reviewed and Electronically Signed By: Anibal Christie Signed Date: 05/14/2024 09:10 ET Workstation ID: [id number] Transcribed By: Self Edit Transcribed Date: 05/14/2024 [...] with bronchitisversus atypical or viral pneumonia. Code 16413 -------- FINAL REPORT -------- Dictated By: Anibal Christie Dictated Date: 05/14/2024 09:07 ET Assigned Physician: Anibal Christie Reviewed and Electronically Signed By: Anibal Christie Signed Date: 05/14/2024 09:10 ET Workstation ID: [id number] Transcribed By: Self Edit Transcribed Date: 05/14/2024 09:07 ET Valerie CRAWFORD IMG XR PROCEDURES Final Resul t * (ABNORMAL) Magnesium (05/13/2024 10:39 PM EST) [facility] Magnesium 3.0(H) 1.9 - 2.6 mg/dL LAB CHEMISTRY METHOD 05/13/2024 11:45 PM EST [facility] Blood Venous blood specimen / Unknown Venipuncture / Unknown 05/13/2024 10:39 PM EST 05/13/2024 11:21 PM EST Valerie CRAWFORD LAB BLOOD ORDERABLES Final Re sult [facility] [address] [place] [address], [place] [phone] * (ABNORMAL) Comprehensive metabolic panel (05/13/2024 10:39 PM EST) [facility] Sodium 140 133 - 145 mmol/L LAB CHEMISTRY METHOD 05/14/2024 12:02 AM EST [facility] Potassium 4.0 3.5 - 5.5 mmol/L LAB CHEMISTRY METHOD 05/14/2024 12:02 AM EST [facility] Chloride 111(H) 96 - 110 mmol/L LAB CHEMISTRY METHOD 05/14/2024 12:02 AM [facility] CO2 21 21 - 32 mmol/L LAB CHEMISTRY METHOD 05/14/2024 12:02 AM [facility] Anion Gap 8 3 - 11 LAB CHEMISTRY METHOD 05/14/2024 12:02 AM [facility] Glucose 201(H) 70 - 100 mg/dL LAB CHEMISTRY METHOD 05/14/2024 12:02 AM [facility] BUN 24 5 - 25 mg/dL LAB CHEMISTRY METHOD 05/14/2024 12:02 AM [facility] Creatinine 1.43(H) 0.50 - 1.10 mg/dL LAB CHEMISTRY METHOD 05/14/2024 12:02 AM [facility] eGFR 39(L) >=60 mL/min/1. 73m2 LAB CHEMISTRY METHOD 05/14/2024 12:02 AM [facility] Comment:Calculation based on the??Chronic Kidney Disease Epidemiology Collaboration (CKD-EPI) equation refit??without adjustment for race. BUN/Creatinine Ratio 16.8 LAB CHEMISTRY METHOD 05/14/2024 12:02 AM [facility] Calcium 9.2 8.5 - 10.5 mg/dL LAB CHEMISTRY METHOD 05/14/2024 12:02 AM [facility] AST (SGOT) 21 10 - 42 unit/L LAB CHEMISTRY METHOD 05/14/2024 12:02 AM [facility] ALT (SGPT) 16 10 - 60 unit/L LAB CHEMISTRY METHOD 05/14/2024 12:02 AM [facility] Alkaline Phosphatase 141(H) 42 - 121 unit/L LAB CHEMISTRY METHOD 05/14/2024 12:02 AM [facility] Total Protein 6.9 6.0 - 8.0 g/dL LAB CHEMISTRY METHOD 05/14/2024 12:02 AM [facility] Albumin 3.7 3.2 - 5.0 g/dL LAB CHEMISTRY METHOD 05/14/2024 12:02 AM EST [facility] Total Bilirubin 0.4 0.0 - 1.4 mg/dL LAB CHEMISTRY METHOD 05/14/2024 12:02 AM [facility] Blood Venous blood specimen / Unknown Venipuncture / Unknown 05/13/2024 10:39 PM EST 05/13/2024 11:21 PM EST us Valerie CRAWFORD LAB BLOOD ORDERABLES Final Re sult [facility] [address] [place] [address], [place] [phone] * Respiratory virus panel molecular study (05/13/2024 10:39 PM EST) Adenovirus Detection by PCR Not Detected Not Detected LAB MICROBIOLOGY METHOD 05/14/2024 12:13 AM [facility] Influenza A PCR Not Detected Not Detected LAB MICROBIOLOGY METHOD 05/14/2024 12:13 AM [facility] Influenza B PCR Not Detected Not Detected LAB MICROBIOLOGY METHOD 05/14/2024 12:13 AM [facility] Coronavirus 229E Not Detected Not Detected LAB MICROBIOLOGY METHOD 05/14/2024 12:13 AM [facility] Coronavirus HKU1 Not Detected Not Detected LAB MICROBIOLOGY METHOD 05/14/2024 12:13 AM [facility] Coronavirus OC43 Not Detected Not Detected LAB MICROBIOLOGY METHOD 05/14/2024 12:13 AM [facility] Coronavirus NL63 Not Detected Not Detected LAB MICROBIOLOGY METHOD 05/14/2024 12:13 AM [facility] Parainfluenza Virus 1 Not Detected Not Detected LAB MICROBIOLOGY METHOD 05/14/2024 12:13 AM [facility] Parainfluenza Virus 2 Not Detected Not Detected LAB MICROBIOLOGY METHOD 05/14/2024 12:13 AM [facility] Parainfluenza Virus 3 Not Detected Not Detected LAB MICROBIOLOGY METHOD 05/14/2024 12:13 AM [facility] Parainfluenza Virus 4 Not Detected Not Detected LAB MICROBIOLOGY METHOD 05/14/2024 12:13 AM [facility] RSV PCR Not Detected Not Detected LAB MICROBIOLOGY METHOD 05/14/2024 12:13 AM [facility] Human Metapneumovirus A and B Not Detected Not Detected LAB MICROBIOLOGY METHOD 05/14/2024 12:13 AM [facility] Rhinovirus/Entero virus Not Detected Not Detected LAB MICROBIOLOGY METHOD 05/14/2024 12:13 AM [facility] Bordetella pertussis Not Detected Not Detected LAB MICROBIOLOGY METHOD 05/14/2024 12:13 AM [facility] Bordetella parapertussis Not Detected Not Detected LAB MICROBIOLOGY METHOD 05/14/2024 12:13 AM [facility] Mycoplasma pneumo by PCR Not Detected Not Detected LAB MICROBIOLOGY METHOD 05/14/2024 12:13 AM [facility] Chlamydia pneumoniae Not Detected Not Detected LAB MICROBIOLOGY METHOD 05/14/2024 12:13 AM [facility] SARS COV-2 Not Detected Not Detected LAB MICROBIOLOGY METHOD 05/14/2024 12:13 AM [facility] Sputum Both anterior nares / Unknown Non-blood Collection / Unknown 05/13/2024 10:39 PM EST 05/13/2024 11:22 PM [facility] - 05/14/2024 12:13 AM EST Testing was performed using the flaveit Respiratory Pathogen PCR Assay. All results must [...] that are below the limit of detection. us Valerie CRAWFORD LAB MICROBIOLOGY - GENERAL OR DERABLES Final Result Performing Organization Address [facility]/ZIP Co de Phone Number [facility] [address] [place] [address], [place] [phone] * B-type natriuretic peptide (05/13/2024 10:39 PM EST) [facility] BNP 90 <=100 pcg/mL LAB CHEMISTRY METHOD 05/13/2024 11:53 PM EST [facility] Blood Venous blood specimen / Unknown Venipuncture / Unknown 05/13/2024 10:39 PM EST 05/13/2024 11:21 PM EST us Valerie CRAWFORD LAB BLOOD ORDERABLES Final Re sult Performing Organization Address [facility]/ZIP Co de Phone Number [facility] [address] [place] [address], [place] [phone] * (ABNORMAL) Troponin I high sensitivity (NOW and then in 1 hour) (05/13/2024 10:39 PM EST) [facility] High Sensitivity Troponin I 141(HH) <=54 ng/L LAB CHEMISTRY METHOD 05/14/2024 12:00 AM EST [facility] Blood Venous blood specimen / Unknown Venipuncture / Unknown 05/13/2024 10:39 PM EST 05/13/2024 11:21 PM EST Narrative [facility] - 05/14/2024 12:00 AM EST High levels of biotin in samples may falsely decrease hsTroponin values. ??Use caution when interpreting hsTroponin results in patients taking biotin who exhibit renal impairment (eGFR <60) or in patients taking more than 20 mg/day of biotin. us Valerie CRAWFORD LAB BLOOD ORDERABLES Final Re sult [facility] [address] [place] [address], * CBC auto differential (05/13/2024 10:39 PM EST) WBC 21.6 K/mcL 05/14/2024 12:19 AM EST [facility] RBC 3.48 M/mcL 05/14/2024 12:19 AM EST [facility] Hemoglobin 11.8 g/dL 05/14/2024 12:19 AM EST [facility] Hematocrit 36.5 % 05/14/2024 12:19 AM [facility] MCV 104.9 FL 05/14/2024 12:19 AM [facility] MCH 33.9 pcg 05/14/2024 12:19 AM [facility] MCHC 32.3 g/dL 05/14/2024 12:19 AM [facility] RDW 14.5 % 05/14/2024 12:19 AM [facility] Platelets 310 K/mcL 05/14/2024 12:19 AM [facility] MPV 10.6 FL 05/14/2024 12:19 AM EST [facility] NRBC 0.0 % 05/14/2024 12:19 AM [facility] NRBC Absolute 0.00 K/mcL 05/14/2024 12:19 AM [facility] Blood Venous blood specimen / Unknown Venipuncture / Unknown 05/13/2024 10:39 PM EST 05/13/2024 11:21 PM EST us Gamaliel CRAWFORD LAB BLOOD ORDERABLES Final R esult [facility] ([facility]) [facility] [address] [place] [address], * [place] CRITICAL CARE 30-74 MINUTES (05/13/2024 9:48 PM EST) Narrative Jose Ennis, DO - 05/13/2024 9:48 PM EST YVETTE Dlay ? 05/14/2024 ??3:24 AM Critical Care Performed by: YVETTE Daly Authorized by: Allison Reveles, ?? Critical care provider statement: ??Critical care [...] ?Care discussed with: admitting provider ?? Allison Reveles DO IN CLINIC/BEDSIDE ORDERAB LES Final Result documented in this encounter Visit Diagnoses Diagnosis NSTEMI (non-ST elevated myocardial infarction) (CMS/HCC)- Primary Acute myocardial infarction, subendocardial infarction, episode of care unspecified NSTEMI (non-ST elevated myocardial infarction) (CMS/HCC) Acute myocardial infarction, subendocardial infarction, episode of care unspecified Cardiomyopathy, nonischemic (CMS/HCC) Other primary cardiomyopathies Hyperlipidemia, unspecified Paroxysmal atrial fibrillation (CMS/HCC) Atrial fibrillation documented in this encounter Admitting Diagnoses Diagnosis NSTEMI (non-ST elevated myocardial infarction) (CMS/HCC) Acute myocardial infarction, subendocardial infarction, episode of care unspecified documented in this encounter Administered Medications Inactive Administered Medications - up to 3 most recent administrations Medication Order MAR Action Action Date Dose Rate Site acetaminophen (TYLENOL) tablet 650 mg 650 mg, oral, Every 6 hours PRN, moderate pain, Starting on Sat05/15/24 at 0829 Given 05/15/2024 9:27 PM EST 650 mg Given 05/15/2024 8:34 AM EST 650 mg albumin human 25 % infusion 25 g 25 g, intravenous, Once, On Sat05/15/24 at 1345, For 1 dose, Do not exceed 1 mL/minute in patients with normal plasma volume; 3 mL/minute in patients with hypoproteinemia., Indications: hypovolemic shockIndications:hypovolemic shock New Bag 05/15/2024 1:54 PM EST 25 g albumin human 25 % infusion 25 g 25 g, intravenous, Every 1 hour, First dose on Sat05/18/24 at 0130, For 3 doses, FOR HYPOVOLEMIC SHOCK: Infuse 5% Albumin as rapidly as tolerated (500 mL over 1 - 2 hr) or (250 mL over 30 - 60 min), as blood volume approaches normal then infusion rate should not exceed 1 mL/min. Infusing too rapidly may cause vascular overload which may lead to pulmonary edema or cardiac failure. ROUTINE REPLACEMENT: (non-critical) Infuse 5% or 25% Albumin @ 100 mL/hr for routine albumin replacement in non-critical situations. Faster infusion rates are appropriate for hypovolemic shock (see above). ADMINISTRATION NOTE: A 15-micron filter is only required for Buminate; however, filters are NOT required for all other brands (Albuked, Albuminar, Albuminex, AlbuRx, Albutein, Flexbumin, Kedbumin, Plasbumin). Do not exceed 1 mL/minute in patients with normal plasma volume; 3 mL/minute in patients with hypoproteinemia., Indications: hypovolemic shock, hypotensionIndications:hypovolemic shock,hypotension New Bag 2024 3:19 AM EST 25 g New Bag 2024 2:17 AM EST 25 g New Bag 2024 1:17 AM EST 25 g albuterol 2.5 mg /3 mL (0.083 %) nebulizer solution 2.5 mg 2.5 mg, nebulization, Once, On Sat05/14/24 at 0317, For 1 dose Given 05/14/2024 3:28 AM EST 2.5 mg albuterol 2.5 mg /3 mL (0.083 %) nebulizer solution 5 mg 5 mg, nebulization, Once, On Sat05/13/24 at 2214, For 1 dose Given 05/13/2024 10:18 PM EST 5 mg apixaban (ELIQUIS) tablet 2.5 mg 2.5 mg, oral, 2 times daily, First dose on Sat05/16/24 at 2100, Indication: Atrial Fibrillation, On hold since Sat2024 at 1418 until manually unheld Given 2024 9:21 AM EST 2.5 mg Given 05/17/2024 8:36 PM EST 2.5 mg Given 05/17/2024 8:42 AM EST 2.5 mg aspirin chewable tablet 324 mg 324 mg, oral, Once, On Sat05/14/24 at 0237, For 1 dose Given 05/14/2024 2:52 AM EST 324 mg aspirin EC tablet 81 mg 81 mg, oral, Daily, First dose on Sat05/15/24 at 0900, Do not crush, chew, or split. Given 05/19/2024 9:54 AM EST 81 mg Given 2024 9:22 AM EST 81 mg Given 05/17/2024 8:42 AM EST 81 mg atorvastatin (LIPITOR) tablet 80 mg 80 mg, oral, Daily, First dose on Sat05/14/24 at 0900 Given 05/19/2024 9:54 AM EST 80 mg Given 2024 9:22 AM EST 80 mg Given 05/17/2024 8:42 AM EST 80 mg benzonatate (TESSALON) capsule 100 mg 100 mg, oral, 3 times daily, First dose on Sat05/15/24 at 1400, Do not crush or chew. Given 05/19/2024 2:55 PM EST 1 00 mg Given 05/19/2024 9:54 AM EST 100 mg Given 2024 8:41 PM EST 100 mg budesonide (PULMICORT) 1 mg/2 mL nebulizer solution 1 mg 1 mg, nebulization, 2 times daily, First dose on Sat05/14/24 at 0556, Rinse mouth with water after use to reduce aftertaste and incidence of candidiasis. Do not swallow. Given 05/19/2024 7:08 AM EST 1 mg Given 2024 8:10 PM EST 1 mg Given 2024 8:18 AM EST 1 mg doxepin (SINEquan) capsule 25 mg 25 mg, oral, Nightly, First dose on Sat05/14/24 at 2100 Given 2024 8:41 PM EST 25 mg Given 05/17/2024 8:36 PM EST 25 mg Given 05/16/2024 8:26 PM EST 25 mg fentaNYL (PF) (SUBLIMAZE) injection 25 mcg 25 mcg, intravenous, Once, On Sat05/13/24 at 2214, For 1 dose Given 05/13/2024 10:19 PM EST 25 mcg folic acid (FOLVITE) tablet 1 mg 1 mg, oral, Daily, First dose on Sat05/14/24 at 0900 Given 05/19/2024 9:54 AM EST 1 mg Given 2024 9:22 AM EST 1 mg Given 05/17/2024 8:42 AM EST 1 mg formoterol (PERFOROMIST) 20 mcg/2 mL nebulizer solution 20 mcg 20 mcg, nebulization, 2 times daily, First dose on Sat05/14/24 at 0556 Given 05/19/2024 7:08 AM EST 20 mcg Given 2024 8:10 PM EST 20 mcg Given 2024 8:18 AM EST 20 mcg gabapentin (NEURONTIN) capsule 300 mg 300 mg, oral, 2 times daily, First dose on Sat05/14/24 at 1324 Given 05/19/2024 9:54 AM EST 300 mg Given 2024 8:41 PM EST 300 mg Given 2024 9:21 AM EST 300 mg guaiFENesin (MUCINEX) 12 hr tablet 600 mg 600 mg, oral, Every 12 hours scheduled, First dose on Sat05/15/24 at 2100, Administer with plenty of fluids to ensure proper action. Do not crush, chew, or split. Given 05/17/2024 8:43 AM EST 600 mg Given 05/16/2024 8:26 PM EST 600 mg Given 05/16/2024 8:58 AM EST 600 mg guaiFENesin-codeine (ROBITUSSIN-AC) 100-10 mg/5 mL syrup 10 mL 10 mL, oral, Every 6 hours, First dose on Sat05/17/24 at 1245 Given 05/19/2024 12:33 PM EST 10 mL Given 05/19/2024 6:29 AM EST 10 mL Given 2024 8:42 PM EST 10 mL heparin (UFH) bolus from infusion 1,788 Units 1,788 Units (30 Units/kg ? 59.6 kg), intravenous, Every 6 hours PRN, Per current Anti-Xa result, Starting on Tiffany 05/14/24 at 1830, Bolus from infusion. Suggested bolus infusion time is over 10 minutes., Indication: Treatment of Cardiac / ACS Bolus from Bag 05/15/2024 11:23 AM EST 1,788 Units heparin (UFH) bolus from infusion 3,576 Units 3,576 Units (60 Units/kg ? 59.6 kg), intravenous, Once, On Tiffany 05/14/24 at 0505, For 1 dose, *Initial bolus for patients LESS than 66.6 kg* *Maximum dose 4000 units* Bolus from infusion. Suggested bolus infusion time is over 10 minutes., Indication: Treatment of Cardiac / ACS Bolus from Bag 05/14/2024 5:50 AM EST 3,576 Units heparin infusion 100 units/mL in D5W 12 Units/kg/hr ? 59.6 kg (7.152 mL/hr, rounded to 7.2 mL/hr), intravenous, Continuous, Starting on Tiffany 05/14/24 at 0505 Rate/Dose Change 05/14/2024 8:55 AM EST 15 Units/kg/hr 8.9 mL/hr New Bag 05/14/2024 5:43 AM EST 12 Units/kg/hr 7.2 mL/hr Right Forearm heparin infusion 100 units/mL in D5W 9 Units/kg/hr ? 59.6 kg (5.364 mL/hr, rounded to 5.4 mL/hr), intravenous, Continuous, Starting on Tiffany 05/14/24 at 1432 New Bag 05/15/2024 11:25 AM EST 9 Units/kg/hr 5.4 mL/hr Rate/Dose Verify 05/15/2024 4:54 AM EST 7.047 Units/kg/hr 4.2 mL/hr Rate/Dose Verify 05/15/2024 2:40 AM EST 7.047 Units/kg/hr 4.2 mL/hr ipratropium (ATROVENT) 0.02 % nebulizer solution 0.5 mg 0.5 mg, nebulization, Once, On Sat05/13/24 at 2214, For 1 dose, Give with albuterol if concurrently ordered. Given 05/13/2024 10:18 PM EST 0.5 mg ipratropium-albuteroL (DUONEB) 0.5-2.5 mg/3 mL nebulizer solution 3 mL 3 mL, nebulization, Every 6 hours PRN, wheezing, shortness of breath, Starting on Sat05/14/24 at 0554 Given 05/15/2024 3:55 AM EST 3 mL Given 05/14/2024 8:05 AM EST 3 mL ipratropium-albuteroL (DUONEB) 0.5-2.5 mg/3 mL nebulizer solution 3 mL 3 mL, nebulization, 4 times daily, First dose on Sat05/14/24 at 0800 Given 05/19/2024 3:26 PM EST 3 mL Given 05/19/2024 11:13 AM EST 3 mL Given 05/19/2024 7:08 AM EST 3 mL isosorbide mononitrate (IMDUR) 24 hr tablet 30 mg 30 mg, oral, Daily, First dose on Sat05/15/24 at 1830, Do not crush or chew. Given 05/19/2024 9:54 AM EST 30 mg Given 2024 9:21 AM EST 30 mg Given 05/17/2024 8:42 AM EST 30 mg LORazepam (ATIVAN) injection 0.5 mg 0.5 mg, intravenous, Once, On Sat05/14/24 at 0318, For 1 dose, Prior to IV use, lorazepam injection should be DILUTED with an equal volume of compatible solution; Rate of administration should NOT exceed 2 mg/min. Given 05/14/2024 3:37 AM EST 0 .5 mg methylPREDNISolone sodium succ (SOLU-Medrol) injection 40 mg 40 mg, intravenous, Every 6 hours scheduled, First dose on Sat05/14/24 at 0628, For 5 days, Reconstitute each 40 mg vial with 1 mL sterile water for injection to a concentration of 40 mg/mL. Given 05/17/2024 5:44 AM EST 40 mg Given 05/16/2024 11:56 PM EST 40 mg Given 05/16/2024 5:40 PM EST 40 mg metoprolol tartrate (LOPRESSOR) tablet 25 mg 25 mg, oral, 2 times daily, First dose on Sat05/14/24 at 0900 Given 05/19/2024 9:55 AM EST 25 mg Given 2024 8:41 PM EST 25 mg Given 2024 9:22 AM EST 25 mg morphine 2 mg/mL injection 2 mg 2 mg, intravenous, Once, On Sat05/14/24 at 1749, For 1 dose, Obtain vital signs prior to administration and document. Hold if SBP <110,RR<12, Lethargy/Somnolence Given 05/14/2024 6:08 PM EST 2 mg nitroglycerin (NITROSTAT) SL tablet 0.4 mg 0.4 mg, sublingual, Every 5 min PRN, chest pain, Starting on Sat05/14/24 at 2148, Give every 5 minutes as needed for chest pain to a maximum of 3 doses. Notify MD to obtain an order for an EKG if no relief after 3 doses or chest pain recurs. HOLD and notify MD if SBP less than 90 mmHg. Do not give if nitroglycerin infusion running concurrently. Do not give within 24 hours of sildenafil citrate (Viagra) or vardenafil (Levitra) use, or within 48 hours of tadalafil (Cialis) use. Given 05/15/2024 6:0 5 PM EST 0.4 mg Given 05/15/2024 5:48 PM EST 0.4 mg Given 05/14/2024 10:07 PM EST 0.4 mg pantoprazole (PROTONIX) EC tablet 40 mg 40 mg, oral, Every morning before breakfast, First dose on Sat05/14/24 at 0740, Give on an empty stomach Do not crush, chew, or split. Given 2024 6:43 AM EST 40 mg Given 05/17/2024 8:43 AM EST 40 mg Given 05/16/2024 5:48 AM EST 40 mg pantoprazole (PROTONIX) EC tablet 40 mg 40 mg, oral, 2 times daily before meals, First dose (after last modification) on Sat05/19/24 at 0730, Give on an empty stomach Do not crush, chew, or split. Given 05/19/2024 3:31 PM EST 40 mg Given 05/19/2024 6:30 AM EST 40 mg perflutren lipid microsphere (DEFINITY) 1.3 mL in sodium chloride 0.9% 8.7 mL injection 10 mL, intravenous, Administer over 10 Minutes, Once in imaging, Starting on Sat05/15/24 at 1009, For 1 dose, CV Medication Orders Given 05/15/2024 10:09 AM EST 2 mL predniSONE (DELTASONE) tablet 40 mg 40 mg, oral, Daily, First dose (after last modification) on Tu05/19/24 at 0900 Given 05/19/2024 9:54 AM EST 40 mg predniSONE (DELTASONE) tablet 50 mg 50 mg, oral, Daily, First dose on Sat05/18/24 at 0900 Given 2024 9:21 AM EST 50 mg pregabalin (LYRICA) capsule 150 mg 150 mg, oral, Daily, First dose on Sat05/14/24 at 2100 Given 05/19/2024 9:54 AM EST 150 mg Given 2024 9:22 AM EST 150 mg Given 05/17/2024 8:42 AM EST 150 mg sodium chloride 0.9 % bolus 250 mL 250 mL, intravenous, at 250 mL/hr, Administer over 1 Hours, Once, On Sat05/15/24 at 1215, For 1 dose New Bag 05/15/2024 12:02 PM EST 250 mL 250 mL/hr documented in this encounter Discontinued Medications Medication Sig Discontinue Reason Start Date End Da te gabapentin (NEURONTIN) 300 mg capsule Take 1 capsule (300 mg total) by mouth 2 (two) times a day. Entered in Error 05/14/2024 ipratropium-albutero L (DUONEB) 0.5-2.5 mg/3 mL nebulizer solution Take 3 mL by nebulization every 4 (four) hours while awake. Entered in Error 03/24/2024 05/14/2024 guaiFENesin (Mucinex) 600 mg 12 hr tablet Take 2 tablets (1,200 mg total) by mouth 2 (two) times a day if needed for cough or congestion. Do not crush, chew, or split. Entered in Error 04/20/2024 05/14/2024 fexofenadine (MANSI) 180 mg tablet Take 1 tablet (180 mg total) by mouth 1 (one) time each day if needed (cough). Entered in Error 04/20/2024 05/14/2024 cyanocobalamin (VITAMIN B-12) 1,000 mcg tablet Take 1 tablet (1,000 mcg total) by mouth 1 (one) time each day. Entered in Error 05/12/2018 05/14/2024 calcium carbonate-vitamin D3 500 mg-3.125 mcg (125 unit) tablet per tabelt Take 500 mg by mouth 1 (one) time each day. Entered in Error 05/14/2024 benzonatate (TESSALON) 100 mg capsule Take 1 capsule (100 mg total) by mouth 3 (three) times a day if needed for cough. Do not crush or chew. Entered in Error 04/20/2024 05/14/2024 metoprolol tartrate (LOPRESSOR) 25 mg tablet Take 1 tablet (25 mg total) by mouth 2 (two) times a day. Stop Taking at Discharge 09/10/2023 05/19/2024 omeprazole (PriLOSEC) [address] capsule TAKE 1 CAPSULE BY MOUTH EVERY DAY Stop Taking at Discharge 2024 05/19/2024 documented as of this encounter Historical Medications * This list may reflect changes made after this encounter. furosemide (LASIX) 20 mg tablet Take 1 tablet (20 mg total) by mouth 1 (one) time each day. gabapentin (NEURONTIN) 300 mg capsule Take 1 capsule (300 mg total) by mouth 2 (two) times a day. 05/14/2024 added in this encounter Active and Recently Administered Medications Times are shown in EST. Scheduled Medication Order 05/17/2024 2024 05/19/2024 albumin human 25 % infusion 25 g (COMPLETED) 25 g, intravenous, Every 1 hour, First dose on Sat05/18/24 at 0130, For 3 doses, FOR HYPOVOLEMIC SHOCK: Infuse 5% Albumin as rapidly as tolerated (500 mL over 1 - 2 hr) or (250 mL over 30 - 60 min), as blood volume approaches normal then infusion rate should not exceed 1 mL/min. Infusing too rapidly may cause vascular overload which may lead to pulmonary edema or cardiac failure. ROUTINE REPLACEMENT: (non-critical) Infuse 5% or 25% Albumin @ 100 mL/hr for routine albumin replacement in non-critical situations. Faster infusion rates are appropriate for hypovolemic shock (see above). ADMINISTRATION NOTE: A 15-micron filter is only required for Buminate; however, filters are NOT required for all other brands (Albuked, Albuminar, Albuminex, AlbuRx, Albutein, Flexbumin, Kedbumin, Plasbumin). Do not exceed 1 mL/minute in patients with normal plasma volume; 3 mL/minute in patients with hypoproteinemia., Indications: hypovolemic shock, hypotension 0117 (New Bag - Provider: Teresa Gonzales RN)0217 (New Bag - Provider: Luli Soto RN)0319 (New Bag - Provider: Teresa Gonzales RN) apixaban (ELIQUIS) tablet 2.5 mg (CANCELED) 2.5 mg, oral, 2 times daily, First dose on Sat05/16/24 at 2100, Indication: Atrial Fibrillation, On hold since Sat2024 at 1418 until manually unheld 0842 (Given - Provider: Mecca Lin RN)2035 (Given - Provider: Teresa Gonzales RN) 0921 (Given - Provider: Nimisha Tran RN)1418 (Held by provider - Provider: Kym Angulo MD - Reason: Other)2100 (Dose Auto Held - Provider: Kym Angulo MD) 0900 (Dose Auto Held - Provider: Kym Angulo MD)1424 (Unheld by provider - Provider: Kym Angulo MD) aspirin EC tablet 81 mg 81 mg, oral, Daily, First dose on 05/15/24 at 0900, Do not crush, chew, or split. 0842 (Given - Provider: Mecca Lin RN) 0922 (Given - Provider: Nimisha Tran RN) 0954 (Given - Provider: Nimisha Tran RN) atorvastatin (LIPITOR) tablet 80 mg 80 mg, oral, Daily, First dose on Tiffany 05/14/24 at 0900 0842 (Given - Provider: Mecca Lin RN) 0922 (Given - Provider: Nimisha Tran RN) 0954 (Given - Provider: Nimisha Tran RN) benzonatate (TESSALON) capsule 100 mg 100 mg, oral, 3 times daily, First dose on Sat05/15/24 at 1400, Do not crush or chew. 0842 (Given - Provider: Mecca Lin RN)1403 (Given - Provider: Mecca Lin RN)2035 (Given - Provider: Teresa Gonzales RN) 0921 (Given - Provider: Nimisha Tran RN)1453 (Given - Provider: Nimisha Tran RN)2040 (Given - Provider: Alysia Napier, MU) 0954 (Given - Provider: Nimisha Tran RN)1455 (Given - Provider: Nimisha Tran RN) budesonide (PULMICORT) 1 mg/2 mL nebulizer solution 1 mg 1 mg, nebulization, 2 times daily, First dose on Tiffany 05/14/24 at 0556, Rinse mouth with water after use to reduce aftertaste and incidence of candidiasis. Do not swallow. 0736 (Given - Provider: Ly Godinez)1999 (Given - Provider: Miri Barth) 0818 (Given - Provider: Valentina Hook)2009 (Given - Provider: Deanne Garcia) 07 (Given - Provider: Mel Butts) doxepin (SINEquan) capsule 25 mg 25 mg, oral, Nightly, First dose on Tiffany 05/14/24 at 2100 2035 (Given - Provider: Teresa Gonzales RN) 2040 (Given - Provider: Alysia Napier, MU) folic acid (FOLVITE) tablet 1 mg 1 mg, oral, Daily, First dose on Tiffany 05/14/24 at 0900 0842 (Given - Provider: Mecca Lin RN) 0922 (Given - Provider: Nimisha Tran RN) 0954 (Given - Provider: Nimisha Tran RN) formoterol (PERFOROMIST) 20 mcg/2 mL nebulizer solution 20 mcg 20 mcg, nebulization, 2 times daily, First dose on Tiffany 25 at 0556 0736 (Given - Provider: Ly Godinez)2019 (Given - Provider: Miri Barth) 0818 (Given - Provider: Valentina Hook)2010 (Given - Provider: Deanne Garcia) 0708 (Given - Provider: Mel Butts) gabapentin (NEURONTIN) capsule 300 mg 300 mg, oral, 2 times daily, First dose on Tiffany 05/14/24 at 1324 0842 (Given - Provider: Mecca Lin, MU)2036 (Given - Provider: Teresa Gonzales RN) 0921 (Given - Provider: Nimisha Tran, MU)204 (Given - Provider: Alysia Napier, MU) 0954 (Given - Provider: Nimisha Tran RN) guaiFENesin (MUCINEX) 12 hr tablet 600 mg (CANCELED) 600 mg, oral, Every 12 hours scheduled, First dose on Sat05/15/24 at 2100, Administer with plenty of fluids to ensure proper action. Do not crush, chew, or split. 0843 (Given - Provider: Mecca Lin RN) guaiFENesin-codeine (ROBITUSSIN-AC) 100-10 mg/5 mL syrup 10 mL 10 mL, oral, Every 6 hours, First dose on Sat05/17/24 at 1245 1403 (Given - Provider: Mecca Lin, MU)2036 (Given - Provider: Teresa Gonzales, MU) 0119 (Given - Provider: Teresa Gonzales RN)0643 (Given - Provider: Teresa Gonzales RN)1453 (Given - Provider: Nimisha Tran, MU)2042 (Given - Provider: Alysia Napier, MU) 0230 (Not Given - Provider: Alysia Napier RN - Reason: Patient/Resident/Age nt refused - education provided )0629 (Given - Provider: Lou Abbott RN)1233 (Given - Provider: Nimisha Tran RN) ipratropium-albuteroL (DUONEB) 0.5-2.5 mg/3 mL nebulizer solution 3 mL 3 mL, nebulization, 4 times daily, First dose on Sat05/14/24 at 0800 0736 (Given - Provider: Ly Godinez)1253 (Given - Provider: Ly Godinez)1558 (Given - Provider: Miri Barth)1957 (Given - Provider: Miri Barth) 0820 (Given - Provider: Valentina Hook)1225 (Given - Provider: Valentina Hook)1607 (Given - Provider: Deanne Garcia)2010 (Given - Provider: Deanne Garcia) 0708 (Given - Provider: Mel Butts)1113 (Given - Provider: Mel Butts)1526 (Given - Provider: Valentina Hook) isosorbide mononitrate (IMDUR) 24 hr tablet 30 mg 30 mg, oral, Daily, First dose on Sat05/15/24 at 1830, Do not crush or chew. 0842 (Given - Provider: Mecca Lin RN) 0921 (Given - Provider: Nimisha Tran RN) 0954 (Given - Provider: Nimisha Tran RN) methylPREDNISolone sodium succ (SOLU-Medrol) injection 40 mg (CANCELED) 40 mg, intravenous, Every 6 hours scheduled, First dose on Sat05/14/24 at 0628, For 5 days, Reconstitute each 40 mg vial with 1 mL sterile water for injection to a concentration of 40 mg/mL. 0544 (Given - Provider: Jennifer Hendricks RN)1301 (Not Given - Provider: Mecca Lin RN - Reason: See Provider Order) metoprolol tartrate (LOPRESSOR) tablet 25 mg 25 mg, oral, 2 times daily, First dose on Sat05/14/24 at 0900 0842 (Given - Provider: Mecca Lin RN)203 (Given - Provider: Teresa Gonzales RN) 0922 (Given - Provider: Nimisha Tran RN)204 (Given - Provider: Alysia Napier RN) 0955 (Given - Provider: Nimisha Tran RN) pantoprazole (PROTONIX) EC tablet 40 mg (CANCELED) 40 mg, oral, Every morning before breakfast, First dose on Sat05/14/24 at 0740, Give on an empty stomach Do not crush, chew, or split. 0843 (Given - Provider: Mecca Lin RN) 0643 (Given - Provider: Teresa Gonzales RN) pantoprazole (PROTONIX) EC tablet 40 mg 40 mg, oral, 2 times daily before meals, First dose (after last modification) on Sat05/19/24 at 0730, Give on an empty stomach Do not crush, chew, or split. 0630 (Given - Provider: Lou Abbott RN)1531 (Given - Provider: Nimisha Tran RN) predniSONE (DELTASONE) tablet 40 mg 40 mg, oral, Daily, First dose (after last modification) on Sat05/19/24 at 0900 0954 (Given - Provider: Nimisha Tran RN) predniSONE (DELTASONE) tablet 50 mg (CANCELED) 50 mg, oral, Daily, First dose on Sat05/18/24 at 0900 0921 (Given - Provider: Nimisha Tran RN) pregabalin (LYRICA) capsule 150 mg 150 mg, oral, Daily, First dose on Sat05/14/24 at 2100 0842 (Given - Provider: Mecca Lin RN) 0922 (Given - Provider: Nimisha Tran RN) 0954 (Given - Provider: Nimisha Tran RN) PRN Medication Order 05/17/2024 2024 05/19/2024 acetaminophen (TYLENOL) tablet 650 mg 650 mg, oral, Every 6 hours PRN, moderate pain, Starting on Sat05/15/24 at 0829 ipratropium-albuteroL (DUONEB) 0.5-2.5 mg/3 mL nebulizer solution 3 mL 3 mL, nebulization, Every 6 hours PRN, wheezing, shortness of breath, Starting on Sat05/14/24 at 0554 nitroglycerin (NITROSTAT) SL tablet 0.4 mg 0.4 mg, sublingual, Every 5 min PRN, chest pain, Starting on Sat05/14/24 at 2148, Give every 5 minutes as needed for chest pain to a maximum of 3 doses. Notify MD to obtain an order for an EKG if no relief after 3 doses or chest pain recurs. HOLD and notify MD if SBP less than 90 mmHg. Do not give if nitroglycerin infusion running concurrently. Do not give within 24 hours of sildenafil citrate (Viagra) or vardenafil (Levitra) use, or within 48 hours of tadalafil (Cialis) use. documented in this encounter Orders Medications Ordered That Heladio ht Not Have Been Administered Count Last Ordered Date First Ordered Date metoprolol tartrate (LOPRESS OR) injection 5 mg 1 2024 heparin (UFH) bolus from inf usion 1,788 Units 2 05/14/2024 heparin (UFH) bolus from inf usion 3,576 Units 3 05/14/2024 pregabalin (LYRICA) capsule 225 mg 1 2024 sodium chloride 0.9 % infusion 1 05/14/2024 EKG Orders Without Results Count Last Ordered D ate First Ordered Date ECG 12-LEAD 1 05/14/2024 Consult Count Last Ordered Date First Orde red Date POST ACUTE HOME HEALTH CARE REQUEST 1 05/19 IP CONSULT TO CARDIOLOGY 1 05/14/2024 Respiratory Care Count Last Ordered Date First Ordered Date HOME O2 EVAL (DESATURATION SCREEN) 1 2024 OXYGEN THERAPY, ADULT 10 05/18/20242024 Admission Count Last Ordered Date First Orde red Date ADMIT TO INPATIENT 1 05/14/2024 Discharge Count Last Ordered Date First Orde red Date DISCHARGE PATIENT 1 05/19/2024 documented in this encounter Additional Health Concerns Infection Onset Date Last Indicated Resolved Time Respiratory Rule-Out 05/13/2024 05/13/2024 025 12:13 AM EST COVID-19 Rule-Out 05/13/2024 05/13/2024 05/14/2024 12:13 AM EST Respiratory Rule-Out 05/16/2024 05/16/2024 025 5:49 PM EST COVID-19 Rule-Out 05/16/2024 05/16/2024 05/16/2024 5:49 PM EST documented as of this encounter Care Teams Dice Manager Relationship Specialty Start Date End Date Mahin Hall MD [address] [facility] [address] [place] [address] PCP - General Internal Medicine 11/15/13 documented as of this encounter
== END 2024-06-11 12:19 | disposition home or self-care (01) ==
LOC: HO.HKAS 11:35
PROVIDERS: PCP Internal Medicine; Referring Provider Internal Medicine; Visit Provider Internal Medicine Nephrology
DX: N18.32 Chronic kidney disease, stage 3b (principal); I10 Essential (primary) hypertension; E55.9 Vitamin D deficiency, unspecified; D63.1 Anemia in chronic kidney disease
CPT/HCPCS: 99214

== ENCOUNTER 2024-06-11 11:34 | Outpatient (REF) | payer OTHER, SELFPAY ==
[2024-06-11 18:07] LABS: MANUAL DIFF FLAG NO
[2024-06-11 18:33] LABS: Basophils Percent Auto 0.4 % (0-2); Eosinophils Absolute Auto 0.2 X10*3/uL (0.0-0.4); Eosinophils Percent Auto 1.4 % (0-4); Imm Gran Abs Auto 0.08 X10*3/uL (0.00-0.03); Imm Gran Pct Auto 0.8 % (0.0-0.4); Lymphocytes Absolute Auto 3.7 X10*3/uL (1.2-4.9); Lymphocytes Percent Auto 35.6 % (20-40); Mean Corpuscular HGB Conc 31.3 g/dl (31.0-35.0); Mean Corpuscular Hemoglobin 32.4 pg (27.0-33.0); Mean Corpuscular Volume 103.6 fL (80.0-98.0); Mean Platelet Volume 10.9 fL (9.4-12.3); Monocytes Absolute Auto 0.8 X10*3/uL (0.1-1.2); Monocytes Percent Auto 7.6 % (2-11); Neutrophils Absolute Auto 5.7 x10*3/uL (2.0-8.3); Neutrophils Percent Auto 54.2 % (45-73); Platelet Count 291 X10*3/uL (160-400); Red Blood Count 3.09 X10*6/uL (4.20-5.50); Red Cell Distribution Width 14.7 % (11.0-16.0); White Blood Count 10.5 X10*3/uL (4.8-10.8)
[2024-06-11 18:44] LABS: Anion Gap 13 (12-20); Blood Urea Nitrogen 37 mg/dL (9-16); Calcium 9.4 mg/dL (8.4-10.2); Carbon Dioxide 26 mmol/L (22-29); Chloride 107 mmol/L (96-108); Estimated Glomerular Filt Rate 30; Iron 94 mcg/dL (30-160); Percent Iron Saturation 40 % (15-50); Phosphorus 3.7 mg/dL (2.7-4.5); Potassium 4.4 mmol/L (3.3-5.1); Sodium 142 mmol/L (135-145); Total Iron Binding Capacity 235 mcg/dL (228-428); Unsaturated Iron Binding 141 ug/dL
[2024-06-11 19:01] LABS: Ferritin 277 ng/mL (10-250)
[2024-06-11 19:11] LABS: Creatinine Urine 78.16 mg/dL; Total Protein Urine Random < 7 mg/dL (<12)
[2024-06-11 19:15] LABS: Parathyroid Hormone Intact 97.9 pg/mL (8.7-77.1)
[2024-06-16 12:09] LABS: IgA 216 mg/dL (70-320); IgG 613 mg/dL (600-1540); IgM 32 mg/dL (50-300)
[2024-06-16 13:59] LABS: Myeloperoxidase Antibody <1.0 AI; Proteinase 3 PR3 Antibodies <1.0 AI
== END 2024-06-11 11:35 | disposition home or self-care (01) ==
LOC: HO.HKASLDS 11:34
PROVIDERS: PCP Internal Medicine; Referring Provider Internal Medicine; Visit Provider Internal Medicine Nephrology
DX: N18.32 Chronic kidney disease, stage 3b (principal); I12.9 Hypertensive chronic kidney disease with stage 1 through stage 4 chronic kidney disease, or unspecified chronic kidney disease; E55.9 Vitamin D deficiency, unspecified; D63.1 Anemia in chronic kidney disease
CPT/HCPCS: 36415; 80051; 82306; 82310; 82565; 82570; 82728; 82784; 83540; 83970; 84100; 84156; 84520; 85025; 86021; 86334; 99212

== ENCOUNTER 2024-06-24 13:49 | Outpatient (REF) | payer OTHER, SELFPAY ==
--- NOTE | ~2024-06-24 | US_ITS ---
CLINICAL HISTORY: N18.32 - Chronic kidney disease, stage 3b US renal Comparison: None Findings: Right kidney 7.9 cm length. No significant focal abnormality. Left kidney 9.1 cm length. No significant focal abnormality. 1.7 cm lower pole cyst. No bilateral hydronephrosis. Normal bilateral renal echogenicity. Impression: No significant abnormalities. This document has been electronically signed by: Butch Snyder MD on 06/24/2024 19:45:55
--- OUTSIDE RECORDS SUMMARY | 2024-06-24 16:32 | XMS_ITS | Encounter Summary ---
Author Organization [facility] Address [address] [place] [address] Care Team Providers Care Report Analyst Name Role Phone Mahin Hall MD Primary Care Provider [phone] Reason for Visit * Reason Onset Date Comments medication update 06/22/2024 Encounter Details Date Type Department Care Team ([facility] st Contact Info) Description 06/22/2024 Telephone [facility] - [facility] [address] [facility] [address] [place] [phone] Humera Pan MD [address] [facility] [address] [place] [address] medication update Social History Tobacco Use Types Packs/Day Years [...] Value Date Recorded Sex Assigned at Female 06/24/2024 3:29 PM EDT Legal Sex Female 10:47 PM EST Gender Identity Female 06/24/2024 3:29 PM EDT Sexual Orientation Straight 06/24/2024 3: 29 PM EDT documented as of this encounter Functional Status * Are you deaf or do you have serious difficulty hearing? Answer Date of Assessment Author No 03/21/2024 8:24 PM Tamiko Castro RN * Are you blind or do [...] documented in this encounter Progress Notes * Kristy Blackmon NP - 06/22/2024 4:03 PM EDT Noted, thank you. * Shameka Huber MA - 06/22/2024 3:59 PM EDT Med list updated * Odalys Caceres - 06/22/2024 3:38 PM EDT The patients daughter called back to update her med list. The patient is not taking pantoprazole orfurosemide. She is taking Omeprazole 40 mg, twice a day/ documented in this encounter Plan of Treatment Upcoming Encounters Date Type Department Care Team (Late st Contact Info) Description 07/27/2024 1:00 PM EDT Office Visit [facility] Hematology Oncology [address] [place] [phone] Kym Soto PA [address] [place] [address] 12/28/2024 2:40 PM EDT Office Visit [facility] [address] [facility] [address] [place] [address] Kristy Blackmon NP [address] [place] [address] documented as of this encounter Visit Diagnoses Not on filedocumented in this encounter Discontinued Medications Medication Sig Discontinue Reason Start Date End Da te pantoprazole (PROTONIX) 40 mg EC tablet Take 1 tablet (40 mg total) by mouth 2 (two) times a day before meals. Do not crush, chew, or split. 05/19/2024 06/22/2024 documented as of this encounter Care Teams Report Analyst Relationship Specialty Start Date End Date Mahin Hall MD 175 [facility] [address] [place] [address] PCP - General Internal Medicine 11/15/13 documented as of this encounter
--- OUTSIDE RECORDS SUMMARY | 2024-06-24 16:32 | XMS_ITS | Encounter Summary ---
Author Organization [facility] Address [address] [place] [address] Care Team Providers Care Commutator Undercutter Name Role Phone Mahin Hall MD Primary Care Provider [phone] Reason for Visit * Reason Comments Shortness of Breath Encounter Details Date Type Department Care Team (Late st Contact Info) Description 06/24/2024 3:04 PM EDT - Present Emergency [facility] Emergency [address] [place] [phone] Blaine Rodriguez, DO [address] [place] [address] Social History Tobacco Use Types Packs/Day Years [...] PM EDT documented as of this encounter Last Filed Vital Signs Vital Sign Reading Time Taken Comments Blood Pressure 109/68 06/24/2024 3:20 PM EDT Pulse 89 06/24/2024 3:20 PM EDT Temperature 36.8 ??C (98.2 ??F) 06/24/2024 3:20 PM ED T Respiratory Rate 20 06/24/2024 3:20 PM EDT Oxygen Saturation 96% 06/24/2024 3:22 PM EDT Inhaled Oxygen Concentration - - Weight 61.7 kg (136 lb) 06/24/2024 2:36 PM EDT Height 149.9 cm (4' 11 ) 06/24/2024 2:36 PM EDT Body Mass Index 27.47 06/24/2024 2:36 PM EDT documented in this encounter Functional Status * [...] documented in this encounter Progress Notes * Anne Santos RN - 06/24/2024 2:35 PM EDT Pt coming in for SOB since yesterday, pt has history of COPD and tried using her inhalers at home with no relief documented in this encounter Plan of Treatment Upcoming Encounters Date Type Department Care Team (Late st Contact Info) Description 07/27/2024 1:00 PM EDT Office Visit [facility] Hematology Oncology [address] [place] [phone] Kym Soto PA [address] [place] [address] 12/28/2024 2:40 PM EDT Office Visit [facility] - [address] [place] [address] Kristy Blackmon NP [address] [place] [address] Pending Results Name Type Priority Associated Diagnoses Date /Time ECG 12 lead ECG STAT 06/24/2024 2: 51 PM EDT Troponin I high sensitivity Lab STAT 06/24/2024 3:30 PM EDT Respiratory virus panel molecular study Microbiology STAT 06/24/2024 3:37 PM EDT Scheduled Orders Name Type Priority Associated Diagnoses Order Schedule XR Chest 2 Views Imaging STAT Once for 1 Occurrences starting 06/24/2024 until 06/24/2024 Oxygen Therapy, Adult - Device: Nasal Cannula Respiratory Care STAT Continuous unti l discontinued starting 06/24/2024 Troponin I high sensitivity Lab STAT Every 1 hour for 2 Occurrences starting 06/24/2024 until 06/24/2024 Respiratory virus panel molecular study Microbiology STAT Once for 1 Occurrences starting 06/24/2024 until 06/24/2024 documented as of this encounter Procedures * The patient is currently admitted. The information in this section might not be complete until the patient is discharged. Procedure Name Priority Date/Time Associated Diagnosis Comments CBC WITH AUTO DIFFERENTIAL STAT 06/24/2024 2:55 PM EDT CBC AND DIFFERENTIAL STAT 06/24/2024 2:55 PM EDT BASIC METABOLIC PANEL STAT 06/24/2024 2:55 PM EDT ECG 12-LEAD STAT 06/24/2024 2:51 PM EDT documented in this encounter Results * (ABNORMAL) CBC auto differential (06/24/2024 2:55 PM EDT) [facility] WBC 12.3(H) 4.8 - 10.8 K/mcL LAB HEMETOLOGY METHOD 06/24/2024 3:29 PM EDT [facility] RBC 3.20(L) 3.80 - 4.80 M/mcL LAB HEMETOLOGY METHOD 06/24/2024 3:29 PM EDT [facility] Hemoglobin 10.7(L) 11.5 - 16.0 g/dL LAB HEMETOLOGY METHOD 06/24/2024 3:29 PM EDT [facility] Hematocrit 33.2(L) 35.0 - 47.0 % LAB HEMETOLOGY METHOD 06/24/2024 3:29 PM EDT [facility] MCV 102.8(H) 79.0 - 98.0 FL LAB HEMETOLOGY METHOD 06/24/2024 3:29 PM EDT [facility] MCH 33.1(H) 27.0 - 32.0 pcg LAB HEMETOLOGY METHOD 06/24/2024 3:29 PM EDT [facility] MCHC 32.2 32.0 - 37.0 g/dL LAB HEMETOLOGY METHOD 06/24/2024 3:29 PM EDT [facility] RDW 14.5 11.0 - 15.0 % LAB HEMETOLOGY METHOD 06/24/2024 3:29 PM EDT [facility] Platelets 198 130 - 400 K/mcL LAB HEMETOLOGY METHOD 06/24/2024 3:29 PM EDT [facility] MPV 11.1(H) 7.0 - 11.0 FL LAB HEMETOLOGY METHOD 06/24/2024 3:29 PM EDT [facility] NRBC 0.0 <1.0 % LAB HEMETOLOGY METHOD 06/24/2024 3:29 PM [facility] NRBC Absolute 0.00 <0.10 K/mcL LAB HEMETOLOGY METHOD 06/24/2024 3:29 PM [facility] Neutrophils Relative 70.3 % LAB HEMETOLOGY METHOD 06/24/2024 3:29 PM [facility] Lymphocytes Relative 16.7 % LAB HEMETOLOGY METHOD 06/24/2024 3:29 PM [facility] Monocytes Relative 8.8 % LAB HEMETOLOGY METHOD 06/24/2024 3:29 PM [facility] Eosinophils Relative 3.2 % LAB HEMETOLOGY METHOD 06/24/2024 3:29 PM [facility] Basophils Relative 0.6 % LAB HEMETOLOGY METHOD 06/24/2024 3:29 PM [facility] Immature Granulocytes Relative 0.4 % LAB HEMETOLOGY METHOD 06/24/2024 3:29 PM [facility] Neutrophils Absolute 8.62(H) 1.50 - 7.00 K/mcL LAB HEMETOLOGY METHOD 06/24/2024 3:29 PM [facility] Lymphocytes Absolute 2.05 1.00 - 5.00 K/mcL LAB HEMETOLOGY METHOD 06/24/2024 3:29 PM [facility] Monocytes Absolute 1.08(H) 0.20 - 1.00 K/mcL LAB HEMETOLOGY METHOD 06/24/2024 3:29 PM [facility] Eosinophils Absolute 0.39 0.00 - 0.50 K/mcL LAB HEMETOLOGY METHOD 06/24/2024 3:29 PM [facility] Basophils Absolute 0.07 0.00 - 0.20 K/mcL LAB HEMETOLOGY METHOD 06/24/2024 3:29 PM [facility] Immature Granulocytes Absolute 0.05(H) 0.00 - 0.03 K/mcL LAB HEMETOLOGY METHOD 06/24/2024 3:29 PM EDT [facility] Blood Venous blood specimen / Unknown Venipuncture / Unknown 06/24/2024 2:55 PM EDT 06/24/2024 3:23 PM EDT us Jr Mcnamara MD LAB BLOOD ORDERABLES Final Resu lt [facility] [address] [place] [address], [place] [phone] * (ABNORMAL) Basic metabolic panel (06/24/2024 2:55 PM EDT) Sodium 140 133 - 145 mmol/L LAB CHEMISTRY METHOD 06/24/2024 4:14 PM [facility] Potassium 4.3 3.5 - 5.5 mmol/L LAB CHEMISTRY METHOD 06/24/2024 4:14 PM [facility] Chloride 107 96 - 110 mmol/L LAB CHEMISTRY METHOD 06/24/2024 4:14 PM [facility] CO2 29 21 - 32 mmol/L LAB CHEMISTRY METHOD 06/24/2024 4:14 PM [facility] Anion Gap 4 3 - 11 LAB CHEMISTRY METHOD 06/24/2024 4:14 PM [facility] Glucose 129(H) 70 - 100 mg/dL LAB CHEMISTRY METHOD 06/24/2024 4:14 PM [facility] BUN 16 5 - 25 mg/dL LAB CHEMISTRY METHOD 06/24/2024 4:14 PM [facility] Creatinine 1.77(H) 0.50 - 1.10 mg/dL LAB CHEMISTRY METHOD 06/24/2024 4:14 PM [facility] eGFR 30(L) >=60 mL/min/1. 73m2 LAB CHEMISTRY METHOD 06/24/2024 4:14 PM EDT [facility] Comment:Calculation based on the??Chronic Kidney Disease Epidemiology Collaboration (CKD-EPI) equation refit??without adjustment for race. BUN/Creatinine Ratio 9.0 LAB CHEMISTRY METHOD 06/24/2024 4:14 PM EDT [facility] Calcium 9.2 8.5 - 10.5 mg/dL LAB CHEMISTRY METHOD 06/24/2024 4:14 PM EDT [facility] Blood Venous blood specimen / Unknown Venipuncture / Unknown 06/24/2024 2:55 PM EDT 06/24/2024 3:23 PM EDT us Jr Mcnamara MD LAB BLOOD ORDERABLES Final Resu lt [facility] [address] [place] [address], documented in this encounter Visit Diagnoses Not on filedocumented in this encounter Administered Medications Inactive Administered Medications - up to 3 most recent administrations Medication Order MAR Action Action Date Dose Rate Site albuterol 2.5 mg /3 mL (0.083 %) nebulizer solution 2.5 mg 2.5 mg, nebulization, Once, On Sat06/24/24 at 1512, For 1 dose Given 06/24/2024 3:32 PM EDT 2.5 mg ipratropium (ATROVENT) 0.02 % nebulizer solution 0.5 mg 0.5 mg, nebulization, Once, On Sat06/24/24 at 1512, For 1 dose, Give with albuterol if concurrently ordered. Given 06/24/2024 3:32 PM EDT 0.5 mg methylPREDNISolone sodium succ (SOLU-Medrol) injection 125 mg 125 mg, intravenous, Once, On Sat06/24/24 at 1512, For 1 dose, Reconstitute each 125 mg vial with 2 mL sterile water for injection to a concentration of 62.5 mg/mL. Given 06/24/2024 3:33 PM EDT 125 mg documented in this encounter Active and Recently Administered Medications Times are shown in EDT. Scheduled Medication Order 06/22/2024 06/23/2024 06/24/2024 albuterol 2.5 mg /3 mL (0.083 %) nebulizer solution 2.5 mg (COMPLETED) 2.5 mg, nebulization, Once, On Sat06/24/24 at 1512, For 1 dose 1532 (Given - Provid er: Dariana Becker RN) ipratropium (ATROVENT) 0.02 % nebulizer solution 0.5 mg (COMPLETED) 0.5 mg, nebulization, Once, On Sat06/24/24 at 1512, For 1 dose, Give with albuterol if concurrently ordered. 1532 (Given - Provid er: Dariana Becker RN) methylPREDNISolone sodium succ (SOLU-Medrol) injection 125 mg (COMPLETED) 125 mg, intravenous, Once, On Sat06/24/24 at 1512, For 1 dose, Reconstitute each 125 mg vial with 2 mL sterile water for injection to a concentration of 62.5 mg/mL. 1533 (Given - Provid er: Dariana Becker RN) documented in this encounter Orders Nursing Count Last Ordered Date First Orde red Date CARDIAC MONITORING 1 06/24/2024 Isolation Count Last Ordered Date First Orde red Date INITIATE DROPLET ISOLATION 1 06/24/2024 documented in this encounter Additional Health Concerns Infection Onset Date Last Indicated Resolved Time Respiratory Rule-Out 06/24/2024 06/24/2024 COVID-19 Rule-Out 06/24/2024 06/24/2024 documented as of this encounter Care Teams Commutator Undercutter Relationship Specialty Start Date End Date Mahin Hall MD [address] [place] [address] [address] [place] [address] PCP - General Internal Medicine 11/15/13 documented as of this encounter
--- OUTSIDE RECORDS SUMMARY | 2024-06-24 16:32 | XMS_ITS | Clinical Summary ---
Author Organization [employer] Address [address] [place] [address] [address] [place] [address] Care Team Providers Care Miller Supervisor Name Role Phone Unavailable Primary Care Provider [...] 2 Active cholecalciferol (Vitamin D-3) 1.25 MG (21864 UT) capsule Take 1 capsule by mouth. [...] to complete this topic Insurance DENTAL - [facility]
--- OUTSIDE RECORDS SUMMARY | 2024-06-24 16:32 | XMS_ITS | Data Portability ---
Author Organization [place] [employer] [facility] Address [address] [place] [phone] Care Team Providers Care Spring Setter Name Role Phone HIM CCA OTHER Assessment No assessment recorded. Plan of Treatment Reminders Order Date Submit Date Provider Last Modified By Organization Details Last Modified Time Details Appointments None recorded. Lab None recorded. Referral None recorded. Procedures None recorded. Surgeries None recorded. Imaging electrocard iogram [address], [address], 13:41:25 Medication Orders None recorded. Patient TargetsNo targets recorded. Patient InstructionsNo instructions recorded. Reason for Referral None Reported. Results Created Date Observation Date Name Description Value Unit Range Abnormal Flag Note LastModifiedBy Organization Detail LastModifiedTime 10/22/19 24 elect rocar diogr am No observ ation record ed. [address], [address], 10/22/2023 13:41:23 Result Notes None recorded. Procedures Surgical History None recorded. Imaging Results Imaging Date Name Status LastModified by Organization Details LastModified Time 10/22/2023 electrocardiogram completed [address], [address], 10/22/2023 13:41:23 Procedure Notes None recorded. Medical [...] SNOMED-CT Code Diagnosis ICD10 Code Diagnosis Note [id number] Mrata George MD Main - [facility] [address] [place] [phone] 10/22/2023 13:05:49 10/22/2023 15:10:42 Intermittent palpitations [id number] R00.2 Evaluation in the field was performed by my senior systems analyst colleague, as noted above, I provided real-time [...] been taking until 1-2 hr prior to senior systems analyst visit. On senior systems analyst eval VS notable for resting HR 45, [...] Muñoz Member ID Guarantor Name 10/22/2023 1 [facility] - DOS ON OR AFTER 2022 - DUAL ELIGIBLE - CORRECTION OPTIONS AND ONE CARE (MEDICARE REPLACEMENT/ADV ANTAGE - HMO) Teressa Carlos [id number] Teressa Carlos Notes Date Note Type Note [...] s/s and seek emergency treatment if needed. Supervisor Frame Sample And Pattern Organization Information for Dariana Hodge Business Legal Name: [employer]? Address: [address] [place] [address], Airline Counter Agent: Raheel Bell MD CLIA No.: [id number] Supervisor Frame Sample And Pattern POC Test Results from Dariana Hodge EKG (13:28:59) EKG test performed. Reason for missing picture: Left with patient ..................... ..................... ..................... ..................... ..................... ..................... ............... Supervisor Frame Sample And Pattern Note From Dariana Hodge: Dispatched to the [...] ............... Disposition: Fulfilled Marta George MD [address] [facility], [place], [address], SAMMY - PNMsoftGIORGIO YUSUF 10/22/2023 13:42:04 OBGyn Episode No OBEpisode recorded.
--- OUTSIDE RECORDS SUMMARY | 2024-06-24 16:32 | XMS_ITS | Clinical Summary ---
Author Organization [facility] Address [address] [place] [address] Care Team Providers Care International Accountant Name Role Phone Mahin Hall MD Primary [...] as needed for pain. 0 Active Tiotropium [place] Monohydrate (SPIRIVA HANDIHALER IN) Inhale into the [...] age to complete this topic Care Teams International Accountant Relationship Specialty Start Date End Date Mahin Hall MD PCP - General Internal Medicine 12/21/19
--- OUTSIDE RECORDS SUMMARY | 2024-06-24 16:32 | XMS_ITS | Clinical Summary ---
Author Organization [facility] Address [address] [address] Phone Care Team Providers Care Education Faculty Member Name Role Phone Mahin Hall MD Primary Care Provider [phone] Allergies Active Allergy Reactions Criticality Noted Date [...] Office Visit [facility] [address] [facility] [address] [place] [address] Lou Villegas ARNP Stage 3a chronic kidney disease (HCC) (Primary Dx); Hypertension; Other iron deficiency anemia; Secondary hyperparathyroidism of renal origin (HCC); Vitamin D deficiency, not otherwise specified 04/02/2024 Refill [facility] [address] [place] [phone] Lou Villegas ARNP Stage 3a chronic kidney [...] Office Visit [facility] [address] [phone] Lou Villegas ARNP [address] [phone] Health Maintenance Due Date Last Done Comments [...] PM EDT) Hemoglobin A1C 5.5 (4.0-5.6) % [facility] Comment: MONITORING: In known diabetic patients, hemoglobin A1c targets should be discussed with health care provider. DIAGNOSTIC USE: ??The [place] Diabetes Association (ADA) and the World Health [...] Supplement 1 Testing performed or reported by [facility], a Service of [facility], [address] [place] [address] Ale Feldman MD, Sales And Marketing Specialist [facility]# [id number] 01/17/2021 3:19 PM EDT 01/17/2021 3:20 PM EDT us Gamaliel Chin MD LAB BLOOD ORDERABLES Final Re sult [facility] from Last 3 Months or Most Recently Relevant to Health Maintenance Insurance [facility] ([id number]) YVETTE ESTRADA [id number] [facility] ([id number]) Care Teams Education Faculty Member Relationship Specialty Start Date End Date Mahin Hall MD [address] [place] [address] PCP - General 04/04/20
--- OUTSIDE RECORDS SUMMARY | 2024-06-24 16:32 | XMS_ITS | Encounter Summary ---
Author Organization [facility] Address [address] [place] [address] Care Team Providers Care Assembly Loader Name Role Phone Mahin Hall MD Primary Care Provider [phone] Encounter Details Date Type Department Care Team (Late st Contact Info) Description 06/22/2024 Telephone [facility] [address] [facility] [address] [place] [phone] Kristy Blackmon NP [address] [place] [address] Social History Tobacco Use Types Packs/Day Years [...] Progress Notes * Kristy Blackmon NP - 06/23/2024 7:47 AM EDT Ok, thank you. * Kristy Blackmon NP - 06/22/2024 3:[address] Hall, I saw your patient Teressa in the office today. I have started her on low-dose Eliquis for stroke risk reduction for a [id number] score of 6 and history of paroxysmal atrial fibrillation. She will berepeating a CBC in 2 weeks, but I would also request for her to have an evaluation with GI. Would you please arrange the referral? Kind regards, documented in this encounter Plan of Treatment Upcoming Encounters Date Type Department Care Team (Late st Contact Info) Description 07/27/2024 1:00 PM EDT Office Visit [facility] Hematology Oncology [address] [place] [address] Kym Soto PA [address] [place] [address] 12/28/2024 2:40 PM EDT Office Visit [facility] [address] [facility] [address] [place] [address] Kristy Blackmon NP [address] [place] [address] documented as of this encounter Visit Diagnoses Not on filedocumented in this encounter Care Teams Assembly Loader Relationship Specialty Start Date End Date Mahin Hall MD [address] [facility] [address] [place] [address] PCP - General Internal Medicine 11/15/13 documented as of this encounter
--- OUTSIDE RECORDS SUMMARY | 2024-06-24 16:32 | XMS_ITS | Encounter Summary ---
Author Organization [facility] Address [address] [place] [address] Care Team Providers Care Qa Analyst Name Role Phone Mahin Hall MD Primary Care Provider [phone] Reason for Visit * Reason Comments Follow-up Encounter Details Date Type Department Care Team (Latest Contact Info) Description 06/22/2024 1:40 PM EDT Office Visit [facility] [address] [facility] [address] [place] [address] Kristy Blackmon NP [address] [place] [address] Paroxysmal atrial fibrillation (CMS/HCC) (Primary Dx); Cardiomyopathy, nonischemic (CMS/HCC); Hyperlipidemia, unspecified hyperlipidemia type; Primary hypertension Social History Tobacco Use Types Packs/Day Years [...] Sign Reading Time Taken Comments Blood Pressure 118/64 06/22/2024 1:27 PM EDT Pulse 76 06/22/2024 1:27 PM EDT Temperature - - Respiratory Rate - - Oxygen Saturation 95% 06/22/2024 1:27 PM EDT Inhaled Oxygen Concentration - - Weight 61.2 kg (135 lb) 06/22/2024 1:27 PM EDT Height 149.9 cm (4' 11 ) 06/22/2024 1:27 PM EDT Body Mass Index 27.27 06/22/2024 1:27 PM EDT documented in this encounter Functional [...] Tamiko Castro RN documented in this encounter Ordered Prescriptions Prescription Sig Dispense Quantity Refills Last Filled Start Date End Date apixaban (Eliquis) 2.5 mg tablet Take 1 tablet (2.5 mg total) by mouth 2 (two) times a day. 180 tablet 1 06/22/2024 documented in this encounter Progress Notes * Kristy Blackmon NP - 06/22/2024 2:58 PM EDTAssociated Problem(s): Hypertension Blood pressure is well-controlled in the office today at 118/64. Continue metoprolol and furosemideas prescribed. * Kristy Blackmon NP - 06/22/2024 2:57 PM EDTAssociated Problem(s): Hyperlipidemia, unspecified Last lipid panel reviewed and under excellent control with an LDL of 47. Continue atorvastatin as prescribed. * Kristy Blackmon NP - 06/22/2024 2:56 PM EDTAssociated Problem(s): Paroxysmal atrial fibrillation (CMS/HCC) Patient has a history of paroxysmal atrial fibrillation not on anticoagulation due to anemia. Hemoglobin has improved to 10. She denies having blood in the stools or urine. She has an elevated ANM0TQ4-BWRb score of 6. EKG done in the office today shows sinus rhythm with a rate of 68 bpm. I discussed with the patient and her daughter the risks versus benefits of anticoagulation. She is agreeable to starting low-dose Eliquis. She can stop aspirin. I have asked her to monitor for unusual bruising or bleeding. She will update a CBC in 2 weeks. I will also reach out to her primary care regarding areferral to GI. Otherwise no changes to current medical therapy, continue metoprolol as prescribed. * Kristy Blackmon NP - 06/22/2024 2:48 PM EDTAssociated Problem(s): Cardiomyopathy, nonischemic (CMS/HCC) Patient has a history of nonischemic cardiomyopathy, likely stress-induced with COPD/asthma exacerbations. Echocardiogram completed during hospitalization showed an LVEF of 40-45% with mild hypokinesis. Patient appears euvolemic on physical exam. I discussed with patient how imperative it is to keep her COPD/asthma under control. She is following closely with Dr. Plaza with pulmonology. She can continue on Toprol-XL as prescribed. Will not add additional GDMT medications at this time,as previous episodes of reduced LV systolic function in the past recovered on their own. * Kristy Blackmon NP - 06/22/2024 1:40 PM EDT Images from the original note were not included. [facility] PRIMARY SILVER SERVICE WAITER: Humera Pan MD PCP: Mahin Hall MD HPI: Teressa Gonzalez is a 74 y.o. old [place]an speaking female with a history of chronic obstructive pulmonary disease, hypertension, type II diabetes, stress-induced cardiomyopathy, congestive heart failure, paroxysmal atrial fibrillation not on anticoagulation due to anemia, chronic kidney disease, fibromyalgia and depression. She has had several hospitalizations for COPD exacerbation with associated troponin elevation/demand ischemia and stress induced cardiomyopathy, most recently at [facility] in April 2024. Echocardiogram revealed a normal LV cavity size and wall thickness, mildly decreased systolic function with an EF of 40-45%, mild global LV hypokinesis, unable to assess diastolic function. Previous echocardiogram from February 2024 showed a normal systolic function with an EF of 55-60%, no regional LV wall motion abnormalities. Normal biatrial cavity size. Atrial septal bowing. Normal RV cavity size and systolic function. Trace aortic regurgitation without stenosis. Trace mitral valve regurgitation without stenosis. Moderate tricuspid regurgitation with an RVSP of 42 mmHg. Mild to moderate pulmonic valve regurgitation. Ascending aorta measured 3.9 cm. In December 2023 patient underwent a exercise nuclear stress test, exercising for 2 minutes and 51 seconds on a standard Trae protocol achieving 97% MPHR for the patient's age. Myocardial perfusion imaging after attenuation correction suggested a small area of mild perfusion defect persistent in the mid anterior wall on stress images which improves with rest suggestive of a small area of LAD territory ischemia. LVEF 73% at rest and 44% at stress. Left heart cath in December 2023 revealed a normal LMCA, LAD, LCx with minimal luminal irregularities of the RCA. She was last seen in November 2023. She presents today for hospital and routine cardiology follow-up accompanied by her daughter who assists with incidental translation. She denies chest pain with or without exertion, palpitations, lightheadedness/near-syncope, and lower extremity edema. She sleeps on 2-3 pillows at night and has for as long as she can remember, no overt orthopnea, no paroxysmalnocturnal dyspnea. She followed-up with Dr. Plaza last week and was given cough medicine but has since run out. She was doing better with COPD/asthma until yesterday when she started having more shortness of breath. This does improve with the use of the inhaler. HGB was significantly reduced at 7.4 during hospitalization but this has since recovered. She denies blood in the urine and stools. She has not followed-up with GI. PCP has placed referrals to nephrology and hematology. ACTIVE MEDICATIONS: Current Outpatient Medications Medication Instructions albuterol 2.5 mg, Every 4 hours PRN apixaban (ELIQUIS) 2.5 mg, oral, 2 times daily atorvastatin (LIPITOR) 80 mg tablet 1 tablet, Daily budesonide (PULMICORT) 1 mg, nebulization, Daily, Rinse mouth with water after use to reduce aftertaste and incidence of candidiasis. Do not swallow. budesonide-formoteroL (SYMBICORT) 160-4.5 mcg/actuation inhaler 2 puffs, 2 times daily calcium carbonate-vitamin D 600 mg-10 mcg (400 unit) per tablet 1 tablet, oral, Daily doxepin (SINEquan) 25 mg capsule 1 capsule, Nightly fluticasone propionate (FLONASE) 50 mcg/actuation nasal spray 2 sprays, Each Nostril, Daily folic acid (FOLVITE) 1 mg, Daily furosemide (LASIX) 20 mg, Daily metoprolol succinate (TOPROL-XL) 50 mg, oral, Daily, Do not crush or chew. omeprazole (PRILOSEC) 40 mg, 2 times daily pantoprazole (PROTONIX) 40 mg, oral, 2 times daily before meals, Do not crush, chew, or split. pregabalin (LYRICA) 225 mg, Nightly tiZANidine (ZANAFLEX) 4 mg, oral, Daily traMADoL (ULTRAM) 50 mg, Every 6 hours PRN PAST MEDICAL HISTORY: Patient Active Problem List Diagnosis Anemia Gastroesophageal reflux disease Insomnia Macrocytosis Reactive depression (situational) Weight loss SOB (shortness of breath) Subsequent non-ST elevation (NSTEMI) myocardial infarction ([facility]/HCC) Severe obesity (BMI 35.0-39.9) with comorbidity (CMS/HCC) Secondary hyperparathyroidism of renal origin ([facility]/HCC) Prediabetes Paroxysmal atrial fibrillation ([facility]/HCC) Hyperlipidemia, unspecified Hypertension COPD exacerbation ([facility]/HCC) CKD (chronic kidney disease) stage 2, GFR 60-89 ml/min NSTEMI (non-ST elevated myocardial infarction) ([facility]/HCC) Cardiomyopathy, nonischemic ([facility]) ALLERGIES: Allergies Allergen Reactions Ibuprofen Nausea And Vomiting SOCIAL HISTORY: Social History Tobacco Use Smoking status: Former Types: Cigarettes Smokeless tobacco: Never Tobacco comments: Pt states quit 14-15 years ago Substance Use Topics Alcohol use: No PHYSICAL EXAM: Vitals: 06/22/24 1327 BP: 118/64 BP Location: Left arm Patient Position: Sitting BP Cuff Size: Adult Pulse: 76 SpO2: 95% Weight: 61.2 kg (135 lb) Height: 1.499 m (59 ) Physical Exam Constitutional: General: She is not in acute distress. Appearance: Normal appearance. HENT: Head: Normocephalic and atraumatic. Neck: Vascular: No carotid bruit. Cardiovascular: Rate and Rhythm: Normal rate and regular rhythm. Pulses: Normal pulses. Heart sounds: S1 normal and S2 normal. No murmur heard. No friction rub. No gallop. Pulmonary: Effort: Pulmonary effort is normal. Breath sounds: Normal breath sounds. Abdominal: General: Abdomen is flat. Palpations: Abdomen is soft. Musculoskeletal: Cervical back: Normal range of motion and neck supple. Right lower leg: No edema. Left lower leg: No edema. Skin: General: Skin is warm and dry. Neurological: General: No focal deficit present. Mental Status: She is alert and oriented to person, place, and time. EKG: TESTIN06/11/2024 Sodium 142 Potassium 4.4 Chloride 107 Bicarb 26 Gap 13 BUN 37 Creatinine 1.66 eGFR 30 Calcium 9.4 WBC 10.5 Hgb 10 HCT 32 PLT 291 Lab Results Component Value Date CHOL 118 05/15/2024 Lab Results Component Value Date HDL 57 05/15/2024 Lab Results Component Value Date LDLCALC 47 05/15/2024 Lab Results Component Value Date TRIG 68 05/15/2024 Lab Results Component Value Date CHOLHDL 2.1 05/15/2024 ASSESSMENT/PLAN: As per AHA guidelines and previously established plan of care by Dr. Humera Pan MD, we discussed the following today: Problem List Items Addressed This Visit Paroxysmal atrial fibrillation (CMS/HCC) - Primary Patient has a history of paroxysmal atrial fibrillation not on anticoagulation due to anemia. Hemoglobin has improved to 10. She denies having blood in the stools or urine. She has an elevated [id number] score of 6. EKG done in the office today shows sinus rhythm with a rate of 68 bpm. I discussed with the patient and her daughter the risks versus benefits of anticoagulation. She is agreeable to starting low-dose Eliquis. She can stop aspirin. I have asked her to monitor for unusual bruising or bleeding. She will update a CBC in 2 weeks. I will also reach out to her primary care regarding areferral to GI. Otherwise no changes to current medical therapy, continue metoprolol as prescribed. Relevant Medications apixaban (Eliquis) 2.5 mg tablet Other Relevant Orders ECG 12 lead (Completed) CBC and differential Hyperlipidemia, unspecified Last lipid panel reviewed and under excellent control with an LDL of 47. Continue atorvastatin as prescribed. Hypertension Blood pressure is well-controlled in the office today at 118/64. Continue metoprolol and furosemideas prescribed. Cardiomyopathy, nonischemic ([facility]) Patient has a history of nonischemic cardiomyopathy, likely stress-induced with COPD/asthma exacerbations. Echocardiogram completed during hospitalization showed an LVEF of 40-45% with mild hypokinesis. Patient appears euvolemic on physical exam. I discussed with patient how imperative it is to keep her COPD/asthma under control. She is following closely with Dr. Plaza with pulmonology. She can continue on Toprol-XL as prescribed. Will not add additional GDMT medications at this time,as previous episodes of reduced LV systolic function in the past recovered on their own. Orders Placed This Encounter Procedures CBC and differential ECG 12 lead Thank you for allowing us to participate in the care of this patient. The patient will follow up in6 months, sooner PRN. This note is completed with voice recognition software. Please pardon any grammatical or syntax errors. [facility] Cosigned by Humera Pan MD at 06/22/2024 5:52 PM EDT documented in this encounter Plan of Treatment Upcoming Encounters Date Type Department Care Team (Late st Contact Info) Description 07/27/2024 1:00 PM EDT Office Visit [facility] Hematology Oncology [address] [place] [address] Kym Soto PA [address] [place] [address] 12/28/2024 2:40 PM EDT Office Visit [facility] - [address] [place] [address] Kristy Blackmon NP [address] [place] [address] Scheduled Orders Name Type Priority Associated Diagnoses Orde r Schedule CBC and differential Lab Routine Paroxysmal atrial fibrillation (CMS/HCC) Expected: 07/06/2024, Expires: 06/22/2025 documented as of this encounter Procedures Procedure Name Priority Date/Time Associated Diagnosis Comments ECG 12-LEAD Routine 06/22/2024 2:43 PM EDT Paroxysmal atrial fibrillation (CMS/HCC) documented in this encounter Results * ECG 12 lead (06/22/2024 2:43 PM EDT) Ventricular Rate ECG 68 BPM GEMUSE Atrial Rate 68 BPM GEMUSE P-R Interval 168 ms GEMUSE QRS Duration 70 ms GEMUSE Q-T Interval 386 ms GEMUSE QTc 410 ms GEMUSE P Wave [place] 38 degrees GEMUSE R [place] 60 degrees GEMUSE T [place] -159 degrees GEMUSE ECG Interpretation Normal sinus rhythm ST & T wave abnormalities have improved. QT interval has shortened/normal . When compared with prior EKG from 05/15/24. Confirmed by Hadley PAN YUFENG ([id number]) on 06/22/2024 4:43:58 PM GEMUSE 06/22/2024 2:20 PM EDT 06/22/2024 4:43 PM EDT Kristy Blackmon NP ECG ORDERABLES Edited Result - Final GEMUSE documented in this encounter Visit Diagnoses Diagnosis Paroxysmal atrial fibrillation (CMS/HCC)- Primary Atrial fibrillation Cardiomyopathy, nonischemic (CMS/HCC) Other primary cardiomyopathies Hyperlipidemia, unspecified hyperlipidemia type Primary hypertension Unspecified essential hypertension documented in this encounter Discontinued Medications Medication Sig Discontinue Reason Start Date End Da te loratadine (CLARITIN) 10 mg tablet Take 1 tablet (10 mg total) by mouth 1 (one) time each day. Therapy completed 05/19/2024 06/22/2024 aspirin 81 mg EC tablet Take 1 tablet (81 mg total) by mouth 1 (one) time each day. Therapy completed 01/09/2024 06/22/2024 documented as of this encounter Historical Medications * This list may reflect changes made after this encounter. omeprazole (PriLOSEC) [address] capsule Take 1 capsule (40 mg total) by mouth 2 (two) times a day. Do not crush or chew. added in this encounter Care Teams Qa Analyst Relationship Specialty Start Date End Date Mahin Hall MD [address] [place] [address] [address] [place] [address] PCP - General Internal Medicine 11/15/13 documented as of this encounter
--- OUTSIDE RECORDS SUMMARY | 2024-06-24 16:32 | XMS_ITS | Clinical Summary ---
Author Organization [address] [place] [address] Address [address] [place] [address] Phone Care Team Providers Care Radiology Technician Name Role Phone Mahin Hall MD Primary Care Provider Allergies Active Allergy Reactions Criticality Noted Date [...] for wheezing or shortness of breath. Active atorvastatin (LIPITOR) 80 mg tablet Take [...] mouth 1 (one) time each day. Active metoprolol succinate (TOPROL-XL) 50 mg 24 hr tablet Take 1 tablet (50 mg total) by mouth 1 (one) time each day. Do not crush or chew. 30 each 05/19/19 25 025 Active calcium carbonate-vit vicente D 600 mg-10 mcg (400 unit) per tablet TAKE 1 TABLET BY MOUTH EVERY DAY 90 tablet 1 06/13/19 25 Active omeprazole (PriLOSEC) [address] capsule Take 1 capsule (40 mg total) by mouth 2 (two) times a day. Do not crush or chew. Active apixaban (Eliquis) 2.5 mg tablet Take 1 tablet (2.5 mg total) by mouth 2 (two) times a day. 180 tablet 1 06/23/19 25 Active aspirin 81 mg EC tablet Take 1 tablet (81 mg total) by mouth 1 (one) time each day. 01/09/20 24 025 Discontinued(T herapy completed) predniSONE (DELTASONE) 20 mg tablet Take 2 tablets (40 mg total) by mouth 1 (one) time each day for 5 days. 10 each 05/20/19 25 025 loratadine (CLARITIN) 10 mg tablet Take 1 tablet (10 mg total) by mouth 1 (one) time each day. 30 tablet 11 05/19/19 25 025 Discontinued(T herapy completed) pantoprazole (PROTONIX) 40 mg EC tablet Take 1 tablet (40 mg total) by mouth 2 (two) times a day before meals. Do not crush, chew, or split. 60 each 05/19/19 25 025 Discontinued Active Problems Problem Noted Date Diagnosed Date Cardiomyopathy, nonischemic 2024 Assessment & Plan (06/22/2024 2:59 PM EDT): Patient has a history of nonischemic cardiomyopathy, [...] not add additional GDMT medications at this time, as previous episodes of reduced LV systolic function in the past recovered on their own. Assessment & Plan (2024 2:33 PM EST): [...] Secondary hyperparathyroidism of renal origin Hypertension 04/17/2023 Assessment & Plan (06/22/2024 2:58 PM EDT): Blood pressure is well-controlled in the office today at 118/64. Continue metoprolol and furosemide as prescribed. SOB (shortness of breath) 02/28/2023 Subsequent non-ST elevation (NSTEMI) myocardial infarction 02/28/2023 Paroxysmal atrial fibrillation 02/28/2023 Assessment & Plan (06/22/2024 3:00 PM EDT): Patient has a history of paroxysmal atrial fibrillation not on anticoagulation due to anemia. Hemoglobin has improved to 10. She denies having blood in the stools or urine. She has an elevated [id number] score of 6. EKG done in the [...] reach out to her primary care regarding a referral to GI. Otherwise no changes to current medical therapy, continue metoprolol as prescribed. Assessment & Plan (2024 2:37 PM EST): Continue Eliquis for CVA prophylaxis. Would transition to succinate preparation of metoprolol for rate control. Patient is back in sinus rhythm with a short burst of SVT-likely atrial tachycardia. Her A-fib was likely triggered by her acute illness. Hyperlipidemia, unspecified 02/28/2023 Assessment & Plan (06/22/2024 2:57 PM EDT): Last lipid panel reviewed and under excellent control with an LDL of 47. Continue atorvastatin as prescribed. Assessment & Plan (2024 2:34 PM EST): [...] Encounters Date Type Department Care Team Description 06/24/2024 3:04 PM EDT - Present Emergency [facility] Emergency [address] [place] [phone] Blaine Rodriguez, 06/22/2024 1:40 PM EDT Office Visit [facility] Cardiology [facility] [address] [place] [address] Kristy Blackmon NP Paroxysmal atrial fibrillation (CMS/HCC) (Primary Dx); Cardiomyopathy, nonischemic (CMS/HCC); Hyperlipidemia, unspecified hyperlipidemia type; Primary hypertension 06/22/2024 Telephone [facility] Cardiology [facility] [address] [place] [address] Humera Pan MD medication update 06/22/2024 Telephone [facility] Cardiology [facility] [address] [place] [address] Kristy Blackmon NP 05/28/2024 10:30 AM EST Office Visit [facility] [place] [address] [phone] Mahin Hall MD Hospital discharge follow-up (Primary Dx); Acute hypoxemic respiratory failure (CMS/HCC); COPD exacerbation (CMS/HCC); NSTEMI (non-ST elevated myocardial infarction) (CMS/HCC); Macrocytic anemia; CKD (chronic kidney disease) stage 2, GFR 60-89 ml/min 05/20/2024 Telephone [facility] [place] 175 [facility] [address] [place] [address] Mahin Hall MD Hospital Follow-up 05/13/2024 9:55 PM EST - 05/19/2024 3:57 PM EST Hospital Encounter [facility] Intermediate Care Unit [address] [place] [phone] Aris Malloy MD Kokosadze, Estate, MD Japaridze, Anna, MD NSTEMI (non-ST elevated myocardial infarction) ([facility]/HCC) (Primary Dx) Discharge Disposition: Home or Self Care 04/27/2024 10:30 AM EST Office Visit [facility] Hematology Oncology [address] [place] [phone] Kym Soto PA Anemia of chronic renal failure, unspecified CKD stage (Primary Dx); Stage 3b chronic kidney disease (CMS/HCC); Chronic obstructive pulmonary disease, unspecified COPD type (CMS/HCC); Low serum vitamin B12 04/20/2024 10:45 AM EST Office Visit [facility] [place] 175 [facility] [address] [place] [phone] Kristopher Pate MD Hospital discharge follow-up (Primary Dx); Cough, unspecified type; COPD exacerbation ([facility]) from Last 3 Months Immunizations Name Administration Dates Next Due Moderna SARS-CoV-2 COVID-19, mRNA, LNP-S, preservative free 06/23/2020 Surgical History Surgery Date Site/Laterality Comments BREAST LUMPECTOMY PROCEDURE: HISTORICAL BREAST LUMPECTOMY KNEE SURGERY PROCEDURE: HISTORICAL KNEE SURGERY [place] [facility] [place] INDICATIONS:SOB Medical History Medical History Date Comments Arthritis 11/06/2016 DX:Arthritis COPD, mild (CMS/HCC) 11/06/2016 DX:COPD, mi ld ([facility]) Depression 07/05/2016 DX:Depression Fibromyalgia 11/06/2016 DX:Fibromyalgia GERD (gastroesophageal reflux disease) DX:GERD (gastroesophageal reflux disease); COMMENT: gastritis History [...] Orientation Straight 06/24/2024 3: 29 PM EDT Obstetrics History Last Filed Vital Signs Vital [...] Mass Index 27.47 06/24/2024 2:36 PM EDT Plan of Treatment Upcoming Encounters Date Type Department Care Team (Late st Contact Info) Description 07/27/2024 1:00 PM EDT Office Visit [facility] Hematology Oncology [address] [place] [phone] Kym Soto PA [address] [place] [address] 12/28/2024 2:40 PM EDT Office Visit [facility] [address] [facility] [address] [place] [phone] Kristy Blackmon NP [address] [place] [phone] Health Maintenance Due Date Last Done Comments [...] Blood Sugar Control Test (HGBA1C) 03/07/2022 01/17/2021 RSV Immunization Adult Patients (1 - 1-dose 75+ series) 2024 Diabetes: Annual Urine Albumin-Creatinine Ratio (uACR) 10/03/2024 10/04/2023, 10/03/2023 Influenza Vaccine (Season Ended) 2024 01/02/2019 Falls Risk Assessment 2025 2024 Diabetes: Annual GFR (Glomerular Filtration Rate) 05/19/2025 06/24/2024, 05/19/2024, 2024, Additional history exists Hypertension/CHF/CAD Annual BMP Blood Test 05/19/2025 06/24/2024, 05/19/2024, 2024, Additional history exists DTaP,Tdap,and Td Vaccines (2 [...] patient's age to complete this topic Procedures * The patient is currently admitted. The information in this section might not be complete until the patient is discharged. Procedure Name Priority Date/Time Associated Diagnosis Comments CBC WITH AUTO DIFFERENTIAL STAT 06/24/2024 2:55 PM EDT BASIC METABOLIC PANEL STAT 06/24/2024 2:55 PM EDT CBC AND DIFFERENTIAL STAT 06/24/2024 2:55 PM EDT ECG 12-LEAD STAT 06/24/2024 2:51 PM EDT ECG 12-LEAD Routine 06/22/2024 2:43 PM EDT Paroxysmal atrial fibrillation (CMS/HCC) EXTERNAL CLINICAL LAB 06/11/2024 EXTERNAL CLINICAL LAB 06/11/2024 HOME O2 EVAL (DESATURATION SCREEN) Routine 05/19/2024 [...] MOLECULAR STUDY STAT 05/13/2024 10:39 PM EST IN CRITICAL CARE 30-74 MINUTES Routine 05/13/2024 9:48 [...] 11:37 AM EST Anemia of chronic disease HM URINE ALBUMIN CREATININE RATIO Routine 10/04/2023 BHARATH SCREENING DIGITAL Routine 09/09/2018 4:37 PM EDT Encounter for screening mammogram for malignant neoplasm of breast from Last 3 Months or Most Recently Relevant to Health Maintenance Results * (ABNORMAL) CBC auto differential (06/24/2024 2:55 PM EDT) Only the most recent of9 resultswithin the time period is included. WBC 12.3(H) 4.8 - 10.8 K/mcL LAB HEMETOLOGY METHOD 06/24/2024 3:29 PM EDT [facility] RBC 3.20(L) 3.80 - 4.80 M/mcL LAB HEMETOLOGY METHOD 06/24/2024 3:29 PM [facility] Hemoglobin 10.7(L) 11.5 - 16.0 g/dL LAB HEMETOLOGY METHOD 06/24/2024 3:29 PM EDT [facility] Hematocrit 33.2(L) 35.0 - 47.0 % LAB HEMETOLOGY METHOD [facility]/24[facility]24 [facility] MCV 102.8(H) 79.0 - 98.0 FL LAB HEMETOLOGY METHOD 06/24/2024 3:29 PM [facility] MCH 33.1(H) 27.0 - 32.0 pcg LAB HEMETOLOGY METHOD 06/24/2024 3:29 PM EDT [facility] MCHC 32.2 32.0 - 37.0 g/dL LAB HEMETOLOGY METHOD 06/24/2024 3:29 PM [facility] RDW 14.5 11.0 - 15.0 % LAB HEMETOLOGY METHOD 06/24/2024 3:29 PM [facility] Platelets 198 130 - 400 K/mcL LAB HEMETOLOGY METHOD 06/24/2024 3:29 PM [facility] MPV 11.1(H) 7.0 - 11.0 FL LAB HEMETOLOGY METHOD 06/24/2024 3:29 PM [facility] NRBC 0.0 <1.0 % LAB HEMETOLOGY METHOD 06/24/2024 3:29 PM [facility] NRBC Absolute 0.00 <0.10 K/mcL LAB HEMETOLOGY METHOD 06/24/2024 3:29 PM [facility] Neutrophils Relative 70.3 % LAB HEMETOLOGY METHOD 06/24/2024 3:29 PM [facility] Lymphocytes Relative 16.7 % LAB HEMETOLOGY METHOD 06/24/2024 3:29 PM [facility] Monocytes Relative 8.8 % LAB HEMETOLOGY METHOD 06/24/2024 3:29 PM [facility] Eosinophils Relative 3.2 % LAB HEMETOLOGY METHOD 06/24/2024 3:29 PM [facility] Basophils Relative 0.6 % LAB HEMETOLOGY METHOD 06/24/2024 3:29 PM [facility] Immature Granulocytes Relative 0.4 % LAB HEMETOLOGY METHOD 06/24/2024 3:29 PM [facility] Neutrophils Absolute 8.62(H) 1.50 - 7.00 K/mcL LAB HEMETOLOGY METHOD 06/24/2024 3:29 PM EDT [facility] Lymphocytes Absolute 2.05 1.00 - 5.00 K/mcL LAB HEMETOLOGY METHOD 06/24/2024 3:29 PM EDT [facility] Monocytes Absolute 1.08(H) 0.20 - 1.00 K/mcL LAB HEMETOLOGY METHOD 06/24/2024 3:29 PM EDT [facility] Eosinophils Absolute 0.39 0.00 - 0.50 K/mcL LAB HEMETOLOGY METHOD 06/24/2024 3:29 PM EDT [facility] Basophils Absolute 0.07 0.00 - 0.20 K/[facility] LAB HEMETOLOGY METHOD 06/24/2024 3:29 PM EDT [facility] Immature Granulocytes Absolute 0.05(H) 0.00 - 0.03 K/[facility] LAB HEMETOLOGY METHOD 06/24/2024 3:29 PM EDT [facility] Blood Venous blood specimen / Unknown Venipuncture / Unknown 06/24/2024 2:55 PM EDT 06/24/2024 3:23 PM EDT us Jr Mcnamara MD LAB BLOOD ORDERABLES Final Resu lt [facility] [address] [place] [address], * (ABNORMAL) Basic metabolic panel (06/24/2024 2:55 PM EDT) Only the most recent of8 resultswithin the time period is included. Sodium 140 133 - 145 mmol/L LAB CHEMISTRY METHOD 06/24/2024 4:14 PM EDT [facility] Potassium 4.3 3.5 - 5.5 mmol/L LAB CHEMISTRY METHOD 06/24/2024 4:14 PM EDT [facility] Chloride 107 96 - 110 mmol/L LAB CHEMISTRY METHOD 06/24/2024 4:14 PM EDT [facility] CO2 29 21 - 32 mmol/L LAB CHEMISTRY METHOD 06/24[facility]2024 [facility] Anion Gap 4 3 - 11 LAB CHEMISTRY METHOD 06/24/2024 4:14 PM [facility] Glucose 129(H) 70 - 100 mg/dL LAB CHEMISTRY METHOD 06/24/2024 4:14 PM EDT [facility] BUN 16 5 - 25 mg/dL LAB CHEMISTRY METHOD 06/24/2024 4:14 PM [facility] Creatinine 1.77(H) 0.50 - 1.10 mg/dL LAB CHEMISTRY METHOD 06/24/2024 4:14 PM [facility] eGFR 30(L) >=60 mL/min/1. 73m2 LAB CHEMISTRY METHOD 06/24/2024 4:14 PM T [facility] Comment:Calculation based on the??Chronic Kidney Disease Epidemiology Collaboration (CKD-EPI) equation refit??without adjustment for race. BUN/Creatinine Ratio 9.0 LAB CHEMISTRY METHOD 06/24/2024 4:14 PM [facility] Calcium 9.2 8.5 - 10.5 mg/dL LAB CHEMISTRY METHOD 06/24/2024 4:14 PM [facility] Blood Venous blood specimen / Unknown Venipuncture / Unknown 06/24/2024 2:55 PM EDT 06/24/2024 3:23 PM EDT us Jr Mcnamara MD LAB BLOOD ORDERABLES Final Resu lt [facility] [address] [place] [address], * ECG 12 lead (06/22/2024 2:43 PM EDT) Only the most recent of8 resultswithin the time period is included. Ventricular Rate ECG 68 BPM GEMUSE Atrial Rate 68 BPM GEMUSE P-R Interval 168 ms GEMUSE QRS Duration 70 ms GEMUSE Q-T Interval 386 ms GEMUSE QTc 410 ms GEMUSE P Wave [place] 38 degrees GEMUSE R [place] 60 degrees GEMUSE T [place] -159 degrees GEMUSE ECG Interpretation Normal sinus rhythm ST & T wave abnormalities have improved. QT interval has shortened/normal . When compared with prior EKG from 05/15/24. Confirmed by Hadley PAN YUFENG ([id number]) on 06/22/2024 4:43:58 PM GEMUSE 06/22/2024 2:20 PM EDT 06/22/2024 4:43 PM EDT us Kristy Blackmon NP ECG ORDERABLES Edited Result - Final Performing Organization Address City/[facility]/ZIP Co de Phone Number GEMUSE * External clinical lab (06/11/2024) Only the most recent of2 resultswithin the time period is included. us Provider [facility] LAB BLOOD ORDERABLES Fin al Result * (ABNORMAL) Hemoglobin and hematocrit (2024 2:37 PM EST) Pathologist [facility] Hemoglobin 8.3(L) 11.5 - 16.0 g/dL LAB HEMETOLOGY METHOD 2024 2:48 PM EST [facility] Hematocrit 26.0(L) 35.0 - 47.0 % LAB HEMETOLOGY METHOD 2024 2:48 PM EST [facility] Blood Venous blood specimen / Unknown Venipuncture / Unknown 2024 2:37 PM EST 2024 2:41 PM EST us Kym Angulo MD LAB BLOOD ORDERABLES Final Res ult Performing Organization Address City/[facility]/ZIP Co de Phone Number [facility] [address] [place] [address], * Respiratory virus panel molecular study (05/16/2024 4:32 PM EST) Only the most recent of2 resultswithin the time period is included. Adenovirus Detection by PCR Not Detected Not Detected LAB MICROBIOLOGY METHOD 05/16/2024 5:49 PM EST [facility] Influenza A PCR Not Detected Not Detected LAB MICROBIOLOGY METHOD 05/16/2024 5:49 PM EST [facility] Influenza B PCR Not Detected Not Detected LAB MICROBIOLOGY METHOD 05/16/2024 5:49 PM EST [facility] Coronavirus 229E Not Detected Not Detected LAB MICROBIOLOGY METHOD 05/16/2024 5:49 PM [facility] Coronavirus HKU1 Not Detected Not Detected LAB MICROBIOLOGY METHOD 05/16/2024 5:49 PM EST [facility] Coronavirus OC43 Not Detected Not Detected LAB MICROBIOLOGY METHOD 05/16/2024 5:49 PM EST [facility] Coronavirus NL63 Not Detected Not Detected LAB MICROBIOLOGY METHOD 05/16/2024 5:49 PM [facility] Parainfluenza Virus 1 Not Detected Not Detected LAB MICROBIOLOGY METHOD 05/16/2024 5:49 PM [facility] Parainfluenza Virus 2 Not Detected Not Detected LAB MICROBIOLOGY METHOD 05/16/2024 5:49 PM [facility] Parainfluenza Virus 3 Not Detected Not Detected LAB MICROBIOLOGY METHOD 05/16/2024 5:49 PM [facility] Parainfluenza Virus 4 Not Detected Not Detected LAB MICROBIOLOGY METHOD 05/16/2024 5:49 PM EST [facility] RSV PCR Not Detected Not Detected LAB MICROBIOLOGY METHOD 05/16/2024 5:49 PM [facility] Human Metapneumovirus A and B Not Detected Not Detected LAB MICROBIOLOGY METHOD 05/16/2024 5:49 PM [facility] Rhinovirus/Entero virus Not Detected Not Detected LAB MICROBIOLOGY METHOD 05/16/2024 5:49 PM EST [facility] Bordetella pertussis Not Detected Not Detected LAB MICROBIOLOGY METHOD 05/16/2024 5:49 PM EST [facility] Bordetella parapertussis Not Detected Not Detected LAB MICROBIOLOGY METHOD 05/16/2024 5:49 PM [facility] Mycoplasma pneumo by PCR Not Detected Not Detected LAB MICROBIOLOGY METHOD 05/16/2024 5:49 PM EST [facility] Chlamydia pneumoniae Not Detected Not Detected LAB MICROBIOLOGY METHOD 05/16/2024 5:49 PM [facility] SARS COV-2 Not Detected Not Detected LAB MICROBIOLOGY METHOD 05/16/2024 5:49 PM [facility] Swab Nasopharyngeal structure / Unknown Non-blood Collection / Unknown 05/16/2024 4:32 PM EST 05/16/2024 4:55 PM EST [facility] - 05/16/2024 5:49 PM EST Testing was performed using the [employer] Respiratory Pathogen PCR Assay. All results must [...] are below the limit of detection. us Estate Josafat ARMAS LAB MICROBIOLOGY - GENERAL O RDERABLES Final Result [facility] [address] [place] [address], * Thyroid stimulating hormone with reflex to free t4 and free t3 (05/16/2024 5:33 AM EST) TSH 0.59 0.40 - 4.00 mcIU/mL LAB CHEMISTRY METHOD 05/16/2024 7:46 AM EST [facility] Blood Venous blood specimen / Unknown Venipuncture / Unknown 05/16/2024 5:33 AM EST 05/16/2024 7:01 AM EST us Orlando CRAWFORD LAB BLOOD ORDERABLES Final Res ult Performing Organization Address [facility]/ZIP Co de Phone Number [facility] [address] [place] [address], * Anti-Xa - Every 6 Hours (05/16/2024 5:33 AM EST) Only the most recent of8 resultswithin the time period is included. Heparin Anti-Xa 0.35 0.30 - 0.70 I Unit/mL LAB COAGULATION METHOD 05/16/2024 7:25 AM EST [facility] Blood Venous blood specimen / Unknown Venipuncture / Unknown 05/16/2024 5:33 AM EST 05/16/2024 7:00 AM EST Narrative [facility] - 05/16/2024 7:25 AM EST Therapeutic range listed is for Unfractionated Heparin. LMW Heparin therapeutic range: 0.50-1.20 IU/mL us Edward Maurice MD LAB BLOOD ORDERABLES Final R esult Performing Organization Address City/[facility]/ZIP Co de Phone Number [facility] [address] [place] [address], * SST tube (05/15/2024 10:17 AM EST) Extra Tube Hold for add-ons. 05/15/2024 12:02 PM EST [facility] Comment:Auto resulted. Blood Venous blood specimen / Unknown Venipuncture / Unknown 05/15/2024 10:17 AM EST 05/15/2024 10:31 AM EST us Edward Maurice MD LAB BLOOD ORDERABLES Final R esult Performing Organization Address City/[facility]/ZIP Co de Phone Number [facility] [address] [place] [address], [place] [phone] * Lavender tube (05/15/2024 10:17 AM EST) Extra Tube Hold for add-ons. 05/15/2024 12:02 PM EST [facility] Comment:Auto resulted. Blood Venous blood specimen / Unknown Venipuncture / Unknown 05/15/2024 10:17 AM EST 05/15/2024 10:31 AM EST [facility] BLOOD ORDERABLES Final R esult Performing Organization Address [facility] Co de Phone Number [facility] [address] [place] [address], [place] [phone] * (ABNORMAL) TRANSTHORACIC ECHOCARDIOGRAM (TTE) LIMITED WITH CONTRAST (05/15/2024 10:10 AM EST) BSA 1.62 m2 CV PACS LVIDD 4.3 [...] mg/dL LAB CHEMISTRY METHOD 05/15/2024 5:48 AM [facility] Triglycerides 68 0 - 150 mg/dL LAB CHEMISTRY METHOD 05/15/2024 5:48 AM [facility] HDL 57 >=40 mg/dL LAB CHEMISTRY METHOD 05/15/2024 5:48 AM [facility] LDL Calculated 47 0 - 100 mg/dL LAB CHEMISTRY METHOD 05/15/2024 5:48 AM [facility] VLDL Cholesterol Cody 13.6 mg/dL LAB CHEMISTRY METHOD 05/15/2024 5:48 AM [facility] Non HDL Chol. (LDL+VLDL) 61 <145 mg/dL LAB CHEMISTRY METHOD 05/15/2024 5:48 AM [facility] Chol/HDL Ratio 2.1 0.0 - 4.4 LAB CHEMISTRY METHOD 05/15/2024 5:48 AM [facility] Blood Venous blood specimen / Unknown Venipuncture / Unknown 05/15/2024 4:19 AM EST 05/15/2024 5:12 AM EST Edward Maurice MD LAB BLOOD ORDERABLES Final R esult Performing Organization Address [facility]/ZIP Co de Phone Number [facility] [address] [place] [address], * (ABNORMAL) D-Dimer (05/15/2024 4:19 AM EST) D-Dimer, Quant (D-DU) 270(H) <=230 ng/mL DDU LAB COAGULATION METHOD 05/15/2024 5:31 AM EST [facility] Blood Venous blood specimen / Unknown Venipuncture / Unknown 05/15/2024 4:19 AM EST 05/15/2024 5:12 AM EST Narrative [facility] - 05/15/2024 5:31 AM EST D-Dimer <230 ng/mL (D-Dimer units) is the threshold for exclusion of DVT/PE. D-Dimer may be elevated in: Critically ill, severely infected, trauma patients, DIC, acute CVA, acute VT, unstable angina, AF, old age, , and smoking. D-Dimer may be decreased with: Initiation of heparin therapy and oral anticoagulants. Orlando CRAWFORD LAB BLOOD ORDERABLES Final Res ult Performing Organization Address [facility] Co de Phone Number [facility] [address] [place] [address], * Magnesium (05/15/2024 4:19 AM EST) Only the most recent of3 resultswithin the time period is included. Magnesium 2.5 1.9 - 2.6 mg/dL LAB CHEMISTRY METHOD 05/15/2024 5:48 AM EST [facility] Blood Venous blood specimen / Unknown Venipuncture / Unknown 05/15/2024 4:19 AM EST 05/15/2024 5:12 AM EST Aris Malloy MD LAB BLOOD ORDERABLES Final Res ult Performing Organization Address [facility]/ZIP Co de Phone Number [facility] [address] [place] [address], * ECG-Annotated (05/15/2024) Only the most recent of3 resultswithin the time period is included. us Provider [facility] ECG ORDERABLES Final Result * (ABNORMAL) Troponin I high sensitivity (05/14/2024 10:23 PM EST) Only the most recent of6 resultswithin the time period is included. [facility] High Sensitivity Troponin I 3,394(HH) <=54 ng/L LAB CHEMISTRY METHOD 05/14/2024 11:19 PM EST [facility] Blood Venous blood specimen / Unknown Venipuncture / Unknown 05/14/2024 10:23 PM EST 05/14/2024 10:23 PM EST Narrative [facility] - 05/14/2024 11:19 PM EST High levels of biotin in samples may falsely decrease hsTroponin values. ??Use caution when interpreting hsTroponin results in patients taking biotin who exhibit renal impairment (eGFR <60) or in patients taking more than 20 mg/day of biotin. Rose Liriano NP LAB BLOOD ORDERABLES Fin al Result Performing Organization Address [facility]/ZIP Co de Phone Number [facility] [address] [place] [address], [place] [phone] * Lactate, with reflex (05/14/2024 11:59 AM EST) Only the most recent of2 resultswithin the time period is included. [facility] LACTIC ACID 1.6 0.4 - 2.0 mmol/L LAB CHEMISTRY METHOD 05/14/2024 12:53 PM EST [facility] Blood Venous blood specimen / Unknown Venipuncture / Unknown 05/14/2024 11:59 AM EST 05/14/2024 12:16 PM EST Edward Maurice MD LAB BLOOD ORDERABLES Final R esult [facility] [address] [place] [address], [place] [phone] * (ABNORMAL) Activated Partial Thromboplastin Time - Every 6 Hours (05/14/2024 11:59 AM EST) Only the most recent of2 resultswithin the time period is included. aPTT 199.8() 24.1 - 39.3 sec LAB COAGULATION METHOD 05/14/2024 12:58 PM EST [facility] Blood Venous blood specimen / Unknown Venipuncture / Unknown 05/14/2024 11:59 AM EST 05/14/2024 12:16 PM EST Aris Malloy MD LAB BLOOD ORDERABLES Final Res ult Performing Organization Address [facility] System/[facility]/ZIP Co de Phone Number [facility] [address] [place] [address], [place] [phone] * Prothrombin Time with INR - STAT (05/14/2024 5:30 AM EST) Protime 11.3 10.6 - 13.9 sec LAB COAGULATION METHOD 05/14/2024 7:39 AM EST [facility] INR 0.9 LAB COAGULATION METHOD 05/14/2024 7:39 AM EST [facility] Blood Venous blood specimen / Unknown Venipuncture / Unknown 05/14/2024 5:30 AM EST 05/14/2024 6:21 AM EST Aris Malloy MD LAB BLOOD ORDERABLES Final Res ult Performing Organization Address City/[facility]/ZIP Co de Phone Number [facility] [address] [place] [address], [place] [phone] * Light blue tube (05/14/2024 3:31 AM EST) Extra Tube Hold for add-ons. 05/14/2024 5:01 AM EST [facility] Comment:Auto resulted. Blood Venous blood specimen / Unknown Venipuncture / Unknown 05/14/2024 3:31 AM EST 05/14/2024 3:45 AM EST us Aris Malloy MD LAB BLOOD ORDERABLES Final Res ult [facility] [address] [place] [address], [place] [phone] * CT Chest wo Contrast (05/14/2024 1:23 [...] bronchitis versus atypical or viral pneumonia. Code 68342 -------- FINAL REPORT -------- Dictated By: Anibal Christie Dictated Date: 05/14/2024 09:07 ET Assigned Physician: Anibal Christie Reviewed and Electronically Signed By: Anibal Christie Signed Date: 05/14/2024 09:10 ET Workstation ID: [id number] Transcribed By: Self Edit Transcribed Date: 05/14/2024 [...] with bronchitisversus atypical or viral pneumonia. Code 05067 -------- FINAL REPORT -------- Dictated By: Anibal Christie Dictated Date: 05/14/2024 09:07 ET Assigned Physician: Anibal Christie Reviewed and Electronically Signed By: Anibal Christie Signed Date: 05/14/2024 09:10 ET Workstation ID: [id number] Transcribed By: Self Edit Transcribed Date: 05/14/2024 09:07 ET Valerie CRAWFORD IMG XR PROCEDURES Final Resul t * B-type natriuretic peptide (05/13/2024 10:39 PM EST) Pathologist [facility] BNP 90 <=100 pcg/mL LAB CHEMISTRY METHOD 05/13/2024 11:53 PM EST [facility] Blood Venous blood specimen / Unknown Venipuncture / Unknown 05/13/2024 10:39 PM EST 05/13/2024 11:21 PM EST Valerie CRAWFORD LAB BLOOD ORDERABLES Final Re sult [facility] [address] [place] [address], [place] [phone] * (ABNORMAL) Comprehensive metabolic panel (05/13/2024 10:39 PM EST) Pathologist [facility] Sodium 140 133 - 145 mmol/L LAB CHEMISTRY METHOD 05/14/2024 12:02 AM EST [facility] Potassium 4.0 3.5 - 5.5 mmol/L LAB CHEMISTRY METHOD 05/14/2024 12:02 AM [facility] Chloride 111(H) 96 - 110 mmol/L LAB CHEMISTRY METHOD 05/14/2024 12:02 AM [facility] CO2 21 21 - 32 mmol/L LAB CHEMISTRY METHOD 05/14/2024 12:02 AM [facility] Anion Gap 8 3 - 11 LAB CHEMISTRY METHOD 05/14/2024 12:02 AM [facility] Glucose 201(H) 70 - 100 mg/dL LAB CHEMISTRY METHOD 05/14/2024 12:02 AM [facility] BUN 24 5 - 25 mg/dL LAB CHEMISTRY METHOD 05/14/2024 12:02 AM [facility] Creatinine 1.43(H) 0.50 - 1.10 mg/dL LAB CHEMISTRY METHOD 05/14/2024 12:02 AM [facility] eGFR 39(L) >=60 mL/min/1. 73m2 LAB CHEMISTRY METHOD 05/14/2024 12:02 AM [facility] Comment:Calculation based on the??Chronic Kidney Disease Epidemiology Collaboration (CKD-EPI) equation refit??without adjustment for race. BUN/Creatinine Ratio 16.8 LAB CHEMISTRY METHOD 05/14/2024 12:02 AM [facility] Calcium 9.2 8.5 - 10.5 mg/dL LAB CHEMISTRY METHOD 05/14/2024 12:02 AM [facility] AST (SGOT) 21 10 - 42 unit/L LAB CHEMISTRY METHOD 05/14/2024 12:02 AM [facility] ALT (SGPT) 16 10 - 60 unit/L LAB CHEMISTRY METHOD 05/14/2024 12:02 AM [facility] Alkaline Phosphatase 141(H) 42 - 121 unit/L LAB CHEMISTRY METHOD 05/14/2024 12:02 AM [facility] Total Protein 6.9 6.0 - 8.0 g/dL LAB CHEMISTRY METHOD 05/14/2024 12:02 AM EST [facility] Albumin 3.7 3.2 - 5.0 g/dL LAB CHEMISTRY METHOD 05/14/2024 12:02 AM EST [facility] Total Bilirubin 0.4 0.0 - 1.4 mg/dL LAB CHEMISTRY METHOD 05/14/2024 12:02 AM EST [facility] Blood Venous blood specimen / Unknown Venipuncture / Unknown 05/13/2024 10:39 PM EST 05/13/2024 11:21 PM EST us Valerie CRAWFORD LAB BLOOD ORDERABLES Final Re sult [facility] [address] [place] [address], * IN CRITICAL CARE 30-74 MINUTES (05/13/2024 9:48 PM EST) Narrative Jose Ennis DO - 05/13/2024 9:48 PM EST YVETTE Daly ? 05/14/2024 ??3:24 AM Critical Care Performed by: YVETTE Daly Authorized by: Allison Reveles, DO ?? Critical care provider statement: ??Critical [...] ?Care discussed with: admitting provider ?? us Allison Reveles DO IN CLINIC/BEDSIDE ORDERAB LES Final Result * (ABNORMAL) Vitamin B12 and folate (04/27/2024 11:37 AM EST) [facility] Vitamin B-12 1,822(H) 250 - 900 pcg/mL LAB CHEMISTRY METHOD 04/27/2024 2:18 PM [facility] Folate 8.3 2.8 - 17.0 ng/ml LAB CHEMISTRY METHOD 04/27/2024 2:18 PM [facility] Blood Venous blood specimen / Unknown Venipuncture / Unknown 04/27/2024 11:37 AM EST 04/27/2024 1:32 PM EST Kym CRAWFORD LAB BLOOD ORDERABLES Final Resul t [facility] [address] [place] [address], [place] [phone] * (ABNORMAL) Manual differential (04/27/2024 11:37 AM EST) [facility] Neutrophils % 41.0 % LAB HEMETOLOGY METHOD 04/27/2024 2:36 PM [facility] Lymphocytes % 23.0 % LAB HEMETOLOGY METHOD 04/27/2024 2:36 PM [facility] Monocytes % 6.0 % LAB HEMETOLOGY METHOD 04/27/2024 2:36 PM [facility] Eosinophils % 30.0 % LAB HEMETOLOGY METHOD 04/27/2024 2:36 PM [facility] Basophils % 0.0 % LAB HEMETOLOGY METHOD 04/27/2024 2:36 PM [facility] Neutrophils Absolute Manual 8.77(H) 1.50 - 7.00 K/mcL LAB HEMETOLOGY METHOD 04/27/2024 2:36 PM [facility] Lymphocytes Absolute 4.92 1.00 - 5.00 K/mcL LAB HEMETOLOGY METHOD 04/27/2024 2:36 PM EST [facility] Monocytes Absolute Manual 1.28(H) 0.20 - 1.00 K/mcL LAB HEMETOLOGY METHOD 04/27/2024 2:36 PM EST [facility] Eosinophils Absolute Manual 6.42(H) 0.00 - 0.50 K/mcL LAB HEMETOLOGY METHOD 04/27/2024 2:36 PM EST [facility] Basophils Absolute Manual 0.00 0.00 - 0.20 K/[facility] LAB HEMETOLOGY METHOD 04/27/2024 2:36 PM [facility] Rbc Morphology Consistent with indices Consistent with indices, Normal for LAB HEMETOLOGY METHOD 04/27/2024 2:36 PM EST [facility] Platelet Morphology - WAM See Note(A) Normal LAB HEMETOLOGY METHOD 04/27/2024 2:36 PM EST [facility] Comment:PLT: Normal Blood Venous blood specimen / Unknown Venipuncture / Unknown 04/27/2024 11:37 AM EST 04/27/2024 1:32 PM EST us Kym CRAWFORD LAB BLOOD ORDERABLES Final Resul t [facility] [address] [place] [address], * (ABNORMAL) Iron and TIBC (04/27/2024 11:37 AM EST) Iron 81 40 - 150 mcg/dL LAB CHEMISTRY METHOD 04/27/2024 1:56 PM EST [facility] TIBC 248(L) 250 - 450 mcg/dL LAB CHEMISTRY METHOD 04/27/2024 1:56 PM [facility] Iron Saturation 33 15 - 50 % LAB CHEMISTRY METHOD 04/27/2024 1:56 PM EST [facility] Blood Venous blood specimen / Unknown Venipuncture / Unknown 04/27/2024 11:37 AM EST 04/27/2024 1:32 PM EST Kym CRAWFORD LAB BLOOD ORDERABLES Final Resul t Performing Organization Address [facility]/ZIP Co de Phone Number [facility] [address] [place] [address], [place] [phone] * (ABNORMAL) Reticulocyte count (04/27/2024 11:37 AM EST) Retic Ct Abs 0.080 0.030 - 0.090 M/mcL LAB HEMETOLOGY METHOD 04/27/2024 2:04 PM [facility] Retic Ct Pct 2.4(H) 0.7 - 1.7 % LAB HEMETOLOGY METHOD 04/27/2024 2:04 PM [facility] Immature Retic Fract 14.5 2.3 - 15.9 % LAB HEMETOLOGY METHOD 04/27/2024 2:04 PM EST [facility] Reticulocyte Hemoglobin 35.8 >29.0 pcg LAB HEMETOLOGY METHOD 04/27/2024 2:04 PM [facility] Blood Venous blood specimen / Unknown Venipuncture / Unknown 04/27/2024 11:37 AM EST 04/27/2024 1:32 PM EST Kym CRAWFORD LAB BLOOD ORDERABLES Final Resul t [facility] [address] [place] [address], [place] [phone] * (ABNORMAL) Ferritin (04/27/2024 11:37 AM EST) Ferritin 274(H) 8 - 252 ng/mL LAB CHEMISTRY METHOD 04/27/2024 2:18 PM EST [facility] Blood Venous blood specimen / Unknown Venipuncture / Unknown 04/27/2024 11:37 AM EST 04/27/2024 1:32 PM EST us Kym CRAWFORD LAB BLOOD ORDERABLES Final Resul t [facility] ([facility]) [facility] [address] [place] [address], * HM Urine Albumin Creatinine Ratio (10/04/2023) Urine Albumin Creatinine Ratio abstracted Historical Provider HEALTH MAINTENANCE Final Result * BHARATH SCREENING DIGITAL (09/09/2018 4:37 PM EDT) Anatomical Region Laterality Modality Mammography 09/09/2018 1:07 PM EDT Narrative 09/09/2018 4:37 PM EDT [facility] Diagnostic Imaging Department [address] [place] [address] Patient: ??TERESSA ALLAN ?/Age/Sex: 1950 - 68 - F Unit#: ??[id number] ? Location/Status: ??SPDIMAM/REG CLI ? Mnemonic/Ordering Site: ??DIGSC/SPMAM Ordering Physician: ??BRYANNA MONTANO MD Bharath Screening Digital - 09/09/18 - 3 EXAM: [facility] Screening Digital EXAM DATE AND TIME: 09/09/2018 1:34 PM HISTORY: ??Screening. Excisional biopsy of the right breast in 2000, pathology benign. COMPARISON: ??09/04/17, 09/01/16, 07/13/15, 06/10/14 TECHNIQUE: CC and MLO views of both breasts were obtained using full field digital mammography. Bilateral digital breast tomosynthesis was performed in the MLO projection. 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 TISSUE DENSITY: c. The breasts [...] Routine screening mammogram BILATERAL in 1 year. 37413, 93789 3342F, 7025F Dictating Physician: ??OXANA PRESLEY MD Electronically Signed by: ??OXANA PRESLEY MD Dic Date/Time: ??09/09/18 1636 Sign date/Time: ??09/09/18 1637 Procedure Note Oxana Presley - 03/13/2022 [facility] Diagnostic Imaging Department [address] [place] [id number] Patient: TERESSA ALLAN/Age/Sex: 1950 - 68 - F Unit#: [id number] Location/Status: [facility] CLI Mnemonic/Ordering Site: [facility] Ordering Physician: BRYANNA MONTANO MD [facility] Screening Digital - 09/09/18 - 1333 EXAM: [facility] Screening Digital EXAM DATE AND TIME: 09/09/2018 1:34 PM HISTORY: Screening. Excisional biopsy of the right breast in 2000,pathology benign. COMPARISON: 09/04/17, 09/01/16, 07/13/15, 06/10/14 TECHNIQUE: CC and MLO views of both breasts were obtained using fullfield digital mammography. Bilateral digital breast tomosynthesis was performedin the MLO projection. 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 TISSUE DENSITY: c. The breasts are [...] Routine screening mammogram BILATERAL in 1 year. 70161, 57370 3342F, 7025F Dictating Physician: OXANA PRESLEY MD Electronically Signed by: OXANA PRESLEY MD Dic Date/Time: 09/09/18 1636 Sign date/Time: 09/09/18 1637 Mahin Hall MD IMG BI PROCEDURES Final Result from Last 3 Months or Most Recently Relevant to Health Maintenance Additional Health Concerns Infection Onset Date Last Indicated Resolved Time Respiratory Rule-Out 06/24/2024 06/24/2024 COVID-19 Rule-Out 06/24/2024 06/24/2024 Insurance [facility] MEDICARE Member Subscriber Plan / Payer (Ef fective 2018-Present) Name:Teressa Allan Relation to Subscriber:Self Name:Teressa Allan Payer ID:[id number] Group ID:[id number] Type:Not on file Address: [address] [facility] [place] [id number] Advance Directives Documents on File Type Date Recorded Patient Kennel Technician Expl anation Health Care Decision (hx) 02/15/2023 [...] First Alternate Health Care Agent Care Teams Radiology Technician Relationship Specialty Start Date End Date Mahin Hall MD [address] [place] [address] [address] [place] [address] PCP - General Internal Medicine 11/15/13
== END 2024-06-24 13:50 | disposition home or self-care (01) ==
LOC: HO.HMGCX 13:49
PROVIDERS: PCP Internal Medicine; Visit Provider Internal Medicine Nephrology
DX: N18.32 Chronic kidney disease, stage 3b (principal)
CPT/HCPCS: 76775

== ENCOUNTER → 2024-06-24 13:50 | Outpatient (BNV) | payer OTHER, SELFPAY | PROVIDERS: PCP Internal Medicine; Visit Provider Radiology Diagnostic Radiology | DX: N28.1 Cyst of kidney, acquired (principal) | CPT/HCPCS: 76775 ==

== ENCOUNTER 2024-07-07 10:20 | Outpatient (REF) | payer OTHER, SELFPAY ==
--- OUTSIDE RECORDS SUMMARY | 2024-07-07 12:25 | XMS_ITS | Clinical Summary ---
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 [...] to complete this topic Insurance DENTAL - [facility]
--- OUTSIDE RECORDS SUMMARY | 2024-07-07 12:25 | XMS_ITS | Data Portability ---
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 Plan of Treatment Reminders Order Date Submit Date Provider Last Modified By Organization Details Last Modified Time Details Appointments None recorded. Lab None recorded. Referral None recorded. Procedures None recorded. Surgeries None recorded. Imaging electrocard iogram [address], [phone] 13:41:25 Medication Orders None recorded. Patient TargetsNo targets recorded. Patient InstructionsNo instructions recorded. Reason for Referral None Reported. Results Created Date Observation Date Name Description Value Unit Range Abnormal Flag Note LastModifiedBy Organization Detail LastModifiedTime 10/22/19 24 elect rocar diogr am No observ ation record ed. [address], [phone] 10/22/2023 13:41:23 Result Notes None recorded. Procedures Surgical History None recorded. Imaging Results Imaging Date Name Status LastModified by Organization Details LastModified Time 10/22/2023 electrocardiogram completed [address], [phone] 10/22/2023 13:41:23 Procedure Notes None recorded. Medical [...] SNOMED-CT Code Diagnosis ICD10 Code Diagnosis Note [id number] Marta George MD Main - instED [address] [place] [phone] 10/22/2023 13:05:49 10/22/2023 15:10:42 Intermittent palpitations [id number] R00.2 Evaluation in the field was performed by my vulcanizer operator colleague, as noted above, I provided real-time [...] been taking until 1-2 hr prior to vulcanizer operator visit. On vulcanizer operator eval VS notable for resting HR 45, [...] Muñoz Member ID Guarantor Name 10/22/2023 1 [facility] - DOS ON OR AFTER 2022 - DUAL ELIGIBLE - ALF OPTIONS AND ONE CARE (MEDICARE REPLACEMENT/ADV ANTAGE - HMO) Teressa Carlos [id number] Teressa Carlos Notes Date Note Type Note [...] s/s and seek emergency treatment if needed. Teacher Education Director Organization Information for Dariana Hodge Business Legal Name: [employer]? Address: [address] [place] [address], Commercial Litigation Associate: Raheel Bell MD CLIA No.: [id number] Teacher Education Director POC Test Results from [facility]ariana Hodge EKG (13:28:59) EKG test performed. Reason for missing picture: Left with patient ..................... ..................... ..................... ..................... ..................... ..................... ............... Teacher Education Director Note From Dariana Hodge: Dispatched to the [...] ............... Disposition: Fulfilled Marta George MD [address] [facility],[address], [place], [address], MDSave 10/22/2023 13:42:04 OBGyn Episode No OBEpisode recorded.
--- OUTSIDE RECORDS SUMMARY | 2024-07-07 12:25 | XMS_ITS | Clinical Summary ---
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 PROCEDURES Final Res ult * Lipid panel with reflex to direct LDL (05/15/2024 4:19 AM EST) Cholesterol 118 0 - 200 mg/dL LAB CHEMISTRY METHOD 05/15/2024 5:48 AM EST [facility] Triglycerides 68 0 - 150 mg/dL LAB CHEMISTRY METHOD 05/15/2024 5:48 AM EST [facility] HDL 57 >=40 mg/dL LAB CHEMISTRY METHOD 05/15/2024 5:48 AM EST [facility] LDL Calculated 47 0 - 100 mg/dL LAB CHEMISTRY METHOD 05/15/2024 5:48 AM EST [facility] VLDL Cholesterol Cody 13.6 mg/dL LAB CHEMISTRY METHOD 05/15/2024 5:48 AM EST [facility] Non HDL Chol. (LDL+VLDL) 61 <145 mg/dL LAB CHEMISTRY METHOD 05/15/2024 5:48 AM EST [facility] Chol/HDL Ratio 2.1 0.0 - 4.4 LAB CHEMISTRY METHOD 05/15/2024 5:48 AM EST [facility] Blood Venous blood specimen / Unknown Venipuncture / Unknown 05/15/2024 4:19 AM EST 05/15/2024 5:12 AM EST Edward Maurice MD LAB BLOOD ORDERABLES Final R esult Performing Organization Address [facility]/ZIP Co de Phone Number [facility] [address] [place] [address], * (ABNORMAL) D-Dimer (05/15/2024 4:19 AM EST) [...] infected, trauma patients, DIC, acute CVA, acute IN, unstable angina, AF, old age, , and smoking. D-Dimer may be decreased with: Initiation of heparin therapy and oral anticoagulants. Orlando CRAWFORD LAB BLOOD ORDERABLES Final Res ult Performing Organization Address City/[facility]/ZIP Co de Phone Number [facility] [address] [place] [address], * Magnesium (05/15/2024 4:19 AM EST) Only the most recent of3 resultswithin the time period is included. Magnesium 2.5 1.9 - 2.6 mg/dL LAB CHEMISTRY METHOD 05/15/2024 5:48 AM EST [facility] Blood Venous blood specimen / Unknown Venipuncture / Unknown 05/15/2024 4:19 AM EST 05/15/2024 5:12 AM EST Aris Malloy MD LAB BLOOD ORDERABLES Final Res ult Performing Organization Address [facility]/ZIP Co de Phone Number [facility] [address] [place] [address], * Lactate, with reflex (05/14/2024 11:59 AM EST) Only the most recent of2 resultswithin the time period is included. LACTIC ACID 1.6 0.4 - 2.0 mmol/L LAB CHEMISTRY METHOD 05/14/2024 12:53 PM EST [facility] Blood Venous blood specimen / Unknown Venipuncture / Unknown 05/14/2024 11:59 AM EST 05/14/2024 12:16 PM EST Edward Maurice MD LAB BLOOD ORDERABLES Final R esult Performing Organization Address City/[facility]/ZIP Co de Phone Number [facility] [address] [place] [address], * (ABNORMAL) Activated Partial Thromboplastin Time - Every 6 Hours (05/14/2024 11:59 AM EST) Only the most recent of2 resultswithin the time period is included. aPTT 199.8(HH) 24.1 - 39.3 sec LAB COAGULATION METHOD 05/14/2024 12:58 PM EST [facility] Blood Venous blood specimen / Unknown Venipuncture / Unknown 05/14/2024 11:59 AM EST 05/14/2024 12:16 PM EST us Aris Malloy MD LAB BLOOD ORDERABLES Final Res ult Performing Organization Address City/[facility]/ZIP Co de Phone Number [facility] [address] [place] [address], [place] [phone] * Prothrombin Time with INR - STAT [...] ORDERABLES Final Res ult Performing Organization Address [facility] Co de Phone Number [facility] [address] [place] [address], [place] [phone] * Light blue tube (05/14/2024 3:31 AM EST) Extra Tube Hold for add-ons. 05/14/2024 5:01 AM EST [facility] Comment:Auto resulted. Blood Venous blood specimen / Unknown Venipuncture / Unknown 05/14/2024 3:31 AM EST 05/14/2024 3:45 AM EST us Aris Malloy MD LAB BLOOD ORDERABLES Final Res ult [facility] [address] [place] [address], * CT Chest wo Contrast (05/14/2024 1:23 [...] bronchitis versus atypical or viral pneumonia. Code 62188 -------- FINAL REPORT -------- Dictated By: Anibal Christie Dictated Date: 05/14/2024 09:07 ET Assigned Physician: Anibal Christie Reviewed and Electronically Signed By: Anibal Christie Signed Date: 05/14/2024 09:10 ET Workstation ID: [id number] Transcribed By: Self Edit Transcribed Date: 05/14/2024 [...] with bronchitisversus atypical or viral pneumonia. Code 05815 -------- FINAL REPORT -------- Dictated By: Anibal Christie Dictated Date: 05/14/2024 09:07 ET Assigned Physician: Anibal Christie Reviewed and Electronically Signed By: Anibal Christie Signed Date: 05/14/2024 09:10 ET Workstation ID: [id number] Transcribed By: Self Edit Transcribed Date: 05/14/2024 09:07 ET us Valerie CRAWFORD IMG XR PROCEDURES Final Resul t * B-type natriuretic peptide (05/13/2024 10:39 PM EST) Pathologist [facility] BNP 90 <=100 pcg/mL LAB CHEMISTRY METHOD 05/13/2024 11:53 PM EST [facility] Blood Venous blood specimen / Unknown Venipuncture / Unknown 05/13/2024 10:39 PM EST 05/13/2024 11:21 PM EST us aVlerie CRAWFORD LAB BLOOD ORDERABLES Final Re sult [facility] [address] [place] [address], [place] [phone] * (ABNORMAL) Comprehensive metabolic panel (05/13/2024 10:39 PM EST) [facility] Sodium 140 133 - 145 mmol/L LAB CHEMISTRY METHOD 05/14/2024 12:02 AM [facility] Potassium 4.0 3.5 - 5.5 mmol/L LAB CHEMISTRY METHOD 05/14/2024 12:02 AM [facility] Chloride 111(H) 96 - 110 mmol/L LAB CHEMISTRY METHOD 05/14/2024 12:02 AM [facility] CO2 21 21 - 32 mmol/L LAB CHEMISTRY METHOD 05/14/2024 12:02 AM [facility] Anion Gap 8 3 - 11 LAB CHEMISTRY METHOD 05/14/2024 12:02 AM [facility] Glucose 201(H) 70 - 100 mg/dL LAB CHEMISTRY METHOD 05/14/2024 12:02 AM [facility] BUN 24 5 - 25 mg/dL LAB CHEMISTRY METHOD 05/14/2024 12:02 AM [facility] Creatinine 1.43(H) 0.50 - 1.10 mg/dL LAB CHEMISTRY METHOD 05/14/2024 12:02 AM [facility] eGFR 39(L) >=60 mL/min/1. 73m2 LAB CHEMISTRY METHOD 05/14/2024 12:02 AM [facility] Comment:Calculation based on the??Chronic Kidney Disease Epidemiology Collaboration (CKD-EPI) equation refit??without adjustment for race. BUN/Creatinine Ratio 16.8 LAB CHEMISTRY METHOD 05/14/2024 12:02 AM [facility] Calcium 9.2 8.5 - 10.5 mg/dL LAB CHEMISTRY METHOD 05/14/2024 12:02 AM [facility] AST (SGOT) 21 10 - 42 unit/L LAB CHEMISTRY METHOD 05/14/2024 12:02 AM [facility] ALT (SGPT) 16 10 - 60 unit/L LAB CHEMISTRY METHOD 05/14/2024 12:02 AM [facility] Alkaline Phosphatase 141(H) 42 - 121 unit/L LAB CHEMISTRY METHOD 05/14/2024 12:02 AM [facility] Total Protein 6.9 6.0 - 8.0 g/dL LAB CHEMISTRY METHOD 05/14/2024 12:02 AM [facility] Albumin 3.7 3.2 - 5.0 g/dL LAB CHEMISTRY METHOD 05/14/2024 12:02 AM [facility] Total Bilirubin 0.4 0.0 - 1.4 mg/dL LAB CHEMISTRY METHOD 05/14/2024 12:02 AM [facility] Blood Venous blood specimen / Unknown Venipuncture / Unknown 05/13/2024 10:39 PM EST 05/13/2024 11:21 PM EST us Valerie CRAWFORD LAB BLOOD ORDERABLES Final Re sult [facility] [address] [place] [address], [place] [phone] * RI CRITICAL CARE 30-74 MINUTES (05/13/2024 9:48 PM [...] Final Resul t [facility] [address] [place] [address], [place] [phone] * (ABNORMAL) Manual differential (04/27/2024 11:37 AM EST) Neutrophils % 41.0 % LAB HEMETOLOGY METHOD 04/27/2024 2:36 PM EST [facility] Lymphocytes % 23.0 % LAB HEMETOLOGY METHOD 04/27/2024 2:36 PM EST [facility] Monocytes % 6.0 % LAB HEMETOLOGY METHOD 04/27/2024 2:36 PM [facility] Eosinophils % 30.0 % LAB [...] K/mcL LAB HEMETOLOGY METHOD 04/27/2024 2:36 PM [facility] Basophils Absolute Manual 0.00 0.00 [...] ORDERABLES Final Resul t Performing Organization Address City/[facility]/ZIP Co de Phone Number [facility] [address] [place] [address], [place] [phone] * (ABNORMAL) Iron and TIBC (04/27/2024 11:37 AM EST) Pathologist [facility] Iron 81 40 - 150 mcg/dL LAB CHEMISTRY METHOD 04/27/2024 1:56 PM [facility] TIBC 248(L) 250 - 450 mcg/dL LAB CHEMISTRY METHOD 04/27/2024 1:56 PM [facility] Iron Saturation 33 15 - 50 % LAB CHEMISTRY METHOD 04/27/2024 1:56 PM [facility] Blood Venous blood specimen / Unknown Venipuncture / Unknown 04/27/2024 11:37 AM EST 04/27/2024 1:32 PM EST Kym CRAWFORD LAB BLOOD ORDERABLES Final Resul t [facility] [address] [place] [address], [place] [phone] * (ABNORMAL) Reticulocyte count (04/27/2024 11:37 AM EST) Retic Ct Abs 0.080 0.030 - 0.090 M/mcL LAB HEMETOLOGY METHOD 04/27/2024 2:04 PM EST [facility] Retic Ct Pct 2.4(H) 0.7 - 1.7 % LAB HEMETOLOGY METHOD 04/27/2024 2:04 PM [facility] Immature Retic Fract 14.5 2.3 - 15.9 % LAB HEMETOLOGY METHOD 04/27/2024 2:04 PM [facility] Reticulocyte Hemoglobin 35.8 >29.0 pcg LAB HEMETOLOGY METHOD 04/27/2024 2:04 PM [facility] Blood Venous blood specimen / Unknown Venipuncture / Unknown 04/27/2024 11:37 AM EST 04/27/2024 1:32 PM EST us Kym CRAWFORD LAB BLOOD ORDERABLES Final Resul t [facility] [address] [place] [address], [place] [phone] * (ABNORMAL) Ferritin (04/27/2024 11:37 AM EST) Ferritin 274(H) 8 - 252 ng/mL LAB CHEMISTRY METHOD 04/27/2024 2:18 PM EST [facility] Blood Venous blood specimen / Unknown Venipuncture / Unknown 04/27/2024 11:37 AM EST 04/27/2024 1:32 PM EST us Kym CRAWFORD LAB BLOOD ORDERABLES Final Resul t [facility] [address] [place] [address], [place] [phone] * HM Urine Albumin Creatinine Ratio (10/04/2023) HM Urine Albumin Creatinine Ratio abstracted us Historical Provider HEALTH MAINTENANCE Final Result * PAULO SCREENING DIGITAL (09/09/2018 4:37 PM EDT) Anatomical Region Laterality Modality Mammography 09/09/2018 1:07 PM EDT Narrative 09/09/2018 4:37 PM EDT [facility] Diagnostic Imaging Department [address] [place] [id number] Patient: ??TERESSA ALLAN ?/Age/Sex: 1950 68 - F Unit#: ??[id number] ? Location/Status: ??SPDIMAM/REG CLI ? Mnemonic/Ordering Site: ??DIGSC/SPMAM Ordering Physician: ??BRYANNA MONTANO MD [facility] Screening Digital - 09/09/18 - 1333 EXAM: [facility] Screening Digital EXAM DATE AND TIME: 09/09/2018 1:34 PM HISTORY: ??Screening. Excisional biopsy of the right breast in 2000, pathology benign. COMPARISON: ??09/04/17, 09/01/16, 07/13/15, 06/10/14 TECHNIQUE: CC and MLO views of both breasts were obtained using full field digital mammography. Bilateral digital breast tomosynthesis was performed in the MLO projection. 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 TISSUE DENSITY: c. The [...] Routine screening mammogram BILATERAL in 1 year. 42095, 21850 3342F, 7025F Dictating Physician: ??OXANA PRESLEY MD Electronically Signed by: ??OXANA PRESLEY MD Dic Date/Time: ??09/09/18 1636 Sign date/Time: ??09/09/18 1637 Procedure Note Oxana Presley - 03/13/2022 [facility] Diagnostic Imaging Department [address] [place] [address] Patient: TERESSA ALLANO.B./Age/Sex: 1950 - 68 - F Unit#: [id number] [facility] Mnemonic/Ordering Site: [facility] Ordering Physician: BRYANNA MONTANO MD [facility] Screening Digital - 09/09/18 - 1333 EXAM: [facility] Screening Digital EXAM DATE AND TIME: 09/09/2018 1:34 PM HISTORY: Screening. Excisional biopsy of the right breast in 2000,pathology benign. COMPARISON: 09/04/17, 09/01/16, 07/13/15, 06/10/14 TECHNIQUE: CC and MLO views of both breasts were obtained using fullfield digital mammography. Bilateral digital breast tomosynthesis was performedin the MLO projection. 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 TISSUE DENSITY: c. The breasts are [...] Routine screening mammogram BILATERAL in 1 year. 35053, 40845 3342F, 7025F Dictating Physician: OXANA PRESLEY MD Electronically Signed by: OXANA PRESLEY MD Dic Date/Time: 09/09/18 1636 Sign date/Time: 09/09/18 1637 Mahin Hall MD IMG BI PROCEDURES Final Result from Last 3 Months or Most Recently Relevant to Health Maintenance Insurance [employer] MEDICARE Member Subscriber Plan / Payer (Ef fective 2018-Present) Name:Teressa Allan Relation to Subscriber:Self Name:Teressa Allan Payer ID:[id number] Group ID:[id number] Type:Not on file Address: [address] [facility] [place] [id number] Advance Directives Documents on File Type Date Recorded Patient Weir Fisherman Expl anation Health Care Decision (hx) 02/15/2023 Eliel Allan HE ALTH CARE PROXY Health Care Decision (hx) 02/15/2023 HE ALTH CARE PROXY Health Care Decision (hx) 02/15/2023 Debi Allan HE ALTH CARE PROXY * Full Code - Confirmed (Latest Code Status on File) Date Activated Date Inactivated Comments 06/24/2024 10:29 PM 06/25/2024 3:29 PM This code sta tus was ascertained in the following way: Code status discussion: discussion with patient To update the patient's code status, place a code status order. Do not modify or discontinue any currently active code status orders. * Full Code - Default Date Activated Date Inactivated Comments 06/24/2024 7:49 PM 06/24/2024 10:29 PM This is order is used when code status has not been discussed with the patient, or code status is otherwise unknown/unconfirmed To update the patient's code status, place a code status order. Do not modify or discontinue any currently active code status orders. * Full Code - Default Date Activated Date Inactivated Comments 03/21/2024 9:54 PM 03/24/2024 8:53 PM This is or kristin is used when code status has not been discussed with the patient, or code status is otherwise unknown/unconfirmed To update the patient's code status, place a code status order. Do not modify or discontinue any currently active code status orders. Healthcare Agents on File Name Relationship Healthcare Agent [facility] p Communication Debi Allan Daughter Health Care Agent Eliel Allan Spouse First Alternate Health Care Agent Care Teams Concrete Smoother Relationship Specialty Start Date End Date Mahin Hall MD [address] [place] [address] [address] [place] [address] PCP - General Internal Medicine 11/15/13
--- OUTSIDE RECORDS SUMMARY | 2024-07-07 12:25 | XMS_ITS | Encounter Summary ---
Author Organization [email or web address] Address [address] [place] [address] Care Team Providers Care Scratch Brusher Name Role Phone Mahin Hall MD Primary Care Provider [phone] Reason for Visit * Reason Onset Date Comments Med Refill 07/03/2024 Encounter Details Date Type Department Care Team (Late st Contact Info) Description 07/03/2024 Telephone Internal Medicine [facility] [address] [place] [phone] Alma Richard MA Med Refill Social History Tobacco Use Types Packs/Day Years [...] documented in this encounter Progress Notes * Alma Richard MA - 07/03/2024 1:45 PM EDT Pt called requesting rx omeprazole (PriLOSEC) [address] capsule 40 mg, oral, 2 times daily Summary: Take 1 capsule (40 mg total) by mouth 2 (two) times a day Rx pended? documented in this encounter Plan of Treatment Upcoming Encounters Date Type Department Care Team (Late st Contact Info) Description 07/13/2024 1:20 PM EDT Consult Gastroenterology - [place] [address] [facility] [address] [place] [phone] Ronit Turner NP 175 [facility] 200 [place] [address] 07/27/2024 1:00 PM EDT Office Visit [facility] Hematology Oncology [address] [place] [phone] Kym Soto PA [address] [place] [address] 12/28/2024 2:40 PM EDT Office Visit [facility] - [address] [place] [phone] Kristy Blackmon NP [address] [place] [address] documented as of this encounter Visit Diagnoses Not on filedocumented in this encounter Care Teams Scratch Brusher Relationship Specialty Start Date End Date Mahin Hall MD [address] [place] [address] [place] [address] PCP - General Internal Medicine 11/15/13 documented as of this encounter
--- OUTSIDE RECORDS SUMMARY | 2024-07-07 12:25 | XMS_ITS | Clinical Summary ---
Author Organization [facility] Address [address] [address] Phone Care Team Providers Care Harness Preparer Name Role Phone Mahin Hall MD Primary Care Provider [phone] Allergies Active Allergy Reactions Criticality Noted Date [...] Chronic kidney disease stage 3 12/17/2013 01/16/2023 Immunizations Immunization Administration Dates Next Due Moderna SARS-COV-2 05/26/2020 [...] Office Visit [facility] [address] [facility] [address] [place] [address] Lou Villegas ARNP [address] [facility] [address] [place] [address] Health Maintenance Due Date Last Done Comments Breast Cancer Screening 1950 Colorectal Cancer Screening: Annual FOBT 1998 Colorectal Cancer Screening: Colonoscopy 1998 Colorectal Cancer Screening: Sigmoidoscopy 1998 Diabetes: Hemoglobin A1C 04/06/2024 021, 12/31/2019, 10/07/2018 Diabetes: Ophthalmology Exam 04/06/2024 Diabetes: Pedal Pulse Checked 04/06/2024 Diabetes: Sensory Foot Exam 04/06/2024 Diabetes: Visual Foot Exam 04/06/2024 Influenza Vaccine (Season Ended) 2024 01/02/2019 Pneumococcal Vaccine: 50+ Years Completed 03/28/2018, 07/05/2015 Pneumococcal Vaccine: Peds ( 0 to 5 Years) and At-Risk Patients (6 to 49 Years) Discontinued 03/28/2018, 07/05/2015 Hepatitis B Vaccine Aged Out No longe r eligible based on patient's age to complete this topic Procedures Procedure Name Priority Date/Time Associated Diagnosis Comments HEMOGLOBIN A1C Routine 01/17/2021 3:19 PM EDT from Last 3 Months or Most Recently Relevant to Health Maintenance Results * Hemoglobin A1c (01/17/2021 3:19 PM EDT) Hemoglobin A1C 5.5 (4.0-5.6) % [facility] Comment: MONITORING: In known diabetic patients, hemoglobin A1c targets should be discussed with health care provider. DIAGNOSTIC USE: ??The [place] Diabetes Association (ADA) and the World Health [...] Testing performed or reported by [facility] Reference [place], a Service of [facility], [address] [place] [address] Ale Feldman MD, Strip Machine Operator [facility]# [id number] 01/17/2021 3:19 PM EDT 01/17/2021 3:20 PM EDT Gamaliel Chin MD LAB BLOOD ORDERABLES Final Re sult [facility] from Last 3 Months or Most Recently Relevant to Health Maintenance Insurance ([id number]) [place] [id number] * Guarantor: Teressa Gonzalez Account Type Relation to Patient Date of Phone Billing Address Personal/Family Self [address] ([id number]) Care Teams Harness Preparer Relationship Specialty Start Date End Date Mahin Hall MD [address] [place] [address] PCP - General 04/04/20
--- OUTSIDE RECORDS SUMMARY | 2024-07-07 12:25 | XMS_ITS | Encounter Summary ---
Author Organization [facility] Address [address] [place] [address] Care Team Providers Care Retail Aide Name Role Phone Mahin Hall MD Primary Care Provider [phone] Reason for Visit * Reason Onset Date Comments FYI: vna 06/26/2024 Encounter Details Date Type Department Care Team (Late st Contact Info) Description 06/26/2024 Telephone Internal Medicine - [place] [address] [phone] Mahin Hall MD [address] [address] FYI: vna Social History Tobacco Use Types Packs/Day Years [...] documented in this encounter Progress Notes * Claudia Corado MA - 06/26/2024 1:16 PM EDT LOISI * Sandy Marks - 06/26/2024 1:02 PM EDT Ricky MAHMOOD called and reported that the patients family refused the nursing services that were offered. Cb# [phone] documented in this encounter Plan of Treatment Upcoming Encounters Date Type Department Care Team (Late st Contact Info) Description 07/13/2024 1:20 PM EDT Consult Gastroenterology - [place] 175 [facility] [address] [facility] [address] [place] [address] Ronit Turner, JUVENAL 175 [facility] [place] [address] [place] [address] 07/27/2024 1:00 PM EDT Office Visit [facility] Hematology Oncology [address] [place] [phone] Kym Soto PA [address] [place] [address] 12/28/2024 2:40 PM EDT Office Visit [facility] - [facility] [address] [facility] [address] [place] [address] Kristy Blackmon NP [address] [place] [address] documented as of this encounter Visit Diagnoses Not on filedocumented in this encounter Care Teams Retail Aide Relationship Specialty Start Date End Date Mahin Hall MD 175 [facility] 200 [place] [address] PCP - General Internal Medicine 11/15/13 documented as of this encounter
--- OUTSIDE RECORDS SUMMARY | 2024-07-07 12:25 | XMS_ITS | Clinical Summary ---
Author Organization [facility] Address [address] [place] [address] Care Team Providers Care Juice Standardizer Name Role Phone Mahin Hall MD Primary [...] as needed for pain. 0 Active Tiotropium [place] Monohydrate (SPIRIVA HANDIH[employer] IN) Inhale into the [...] age to complete this topic Care Teams Juice Standardizer Relationship Specialty Start Date End Date Mahin Hall MD PCP - General Internal Medicine 12/21/19
[2024-07-07 18:48] LABS: Appearance Urine Clear; Color Urine Yellow; Glucose Urine UA Negative (Negative); Leukocyte Esterase Urine Negative (Negative); Nitrite Urine Negative (Negative); Urine Blood Negative (Negative); Urine Ketones Negative (Negative); Urine Protein Negative (Neg-Trace)
== END 2024-07-07 10:21 | disposition home or self-care (01) ==
LOC: HO.HKASLDS 10:20
PROVIDERS: Visit Provider Internal Medicine Nephrology
DX: N18.32 Chronic kidney disease, stage 3b (principal)
CPT/HCPCS: 81003

== ENCOUNTER 2024-07-16 11:55 | Outpatient (AMB) | payer MEDICARE, SELFPAY ==
--- NOTE | 2024-07-16 11:59 | HO.NEPHOV ---
Vital Signs 07/16/24 12:01 Height 5 ft Weight 135 lb BMI 26.4 BP 98/60 Blood Pressure Location Lt brachial Position Sitting Pulse 83 Pulse Source Pulse Oximeter Pulse Oximetry (%) 95 Oxygen Delivery Method Room Air Intake Visit Reasons: 1 mnth f/u appt-Conf w/daughter Medical Billing Clerk Required: Yes Medical Billing Clerk Language: Finisher Brush Services: Medical Billing Clerk Offered & Declined ([facility] workforce services representative services refused, pt accompanied by daughter) Accompanied by: Daughter Allergies ibuprofen Allergy (Unknown, Verified 07/16/24 12:00) GI upset HPI Comments Details: I had the privilege of seeing Teressa in follow up for CKD. She was accompanied by her daughter. She has H/O respiratory failure from COPD, needing intubation once. Recently during her hospitalization, she was found to have NSTEMI with mildly depressed EF. She also has been having anemia & pre diabetes. She denies taking NSAID's on a regular basis, denied new bone or back pain, epistaxis, hemoptysis, photosensitivity, orthostatic symptoms, edema, hematuria or sensori neural deafness. During her recent hospitalization, her serum creatinine had gone up to 2.2 which had improved to 1.85 prior to D/C which is 1.6 now. She is having tremors likely from Lyrica. [facility] Medical History (Updated 06/11/24 @ 14:26 by Jaxon Larsen MD) Reactive depression (situational) Macrocytosis Insomnia GERD (gastroesophageal reflux disease) Anemia Weight loss Severe obesity (BMI 35.0-39.9) with comorbidity COPD exacerbation Hyperlipidemia Paroxysmal atrial fibrillation Subsequent non-ST elevation (NSTEMI) myocardial infarction SOB (shortness of breath) Hypertension Secondary hyperparathyroidism of renal origin Prediabetes NSTEMI (non-ST elevated myocardial infarction) Cardiomyopathy, nonischemic Spondylosis without myelopathy or radiculopathy, lumbar region Surgical History H/O cardiac catheterization History of hip replacement, total History of knee surgery H/O lumpectomy Family History Brother Cancer Social History Alcohol intake: never Patient Tobacco Use Status: Former Tobacco user Tobacco use type: Cigarette Cigarettes Per Day: 10 Years Smoked: 48 e-Cigarette/Vaping Use: Never Used Review of Systems Const All systems reviewed & are unremarkable except as noted in HPI and below Physical Exam Const General: comfortable and no acute distress Orientation/consciousness: patient oriented x3 HEENT Head: Yes normocephalic Mouth: Normal oral and palatal mucosa present Eyes EOM: EOMs intact bilaterally Neck Neck: Yes supple Resp Auscultation: clear to auscultation bilaterally Cardio Jugular venous distension: no JVD Rate: regular rate GI Palpation (GI): Soft to palpation Auscultation: normal bowel sounds General: Yes no CVA tenderness Back/Spine/Pelvis Back: no CVA tenderness Skin General skin exam: no rashes or lesions noted Neuro General: patient oriented x3 and moves all extremities Extrem General: Yes no pedal edema Results Reviewed Nephrology Results: Hgb 10.0 g/dl (12.0-16.0) L 06/11/24 WBC 10.5 X10*3/uL (4.8-10.8) 06/11/24 Plt Count 291 X10*3/uL (160-400) 06/11/24 Sodium 142 mmol/L (135-145) 06/11/24 Potassium 4.4 mmol/L (3.3-5.1) 06/11/24 Chloride 107 mmol/L (96-108) 06/11/24 Carbon Dioxide 26 mmol/L (22-29) 06/11/24 BUN 37 mg/dL (9-16) H 06/11/24 Creatinine 1.66 mg/dL (0.5-1.4) H 06/11/24 Calcium 9.4 mg/dL (8.4-10.2) 06/11/24 Phosphorus 3.7 mg/dL (2.7-4.5) 06/11/24 PTH Intact 97.9 pg/mL (8.7-77.1) H 06/11/24 Urine Protein Negative mg/dL (Neg-Trace) 07/07/24 Urine Creatinine 78.16 mg/dL 06/11/24 Protein/Creatinin Ratio TNP 06/11/24 Renal US 06/24/24 Assessment & Plan Assessment & Plan (1) Anemia in chronic kidney disease (CKD): Code(s): N18.9 - Chronic kidney disease, unspecified; D63.1 - Anemia in chronic kidney disease Category: Medical Qualifiers: Chronic kidney disease stage: stage 3 (moderate) Chronic kidney disease stage 3 subtype: stage 3b (GFR 30-44) Qualified Code(s): N18.32 - Chronic kidney disease, stage 3b; D63.1 - Anemia in chronic kidney disease (2) Hypertension: Code(s): I10 - Essential (primary) hypertension Category: Medical Qualifiers: Hypertension type: primary hypertension Qualified Code(s): I10 - Essential (primary) hypertension (3) CKD stage 3b, GFR 30-44 ml/min: Code(s): N18.32 - Chronic kidney disease, stage 3b Category: Medical Plan Teressa has CKD 3 b at baseline for some time. She recently had RUBIO on CKD due to tubular injury which has improved. She is currently euvolemic and her BP is low normal. She is not on any ACEI/ARB/Entresto. 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 She is anemic and is contributed by her CKD. I shall arrange Procrit through my office with time based on data. No NSAID's , low sodium and adequate hydration. Her Lyrica dose should be brought down .She may be a candidate for SGLT2 i with time. Answered all questions. Further management is pending evolving data Orders: Orders Electrolytes 3 Months D63.1 - Anemia in chronic kidney disease, I10 - Essential (primary) hypertension, N18.32 - Chronic kidney disease, stage 3b Blood Urea Nitrogen 3 Months D63.1 - Anemia in chronic kidney disease, I10 - Essential (primary) hypertension, N18.32 - Chronic kidney disease, stage 3b Creatinine 3 Months D63.1 - Anemia in chronic kidney disease, I10 - Essential (primary) hypertension, N18.32 - Chronic kidney disease, stage 3b Complete Blood Count Auto Diff 3 Months D63.1 - Anemia in chronic kidney disease, I10 - Essential (primary) hypertension, N18.32 - Chronic kidney disease, stage 3b Coding Level of Care Code Est Pt Level 4 (70410) Diagnoses Anemia in stage 3b chronic kidney disease N18.32; D63.1 Chronic kidney disease stage: stage 3 (moderate) Chronic kidney disease stage 3 subtype: stage 3b (GFR 30-44) Primary hypertension I10 Hypertension type: primary hypertension CKD stage 3b, GFR 30-44 ml/min N18.32
[2024-07-16 12:01] VITALS: BP 98/60; PULSE 83; O2SAT 95; BMI 26.4
--- OUTSIDE RECORDS SUMMARY | 2024-07-16 14:16 | XMS_ITS | Clinical Summary ---
Author Organization [employer] Address [address] [place] [address] [address] [place] [address] Care Team Providers Care Documentation Coordinator Name Role Phone Unavailable Primary Care Provider [...] 2 Active cholecalciferol (Vitamin D-3) 1.25 MG (65646 UT) capsule Take 1 capsule by mouth. [...] to complete this topic Insurance [facility]AL - [facility]
--- OUTSIDE RECORDS SUMMARY | 2024-07-16 14:16 | XMS_ITS | Clinical Summary ---
Author Organization [facility] Address [address] [address] Phone Care Team Providers Care Miner Name Role Phone Mahin Hall MD Primary Care Provider [phone] Allergies Active Allergy Reactions Criticality Noted Date [...] Visit [facility] [address] [place] [address] Lou Villegas ARNP [address] [place] [address] Health Maintenance Due Date Last [...] PM EDT) Hemoglobin A1C 5.5 (4.0-5.6) % [facility] Comment: MONITORING: In known diabetic patients, hemoglobin A1c targets should be discussed with health care provider. DIAGNOSTIC USE: ??The [place] Diabetes Association (ADA) and the World Health [...] Supplement 1 Testing performed or reported by [facility] Reference [employer], a Service of [facility], [address] [place] [id number] Ale Feldman MD, Enterprise Data Architect [facility]# [id number] 01/17/2021 3:19 PM EDT 01/17/2021 3:20 PM EDT Gamaliel Chin MD LAB BLOOD ORDERABLES Final Re sult [facility] from Last 3 Months or Most Recently Relevant to Health Maintenance Insurance ([id number]) [place]STRADA [phone] * Guarantor: Teressa Gonzalez Account Type Relation to Patient Date of Phone Billing Address Personal/Family Self [address] ([id number]) Care Teams Miner Relationship Specialty Start Date End Date Mahin Hall MD [address] [place] [id number] PCP - General 04/04/20
--- OUTSIDE RECORDS SUMMARY | 2024-07-16 14:16 | XMS_ITS | Clinical Summary ---
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 She has an elevated [id number] score of 6. EKG done in the [...] 2:34 PM EST): Continue statin. COPD exacerbation ([facility] V24, [facility] V28) 09/2022 Severe obesity (BMI 35.0-39. 9) with comorbidity (CMS/[facility] V24, [facility] V28) 01/02/2019 CKD (chronic kidney disease) stage [...] I will discontinue metoprolol for now. Myocarditis ([facility] V24, [facility] V28) 04/16/2023 2024 CHF (congestive heart failur e) ([facility] V24, [facility] V28) 04/16/2023 2024 Encounters Date Type Department Care Team Description 07/13/2024 1:20 PM EDT Consult Gastroenterology [facility] [address] [phone] Ronit Turner NP Esophageal dysphagia (Primary Dx); Macrocytic anemia; History of adenomatous polyp of colon 07/13/2024 Telephone Gastroenterology [facility] [address] [phone] Ronit Turner NP 07/08/2024 Telephone Internal Medicine [address] [phone] Mahin Hall MD Rafael - Medication 07/03/2024 Telephone Internal Medicine [facility] [address] [phone] Alma Richard MA Med Refill 06/26/2024 Telephone Internal [address] [phone] Mahin Hall MD FYI: vna 06/24/2024 3:04 PM EDT - 06/25/2024 1:24 PM EDT Hospital Encounter [facility] [address] [place] [phone] Blaine Rodriguez DO Maduakor, Emmanuel C, MD Mohani, Priya, MD COPD exacerbation ([facility] V24, [facility] V28) (Primary Dx); Shortness of breath; Cardiomyopathy, nonischemic ([facility] V24, [facility] V28); NSTEMI (non-ST elevated myocardial infarction) ([facility] V24, [facility] V28) Discharge Disposition: Home-Health Care [facility] 06/22/2024 1:40 PM EDT Office Visit [facility] [address] [place] [phone] Kristy Blackmon NP Paroxysmal atrial fibrillation (CMS/HCC V24, CMS/HCC V28) (Primary Dx); Cardiomyopathy, nonischemic (CMS/HCC V24, CMS/HCC V28); Hyperlipidemia, unspecified hyperlipidemia type; Primary hypertension 06/22/2024 Telephone [facility] [address] [facility] [address] [place] [phone] Humera Pan MD medication update 06/22/2024 Telephone [facility] [address] [place] [phone] Kristy Blackmon NP 05/28/2024 10:30 AM EST Office Visit Internal Medicine [facility] 175 [facility] [address] [place] [phone] Mahin Hall MD Hospital discharge follow-up (Primary Dx); Acute hypoxemic respiratory failure (CMS/HCC V24, CMS/HCC V28); COPD exacerbation ([facility]/HCC V24, CMS/HCC V28); NSTEMI (non-ST elevated myocardial infarction) ([facility]/HCC V24, CMS/HCC V28); Macrocytic anemia; CKD (chronic kidney disease) stage 2, GFR 60-89 ml/min 05/20/2024 Telephone Internal Medicine [facility] 175 [facility] [address] [place] [phone] Mahin Hall MD Hospital Follow-up 05/13/2024 9:55 PM EST - 05/19/2024 3:57 PM EST Hospital Encounter [facility] [address] [place] [phone] Aris Malloy MD Kokosadze, Estate, MD Japaridze, Anna, MD NSTEMI (non-ST elevated myocardial infarction) ([facility]/HCC V24, [facility] V28) (Primary Dx) Discharge Disposition: Home or Self Care 04/27/2024 10:30 AM EST Office Visit [facility] Hematology Oncology [address] [place] [phone] Kym Soto PA Anemia of chronic renal failure, unspecified CKD stage (Primary Dx); Stage 3b chronic kidney disease (CMS/HCC V24, CMS/HCC V28); Chronic obstructive pulmonary disease, unspecified COPD type (CMS/HCC V24, CMS/HCC V28); Low serum vitamin B12 04/20/2024 10:45 AM EST Office Visit Internal Medicine - [place] 175 [facility] [address] [place] [phone] Kristopher Pate MD Hospital discharge follow-up (Primary Dx); Cough, unspecified type; COPD exacerbation (CMS/HCC V24, CMS/HCC V28) from Last 3 Months Immunizations Name Administration Dates Next Due Moderna SARS-CoV-2 COVID-19, mRNA, LNP-S, preservative free 06/23/2020 Surgical History Surgery Date Site/Laterality Comments BREAST LUMPECTOMY PROCEDURE: HISTORICAL BREAST LUMPECTOMY KNEE SURGERY PROCEDURE: HISTORICAL KNEE SURGERY CARDIAC CATHETERIZATION DONE ON 01/09/2024 AT [facility] INDICATIONS:SOB Medical History Medical History Date Comments Arthritis 11/06/2016 DX:Arthritis COPD, mild (CMS/HCC V24, CMS/HCC V28) 11/06/2016 DX:COPD, mild ([facility]) Depression 07/05/2016 DX:Depression Fibromyalgia 11/06/2016 DX:Fibromyalgia [...] Sign Reading Time Taken Comments Blood Pressure 100/60 07/13/2024 1:23 PM EDT Pulse 81 07/13/2024 1:23 PM EDT Temperature 36.2 ??C (97.2 ??F) 06/25/2024 11:26 AM E DT Respiratory Rate 24 06/25/2024 11:26 AM EDT Oxygen Saturation 90% 07/13/2024 1:23 PM EDT Inhaled Oxygen Concentration - - Weight 61.7 kg (136 lb) 07/13/2024 1:23 PM EDT Height 149.9 cm (4' 11 ) 07/13/2024 1:23 PM EDT Body Mass Index 27.47 07/13/2024 1:23 PM EDT Plan of Treatment Upcoming Encounters Date Type Department Care Team (Late st Contact Info) Description 07/27/2024 1:00 PM EDT Office Visit [facility] Hematology Oncology [address] [place] [phone] Kym Soto PA [address] [place] [address] 12/28/2024 2:40 PM EDT Office Visit [facility] - [facility] [address] [facility] [address] [place] [phone] Kristy Blackmon NP [address] [place] [address] Health Maintenance Due Date Last Done Comments [...] MOLECULAR STUDY STAT 05/13/2024 10:39 PM EST [place] CRITICAL CARE 30-74 MINUTES Routine 05/13/2024 9:48 [...] K/mcL LAB HEMETOLOGY METHOD 06/25/2024 7:12 AM [facility] RBC 3.10(L) 3.80 - 4.80 M/mcL LAB HEMETOLOGY METHOD 06/25/2024 7:12 AM [facility] Hemoglobin 10.3(L) 11.5 - 16.0 g/dL LAB HEMETOLOGY METHOD 06/25/2024 7:12 AM [facility] Hematocrit 31.0(L) 35.0 - 47.0 % LAB HEMETOLOGY METHOD 06/25/2024 7:12 AM [facility] MCV 100.3(H) 79.0 - 98.0 FL LAB HEMETOLOGY METHOD 06/25/2024 7:12 AM [facility] MCH 33.3(H) 27.0 - 32.0 pcg LAB HEMETOLOGY METHOD 06/25/2024 7:12 AM [facility] MCHC 33.2 32.0 - 37.0 g/dL LAB HEMETOLOGY METHOD 06/25/2024 7:12 AM [facility] RDW 14.2 11.0 - 15.0 % LAB HEMETOLOGY METHOD 06/25/2024 7:12 AM [facility] Platelets 202 130 - 400 K/mcL LAB HEMETOLOGY METHOD 06/25/2024 7:12 AM [facility] MPV 11.1(H) 7.0 - 11.0 FL LAB HEMETOLOGY METHOD 06/25/2024 7:12 AM [facility] NRBC 0.0 <1.0 % LAB HEMETOLOGY METHOD 06/25/2024 7:12 AM [facility] NRBC Absolute 0.00 <0.10 K[facility] LAB HEMETOLOGY METHOD 06/25/2024 7:12 AM [facility] Blood Venous blood specimen / Unknown Venipuncture / Unknown 06/25/2024 6:30 AM EDT 06/25/2024 6:59 AM EDT us Adams Long MD LAB BLOOD ORDERABLES Kristi brown Result [facility] [address] [place] [address], * (ABNORMAL) Basic metabolic panel (06/25/2024 6:30 AM EDT) Only the most recent of9 resultswithin the time period is included. Sodium 143 133 - 145 mmol/L LAB CHEMISTRY METHOD 06/25/2024 7:43 AM [facility] Potassium 4.7 3.5 - 5.5 mmol/L LAB CHEMISTRY METHOD 06/25/2024 7:43 AM [facility] Chloride 110 96 - 110 mmol/L LAB CHEMISTRY METHOD 06/25/2024 7:43 AM [facility] CO2 28 21 - 32 mmol/L LAB CHEMISTRY METHOD 06/25/2024 7:43 AM [facility] Anion Gap 5 3 - 11 LAB CHEMISTRY METHOD 06/25/2024 7:43 AM [facility] Glucose 116(H) 70 - 100 mg/dL LAB CHEMISTRY METHOD 06/25/2024 7:43 AM [facility] BUN 22 5 - 25 mg/dL LAB CHEMISTRY METHOD 06/25/2024 7:43 AM [facility] Creatinine 1.80(H) 0.50 - 1.10 mg/dL LAB CHEMISTRY METHOD 06/25/2024 7:43 AM [facility] eGFR 29(L) >=60 mL/min/1. 73m2 LAB CHEMISTRY METHOD 06/25/2024 7:43 AM EDT [facility] Comment:Calculation based on the??Chronic Kidney Disease Epidemiology Collaboration (CKD-EPI) equation refit??without adjustment for race. BUN/Creatinine Ratio 12.2 LAB CHEMISTRY METHOD 06/25/2024 7:43 AM EDT [facility] Calcium 9.3 8.5 - 10.5 mg/dL LAB CHEMISTRY METHOD 06/25/2024 7:43 AM EDT [facility] Blood Venous blood specimen / Unknown Venipuncture / Unknown 06/25/2024 6:30 AM EDT 06/25/2024 6:59 AM EDT us Adams Long MD LAB BLOOD ORDERABLES Kristi l Result Performing Organization Address [facility] de Phone Number [facility] [address] [place] [address], * (ABNORMAL) Troponin I high sensitivity (06/24/2024 10:56 PM EDT) Only the most recent of9 resultswithin the time period is included. High Sensitivity Troponin I 147(HH) <=54 ng/L LAB CHEMISTRY METHOD 06/25/2024 12:11 AM EDT [facility] Blood Venous blood specimen / Unknown Venipuncture / Unknown 06/24/2024 10:56 PM EDT 06/24/2024 11:25 PM EDT Narrative [facility] - 06/25/2024 12:11 AM EDT High levels of biotin in samples may falsely decrease hsTroponin values. ??Use caution when interpreting hsTroponin results in patients taking biotin who exhibit renal impairment (eGFR <60) or in patients taking more than 20 mg/day of biotin. us Jyoti CRAWFORD LAB BLOOD ORDERABLES Final Re sult Performing Organization Address [facility]/ZIP Co de Phone Number [facility] [address] [place] [address], [place] [phone] * XR Chest 2 Views (06/24/2024 5:06 [...] Signed Date: 06/25/2024 11:14 ET Workstation ID: [id number] Transcribed By: Self Edit Transcribed Date: 06/25/2024 [...] Signed Date: 06/25/2024 11:14 ET Workstation ID: [id number] Transcribed By: Self Edit Transcribed Date: 06/25/2024 11:14 ET us rJ Mcnamara MD IMG XR PROCEDURES Final Result * Respiratory virus panel molecular study (06/24/2024 3:37 PM EDT) Only the most recent of3 resultswithin the time period is included. Adenovirus Detection by PCR Not Detected Not Detected LAB MICROBIOLOGY METHOD 06/24/2024 4:54 PM EDT [facility] Influenza A PCR Not Detected Not Detected LAB MICROBIOLOGY METHOD 06/24/2024 4:54 PM EDT [facility] Influenza B PCR Not Detected Not Detected LAB MICROBIOLOGY METHOD 06/24/2024 4:54 PM EDT [facility] Coronavirus 229E Not Detected Not Detected LAB MICROBIOLOGY METHOD 06/24/2024 4:54 PM EDT [facility] Coronavirus HKU1 Not Detected Not Detected LAB MICROBIOLOGY METHOD 06/24/2024 4:54 PM EDT [facility] Coronavirus OC43 Not Detected Not Detected LAB MICROBIOLOGY METHOD 06/24/2024 4:54 PM EDT [facility] Coronavirus NL63 Not Detected Not Detected LAB MICROBIOLOGY METHOD 06/24/2024 4:54 PM EDT [facility] Parainfluenza Virus 1 Not Detected Not Detected LAB MICROBIOLOGY METHOD 06/24/2024 4:54 PM EDT [facility] Parainfluenza Virus 2 Not Detected Not Detected LAB MICROBIOLOGY METHOD 06/24/2024 4:54 PM EDT [facility] Parainfluenza Virus 3 Not Detected Not Detected LAB MICROBIOLOGY METHOD 06/24/2024 4:54 PM EDT [facility] Parainfluenza Virus 4 Not Detected Not Detected LAB MICROBIOLOGY METHOD 06/24/2024 4:54 PM EDT [facility] RSV PCR Not Detected Not Detected LAB MICROBIOLOGY METHOD 06/24/2024 4:54 PM EDT [facility] Human Metapneumovirus A and B Not Detected Not Detected LAB MICROBIOLOGY METHOD 06/24/2024 4:54 PM EDT [facility] Rhinovirus/Entero virus Not Detected Not Detected LAB MICROBIOLOGY METHOD 06/24/2024 4:54 PM EDT [facility] Bordetella pertussis Not Detected Not Detected LAB MICROBIOLOGY METHOD 06/24/2024 4:54 PM EDT [facility] Bordetella parapertussis Not Detected Not Detected LAB MICROBIOLOGY METHOD 06/24/2024 4:54 PM EDT [facility] Mycoplasma pneumo by PCR Not Detected Not Detected LAB MICROBIOLOGY METHOD 06/24/2024 4:54 PM EDT [facility] Chlamydia pneumoniae Not Detected Not Detected LAB MICROBIOLOGY METHOD 06/24/2024 4:54 PM EDT [facility] SARS COV-2 Not Detected Not Detected LAB MICROBIOLOGY METHOD 06/24/2024 4:54 PM EDT [facility] Swab Both anterior nares / Unknown Non-blood Collection / Unknown 06/24/2024 3:37 PM EDT 06/24/2024 3:53 PM EDT [facility] - 06/24/2024 4:54 PM EDT Testing was performed using the [employer] Respiratory Pathogen PCR Assay. All results must [...] MICROBIOLOGY - GENERAL ORD ERABLES Final Result [facility] [address] [place] [address], * (ABNORMAL) CBC auto differential (06/24/2024 2:55 PM EDT) Only the most recent of9 resultswithin the time period is included. WBC 12.3(H) 4.8 - 10.8 K/mcL LAB HEMETOLOGY METHOD 06/24/2024 3:29 PM EDT [facility] RBC 3.20(L) 3.80 - 4.80 M/mcL LAB HEMETOLOGY METHOD 06/24/2024 3:29 PM EDT [facility] Hemoglobin 10.7(L) 11.5 - 16.0 g/dL LAB HEMETOLOGY [facility] Hematocrit 33.2(L) 35.0 - 47.0 % LAB HEMETOLOGY METHOD 06/24[facility]2024 [facility] MCV 102.8(H) 79.0 - 98.0 FL LAB HEMETOLOGY METHOD 06/24/2024 3:29 PM [facility] MCH 33.1(H) 27.0 - 32.0 pcg LAB HEMETOLOGY METHOD 06/24/2024 3:29 PM [facility] MCHC 32.2 32.0 - 37.0 g/dL LAB HEMETOLOGY METHOD 06/24/2024 3:29 PM [facility] RDW 14.5 11.0 - 15.0 % LAB HEMETOLOGY METHOD 06/24/2024 3:29 PM [facility] Platelets 198 130 - 400 K/mcL LAB HEMETOLOGY METHOD 06/24/2024 3:29 PM [facility] MPV 11.1(H) 7.0 - 11.0 FL LAB HEMETOLOGY METHOD 06/24/2024 3:29 PM [facility] NRBC 0.0 <1.0 % LAB HEMETOLOGY [facility]/24[facility]2024 3[facility] NRBC Absolute 0.00 <0.10 K/mcL LAB HEMETOLOGY METHOD 06/24/2024 3:[facility] Neutrophils Relative 70.3 % LAB HEMETOLOGY METHOD 06/24/2024 3:29 PM EDT [facility] Lymphocytes Relative 16.7 % LAB HEMETOLOGY METHOD 06/24/2024 3:29 PM T [facility] Monocytes Relative 8.8 % LAB HEMETOLOGY METHOD 06/24/2024 3:29 PM [facility] Eosinophils Relative 3.2 % LAB HEMETOLOGY METHOD 06/24/2024 3:29 PM [facility] Basophils Relative 0.6 % LAB HEMETOLOGY METHOD 06/24/2024 3:29 PM [facility] Immature Granulocytes Relative 0.4 % LAB HEMETOLOGY METHOD 06/24/2024 3:29 PM [facility] Neutrophils Absolute 8.62(H) 1.50 - 7.00 K/mcL LAB HEMETOLOGY METHOD 06/24/2024 3:29 PM [facility] Lymphocytes Absolute 2.05 1.00 - 5.00 K/mcL LAB HEMETOLOGY METHOD 06/24/2024 3:29 PM [facility] Monocytes Absolute 1.08(H) 0.20 - 1.00 K/mcL LAB HEMETOLOGY METHOD 06/24/2024 3:29 PM [facility] Eosinophils Absolute 0.39 0.00 - 0.50 K/mcL LAB HEMETOLOGY METHOD 06/24/2024 3:29 PM [facility] Basophils Absolute 0.07 0.00 - 0.20 K/mcL LAB HEMETOLOGY METHOD 06/24/2024 3:29 PM [facility] Immature Granulocytes Absolute 0.05(H) 0.00 - 0.03 K/mcL LAB HEMETOLOGY METHOD 06/24/2024 3:29 PM [facility] Blood Venous blood specimen / Unknown Venipuncture / Unknown 06/24/2024 2:55 PM EDT 06/24/2024 3:23 PM EDT us Jr Mcnamara MD LAB BLOOD ORDERABLES Final Resu lt Performing Organization Address City/[facility]/ZIP Co de Phone Number [facility] [address] [place] [address], [place] [phone] * ECG 12 lead (06/24/2024 2:51 PM EDT) Only the most recent of9 resultswithin the time period is included. Ventricular Rate ECG 97 BPM GEMUSE Atrial Rate 97 BPM GEMUSE P-R Interval 150 ms GEMUSE QRS Duration 64 ms GEMUSE Q-T Interval 342 ms GEMUSE QTc 434 ms GEMUSE P Wave [place] 19 degrees GEMUSE R [place] 43 degrees GEMUSE T [place] -166 degrees GEMUSE ECG Interpretation Normal sinus rhythm ST and Marked T wave abnormality, consider anterolateral ischemia Abnormal ECG When compared with ECG of 22-JUN-2024 14:20, No significant change was found Confirmed by MALISSA MITCHELL ([id number]) on 06/24/2024 8:14:56 PM GEMUSE 06/24/2024 2:51 PM EDT 06/24/2024 8:14 PM EDT us Jr Mcnamara MD ECG ORDERABLES Final Result Performing Organization Address [facility] de Phone Number GEMUSE * External Ultrasound Report (06/24/2024) Only [...] LAB HEMETOLOGY METHOD 2024 2:48 PM EST [facility] Hematocrit 26.0(L) 35.0 - 47.0 % LAB HEMETOLOGY METHOD 2024 2:48 PM EST [facility] Blood Venous blood specimen / Unknown Venipuncture / Unknown 2024 2:37 PM EST 2024 2:41 PM EST Kym Angulo MD LAB BLOOD ORDERABLES Final Res ult [facility] [address] [place] [address], [place] [phone] * Thyroid stimulating hormone with reflex to free t4 and free t3 (05/16/2024 5:33 AM EST) TSH 0.59 0.40 - 4.00 mcIU/mL LAB CHEMISTRY METHOD 05/16/2024 7:46 AM EST [facility] Blood Venous blood specimen / Unknown Venipuncture / Unknown 05/16/2024 5:33 AM EST 05/16/2024 7:01 AM EST Orlando CRAWFORD LAB BLOOD ORDERABLES Final Res ult Performing Organization Address City/[facility]/ZIP Co de Phone Number [facility] [address] [place] [address], [place] [phone] * Anti-Xa - Every 6 Hours (05/16/2024 5:33 AM EST) Only the most recent of8 resultswithin the time period is included. Heparin Anti-Xa 0.35 0.30 - 0.70 I Unit/mL LAB COAGULATION METHOD 05/16/2024 7:25 AM EST [facility] Blood Venous blood specimen / Unknown Venipuncture / Unknown 05/16/2024 5:33 AM EST 05/16/2024 7:00 AM EST Narrative [facility] - 05/16/2024 7:25 AM EST Therapeutic range listed is for Unfractionated Heparin. LMW Heparin therapeutic range: 0.50-1.20 IU/mL us Edward Maurice MD LAB BLOOD ORDERABLES Final R esult Performing Organization Address City/[facility]/ZIP Co de Phone Number [facility] [address] [place] [address], [place] [phone] * SST tube (05/15/2024 10:17 AM EST) Extra Tube Hold for add-ons. 05/15/2024 12:02 PM EST [facility] Comment:Auto resulted. Blood Venous blood specimen / Unknown Venipuncture / Unknown 05/15/2024 10:17 AM EST 05/15/2024 10:31 AM EST us Edward Maurice MD LAB BLOOD ORDERABLES Final R esult Performing Organization Address City/[facility]/ZIP Co de Phone Number [facility] [address] [place] [address], [place] [phone] * Lavender tube (05/15/2024 10:17 AM EST) Extra Tube Hold for add-ons. 05/15/2024 12:02 PM EST [facility] Comment:Auto resulted. Blood Venous blood specimen / Unknown Venipuncture / Unknown 05/15/2024 10:17 AM EST 05/15/2024 10:31 AM EST us Edward Maurice MD LAB BLOOD ORDERABLES Final R esult [facility] [address] [place] [address], [place] [phone] * (ABNORMAL) TRANSTHORACIC ECHOCARDIOGRAM (TTE) LIMITED WITH [...] the patient in a supine position. us Estate Josafat ARMAS CV ECHO PROCEDURES Final Res ult * Lipid panel with reflex to direct LDL (05/15/2024 4:19 AM EST) Pathologist [facility] Cholesterol 118 0 - 200 mg/dL LAB CHEMISTRY METHOD 05/15/2024 5:48 AM EST [facility] Triglycerides 68 0 - 150 mg/dL LAB CHEMISTRY METHOD 05/15/2024 5:48 AM EST [facility] HDL 57 >=40 mg/dL LAB CHEMISTRY METHOD 05/15/2024 5:[address] [facility] LDL Calculated 47 0 - 100 mg/dL LAB CHEMISTRY METHOD 05/15/2024 5:[address] [facility] VLDL Cholesterol Cody 13.6 mg/dL LAB CHEMISTRY METHOD 05/15/2024 5:[address] [facility] Non HDL Chol. (LDL+VLDL) 61 <145 mg/dL LAB CHEMISTRY METHOD 05/15/2024 5:[address] [facility] Chol/HDL Ratio 2.1 0.0 - 4.4 LAB CHEMISTRY METHOD 05/15/2024 5:[address] [facility] Blood Venous blood specimen / Unknown Venipuncture / Unknown 05/15/2024 4:19 AM EST 05/15/2024 5:12 AM EST us Estate Josafat ARMAS LAB BLOOD ORDERABLES Final R esult [facility] [address] [place] [address], * (ABNORMAL) D-Dimer (05/15/2024 4:19 AM EST) D-Dimer, Quant (D-DU) 270(H) <=230 ng/mL DDU LAB COAGULATION METHOD 05/15/2024 5:31 AM EST [facility] Blood Venous blood specimen / Unknown Venipuncture / Unknown 05/15/2024 4:19 AM EST 05/15/2024 5:12 AM EST [facility] - 05/15/2024 5:31 AM EST D-Dimer <230 ng/mL (D-Dimer units) is the threshold for exclusion of DVT/PE. D-Dimer may be elevated in: Critically ill, severely infected, trauma patients, DIC, acute CVA, acute CT, unstable angina, AF, old age, , and smoking. D-Dimer may be decreased with: Initiation of heparin therapy and oral anticoagulants. Orlando CRAWFORD LAB BLOOD ORDERABLES Final Res ult Performing Organization Address City/[facility]/ZIP Co de Phone Number [facility] [address] [place] [address], [place] [phone] * Magnesium (05/15/2024 4:19 AM EST) Only the most recent of3 resultswithin the time period is included. Magnesium 2.5 1.9 - 2.6 mg/dL LAB CHEMISTRY METHOD 05/15/2024 5:48 AM EST [facility] Blood Venous blood specimen / Unknown Venipuncture / Unknown 05/15/2024 4:19 AM EST 05/15/2024 5:12 AM EST Aris Malloy MD LAB BLOOD ORDERABLES Final Res ult Performing Organization Address [facility] Co de Phone Number [facility] [address] [place] [address], [place] [phone] * Lactate, with reflex (05/14/2024 11:59 AM EST) Only the most recent of2 resultswithin the time period is included. LACTIC ACID 1.6 0.4 - 2.0 mmol/L LAB CHEMISTRY METHOD 05/14/2024 12:53 PM EST [facility] Blood Venous blood specimen / Unknown Venipuncture / Unknown 05/14/2024 11:59 AM EST 05/14/2024 12:16 PM EST Edward Maurice MD LAB BLOOD ORDERABLES Final R esult Performing Organization Address City/[facility]/ZIP Co de Phone Number [facility] [address] [place] [address], [place] [phone] * (ABNORMAL) Activated Partial Thromboplastin Time - Every 6 Hours (05/14/2024 11:59 AM EST) Only the most recent of2 resultswithin the time period is included. [facility] aPTT 199.8(HH) 24.1 - 39.3 sec LAB COAGULATION METHOD 05/14/2024 12:58 PM EST [facility] Blood Venous blood specimen / Unknown Venipuncture / Unknown 05/14/2024 11:59 AM EST 05/14/2024 12:16 PM EST us Aris Malloy MD LAB BLOOD ORDERABLES Final Res ult Performing Organization Address [facility]/ZIP Co de Phone Number [facility] [address] [place] [address], [place] [phone] * Prothrombin Time with INR - STAT (05/14/2024 5:30 AM EST) [facility] Protime 11.3 10.6 - 13.9 sec LAB COAGULATION METHOD 05/14/2024 7:39 AM EST [facility] INR 0.9 LAB COAGULATION METHOD 05/14/2024 7:39 AM EST [facility] Blood Venous blood specimen / Unknown Venipuncture / Unknown 05/14/2024 5:30 AM EST 05/14/2024 6:21 AM EST us Aris Malloy MD LAB BLOOD ORDERABLES Final Res ult [facility] [address] [place] [address], [place] [phone] * Light blue tube (05/14/2024 3:31 AM EST) [facility] Extra Tube Hold for add-ons. 05/14/2024 5:01 AM EST [facility] Comment:Auto resulted. Blood Venous blood specimen / Unknown Venipuncture / Unknown 05/14/2024 3:31 AM EST 05/14/2024 3:45 AM EST us Aris Malloy MD LAB BLOOD ORDERABLES Final Res ult [facility] [address] [place] [address], * CT Chest wo Contrast (05/14/2024 1:23 [...] EST) Anatomical Region Laterality Modality Body Radiographic Lathea ging 05/14/2024 9:07 AM EST Impressions 05/14/2024 9:10 AM EST Bilateral lower lung peribronchial thickening consistent with bronchitis versus atypical or viral pneumonia. Code 96541 -------- FINAL REPORT -------- Dictated By: Anibal Christie Dictated Date: 05/14/2024 09:07 ET Assigned Physician: Anibal Christie Reviewed and Electronically Signed By: Anibal Christie Signed Date: 05/14/2024 09:10 ET Workstation ID: [id number] Transcribed By: Self Edit Transcribed Date: 05/14/2024 [...] with bronchitisversus atypical or viral pneumonia. Code 11603 -------- FINAL REPORT -------- Dictated By: Anibal Christie Dictated Date: 05/14/2024 09:07 ET Assigned Physician: Anibal Christie Reviewed and Electronically Signed By: Anibal Christie Signed Date: 05/14/2024 09:10 ET Workstation ID: [id number] Transcribed By: Self Edit Transcribed Date: 05/14/2024 09:07 ET Valerie CRAWFORD IMG XR PROCEDURES Final Resul t * B-type natriuretic peptide (05/13/2024 10:39 PM EST) Pathologist [facility] BNP 90 <=100 pcg/mL LAB CHEMISTRY METHOD 05/13/2024 11:53 PM EST [facility] Blood Venous blood specimen / Unknown Venipuncture / Unknown 05/13/2024 10:39 PM EST 05/13/2024 11:21 PM EST Valerie CRAWFORD LAB BLOOD ORDERABLES Final Re sult [facility] [address] [place] [address], * (ABNORMAL) Comprehensive metabolic panel (05/13/2024 10:39 PM EST) Pathologist [facility] Sodium 140 133 - 145 mmol/L LAB CHEMISTRY METHOD 05/14/2024 12:02 AM EST [facility] Potassium 4.0 3.5 - 5.5 mmol/L LAB CHEMISTRY METHOD 05/14/2024 12:[address] [facility] Chloride 111(H) 96 - 110 mmol/L LAB CHEMISTRY METHOD 05/14/2024 12:02 AM EST [facility] CO2 21 21 - 32 mmol/L LAB CHEMISTRY METHOD 05/14/2024 12:[address] [facility] Anion Gap 8 3 - 11 LAB CHEMISTRY METHOD 05/14/2024 12:[address] [facility] Glucose 201(H) 70 - 100 mg/dL LAB CHEMISTRY METHOD 05/14/2024 12:[address] [facility] BUN 24 5 - 25 mg/dL LAB CHEMISTRY METHOD 05/14/2024 12:[address] [facility] Creatinine 1.43(H) 0.50 - 1.10 mg/dL LAB CHEMISTRY METHOD 05/14/2024 12:[address] [facility] eGFR 39(L) >=60 mL/min/1. 73m2 LAB CHEMISTRY METHOD 05/14/2024 12:[address] [facility] Comment:Calculation based on the??Chronic Kidney Disease Epidemiology Collaboration (CKD-EPI) equation refit??without adjustment for race. BUN/Creatinine Ratio 16.8 LAB CHEMISTRY METHOD 05/14/2024 12:[address] [facility] Calcium 9.2 8.5 - 10.5 mg/dL LAB CHEMISTRY METHOD 05/14/2024 12:[address] [facility] AST (SGOT) 21 10 - 42 unit/L LAB CHEMISTRY METHOD 05/14/2024 12:[address] [facility] ALT (SGPT) 16 10 - 60 unit/L LAB CHEMISTRY METHOD 05/14/2024 12:[address] [facility] Alkaline Phosphatase 141(H) 42 - 121 unit/L LAB CHEMISTRY METHOD 05/14/2024 12:[address] [facility] Total Protein 6.9 6.0 - 8.0 g/dL LAB CHEMISTRY METHOD 05/14/2024 12:[address] [facility] Albumin 3.7 3.2 - 5.0 g/dL LAB CHEMISTRY METHOD 05/14/2024 12:[address] [facility] Total Bilirubin 0.4 0.0 - 1.4 mg/dL LAB CHEMISTRY METHOD 05/14/2024 12:02 AM EST [facility] Blood Venous blood specimen / Unknown Venipuncture / Unknown 05/13/2024 10:39 PM EST 05/13/2024 11:21 PM EST us Valerie CRAWFORD LAB BLOOD ORDERABLES Final Re sult [facility] [address] [place] [address], [place] [phone] * [place] CRITICAL CARE 30-74 MINUTES (05/13/2024 9:48 PM [...] B12 and folate (04/27/2024 11:37 AM EST) Pathologist [facility] Vitamin B-12 1,822(H) 250 - 900 pcg/mL LAB CHEMISTRY METHOD 04/27/2024 2:18 PM EST [facility] Folate 8.3 2.8 - 17.0 ng/ml LAB CHEMISTRY METHOD 04/27/2024 2:[address] [facility] Blood Venous blood specimen / Unknown Venipuncture / Unknown 04/27/2024 11:37 AM EST 04/27/2024 1:32 PM EST us Kym CRAWFORD LAB BLOOD ORDERABLES Final Re sult [facility] [address] [place] [address], [place] [phone] * (ABNORMAL) Manual differential (04/27/2024 11:37 AM EST) Neutrophils % 41.0 % LAB HEMETOLOGY METHOD 04/27/2024 2:[address] [facility] Lymphocytes % 23.0 % LAB HEMETOLOGY METHOD 04/27/2024 2:[address] [facility] Monocytes % 6.0 % LAB HEMETOLOGY METHOD 04/27/2024 2:[address] [facility] Eosinophils % 30.0 % LAB HEMETOLOGY METHOD 04/27/2024 2:[address] [facility] Basophils % 0.0 % LAB HEMETOLOGY METHOD 04/27/2024 2:[address] [facility] Neutrophils Absolute Manual 8.77(H) 1.50 - 7.00 K/mcL LAB HEMETOLOGY METHOD 04/27/2024 2:[address] [facility] Lymphocytes Absolute 4.92 1.00 - 5.00 K/mcL LAB HEMETOLOGY METHOD 04/27/2024 2:[address] [facility] Monocytes Absolute Manual 1.28(H) 0.20 - 1.00 K/mcL LAB HEMETOLOGY METHOD 04/27/2024 2:[address] [facility] Eosinophils Absolute Manual 6.42(H) 0.00 - 0.50 K/mcL LAB HEMETOLOGY METHOD 04/27/2024 2:36 PM EST [facility] Basophils Absolute Manual 0.00 0.00 - 0.20 K/mcL LAB HEMETOLOGY METHOD 04/27/2024 2:36 PM EST [facility] Rbc Morphology Consistent with indices Consistent with indices, Normal for [place] LAB HEMETOLOGY METHOD 04/27/2024 2:36 PM EST [facility] Platelet Morphology - WAM See Note(A) Normal LAB HEMETOLOGY METHOD 04/27/2024 2:36 PM EST [facility] Comment:PLT: Normal Blood Venous blood specimen / Unknown Venipuncture / Unknown 04/27/2024 11:37 AM EST 04/27/2024 1:32 PM EST us Kym CRAWFORD LAB BLOOD ORDERABLES Final Re sult [facility] [address] [place] [address], [place] [phone] * (ABNORMAL) Iron and TIBC (04/27/2024 11:37 AM EST) Iron 81 40 - 150 mcg/dL LAB CHEMISTRY METHOD 04/27/2024 1:[address] [facility] TIBC 248(L) 250 - 450 mcg/dL LAB CHEMISTRY METHOD 04/27/2024 1:56 PM EST [facility] Iron Saturation 33 15 - 50 % LAB CHEMISTRY METHOD 04/27/2024 1:56 PM EST [facility] Blood Venous blood specimen / Unknown Venipuncture / Unknown 04/27/2024 11:37 AM EST 04/27/2024 1:32 PM EST Kym CRAWFORD LAB BLOOD ORDERABLES Final Re sult [facility] [address] [place] [address], [place] [phone] * (ABNORMAL) Reticulocyte count (04/27/2024 11:37 AM EST) Retic Ct Abs 0.080 0.030 - 0.090 M/mcL LAB HEMETOLOGY METHOD 04/27/2024 2:04 PM EST [facility] Retic Ct Pct 2.4(H) 0.7 - 1.7 % LAB HEMETOLOGY METHOD 04/27/2024 2:[address] [facility] Immature Retic Fract 14.5 2.3 - 15.9 % LAB HEMETOLOGY METHOD 04/27/2024 2:[address] [facility] Reticulocyte Hemoglobin 35.8 >29.0 pcg LAB HEMETOLOGY METHOD 04/27/2024 2:04 PM EST [facility] Blood Venous blood specimen / Unknown Venipuncture / Unknown 04/27/2024 11:37 AM EST 04/27/2024 1:32 PM EST Kym CRAWFORD LAB BLOOD ORDERABLES Final Re sult Performing Organization Address [facility] Co de Phone Number [facility] [address] [place] [address], [place] [phone] * (ABNORMAL) Ferritin (04/27/2024 11:37 AM EST) Ferritin 274(H) 8 - 252 ng/mL LAB CHEMISTRY METHOD 04/27/2024 2:18 PM EST [facility] Blood Venous blood specimen / Unknown Venipuncture / Unknown 04/27/2024 11:37 AM EST 04/27/2024 1:32 PM EST Kym CRAWFORD LAB BLOOD ORDERABLES Final Re sult Performing Organization Address City/[facility]/ZIP Co de Phone Number [facility] [address] [place] [address], * HM Urine Albumin Creatinine Ratio (10/04/2023) Urine Albumin Creatinine Ratio abstracted us Historical Provider HEALTH MAINTENANCE Final Result * BHARATH SCREENING DIGITAL (09/09/2018 4:37 PM EDT) Anatomical Region Laterality Modality Mammography 09/09/2018 1:07 PM EDT Narrative 09/09/2018 4:[address] [facility] Diagnostic Imaging Department [address] [place] [address] Patient: ??TERESSA ALLAN ?/Age/Sex: 1950 - 68 - F Unit#: ??[id number] ? Location/Status: ??SPDIMAM/REG CLI ? Mnemonic/Ordering Site: ??DIGSC/SPMAM Ordering Physician: ??RAFAEL MONTANO MD Bharath Screening Digital - 09/09/18 - 1332 EXAM: Bharath Screening Digital EXAM DATE AND TIME: 09/09/2018 1:34 PM HISTORY: ??Screening. Excisional biopsy of the right breast in 2000, pathology benign. COMPARISON: ??09/04/17, 09/01/16, 07/13/15, 06/10/14 TECHNIQUE: CC and MLO views of both breasts were obtained using full field digital mammography. Bilateral digital breast tomosynthesis was performed in the MLO projection. Computer aided detection with the [employer].2-H was employed. TISSUE DENSITY: c. The breasts [...] Routine screening mammogram BILATERAL in 1 year. 54014, 22186 3342F, 7025F Dictating Physician: ??OXANA PRESLEY MD Electronically Signed by: ??OXANA PRESLEY MD Dic Date/Time: ??09/09/18 1636 Sign date/Time: ??09/09/18 1637 Procedure Note Oxana Presley - 03/13/2022 [facility] Diagnostic Imaging Department [address] [place] [address] Patient: TERESSA ALLAN./Age/Sex: 1950 - 68 - F Unit#: [id number] Location/Status: [facility] Mnemonic/Ordering Site: [facility] Ordering Physician: RAFAEL MONTANO MD [facility] Screening Digital - 09/09/18 - 1333 EXAM: [facility] Screening Digital EXAM DATE AND TIME: 09/09/2018 1:34 PM HISTORY: Screening. Excisional biopsy of the right breast in 2000,pathology benign. COMPARISON: 09/04/17, 09/01/16, 07/13/15, 06/10/14 TECHNIQUE: CC and MLO views of both breasts were obtained using fullfield digital mammography. Bilateral digital breast tomosynthesis was performedin the MLO projection. Computer aided detection with the [employer].2-ChoiceStreamas employed. TISSUE DENSITY: c. The breasts are [...] Routine screening mammogram BILATERAL in 1 year. 45903, 82259 3342F, 7025F Dictating Physician: OXANA PRESLEY MD Electronically Signed by: OXANA PRESLEY MD Dic Date/Time: 09/09/18 1636 Sign date/Time: 09/09/18 1637 Mahin Hall MD IMG BI PROCEDURES Final Result from Last 3 Months or Most Recently Relevant to Health Maintenance Insurance [facility] MEDIC[facility] Member Subscriber Plan / Payer (Ef fective 2018-Present) Name:Teressa Allan Relation to Subscriber:Self Name:Teressa Allan Payer ID:[id number] Group ID:[id number] Type:Not on file Address: [address] [place] [id number] Advance Directives Documents on File Type Date Recorded 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
--- OUTSIDE RECORDS SUMMARY | 2024-07-16 14:16 | XMS_ITS | Encounter Summary ---
Author Organization [facility] Address [address] [place] [address] Care Team Providers Care Annealing Torch Operator Name Role Phone Mahin Hall MD Primary Care Provider [phone] Reason for Visit * Reason Onset Date Comments Rafael - Medication 07/08/2024 Encounter Details Date Type Department Care Team ([facility] st Contact Info) Description 07/08/2024 Telephone Internal Medicine - [place] [address] [phone] Mahin Hall MD 175 [facility] [address] [place] [address] Rafael - Medication Social History Tobacco Use Types Packs/Day Years [...] Progress Notes * Mahin Hall MD - 07/09/2024 8:30 AM EDT Hence possibly do not use doxepin. Although it is a low-dose * Sravan Godoy MA - 07/09/2024 8:16 AM EDT Please advise * Christine Ellis - 07/08/2024 4:30 PM EDT Received a fax from [facility] regarding 3 of pt's medication: doxepin (SINEquan) 25 mg capsule, pregabalin (LYRICA) 75 mg capsule, & traMADoL (ULTRAM) 50 mg tablet. Firstly, it states since this pt is over 65, a daily dose greater than 6 mg should be avoided because doxepin at high doses is highly anticholinergic, sedating, and causes orthostatic hypotension. It states to discontinue this medication and switch to a therapeutic alternative or to decrease the dose below 6 mg per day. Secondly, it states this patient is currently taking 3 or more central nervous system (AIRBRUSH ARTIST TECHNICAL) agents.Current guidelines recommend avoiding a total of three or more AIRBRUSH ARTIST TECHNICAL-active drugs because the combination increases the risk of falls (all) and fracture (benzodiazepines and nonbenzodiazepines hypnotics). It states to please evaluate pt's current med list and adjust their treatment plan to minimize or eliminate AIRBRUSH ARTIST TECHNICAL burden. Please advise. documented in this encounter Plan of Treatment Upcoming Encounters Date Type Department Care Team (Late st Contact Info) Description 07/27/2024 1:00 PM EDT Office Visit [facility] Hematology Oncology [address] [place] [address] Kym Soto PA [address] [place] [address] 12/28/2024 2:40 PM EDT Office Visit [facility] - [facility] [address] [facility] [address] [place] [phone] Kristy Blackmon NP [address] [place] [address] documented as of this encounter Visit Diagnoses Not on filedocumented in this encounter Care Teams Annealing Torch Operator Relationship Specialty Start Date End Date Mahin Hall MD 175 [facility] [address] [place] [address] PCP - General Internal Medicine 11/15/13 documented as of this encounter
--- OUTSIDE RECORDS SUMMARY | 2024-07-16 14:16 | XMS_ITS | Encounter Summary ---
Author Organization [facility] Address [address] [place] [address] Care Team Providers Care Curatorial Specialist Name Role Phone Mahin Hall MD Primary Care Provider [phone] Reason for Visit * Reason Onset Date Comments FYI: vna 06/26/2024 Encounter Details Date Type Department Care Team (Late st Contact Info) Description 06/26/2024 Telephone Internal Medicine - [place] [address] [phone] Mahin Hall MD [address] [address] FYI: vna Social History Tobacco Use Types [...] the nursing services that were offered. Cb# [phone] documented in this encounter Plan of Treatment Upcoming Encounters Date Type Department Care Team (Late st Contact Info) Description 07/27/2024 1:00 PM EDT Office Visit [facility] Hematology Oncology [address] [place] [address] Kym Soto PA [address] [place] [address] 12/28/2024 2:40 PM EDT Office Visit [facility] Associates - [address] [place] [address] Kristy Blackmon NP [address] [place] [address] documented as of this encounter Visit Diagnoses Not on filedocumented in this encounter Care Teams Curatorial Specialist Relationship Specialty Start Date End Date Mahin Hall MD [address] [facility] [address] [place] [address] PCP - General Internal Medicine 11/15/13 documented as of this encounter
--- OUTSIDE RECORDS SUMMARY | 2024-07-16 14:16 | XMS_ITS | Encounter Summary ---
Author Organization [facility] Address [address] [place] [address] Care Team Providers Care Draw Bench Operator Helper Name Role Phone Mahin Hall MD Primary Care Provider [phone] Reason for Visit * Reason Onset Date Comments Med Refill 07/03/2024 Encounter Details Date Type Department Care Team (Late st Contact Info) Description 07/03/2024 Telephone Internal Medicine [facility] [address] [place] [phone] Alma Richard MA Med Refill Social History [...] 07/27/2024 1:00 PM EDT Office Visit [facility] Hematology Oncology [address] [place] [phone] Kym Soto PA [address] [place] [address] 12/28/2024 2:40 PM EDT Office Visit [facility] - [facility] [address] [facility] [address] [place] [address] Kristy Blackmon NP [address] [place] [address] documented as of this encounter Visit Diagnoses Not on filedocumented in this encounter Care Teams Draw Bench Operator Helper Relationship Specialty Start Date End Date Mahin Hall MD [address] [place] [address] PCP - General Internal Medicine 11/15/13 documented as of this encounter
--- OUTSIDE RECORDS SUMMARY | 2024-07-16 14:16 | XMS_ITS | Clinical Summary ---
Author Organization [facility] Address [address] [place] [address] Care Team Providers Care Food And Beverage Analyst Name Role Phone Mahin Hall MD [...] as needed for pain. 0 Active Tiotropium [place] Monohydrate (SPIRIVA HANDIHALER IN) Inhale into the [...] age to complete this topic Care Teams Food And Beverage Analyst Relationship Specialty Start Date End Date Mahin Hall MD PCP - General Internal Medicine 12/21/19
--- OUTSIDE RECORDS SUMMARY | 2024-07-16 14:17 | XMS_ITS | Encounter Summary ---
Author Organization [facility] Address [address] [place] [address] Care Team Providers Care Obstetrics Gyn Name Role Phone Mahin Hall MD Primary Care Provider [phone] Encounter Details Date Type Department Care Team ([facility] st Contact Info) Description 07/13/2024 Telephone Gastroenterology - [place] [address] [facility] [address] [place] [phone] Ronit Turner NP 175 [facility] [address] [place] [address] Social History Tobacco Use Types Packs/Day Years [...] documented in this encounter Progress Notes * Lina Maldonado MA - 07/14/2024 3:17 PM EDT SCHEDULED * Ronit Turner NP - 07/13/2024 4:47 PM EDT Please schedule diagnostic EGD for dysphagia and surveillance colonoscopy for history of colon polyps with Dr. Ross per patient request next available. Please call her daughter Debi on [phone] to schedule. Thank you. documented in this encounter Plan of Treatment Upcoming Encounters Date Type Department Care Team (Late st Contact Info) Description 07/27/2024 1:00 PM EDT Office Visit [facility] Hematology Oncology [address] [place] [phone] Kym Soto PA [address] [place] [address] 12/28/2024 2:40 PM EDT Office Visit [facility] Cardiology Associates - [address] [place] [phone] Kristy Blackmon NP [address] [place] [address] documented as of this encounter Visit Diagnoses Not on filedocumented in this encounter Care Teams Obstetrics Gyn Relationship Specialty Start Date End Date Mahin Hall MD [address] [place] [address] [address] [place] [address] [place] [address] PCP - General Internal Medicine 11/15/13 documented as of this encounter
--- OUTSIDE RECORDS SUMMARY | 2024-07-16 14:17 | XMS_ITS | Encounter Summary ---
Author Organization [employer] [facility] Address [address] [place] [address] Care Team Providers Care Bearing Ring Assembler Name Role Phone Mahin Hall MD Primary Care Provider [phone] Reason for Visit * Reason Comments Anemia * Consultation (Routine) - Authorized Specialty Diagnoses / Procedures Referred By Nava frost Referred To Contact Gastroenterology Diagnoses Macrocytic anemia Mahin Hall MD [address] [address] Phone: tel: fax: Gastroenterology [address] [address] Phone: tel: fax: Referral ID Status Reason Start Date Expiration Date Visits Requested Visits Authorized [id number] Authorized Specialty Services Required 06/22/2024 06/22/2025 1 1 Encounter Details Date Type Department Care Team ([facility] st Contact Info) Description 07/13/2024 1:20 PM EDT Consult Gastroenterology [facility] [address] [address] Ronit Turner NP [address] [address] Esophageal dysphagia (Primary Dx); Macrocytic anemia; History of adenomatous polyp of colon Social History Tobacco Use Types Packs/Day Years [...] Pulse 81 07/13/2024 1:23 PM EDT Temperature - - Respiratory Rate - - Oxygen Saturation 90% 07/13/2024 1:23 PM EDT Inhaled Oxygen Concentration - - Weight 61.7 kg (136 lb) 07/13/2024 1:23 PM EDT Height 149.9 cm (4' 11 ) 07/13/2024 1:23 PM EDT Body Mass Index 27.47 07/13/2024 1:23 PM EDT documented in this encounter Functional [...] documented in this encounter Progress Notes * Ronit Turner, CHICK[facility] RAISER - 07/13/2024 1:20 PM EDT CONSULT REQUEST CHIEF COMPLAINT: Anemia HPI: Teressa Gonzalez is a Surinamese-speaking 74 y.o. old female whose PMH includes former tobacco use, GERD, insomnia, macrocytosis, situational depression, paroxysmal atrial fibrillation on anticoagulants, hyperlipidemia, hypertension, chronic kidney disease, nonischemic cardiomyopathy and NSTEMI was referred by Mahin Hall MD presents to the gastroenterology department today for evaluation of anemia. Patient is Surinamese-speaking. She is accompanied by her daughter Debi who translated during this visit. Patient was referred for evaluation of ongoing macrocytic anemia. She follows with hematology. Significant workup has been done. She was started on Eliquis earlier this year for atrial fibrillation. She has fatigue and dyspnea related to cardiac issues. She denies clinical blood loss including epistaxis, hemoptysis, hematuria, melena or hematochezia. She reports ongoing dysphagia which she describes as feeling of food stuck behind sternal bone . She notes occasional regurgitation of undigested food particles. She denies choking episodes. She denies fever or malaise, nausea, vomiting, odynophagia, abdominal pain or discomfort, loss of appetite, unintentional weight loss or change in bowel habits from baseline. She denies alcohol, tobacco or marijuana use. Colonoscopy 05/12/2019: Diverticulosis in the sigmoid colon. Internal hemorrhoids. Recommended surveillance colonoscopy in 5 years due to personal history of colon polyps. Historical EGD in 2016. Chronic gastritis. No H. pylori. ROS: GENERAL: No malaise, significant weight loss or fever HEENT: No changes in hearing or vision, nose bleeds NECK: No lumps, goiter, pain or significant neck swelling RESPIRATORY: No cough, wheezing or shortness of breath CARDIOVASCULAR: No chest pain GI: See HPI MUSCULOSKELETAL: Chronic back pain SKIN: No lesions, rash or itching PAST MEDICAL HISTORY: Patient Active Problem List Diagnosis Anemia Gastroesophageal reflux disease Insomnia Macrocytosis Reactive depression (situational) Weight loss SOB (shortness of breath) Subsequent non-ST elevation (NSTEMI) myocardial infarction ([facility] V24, [facility] V28) Severe obesity (BMI 35.0-39.9) with comorbidity ([facility] V24, [facility] V28) Secondary hyperparathyroidism of renal origin ([facility] V24) Prediabetes Paroxysmal atrial fibrillation ([facility] V24, [facility] V28) Hyperlipidemia, unspecified Hypertension COPD exacerbation ([facility] V24, [facility] V28) CKD (chronic kidney disease) stage 2, GFR 60-89 ml/min NSTEMI (non-ST elevated myocardial infarction) ([facility] V24, [facility] V28) Cardiomyopathy, nonischemic ([facility] V24, [facility] V28) PAST SURGICAL HISTORY: Past Surgical History: Procedure Laterality Date BREAST LUMPECTOMY PROCEDURE: HISTORICAL BREAST LUMPECTOMY CARDIAC CATHETERIZATION DONE ON 01/09/2024 AT [facility] INDICATIONS:SOB KNEE SURGERY PROCEDURE: HISTORICAL KNEE SURGERY SOCIAL HISTORY: Social History Tobacco Use Smoking status: Former Types: Cigarettes Smokeless tobacco: Never Tobacco comments: Pt states quit 14-15 years ago Substance Use Topics Alcohol use: No Drug use: Yes Types: Marijuana/Cannabis FAMILY HISTORY: Family History Problem Relation Name [...] Hypertension Neg Hx Thyroid disease Neg Hx MEDICATIONS: Outpatient Medications Marked as Taking for the 07/13/24 encounter (Consult) with Ronit Turner NP Medication Sig Dispense Refill albuterol 2.5 mg /3 mL (0.083 %) nebulizer solution Take 3 mL (2.5 mg total) by nebulization every 4 (four) hours if needed for wheezing or shortness of breath. apixaban (Eliquis) 2.5 mg tablet Take 1 tablet (2.5 mg total) by mouth 2 (two) times a day. 180 tablet 1 atorvastatin (LIPITOR) 80 mg tablet Take 1 [...] 2 (two) times a day. calcium carbonate-vitamin D 600 mg-10 mcg (400 unit) per tablet TAKE 1 TABLET BY MOUTH EVERY DAY 90tablet 1 doxepin (SINEquan) 25 mg capsule Take 1 capsule (25 mg total) by mouth at bedtime. fluticasone propionate (FLONASE) 50 mcg/actuation nasal spray Administer 2 sprays into each nostril1 (one) time each day. 48 mL 1 folic acid (FOLVITE) 1 mg tablet Take 1 tablet (1 mg total) by mouth 1 (one) time each day. furosemide (LASIX) 20 mg tablet Take 1 tablet (20 mg total) by mouth 1 (one) time each day. 90 each0 metoprolol succinate (TOPROL-XL) 50 mg 24 hr tablet Take 1 tablet (50 mg total) by mouth 1 (one) time each day. Do not crush or chew. 30 each 0 omeprazole (PriLOSEC) [address] capsule Take 1 capsule (40 mg total) by mouth 2 (two) times a day. Do not crush or chew. 60 capsule 3 pregabalin (LYRICA) 75 mg capsule Take 3 capsules (225 mg total) by mouth at bedtime. tiZANidine (ZANAFLEX) 4 mg tablet TAKE 1 TABLET BY MOUTH EVERY DAY 90 tablet 1 traMADoL (ULTRAM) 50 mg tablet Take 1 tablet (50 mg total) by mouth every 6 (six) hours if needed for moderate pain. ALLERGIES: Allergies Allergen Reactions Ibuprofen Nausea And Vomiting PHYSICAL EXAM: Visit Vitals BP 100/60 Pulse 81 Ht 1.499 m (59 ) Wt 61.7 kg (136 lb) SpO2 90% BMI 27.47 kg/m?? Smoking Status Former BSA 1.57 m?? APPEARANCE: Alert and in no acute distress EYES: Conjunctiva and sclera normal. MOUTH/THROAT: No erythema, exudates or lesions noted NECK: Neck supple, no adenopathy HEART: RRR with normal S1 and S2 LUNG: Clear to auscultation ABDOMEN: soft non tender, no ascites, guarding, or rebound. RECTAL: Exam deferred NEURO: Awake, alert and oriented x 3 SKIN: Skin color, texture, turgor normal. LABS: Lab Results Component Value Date WBC 9.5 06/25/2024 HGB 10.3 (L) 06/25/2024 HCT 31.0 (L) 06/25/2024 MCV 100.3 (H) 06/25/2024 PLT 202 06/25/2024 IMAGING: No results found for this or any previous visit from the past 365 days. IMPRESSION: 1. Esophageal dysphagia 2. Macrocytic anemia 3. History of adenomatous polyp of colon PLAN: Teressa Gonzalez is a Surinamese-speaking 74 y.o. old female whose PMH includes former tobacco use, GERD, insomnia, macrocytosis, situational depression, paroxysmal atrial fibrillation on anticoagulants, hyperlipidemia, hypertension, chronic kidney disease, nonischemic cardiomyopathy and NSTEMI presents for evaluation of anemia. 1. Esophageal dysphagia: Patient advised to cut food into small pieces, chew food thoroughly and pace self. She may transition to soft foods pending EGD. I will schedule diagnostic EGD with dilatation as needed if stricturespresent. 2. Macrocytic anemia: I reviewed anemia workup. Hemoglobin and hematocrit low at 10.3 and 31 respectively. Normal MCV. Ferritin, TIBC, folate and B12 within normal limit. She is following with hematology. 3. History of adenomatous polyp of colon: Historical colonoscopy in 2019 with recommendation to repeat surveillance colonoscopy in 5 years. Surveillance colonoscopy due. I will schedule. Patient understands the risks of EGD/colonoscopy include infection, bleeding and/or bowel perforation with its own emergent surgery and complication. Polypectomy and/or tissue biopsy may be performedduring the procedure. Follow-up after EGD/colonoscopy. Patient agrees with the above plan and understands the need to follow up as indicated. Please note, this note may have been created in part by using [employer] dictation software, and therefore, it may contain typographical and/or grammatical errors inherent in a voice recognition software program I would like to thank Mahin Hall MD for the opportunity to partake in the patient's care. No orders of the defined types were placed in this encounter. AMB REFERRAL TO GASTROENTEROLOGY documented in this encounter Plan of Treatment Upcoming Encounters Date Type Department Care Team (Late st Contact Info) Description 07/27/2024 1:00 PM EDT Office Visit [facility] Hematology Oncology [address] [place] [address] Kym Soto PA [address] [place] [address] 12/28/2024 2:40 PM EDT Office Visit [facility] [address] [facility] [address] [place] [phone] Kristy Blackmon NP [address] [place] [address] documented as of this encounter Visit Diagnoses Diagnosis Esophageal dysphagia- Primary Dysphagia, pharyngoesophageal phase Macrocytic anemia History of adenomatous polyp of colon Personal history of colonic polyps documented in this encounter Orders Outpatient Referral Count Last Ordered Date Fir st Ordered Date AMB REFERRAL TO GASTROENTEROLOGY 1 07/14/19 25 documented in this encounter Care Teams Bearing Ring Assembler Relationship Specialty Start Date End Date Mahin Hall MD 175 [facility] [address] [place] [address] PCP - General Internal Medicine 11/15/13 documented as of this encounter
--- OUTSIDE RECORDS SUMMARY | 2024-07-16 14:17 | XMS_ITS | Data Portability ---
Author Organization [employer] [place] [facility] Address [address] [place] [address] Care Team Providers Care Nitrator Operator Name Role Phone HIM CCA OTHER Assessment No assessment recorded. Plan of Treatment Reminders Order Date Submit Date Provider Last Modified By Organization Details Last Modified Time Details Appointments None recorded. Lab None recorded. Referral None recorded. Procedures None recorded. Surgeries None recorded. Imaging electrocard iogram [address], [address] 13:41:25 Medication Orders None recorded. Patient TargetsNo targets recorded. Patient InstructionsNo instructions recorded. Reason for Referral None Reported. Results Created Date Observation Date Name Description Value Unit Range Abnormal Flag Note LastModifiedBy Organization Detail LastModifiedTime 10/22/19 24 elect rocar diogr am No observ ation record ed. [address], [phone] 10/22/2023 13:41:23 Result Notes None recorded. Procedures Surgical History None recorded. Imaging Results Imaging Date Name Status LastModified by Organization Details LastModified Time 10/22/2023 electrocardiogram completed [address], [address] 10/22/2023 13:41:23 Procedure Notes None recorded. Medical [...] SNOMED-CT Code Diagnosis ICD10 Code Diagnosis Note [id number] Marta George MD Main - [facility] [address] [place] [phone] 10/22/2023 13:05:49 10/22/2023 15:10:42 Intermittent palpitations 752702407 R00.2 Evaluation in the field was performed by my vessel builder colleague, as noted above, I provided real-time [...] been taking until 1-2 hr prior to vessel builder visit. On vessel builder eval VS notable for resting HR 45, [...] Muñoz Member ID Guarantor Name 10/22/2023 1 [facility] - DOS ON OR AFTER 2022 - DUAL ELIGIBLE - JAIL OPTIONS AND ONE CARE (MEDICARE REPLACEMENT/ADV ANTAGE - HMO) Teressa Carlos [id number] Teressa Carlos Notes Date Note Type Note [...] s/s and seek emergency treatment if needed. Automotive Collision Estimator Organization Information for Dariana Hodge Business Legal Name: [facility] [employer]? Address: [address] [place] [address], Chief Of Staff: Raheel Bell MD CLIA No.: [id number] Automotive Collision Estimator POC Test Results from Dariana Hodge EKG (13:28:59) EKG test performed. Reason for missing picture: Left with patient ..................... ..................... ..................... ..................... ..................... ..................... ............... Automotive Collision Estimator Note From Dariana Hodge: Dispatched to the [...] ............... Disposition: Fulfilled Marta George MD [address] [facility],[address], [place], [address], [facility] 10/22/2023 13:42:04 OBGyn Episode No OBEpisode recorded.
== END 2024-07-16 12:20 | disposition home or self-care (01) ==
LOC: HO.HKAS 11:56
PROVIDERS: PCP Internal Medicine; Visit Provider Internal Medicine Nephrology
DX: N18.32 Chronic kidney disease, stage 3b (principal); D63.1 Anemia in chronic kidney disease; I10 Essential (primary) hypertension
CPT/HCPCS: 99214

== ENCOUNTER → 2024-07-16 11:55 | Outpatient (BNVA) | payer OTHER, SELFPAY | PROVIDERS: PCP Internal Medicine; Visit Provider Internal Medicine Nephrology | DX: I12.9 Hypertensive chronic kidney disease with stage 1 through stage 4 chronic kidney disease, or unspecified chronic kidney disease (principal); N18.32 Chronic kidney disease, stage 3b; D63.1 Anemia in chronic kidney disease | CPT/HCPCS: 99212 ==

== ENCOUNTER 2024-10-12 12:33 | Outpatient (REF) | payer OTHER, SELFPAY ==
--- OUTSIDE RECORDS SUMMARY | 2024-10-12 13:18 | XMS_ITS | Clinical Summary ---
Author Organization [employer] Address [address] [facility] [address] [place] [address] Care Team Providers Care Assistant Administrator Name Role Phone Unavailable Primary Care Provider [...] 2 Active cholecalciferol (Vitamin D-3) 1.25 MG (62539 UT) capsule Take 1 capsule by mouth. Active cyanocobalamin (Vitamin B-12) 1000 MCG tablet Take 1,000 mcg by mouth. 02/18/201 9 Active Flowflex COVID-19 Ag Home Test [...] - 2023-2 5 season) 2023 06/23/2020, 05/26/2020 RSV Patients and Patients Aged 60 years or older (1 - 1-dose 75+ series) 2024 Influenza Vaccine (#1) 2024 HIB Vaccines Aged Out No longer [...] to complete this topic Insurance D[facility]AL - [facility]
--- OUTSIDE RECORDS SUMMARY | 2024-10-12 13:18 | XMS_ITS | Data Portability ---
Author Organization [facility] Address [address] [place] [phone] Care Team Providers Care Pig Casting Machine Operator Name Role Phone HIM CCA OTHER Assessment No assessment recorded. Plan of Treatment Reminders Order Date Submit Date Provider Last Modified By Organization Details Last Modified Time Details Appointments None recorded. Lab None recorded. Referral None recorded. Procedures None recorded. Surgeries None recorded. Imaging electrocard iogram [address] [facility], [address] [place] [address], [phone] 13:41:25 Medication Orders None recorded. Patient TargetsNo targets recorded. Patient InstructionsNo instructions recorded. Reason for Referral None Reported. Results Created Date Observation Date Name Description Value Unit Range Abnormal Flag Note LastModifiedBy Organization Detail LastModifiedTime 10/22/19 24 elect rocar diogr am No observ ation record ed. yulia [address], [address] 10/22/2023 13:41:23 Result Notes None recorded. Medical Equipment None Reported. [...] Pulse oximetry Respiratory rate Body temperature Systolic And Diastolic Provider Name and Address Organization Details Last Updated DateTime 4 45 /min 99 % 99 % 16 /min 98.4 [degF] 137/71 mm[Hg] Not Available [employer] - production 4 [...] SNOMED-CT Code Diagnosis ICD10 Code Diagnosis Note [id number] Marta George MD Main - [facility] [address] [place] [address] 10/22/2023 13:05:49 10/22/2023 15:10:42 Intermittent palpitations [id number] R00.2 Evaluation in the field was performed by my greige goods marker colleague, as noted above, I provided real-time [...] been taking until 1-2 hr prior to greige goods marker visit. On greige goods marker eval VS notable for resting HR 45, [...] Recorded Advance Directives Directive None Recorded Payers Insurance Date Sequence Insurance Name Policy Number Policy Muñoz Covered Member ID Muñoz Member ID Guarantor Name 10/22/2023 1 [facility] - DOS ON OR AFTER 2022 - DUAL ELIGIBLE - [facility] OPTIONS AND ONE CARE (MEDICARE REPLACEMENT/ADV ANTAGE - HMO) Teressa Carlos [id number] Teressa Carlos Notes Date Note Type Note [...] s/s and seek emergency treatment if needed. Telecommunications Clerk Organization Information for Dariana Hodge Business Legal Name: [employer]. Address: [address] [place] [address], Digital Asset Coordinator: Raheel Bell MD [facility] No.: [id number] Telecommunications Clerk POC Test Results from Dariana Hodge EKG (13:28:59) EKG test performed. Reason for missing picture: Left with patient ..................... ..................... ..................... ..................... ..................... ..................... ............... Telecommunications Clerk Note From Dariana Hodge: Dispatched to the [...] ............... Disposition: Fulfilled Marta George MD 30 [facility],[address], [place], [address], [employer] 10/22/2023 13:42:04 OBGyn Episode No OBEpisode recorded.
--- OUTSIDE RECORDS SUMMARY | 2024-10-12 13:18 | XMS_ITS | Clinical Summary ---
Author Organization [facility] Address [address] [address] Phone Care Team Providers Care Commercial Front Load Driver Name Role Phone Mahin Hall MD Primary Care Provider [phone] Allergies Active Allergy Reactions Criticality Noted Date Comments Ibuprofen 11/14/2016 Medications acetaminophen (TYLENOL) 500 MG tablet Take 1 tablet by mouth 1 (one) time each day Active albuterol (2.5 MG/3ML) 0.083% nebulizer solution Active doxepin (SINEquan) 25 MG capsule Take [...] every 6 (six) hours if needed Active Breo Ellipta 100-25 MCG/INH aerosol powder 1 Active Incruse Ellipta 62.5 MCG/INH aerosol powder 1 Active Blood Pressure Monitoring (Blood Pressure Monitor 3) deviceIndicatio ns:Stage 3a chronic kidney disease (HCC),Hypertens ion USE EVERY DAY 1 each 4 Active cholecalciferol (VITAMIN D-3) 50 MCG (1999) capsuleIndicati ons:Stage 3a chronic kidney disease (HCC),Vitamin D deficiency, not otherwise specified TAKE 1 CAPSULE BY MOUTH EVERY DAY 90 capsule 1 5 Active Calcium 500-125 MG-UNIT tablet Take 500 mg by mouth 10/06/19 25 Discontinu ed(Med List Maintenanc e) aspirin EC 325 MG EC tablet TAKE 1 TABLET BY MOUTH TWO TIMES A DAY 1 10/06/19 25 Discontinu ed(Med List Maintenanc e) Calcium Carb-Cholecalci ferol (Calcium Carbonate-Vitam in D3) 600-400 MG-UNIT tablet 1 10/06/19 25 Discontinu ed(Med List Maintenanc e) Active Problems Problem Noted Date Diagnosed Date Vitamin D deficiency, not otherwise specified Secondary hyperparathyroidism of renal origin Hypertension 10/04/2023 Chronic obstructive pulmonary disease 04/04/2023 Fibromyalgia 04/04/2023 Nodule of lung 04/04/2023 Osteoarthritis 04/04/2023 Stage 3a chronic kidney disease 01/09/2021 Weight loss 11/20/2017 Anemia 11/15/2016 Gastroesophageal reflux disease 11/15/2016 Insomnia 11/15/2016 Macrocytosis 11/15/2016 Reactive depression (situational) 11/15/2016 Stage 3b chronic kidney disease 12/17/2013 Resolved Problems Problem Noted Date Diagnosed Date Resolved Date 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 04/04/2023 Encounters Date Type Department Care Team Description 10/05/2024 1:00 PM EDT Office Visit [facility] [address] [address] Lou Villegas ARNP Stage 3b chronic kidney disease (HCC) (Primary Dx); Hypertension; Other iron deficiency anemia; Secondary hyperparathyroidism of renal origin (HCC); Vitamin D deficiency, not otherwise specified 09/20/2024 Orders Only [facility] [address] [phone] Lou Villegas ARNP Stage 3a chronic kidney disease (HCC); Hypertension; Other iron deficiency anemia; Secondary hyperparathyroidism of renal origin (HCC) from Last 3 Months Immunizations Immunization Administration Dates Next Due Moderna [...] Sign Reading Time Taken Comments Blood Pressure 98/58 10/05/2024 1:25 PM EDT Pulse 56 10/05/2024 1:25 PM EDT Temperature - - Respiratory Rate 20 07/10/2023 1:43 PM EDT Oxygen Saturation 94% 10/03/2023 10:18 AM EDT Inhaled Oxygen Concentration - - Weight 59.9 kg (132 lb) 10/05/2024 1:25 PM EDT Height 147.3 cm (4' 10 ) 01/30/2022 3:35 PM EST Body Mass Index 27.59 01/30/2022 3:35 PM EST Plan of Treatment Upcoming Encounters Date Type Department Care Team (Late st Contact Info) Description 04/06/2025 1:15 PM EST Office Visit [facility] [address] [phone] Lou Villegas ARNP [address] [phone] Health Maintenance Due Date Last Done Comments Breast Cancer Screening 1949 Colorectal Cancer Screening: Annual FOBT 1998 Colorectal Cancer Screening: Colonoscopy 1998 Colorectal Cancer Screening: Sigmoidoscopy 1998 Diabetes: Hemoglobin A1C 04/06/2024 021, 12/31/2019, 10/07/2018 Diabetes: Ophthalmology Exam 04/06/2024 Diabetes: Pedal Pulse Checked 04/06/2024 Diabetes: Sensory Foot Exam 04/06/2024 Diabetes: Visual Foot Exam 04/06/2024 Influenza Vaccine (#1) 2024 01/02/2019 Pneumococcal Vaccine: 50+ Years Completed [...] discussed with health care provider. DIAGNOSTIC USE: The [place] Diabetes Association (ADA) and the World Health [...] Supplement 1 Testing performed or reported by [facility], a Service of [facility], [address] [place] [address] Ale Feldman MD, Stock Turner [facility]# [id number] 01/17/2021 3:19 PM EDT 01/17/2021 3:20 PM EDT us Gamaliel Chin MD LAB BLOOD ORDERABLES Final Re sult [facility] from Last 3 Months or Most Recently Relevant to Health Maintenance [place] [address] ([id number]) [facility] ([id number]) Care Teams Commercial Front Load Driver Relationship Specialty Start Date End Date Mahin Hall MD [address] [place] [id number] PCP - General 04/04/20
--- OUTSIDE RECORDS SUMMARY | 2024-10-12 13:18 | XMS_ITS | Clinical Summary ---
Author Organization [employer] [facility] Address [address] [place] [address] Care Team Providers Care Finishing Range Supervisor Name Role Phone Mahin Hall MD Primary [...] as needed for pain. 0 Active Tiotropium [place] Monohydrate (SPIRIVA HANDIHALER IN) Inhale into the [...] 71 10/29/2023 10:54 AM EDT Temperature 36.3 C (97.4 F) 10/29/2023 10:54 AM EDT Respiratory Rate - - Oxygen Saturation 97% [...] (2 - 2023-2 5 season) 2023 06/23/2020 RSV Adult > 60+ Yrs or (1 - 1-dose 75+ series) 2024 Influenza Vaccine (#1) 2024 01/02/2019 DTap / Tdap / Td (2 - Td or Tdap) 07/04/2025 07/05/2015 Pneumococcal Vaccine Completed 03/28/2018, 07/05/2015 Hepatitis B Vaccines Aged Out No long er eligible based on patient's age to complete this topic RSV Ped < 20 months Aged Out No longe r eligible based on patient's age to complete this topic Care Teams Finishing Range Supervisor Relationship Specialty Start Date End Date Mahin Hall MD PCP - General Internal Medicine 12/21/19
[2024-10-12 17:30] LABS: MANUAL DIFF FLAG NO
[2024-10-12 17:36] LABS: Hematocrit 31.9 % (37.0-47.0); Hemoglobin 10.2 g/dl (12.0-16.0); Imm Gran Abs Auto 0.03 X10*3/uL (0.00-0.03); Imm Gran Pct Auto 0.4 % (0.0-0.4); Lymphocytes Absolute Auto 1.6 X10*3/uL (1.2-4.9); Mean Corpuscular HGB Conc 32.0 g/dl (31.0-35.0); Mean Corpuscular Hemoglobin 32.5 pg (27.0-33.0); Mean Corpuscular Volume 101.6 fL (80.0-98.0); NRBC Abs Auto 0.000 X10*3/uL (0.0-0.012); NRBC Pct Auto 0.0 /100WBC (0.0-0.2); Platelet Count 218 X10*3/uL (160-400); Red Blood Count 3.14 X10*6/uL (4.20-5.50); White Blood Count 8.2 X10*3/uL (4.8-10.8)
[2024-10-12 17:43] LABS: Anion Gap 11 (12-20); Blood Urea Nitrogen 22 mg/dL (9-16); Carbon Dioxide 23 mmol/L (22-29); Chloride 112 mmol/L (96-108); Estimated Glomerular Filt Rate 28; Potassium 4.1 mmol/L (3.3-5.1); Sodium 142 mmol/L (135-145)
== END 2024-10-12 12:34 | disposition home or self-care (01) ==
LOC: HO.HKASLDS 12:33
PROVIDERS: Visit Provider Internal Medicine Nephrology
DX: I12.9 Hypertensive chronic kidney disease with stage 1 through stage 4 chronic kidney disease, or unspecified chronic kidney disease (principal); N18.32 Chronic kidney disease, stage 3b; D63.1 Anemia in chronic kidney disease
CPT/HCPCS: 36415; 80051; 82565; 84520; 85025

== ENCOUNTER 2025-02-10 13:10 | Outpatient (REF) | payer OTHER, SELFPAY ==
[2025-02-10 20:21] LABS: Folate 4.7 ng/mL (> or = 4.0); Vitamin B12 289 pg/mL (200-900)
== END 2025-02-10 13:11 | disposition home or self-care (01) ==
LOC: HO.HKASLDS 13:10
PROVIDERS: PCP Internal Medicine; Visit Provider Student in an Organized Health Care Education/Training Program
DX: M70.61 Trochanteric bursitis, right hip (principal); M19.041 Primary osteoarthritis, right hand; M19.042 Primary osteoarthritis, left hand; R20.0 Anesthesia of skin; R20.2 Paresthesia of skin; M79.7 Fibromyalgia; Z13.1 Encounter for screening for diabetes mellitus
CPT/HCPCS: 36415; 82607; 82746; 83036; 84443; 99202

== ENCOUNTER 2025-02-10 13:10 | Outpatient (AMB) | payer OTHER, SELFPAY ==
[2025-02-10 13:14] VITALS: BP 100/62; PULSE 60; O2SAT 96; BMI 25.9
--- NOTE | 2025-02-10 13:14 | MHC.OFFVIS ---
Vital Signs 02/10/25 13:14 Height 5 ft Weight 132 lb 11.492 oz BMI 25.9 BP 100/62 Blood Pressure Location Lt brachial Position Sitting Pulse 60 Pulse Source Pulse Oximeter Pulse Oximetry (%) 96 Oxygen Delivery Method Room Air Intake Visit Reasons: FM/OA Intake Note: Patient presents for follow up on fibromyalgia, osteoarthritis, and spondylosis. She was last seen by Dr. Oviedo on 10/09/23. Patient complains of pain in fingers in both hands with tingling, and under right heel pain, feels like she had a cut there, but not. Stopper Maker Helper Required: No Stopper Maker Helper Services: Stopper Maker Helper Offered & Declined Accompanied by: Daughter Allergies ibuprofen Allergy (Unknown, Verified 02/10/25 13:17) GI upset Medication List - Last Reconciled 02/10/25 by Eunice Sarmiento MD apixaban (Eliquis) 5 mg PO BID aspirin 81 mg PO DAILY atorvastatin 80 mg PO DAILY budesonide 1 mg inhalation DAILY budesonide-formoterol 160-4.5 mcg/actuation 2 puffs inhalation BID doxepin 25 mg PO BEDTIME fluticasone propionate 50 mcg/actuation (Flonase Allergy Relief) 2 sprays intranasal DAILY folic acid 1 mg PO DAILY furosemide 20 mg PO DAILY gabapentin 100 mg PO BEDTIME loratadine (Claritin) 10 mg PO DAILY metoprolol succinate ER 50 mg PO DAILY omeprazole 40 mg PO BID pantoprazole 40 mg PO BID pregabalin 225 mg PO BEDTIME tizanidine 4 mg PO BEDTIME PRN tramadol 50 mg PO Q6-8H PRN HPI Comments Details: 74-year-old female with a history of CKD, fibromyalgia and osteoarthritis coming in for follow-up. She has been patient at this practice, however she is a new patient to me. Her last visit was in March 2024 of this year, that time she had generalized pain involving hands cervical spine lumbar spine. At that time she had stopped Lyrica due to constipation and was on tramadol 50mg for pain relief Today, she is accompanied with her daughter. She states that she has ongoing joint pain generalized joint pain in the hands shoulders back knees and hips. She has poor sleep. The joint pain. She is currently on tramadol 50 mg she takes every 6-12 hours. Dear requesting refill for the tramadol. No new fever, no new skin rashes, no oral ulcers, no pleuritic chest pain. Patient now reports new onset numbness and tingling in both hands. X-rays of the hands, cervical lumbar spine reviewed which showed findings of osteoarthritis involving both the hands, cervical spondylosis and lumbar spondylosis with disc space narrowing Vital signs reviewed PHYSICAL EXAM General: Comfortable CVS: RRR Respiratory: clear to auscultation bilaterally. Good respiratory effort Skin: No lesions seen MSK: Patient has [place] and ulcer nodes present bilaterally in both hands, findings of osteoarthritis present particularly bony hypertrophy of the DIPs. Limited range of motion in both upper extremities, limited range of motion of the shoulders. Limited range of motion in bilateral hips and knees, no active synovitis noted in any of the joints. [facility] Medical History (Updated 02/10/25 @ 13:57 by Eunice Sarmiento MD) Reactive depression (situational) Macrocytosis Insomnia GERD (gastroesophageal reflux disease) Anemia Weight loss Severe obesity (BMI 35.0-39.9) with comorbidity COPD exacerbation Hyperlipidemia Paroxysmal atrial fibrillation Subsequent non-ST elevation (NSTEMI) myocardial infarction SOB (shortness of breath) Hypertension Secondary hyperparathyroidism of renal origin Prediabetes NSTEMI (non-ST elevated myocardial infarction) Cardiomyopathy, nonischemic Spondylosis without myelopathy or radiculopathy, lumbar region Surgical History H/O cardiac catheterization History of hip replacement, total History of knee surgery H/O lumpectomy Family History Brother Cancer Social History Alcohol intake: never Patient Tobacco Use Status: Former Tobacco user Tobacco use type: Cigarette Cigarettes Per Day: 10 Years Smoked: 48 e-Cigarette/Vaping Use: Never Used Physical Exam Vital Signs: BMI result Body Mass Index 25.9 Assessment & Plan Assessment & Plan (1) Fibromyalgia: Code(s): M79.7 - Fibromyalgia Category: Medical (2) Osteoarthritis of hands, bilateral: Code(s): M19.041 - Primary osteoarthritis, right hand; M19.042 - Primary osteoarthritis, left hand Category: Medical Qualifiers: Osteoarthritis type: primary Qualified Code(s): M19.041 - Primary osteoarthritis, right hand; M19.042 - Primary osteoarthritis, left hand (3) Numbness and tingling of both upper extremities: Code(s): R20.0 - Anesthesia of skin; R20.2 - Paresthesia of skin Category: Medical (4) Greater trochanteric bursitis of right hip: Code(s): M70.61 - Trochanteric bursitis, right hip Category: Medical Plan Patient is a follow-up for osteoarthritis and fibromyalgia. Patient is currently on tramadol 50 mg every 6-12 hours as needed. Patient requesting refill however I informed her that I would like the PCP to take over for the prescription of her long-term opioids for pain control. Patient has new onset numbness tingling in bilateral upper extremities particularly in the hands. We will work this up with HB A1c and thyroid function studies and B12 levels, along with bilateral EMG of the upper extremities We will try very low-dose gabapentin 100 mg at night to see if there is any relief. I offered options of PT OT, patient reported that she has already tried these options is not interested today. We will follow up with the patient in 3 months to assess her numbness and tingling. Orders: Orders TSH reflex Free T4 Today R20.0 - Anesthesia of skin, R20.2 - Paresthesia of skin NE electromyogram (EMG) Today R20.0 - Anesthesia of skin, R20.2 - Paresthesia of skin Vitamin B12 and Folate Today M70.61 - Trochanteric bursitis, right hip Hemoglobin A1c Today R20.0 - Anesthesia of skin, R20.2 - Paresthesia of skin Medications: New gabapentin 100 mg PO BEDTIME 30 caps 2RF Coding Level of Care Code New Pt Level 4 (49320) Diagnoses Fibromyalgia M79.7 Primary osteoarthritis of both hands M19.041; M19.042 Osteoarthritis type: primary Numbness and tingling of both upper extremities R20.0; R20.2 Greater trochanteric bursitis of right hip M70.61
--- OUTSIDE RECORDS SUMMARY | 2025-02-11 01:03 | XMS_ITS | Data Portability ---
Author Organization [facility] Address [address] [place] [phone] Care Team Providers Care Project Portfolio Analyst Name Role Phone HIM CCA OTHER Assessment No assessment recorded. Plan of Treatment Reminders Order Date Submit Date Provider Last Modified By Organization Details Last Modified Time Details Appointments None recorded. Lab None recorded. Referral None recorded. Procedures None recorded. Surgeries None recorded. Imaging electrocard iogram 2023 024 yulia [facility], [address] [place] [address], [id number] 13:41:25 Medication Orders None recorded. Patient TargetsNo targets recorded. Patient InstructionsNo instructions recorded. Reason for Referral None Reported. Results Created Date Observation Date Name Description Value Unit Range Abnormal Flag Note LastModifiedBy Organization Detail LastModifiedTime 10/22/19 24 elect rocar diogr am No observ ation record ed. yulia [address], [phone] 10/22/2023 13:41:23 Result Notes None recorded. Medical [...] Diagnosis SNOMED-CT Code Diagnosis ICD10 Code Diagnosis IMO Codes Diagnosis Note [id number] Marta George MD Main - [facility] [address] [place] [phone] 10/22/2023 13:05:49 10/22/2023 15:10:42 Intermittent palpitations [id number] R00.2 Evaluation in the field was performed by my airplane mechanic apprentice colleague, as noted above, I provided real-time [...] been taking until 1-2 hr prior to airplane mechanic apprentice visit. On airplane mechanic apprentice eval VS notable for resting HR 45, [...] Muñoz Member ID Guarantor Name 10/22/2023 1 [facility] - DOS ON OR AFTER 2022 - DUAL ELIGIBLE - CORRECTION OPTIONS AND ONE CARE (MEDICARE REPLACEMENT/ADV ANTAGE - HMO) Teressa Carlos [id number] Teressa Carlos Notes Date Note Type Note [...] s/s and seek emergency treatment if needed. Manager Quality Improvement Organization Information for Naveen Dariana ROMERO Business Legal Name: [employer] Address: [address] [place] [id number], Software Sales: Raheel Bell MD [place] No.: [id number] Manager Quality Improvement POC Test Results from Dariana Hodge HEATHER EKG (13:28:59) EKG test performed. Reason for missing picture: Left with patient ..................... ..................... ..................... ..................... ..................... ..................... ............... Manager Quality Improvement Note From Dariana Hodge: Dispatched to the [...] kiko, 12 lead non diagnostic for STEMI. C consulted. Pt was advised to contact her PCP for a holter monitor and that if the palpitations returned she should present to the ED. Red flags discussed. ALL times are approx. ..................... ..................... ..................... ..................... ..................... ..................... ............... Disposition: Fulfilled Marta George MD [address] [facility],[address], [place], [phone], [email or web address] 10/22/2023 13:42:04 OBGyn Episode No OBEpisode recorded.
--- OUTSIDE RECORDS SUMMARY | 2025-02-11 01:03 | XMS_ITS | Clinical Summary ---
Author Organization [employer] Address [address] [facility] [address] [place] [address] Care Team Providers Care Packer Operator Automatic Name Role Phone Unavailable Primary Care Provider [...] 2 Active cholecalciferol (Vitamin D-3) 1.25 MG (37669 UT) capsule Take 1 capsule by mouth. [...] 1968 Zoster Vaccines (1 of 2) 1999 RSV Patients and Patients Aged 60 years or older (1 - 1-dose 75+ series) 2024 COVID-19 Vaccine (3 - 2024-2 6 season) 2024 06/23/2020, 05/26/2020 Influenza Vaccine (#1) 2024 HIB Vaccines Aged [...] to complete this topic Insurance [facility] - [facility]
--- OUTSIDE RECORDS SUMMARY | 2025-02-11 01:04 | XMS_ITS | Clinical Summary ---
Author Organization [facility] Address [address] [phone] Phone Care Team Providers Care Print Line Operator Name Role Phone Mahin Hall MD Primary Care Provider [phone] Allergies Active Allergy Reactions Criticality Noted Date [...] Active Breo Ellipta 100-25 MCG/INH aerosol powder 01/09/2021 [...] Stage 3a chronic kidney disease 01/09/2021 Weight decreased 11/20/2017 Anemia 11/15/2016 Gastroesophageal reflux disease 11/15/2016 Insomnia 11/15/2016 Macrocytosis 11/15/2016 Reactive depression (situational) 11/15/2016 Stage 3b chronic kidney disease 12/17/2013 Resolved Problems Problem Noted Date Diagnosed Date Resolved Date 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 [address] [place] [phone] Lou Villegas ARNP [address] [facility] [address] [place] [address] Health Maintenance Due Date Last Done Comments [...] PM EDT) Hemoglobin A1C 5.5 (4.0-5.6) % [facility] Comment: MONITORING: In known diabetic patients, hemoglobin A1c targets should be discussed with health care provider. DIAGNOSTIC USE: The [place] [employer] (ADA) and the World Health [...] Supplement 1 Testing performed or reported by [facility], a Service of [facility], [address] [place] [address] Ale Feldman MD, [place] CAROL# [id number] 01/17/2021 3:19 PM EDT 01/17/2021 3:20 PM EDT Gamaliel Chin MD LAB BLOOD ORDERABLES Final Re sult [facility] from Last 3 Months or Most Recently Relevant to Health Maintenance Insurance ([id number]) ([id number]) Care Teams Print Line Operator Relationship Specialty Start Date End Date Mahin Hall MD [address] [place] [phone] PCP - General 04/04/20
--- OUTSIDE RECORDS SUMMARY | 2025-02-11 01:04 | XMS_ITS | Clinical Summary ---
Author Organization [employer] Address [address] [place] [address] Care Team Providers Care Cnc Mill And Lathe Operator Name Role Phone Mahin Hall MD [...] as needed for pain. 0 Active Tiotropium [place] Monohydrate (SPIRIVA HANDIHALER IN) Inhale into the [...] Assessment 2014 Osteoporosis Screening (DEXA Scan) 2014 RSV Adult > 60+ Yrs or (1 - 1-dose 75+ series) 2024 COVID-19 Vaccine (2 - 2024-2 6 season) 2024 06/23/2020 Influenza Vaccine (#1) 2024 01/02/2019 DTap / Tdap / Td (2 - Td or Tdap) 07/04/2025 07/05/2015 Pneumococcal Vaccine Completed 03/28/2018, 07/05/2015 Hepatitis B Vaccines Aged Out No long er eligible based on patient's age to complete this topic RSV Ped < 20 months Aged Out No longe r eligible based on patient's age to complete this topic Care Teams Cnc Mill And Lathe Operator Relationship Specialty Start Date End Date Mahin Hall MD PCP - General Internal Medicine 12/21/19
== END 2025-02-10 15:32 | disposition home or self-care (01) ==
LOC: HO.RHES 13:11
PROVIDERS: PCP Internal Medicine; Visit Provider Student in an Organized Health Care Education/Training Program
DX: M19.042 Primary osteoarthritis, left hand (principal); R20.0 Anesthesia of skin; R20.2 Paresthesia of skin; M70.61 Trochanteric bursitis, right hip; M79.7 Fibromyalgia; M19.041 Primary osteoarthritis, right hand
CPT/HCPCS: 99204